=== PATIENT | female | born 2000 | race Caucasian/White ===

== ENCOUNTER 2019-09-07 09:57 | Outpatient (CLI) | payer OTHER, SELFPAY ==
--- NOTE | ~2019-09-07 | US_ITS ---
EXAMINATION: US OB <=14 wk fetus w TV EXAM DATE: 09/07/2019 10:54 INDICATION: For dating. First trimester. TECHNIQUE: Pelvic obstetrical transabdominal sonogram was performed by a technologist. There are mu ltiple grayscale and Doppler images available for interpretation. There are no earlier studies of th is gestation for comparison. FINDINGS: Uterus measures 10.0 x 6.6 x 8.2 cm. There is intrauterine gestation sac. pole with heart rate confirmed at 165 beats per minute. The 3.6 cm crown-rump length corresponds to estimated gestational age by ultrasound of 10 weeks 3 days, estimated date of confinement 04/01/2020. Yolk sac is identified. There is a tiny hypoechoic region, probably subchorionic hematoma measuring 3 x 7 m m. Right ovary is morphologically normal, the left not seen IMPRESSION: 1. Intrauterine gestation, age by ultrasound 10 weeks 3 days. 2. Probable tiny subchorionic hematoma. Reviewed, dictated and finalized at location B.
== END 2019-09-07 09:58 | disposition home or self-care (01) ==
LOC: ANHIMG 10:05
PROVIDERS: Visit Provider Obstetrics & Gynecology
DX: E72.12 Methylenetetrahydrofolate reductase deficiency (principal); Z3A.10 10 weeks gestation of pregnancy
CPT/HCPCS: 76801; 76817

== ENCOUNTER 2019-10-09 09:52 | Outpatient (CLI) | payer OTHER, SELFPAY ==
--- NOTE | ~2019-10-09 | US_ITS ---
EXAMINATION: US OB follow up DATE: 10/09/2019 10:37 INDICATION: Possible subchorionic hemorrhage, second trimester TECHNIQUE: Real-time ultrasound of the pelvis was performed. The interpreting radiologist was not pre sent for the study. COMPARISON: 09/07/2019 FINDINGS: There is a single living fetus in breech presentation. The placenta is posterior and 1.8 cm from the internal cervical os. There are hypoechoic areas of the placenta which measure 2.2 x 1.1 x 1.0 cm and 1.2 x 0.9 x 0.8 cm. cardiac activity and movement are noted. heart rate is 150 beats per minute (bpm). The amniotic fluid index is subjectively normal. The following biometric data were obtained: Biparietal diameter (BPD): 2.9 cm; head circumference (HC): 11.2 cm; abdominal circumference (AC): 9. 7 cm; femur length (FL): 1.7 cm. These measurements are concordant. Estimated weight is 126 g +/- 18 g, which correlates with the 73rd percentile when 04/01/2020 is used as estimated date of delivery. As single measurements, these parameters are each equal to the following estimated gestational ages w ith ranges of +/- 2 standard deviations: BPD: 15 weeks 2 days ( 14 weeks 1 days - 16 weeks 3 days). HC: 15 weeks 3 days ( 14 weeks 2 days - 16 weeks 5 days). AC: 15 weeks 6 days ( 14 weeks 1 days - 17 weeks 3 days). FL: 15 weeks 1 days ( 13 weeks 6 days - 16 weeks 4 days). estimated gestational age based solely on measurements from this exam is 15 weeks 3 days +/- 1 weeks 1 days. IMPRESSION: 1. Single living fetus in breech presentation. 2. Two small hypoechoic areas of the placenta which could represent venous lakes or subchorionic cedric enrique. 3. Low-lying placenta. Reviewed, dictated and finalized at location A. IMPRESSION: 1. Single living fetus in breech presentation. 2. Two small hypoechoic areas of the placenta which could represent venous padilla s or subchorionic hematomas. 3. Low-lying placenta.
== END 2019-10-09 09:53 | disposition home or self-care (01) ==
PROVIDERS: Visit Provider Obstetrics & Gynecology
DX: O43.899 Other placental disorders, unspecified trimester (principal); Z3A.00 Weeks of gestation of pregnancy not specified
CPT/HCPCS: 76816

== ENCOUNTER 2019-12-08 07:44 | Outpatient (CLI) | payer OTHER, SELFPAY ==
--- NOTE | ~2019-12-08 | US_ITS ---
EXAMINATION: US OB /maternal detail DATE: 12/08/2019 09:06 INDICATION: anatomic survey. TECHNIQUE: Real-time ultrasound of the pelvis was performed. COMPARISON: Ultrasound 10/09/2019, 09/07/2019 FINDINGS: There is a single living fetus in breech presentation. The placenta is posterior, 4.5 cm from the ce rvix. There are 2 hypoechoic masses in the placenta with the larger measuring 1.7 x 2.5 x 2.6 cm. Fet al heart rate is 150 beats per minute (bpm). The amniotic fluid volume is subjectively low. The following biometric data were obtained: Biparietal diameter (BPD): 4.9 cm; head circumference (HC): 20.7 cm; abdominal circumference (AC): 19 .3 cm; femur length (FL): 4.0 cm. These measurements are discordant with low cephalic index. Estimated weight is 582 g +/- 87 g, which correlates with 30th percentile when 04/01/20 is used as estimated date of delivery. As single measurements, these parameters are each equal to the following estimated gestational ages: BPD: 20 weeks 6 days. HC: 22 weeks 6 days. AC: 24 weeks 0 days. FL: 22 weeks 6 days. estimated gestational age based solely on measurements from this exam is 22 weeks 5 days +/- 1 weeks 4 days. The cerebral ventricles, cerebellum, cisterna magna, nuchal fold, and visualized portions of the spin e are normal. The heart is not well visualized. The diaphragm, stomach, kidneys, and bladder ar e normal. There are two umbilical arteries to yield a 3-vessel cord. The cord insertion is normal. IMPRESSION: 1. Single living fetus in breech presentation. 2. Estimated weight is 582 g +/- 87 g, which correlates with 30th percentile when 04/01/20 is u sed as estimated date of delivery. This date was set by ultrasound on 09/07/2019. 3. Low cephalic index. 4. heart not well evaluated. Otherwise normal anatomic survey. 5. Oligohydramnios. 6. Two hypoechoic masses in the placenta that may be hematomas or venous lakes. Reviewed, dictated and finalized at location A. IMPRESSION: 1. Single living fetus in breech presentation. 2. Estimated weight is 582 g +/- 87 g, which correlates with 30th percen tile when 04/01/20 is used as estimated date of delivery. This date was set by [facility] on 09/07/2019. 3. Low cephalic index. 4. heart not well evaluated. Otherwise normal anatomic survey. 5. Oligohydramnios. 6. Two hypoechoic masses in the placenta that may be hematomas or venous lakes.
== END 2019-12-08 07:45 | disposition home or self-care (01) ==
PROVIDERS: Visit Provider Obstetrics & Gynecology
DX: Z34.92 Encounter for supervision of normal pregnancy, unspecified, second trimester (principal); Z3A.22 22 weeks gestation of pregnancy
CPT/HCPCS: 76805

== ENCOUNTER 2020-03-25 06:10 | Inpatient (IN) | payer OTHER, SELFPAY ==
[2020-03-25] VITALS (78 sets, daily range): BP systolic 51–136; BP diastolic 29–97; PULSE 42–213; RESP 18; TEMP 36.2–36.8; O2SAT 79–100; BMI 39.3
[2020-03-25 07:29] LABS: Basophils Absolute Auto 0.1 K/mm3 (0.0-0.1); Basophils Percent Auto 0.6 % (0.2-1.2); Eosinophils Absolute Auto 0.4 K/mm3 (0-0.3); Eosinophils Percent Auto 3.4 % (0-4.4); Hematocrit 35.1 % (37.0-47.0); Hemoglobin 11.8 g/dL (12.0-15.0); Immature Granulocyte Absolute 0.09 K/mm3 (0.00-0.031); Immature Granulocyte Percent A 0.8 % (0-0.5); Lymphocytes Absolute Auto 2.41 K/mm3 (0.9-3.2); Lymphocytes Percent Auto 21.3 % (18.3-44.2); Mean Corpuscular HGB Conc 33.6 g/dl (32-36); Mean Corpuscular Hemoglobin 31.1 pg (26-34); Mean Corpuscular Volume 92.4 fl (80-100); Mean Platelet Volume 10.8 fl (7.4-10.4); Monocytes Absolute Auto 0.5 K/mm3 (0.1-0.6); Monocytes Percent Auto 4.3 % (2.6-8.5); Neutrophils Absolute Auto 7.9 K/mm3 (1.3-6.7); Neutrophils Percent Auto 69.6 % (45.5-73.1); Platelet Count Result 209 k/mm3 (150-375); Red Cell Distribution Width 12.7 % (11.5-14.5); White Blood Count 11.3 K/mm3 (4.5-10.0)
[2020-03-25 07:31] LABS: Amphetamine Screen Urine Negative (Negative); Barbiturate Screen Urine Negative (Negative); Benzodiazepines Screen Urine Negative (Negative); Cannabinoid Screen Urine Positive (Negative); Cocaine Screen Urine Negative (Negative); Methadone Screen Urine Negative (Negative); Opiate Screen Urine Negative (Negative); Phencyclidine Screen Urine Negative (Negative)
[2020-03-25] MEDS: LACTATED RINGERS 1,000 ML 125 ML IV CONT ×3 (07:59→19:27)
[2020-03-25] MEDS: AMPICILLIN 2 GM/NS 100 ML 2 GM/100 ML BAG IVPB (07:59)
[2020-03-25] MEDS: OXYTOCIN 30 UNITS/NS 500 ML 30 UNITS/500 ML BAG IV CONT (08:00)
--- NOTE | 2020-03-25 09:33 | LDADM ---
This patient, Claire Grande, was admitted to Labor/Delivery/Recovery 107 on 03/25/20 at 06:10. Plans for labor, pain management and were discussed with patient. Patient/family oriented to hospital policies and general routines including ID bracelet, bed and alarms, visiting hours, pain management, procedures, bathroom and other care routines, personal items, smoking policy, room service/diet and guest tray routines, security routines, and visiting hours. Patient/Family are encouraged to report perceived risks to care and to ask questions if they do not understand what they are told or what they should do. See OBIX for further documentation.
[2020-03-25 11:55] LABS: Rapid Plasma Reagin Non-Reactive (NonReactive)
--- NOTE | 2020-03-25 18:04 | WPDANESEPP ---
Anes - Eval Pre Procedure Procedure: Labor epidural Date/Time: 03/25/20 18:04 Surgeon: Jess Preop Diagnosis: pain during labor Pre Op Diagnosis: ind Patient Data Age: 19 Gender: F Height: 1.7 m Weight: 114 kg Last Vital Signs Temp 36.2 C L 03/25/20 15:45 Pulse 96 03/25/20 18:00 BP 122/97 H 03/25/20 18:00 Allergies Allergy/AdvReac Type Severity Reaction Status Date / Time No Known Allergies Allergy Verified 03/08/20 12:50 Home Medications Medication Instructions Recorded Confirmed Type aspirin See Rx Instructions .ROUTE .COMPLEX 03/25/20 03/25/20 History escitalopram oxalate See Rx Instructions .ROUTE .COMPLEX 03/25/20 03/25/20 History folic acid See Rx Instructions .ROUTE .COMPLEX 03/25/20 03/25/20 History Laboratory Tests 03/25/20 03/25/20 03/25/20 06:39 06:39 06:39 WBC 11.3 K/mm3 H K/mm3 (4.5-10.0) RBC 3.80 M/mm3 L M/mm3 (4.2-5.4) Hgb 11.8 g/dL L g/dL (12.0-15.0) Hct 35.1 % L % (37.0-47.0) MCV 92.4 fl fl (80-100) MCH 31.1 pg pg (26-34) MCHC 33.6 g/dl g/dl (32-36) RDW 12.7 % % (11.5-14.5) Plt Count 209 k/mm3 k/mm3 (150-375) MPV 10.8 fl H fl (7.4-10.4) Immature Gran % (Auto) 0.8 % H % (0-0.5) Neut % (Auto) 69.6 % % (45.5-73.1) Lymph % (Auto) 21.3 % % (18.3-44.2) [place] % (Auto) 4.3 % % (2.6-8.5) Eos % (Auto) 3.4 % % (0-4.4) Baso % (Auto) 0.6 % % (0.2-1.2) Lymph # (Auto) 2.41 K/mm3 K/mm3 (0.9-3.2) [place] # (Auto) 0.5 K/mm3 K/mm3 (0.1-0.6) Eos # (Auto) 0.4 K/mm3 H K/mm3 (0-0.3) Baso # (Auto) 0.1 K/mm3 K/mm3 (0.0-0.1) Abs Immat Gran (auto) 0.09 K/mm3 H K/mm3 (0.00-0.031) Absolute Neuts (auto) 7.9 K/mm3 H K/mm3 (1.3-6.7) Absolute Nucleated RBC 0.0 K/mm3 K/mm3 (0.0-0.012) Nucleated RBC % 0.0 % % (0.0-0.2) Urine Opiates Screen Urine Methadone Screen Ur Barbiturates Screen Ur Phencyclidine Scrn Ur Amphetamine Screen U Benzodiazepines Scrn Urine Cocaine Screen U Cannabinoids Screen RPR Non-reactive (NonReactive) Blood Type A Positive Antibody Screen Negative 03/25/20 07:02 WBC RBC Hgb Hct MCV MCH MCHC RDW Plt Count MPV Immature Gran % (Auto) Neut % (Auto) Lymph % (Auto) [place] % (Auto) Eos % (Auto) Baso % (Auto) Lymph # (Auto) [place] # (Auto) Eos # (Auto) Baso # (Auto) Abs Immat Gran (auto) Absolute Neuts (auto) Absolute Nucleated RBC Nucleated RBC % Urine Opiates Screen Negative (Negative) Urine Methadone Screen Negative (Negative) Ur Barbiturates Screen Negative (Negative) Ur Phencyclidine Scrn Negative (Negative) Ur Amphetamine Screen Negative (Negative) U Benzodiazepines Scrn Negative (Negative) Urine Cocaine Screen Negative (Negative) U Cannabinoids Screen Positive A (Negative) RPR Blood Type Antibody Screen Patient hx anesthesia problems: none Family hx anesthesia problems: none [facility] Past Medical History Medical History (Updated 03/25/20 @ 18:05 by Cee Gonzalez CRNA) Depression Intrauterine Obesity (BMI 30-39.9) Social History Social History Smoking status: Never smoker Substance use: never Gender identity (if verbalized by the patient): Female Spiritual care concerns: No Exam Day of Procedure 03/25/20 18:04
[2020-03-25] MEDS: fentaNYL CITRATE INJ (*CRX) 100 MCG/2 ML VIAL IV PUSH (18:38)
--- NOTE | 2020-03-25 19:00 | PM.IMHP ---
H&P: HPI History of Present Illness Date/Time: 03/25/20 07:00 Chief complaint: ind Narrative: Claire Grande is a 19 year old female, , presents for SANCHO at 39w0d. H/o obesity, post- depression, premature labor, abnormal progesterone, and MTHFR here for induction of laborShe understands her condition procedure and risks involved and agrees to proceed Review of Systems Review of Systems: All systems reviewed & are unremarkable except as noted in HPI and below Constitutional: Constitutional: Reports no additional constitutional complaints Eyes: Eyes: Reports no additional eye complaints ENT: Reports system reviewed and no additional complaints, except as documented Cardiovascular: Cardiovascular: Reports no additional cardiovascular complaints Respiratory: Respiratory: Reports no additional respiratory complaints Gastrointestinal: Gastrointestinal: Reports no additional gastrointestinal complaints Genitourinary: Genitourinary: Reports no additional female genitourinary complaints Musculoskeletal: Musculoskeletal: Reports no additional musculoskeletal complaints Integumentary/Breasts: Skin/Breast: Reports system reviewed and no additional complaints, except as docu Neurologic: Reports system reviewed and no additional complaints, except as documented Psychiatric: Psychiatric: Reports no additional psychiatric complaints Endocrine: Endocrine: Reports no additional endocrine complaints Hematologic/Lymphatic: Hematologic/Lymphatic: Reports no additional hematologic/lymphatic complaints Allergic/Immunologic: Allergic/Immunologic: Reports no additional allergic/immunologic complaints PMFSH Past Medical History Medical History (Updated 03/25/20 @ 19:14 by Juvenal Mercado MD) Asthma Candidiasis of vagina Depression MANDA (generalized anxiety disorder) Heterozygous MTHFR mutation C677T Intrauterine term Obesity (BMI 30-39.9) Surgical History Surgical History (Updated 03/25/20 @ 19:07 by Juvenal Mercado MD) History of tonsillectomy 2009 Family History Family History Other Polycystic ovarian disease Social History Social History (Updated 03/25/20 @ 19:10 by Juvenal Mercado MD) Smoking status: Never smoker Second hand tobacco smoke exposure: Yes Alcohol intake: never Substance use: never Substance use type: does not use Living arrangements: with family Occupation/Education: occupation Additional occupation/education comments: [employer]/ 9th grade education Gender identity (if verbalized by the patient): Female Sexual Orientation (if Verbalized by the Patient): Straight or Heterosexual Spiritual care concerns: No Agree to blood products: Yes Meds Home Medications and Allergies Home Medications Medication Instructions Recorded Confirmed Type aspirin See Rx Instructions .ROUTE .COMPLEX 03/25/20 03/25/20 History escitalopram oxalate See Rx Instructions .ROUTE .COMPLEX 03/25/20 03/25/20 History folic acid See Rx Instructions .ROUTE .COMPLEX 03/25/20 03/25/20 History Allergies Allergy/AdvReac Type Severity Reaction Status Date / Time No Known Allergies Allergy Verified 03/08/20 12:50 Vital Signs Vital Signs - 24 hr 03/25/20 06:39 03/25/20 07:30 03/25/20 07:45 Temperature Pulse Rate 103 H 94 85 Blood Pressure 121/73 87/67 L 109/69 Pulse Oximetry 03/25/20 08:00 03/25/20 08:15 03/25/20 09:13 Temperature Pulse Rate 89 84 89 Blood Pressure 121/67 116/63 130/73 Pulse Oximetry 03/25/20 09:15 03/25/20 10:32 03/25/20 10:45 Temperature Pulse Rate 102 H 70 76 Blood Pressure 136/78 123/52 L 120/66 Pulse Oximetry 03/25/20 11:00 03/25/20 11:15 03/25/20 11:30 Temperature 97.1 F L Pulse Rate 82 83 87 Blood Pressure 116/63 109/70 108/63 Pulse Oximetry 03/25/20 11:45 03/25/20 12:00 03/25/20 12:02 Temperature 97.3 F L
--- NOTE | 2020-03-25 19:14 | WPDHPUPDATE1 ---
History and Physical Update Update Date/Time: 03/25/20 19:14 History and Physical has been reviewed, including an updated exam of the patient. There are NO changes in the patient's condition. Risks, benefits, and alternatives have been discussed and questions answered. Patient agrees to proceed with procedure. Claire Grande is a 19 year old female, , presents for SANCHO at 39w0d. H/o obesity, post- depression, premature labor, abnormal progesterone, and MTHFR here for induction of laborShe understands her condition procedure and risks involved and agrees to proceed
--- NOTE | 2020-03-25 19:15 | WPDOBADMIT ---
Obstetrics - Admit Note Admission Note: record reviewed. No pertinent additions to the history and/or any subsequent changes in the physical findings that are not consistent with the expected course of the were found. Additions to the history and/or subsequent changes in the physical findings follow. None. Claire Grande is a 19 year old female, , presents for SANCHO at 39w0d. H/o obesity, post- depression, premature labor, abnormal progesterone, and MTHFR here for induction of laborShe understands her condition procedure and risks involved and agrees to proceed
--- NOTE | 2020-03-25 19:17 | PM.OBPNLAB ---
Pain Control Date/time seen: 03/25/20 18:17 Pain control: tolerating well and narcotic analgesia Comments: Claire Grande is a 19 year old female, , presents for SANCHO at 39w0d. H/o obesity, post- depression, premature labor, abnormal progesterone, and MTHFR here for induction of laborShe understands her condition procedure and risks involved and agrees to proceed Pelvic Exam Dilation (cm): 4 Effacement (%): 100 station: -2 Amniotic membrane status: Intact Comments: artificial rupture membranes clear fluid obtained intrauterine pressure catheter placed Contractions Monitor mode: Internal Contraction pattern: Regular Contraction phase: Resting Contraction intensity: Strong/Firm Status status: Category l Assessment and Plan Pitocin rate (mU/min): 20 Assessment: active labor Plan: continuous present management Comments: natural childbirth may want epidural
--- NOTE | 2020-03-25 19:19 | PM.OBPNLAB ---
Pain Control Date/time seen: 03/25/20 19:19 Pain control: tolerating well and epidural Pelvic Exam Dilation (cm): 8 Effacement (%): 100 station: -2 Amniotic membrane status: Ruptured Contractions Monitor mode: Internal Contraction pattern: Regular Contraction phase: Resting Contraction intensity: Strong/Firm Status status: Category l Assessment and Plan Assessment: active labor Plan: continuous present management and other ( epidural)
--- NOTE | 2020-03-25 20:26 | PM.OBPNLAB ---
Pain Control Date/time seen: 03/25/20 20:00 Pain control: tolerating well and epidural Pelvic Exam Dilation (cm): 10 Effacement (%): 100 station: +3 Amniotic membrane status: Ruptured Contractions Monitor mode: Internal Contraction pattern: Regular Contraction phase: Resting Contraction intensity: Strong/Firm Status status: Category l Assessment and Plan Assessment: active labor ( completion stage I) Plan: continuous present management and other ( began stage II anticipate vaginal delivery soon)
--- NOTE | 2020-03-25 20:27 | PM.OBPRVD ---
OB - Delivery Note Procedure Delivery date: 03/25/20 Procedure: normal spontaneous vertex vaginal delivery a viable female infant over an intact perineum manual extraction of placenta events: Oligohydramnios Intrapartal events: None Induction method: per pitocin protocol Delivery augmentation: rupture of membranes Delivery monitor: external FHT and internal uterine Route of delivery: Episiotomy description: None Laceration Description: None Specimen: Yes ( placenta, cord gases, cord blood) Estimated blood loss (mL): 150 Anesthesia type: Epidural Disposition: floor Complications: none Narrative: normal spontaneous vertex vaginal delivery a viable female infant over an intact perineum 1 series of pushing with baby on perineum . Nuchal cord x1 reduced upon delivery of vertex anterior shoulder delivered without difficulty infant delivered and placed onto the maternal abdomen cord clamped and cut. Spontaneous respiration bulb suction stimulation normal transition of baby handed to nursery nurse in attendance skin to skin contact given for 30 minutes. Cord gases obtained cord blood obtained and then the placenta was manually extracted intact 3 vessel cord the uterus contracted well with Pitocin given intravenously. Perineum was inspected no cuts tears or lacerations the uterus was firm. Mom and baby in room 1. 0 7 stable condition. She will be breast feeding. [place] Baby Date of : 03/25/20 Time of : 20:13 Weeks of gestation at delivery: 39 Infant gender: Female Weight (pounds): 6 Weight (ounces): 14 presentation: vertex position: Left Occiput Anterior Placenta delivery description: Manual Removal and Normal Configuration cord vessel description: Nuchal Cord, Loose and Reduced score one minute: 9 score five minutes: 9
[2020-03-25] MEDS: OXYTOCIN 30 UNITS/NS 500 ML 30 UNITS/500 ML BAG 125 UNITS IV CONT (20:35)
--- NOTE | 2020-03-25 23:34 | OBPPTRN ---
Patient transferred to post room #[id number] via wheelchair. Support person present. Oriented to unit, room, information board, rooming in, admission packet and security measures. Patient verbalizes understanding.
--- NOTE | 2020-03-25 23:34 | OBPPTRN ---
Patient transferred to post room # via ( ). Support person present. Oriented to unit, room, information board, rooming in, admission packet and security measures. Patient verbalizes understanding.
[2020-03-26] MEDS: BENZOCAINE 20% AER SPR (*SP) 56 GM CAN 1 SPRAY TOPICAL (00:22)
[2020-03-26] MEDS: WITCH HAZEL 40 PADS 1 PAD TOPICAL (00:23)
[2020-03-26] MEDS: IBUPROFEN 600 MG TABLET PO ×3 (00:23→18:55)
[2020-03-26] MEDS: DIBUCAINE 1% OINTMENT 30 GM TUBE 1 APPLIC TOPICAL (00:24)
[2020-03-26 05:00] VITALS: BP 110/53; PULSE 88; RESP 16; TEMP 36.7; O2SAT 100
[2020-03-26 05:37] LABS: Hematocrit 30.2 % (37.0-47.0); Hemoglobin 10.4 g/dL (12.0-15.0)
--- NOTE | 2020-03-26 07:15 | WPDANLDPN2 ---
Anes-Prog Note L&D Date/Time: 03/26/20 07:15 Comfortable throughout: labor and delivery Neuraxial method: epidural Epidural/Spinal procedure site: clean & non-tender Neuro status: Neuro function grossly intact. Cardiovascular status: normal Respiratory status: normal Airway patency: baseline Mental status: baseline Post-Op hydration status: normal Vital Signs: Last Vital Signs Temp 36.7 C 03/26/20 05:00 Pulse 88 03/26/20 05:00 Resp 16 03/26/20 05:00 BP 110/53 L 03/26/20 05:00 Pulse Ox 100 03/26/20 05:00 Pain score (VAS): 06/09 I/O: Intake & Output 03/25/20 03/25/20 03/26/20 15:59 23:59 07:59 Intake Total 1000 1500 Output Total 175 Balance 1000 1325 Post-procedural complaints: none Patient feedback: Patient satisfied with anesthetic care.
[2020-03-26] MEDS: DOCUSATE SODIUM 100 MG CAPSULE PO (07:31)
[2020-03-26] MEDS: ACETAMINOPHEN 325 MG TABLET 650 MG PO (07:31)
[2020-03-26 07:55] VITALS: BP 99/59; PULSE 90; RESP 18; TEMP 36.6; O2SAT 97
--- NOTE | 2020-03-26 13:07 | PCCCNOTE ---
Care Coordination. Pt. referred to CC for positive UDS for marijuana. Met with pt. and FOB at bedside. Pt. reports this is her second baby. Pt. reports having all necessary baby care items and setup with WIC. Pt. reports plan is to return home with FOB and 5 year old daughter. Pt. reports having support from both sides of their immediate families. Pt. reports using marijuana to help with her anxiety and denies the need for substance abuse resources or community resources. Filed a report through the [facility] online reporting portal. Intake ID#[id number].
[2020-03-26 18:55] VITALS: BP 124/64; PULSE 97; RESP 16; TEMP 36.8
[2020-03-27] MEDS: IBUPROFEN 600 MG TABLET PO ×2 (01:00→07:46)
[2020-03-27 07:45] VITALS: BP 120/78; PULSE 80; RESP 18; TEMP 36.6; O2SAT 100
[2020-03-27] MEDS: ESCITALOPRAM OXALATE 10 MG TABLET PO (10:12)
[2020-03-27] MEDS: TETANUS,DIPHTHERIA,AC PERTUSSIS ADULT (0.5 ML) BOOSTRIX IM (10:13)
--- NOTE | 2020-03-27 20:39 | PM.OBDSVD ---
DS: Admitting Diagnosis Admitting Diagnosis Admitting Diagnosis: induction of labor Term Oligohydramnios MTHFR Asthma Generalized anxiety disorder Depressive disorder Obesity DS: Discharge Diagnosis Discharge Diagnosis (1) Term delivered: Code(s): O80 - Encounter for full-term uncomplicated delivery Status: Acute (2) Oligohydramnios: Code(s): O41.00X0 - Oligohydramnios, unspecified trimester, not applicable or unspecified Status: Acute (3) Asthma: Code(s): J45.909 - Unspecified asthma, uncomplicated Status: Acute (4) MANDA (generalized anxiety disorder): Code(s): F41.1 - Generalized anxiety disorder Status: Acute (5) Heterozygous MTHFR mutation C677T: Code(s): E72.12 - Methylenetetrahydrofolate reductase deficiency Status: Acute (6) Depression: Code(s): F32.9 - Major depressive disorder, single episode, unspecified Status: Acute (7) Obesity (BMI 30-39.9): Code(s): E66.9 - Obesity, unspecified Status: Acute OB - DS: Summary Hospital Course Time spent discussing smoking cessation with patient: 3 to 10 minutes OB Procedures : Ultrasound OB Procedures Intrapartum: Spontaneous Vag Delivery and GBS prophylaxis OB Procedures: : None Peripartum Data Infant Delivery Method: Natural Vaginal Laceration description: None Episiotomy description: None complications: none 1: Gender: Female Disposition of : home Status at Discharge Functional status at discharge: independent ambulation Overall status at discharge: patient is back to baseline Time Spent with Patient Time attestation: Total time spent providing and/or coordinating discharge services: Time spent: Less than 30 minutes Exam Const: General: cooperative, healthy appearing, comfortable, no acute distress, alert, awake and Physically active Nutritional Appearance: obese Orientation/consciousness: patient oriented x3 Limitations: no limitations HENMT: Head: normal to inspection Eyes: General: appearance normal, both eyes and all related structures Neck: Neck: normal visual inspection Chest: Chest palpation & inspection: normal inspection of the chest Resp: Effort & Inspection: normal respiratory effort Auscultation: clear to auscultation bilaterally Cardio: Jugular venous distension: no JVD Palpation: normal PMI Rate: regular rate Rhythm: regular rhythm GI: Inspection: normal to inspection GI Palp: Yes Soft to palpation Percussion: Yes normal to percussion Auscultation: normal bowel sounds : General: Yes bladder normal to inspection External Female Exam: normal external appearance Bimanual exam- vagina & uterus: normal bimanual exam Back/Spine/Pelvis: Back: no CVA tenderness Skin: General skin exam: normal color Neuro: General: patient oriented x3, gait normal, tone normal, moves all extremities, Normal light touch and pain sensation, no meningeal signs, no focal motor deficits and CN's II-XI intact bilaterally Cognition (Neuro): normal cognition Speech: normal speech Gait exam (Neuro): Normal gait present Motor exam (neuro): 5/5 motor strength present throughout Sensory Exam: normal sensation Extrem: General: normal to inspection and full ROM Psych: Appearance: grossly normal Mental Status: mental status grossly normal Speech and movement: Normal speech and movement present Affect: normal affect Attitude: cooperative Thought process: Normal thought process present Thought content: Yes Normal thought content present Insight: Good insight present (Psych) Judgement: Good judgement present (Psych) DS: Data Data Completed and Pending Labs on day of discharge: Labs from last 24 hours 03/25/20 03/25/20 03/25/20 07:02 06:39 06:39 WBC RBC Hgb Hct MCV MCH MCHC RDW Plt Count MPV Immature Gran % (Auto) Neut % (Auto) Lymph % (Au
[2020-03-28 09:25] VITALS: BP 116/74; PULSE 105; RESP 20; TEMP 36.9; O2SAT 100
== END 2020-03-27 11:45 | disposition home or self-care (01) | DRG 560 ==
LOC: ANHLDR 20:47 → ANHOB2 03-26 00:27
PROVIDERS: Admitting Provider Obstetrics & Gynecology; Visit Provider Obstetrics & Gynecology
DX: O41.03X0 Oligohydramnios, third trimester, not applicable or unspecified (principal); Z37.0 Single live birth; O99.214 Obesity complicating childbirth; E66.9 Obesity, unspecified; O99.344 Other mental disorders complicating childbirth; F32.9 Major depressive disorder, single episode, unspecified; O99.284 Endocrine, nutritional and metabolic diseases complicating childbirth; E72.12 Methylenetetrahydrofolate reductase deficiency; F41.1 Generalized anxiety disorder; O99.52 Diseases of the respiratory system complicating childbirth; J45.909 Unspecified asthma, uncomplicated; O69.81X0 Labor and delivery complicated by cord around neck, without compression, not applicable or unspecified
CPT/HCPCS: 36415; 80307; 85014; 85018; 85025; 86592; 86850; 86900; 86901; 88307; 90715; A9270; J0290; J2590; J2795; J3010; J7120

== ENCOUNTER 2023-10-29 22:00 | Emergency (ER) | payer OTHER, SELFPAY ==
--- NOTE | ~2023-10-29 | XR_ITS ---
EXAMINATION: XR chest 1V portable Exam Date/Time: 10/29/2023 22:40 CDT HISTORY: cough Comparison: None. RESULT: Lines, tubes, and devices: None. Lungs and pleura: Linear and groundglass right basilar opacities. Soft tissue summation artifact acc entuates opacification in the bilateral lower lungs. Cardiomediastinal silhouette: Stable. Other: No acute osseous or upper abdominal finding. IMPRESSION: Linear and subsegmental groundglass opacities in the right lung base may represent atelectasis and/co nsolidation. PA and lateral views of the chest with be helpful for confirmation and localization. Reviewed, dictated and finalized at location K. IMPRESSION: Linear and subsegmental groundglass opacities in the right lung base may repres ent atelectasis and/consolidation. PA and lateral views of the chest with be he lpful for confirmation and localization.
[2023-10-29 22:06] VITALS: BP 122/77; PULSE 117; RESP 17; TEMP 36.7; O2SAT 97
[2023-10-29] MEDS: IPRATROPIUM 0.5 MG/ALBUTEROL SULFATE 2.5 MG AMPUL.NEB 3 ML INHALATION (22:51)
[2023-10-29 22:52] VITALS: PULSE 116; RESP 20
[2023-10-29 23:09] VITALS: PULSE 130; RESP 18
[2023-10-29 23:26] LABS: Strep Group A RT-PCR NOT DETECTED (Negative)
[2023-10-29 23:28] VITALS: BP 105/70; PULSE 130; RESP 19; O2SAT 100
[2023-10-29 23:37] LABS: Influenza A QL RT-PCR Negative (Negative); Influenza B QL RT-PCR Negative (Negative); RSV RNA, RT-PCR Negative (Negative); SARS-CoV-2 RNA PCR Negative (Negative)
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
[2023-10-30] MEDS: AMOXICILLIN/CLAVULANATE K 875-125 MG TAB 1 TABLET PO (00:24)
[2023-10-30] MEDS: AZITHROMYCIN 250 MG TABLET 500 MG PO (00:24)
[2023-10-30 00:33] VITALS: BP 123/66; PULSE 110; RESP 16; O2SAT 97
== END 2023-10-30 00:35 | disposition home or self-care (01) ==
PROVIDERS: Emergency Provider Emergency Medicine
DX: O99.512 Diseases of the respiratory system complicating pregnancy, second trimester (principal); J18.9 Pneumonia, unspecified organism; Z20.822 Contact with and (suspected) exposure to COVID-19; J45.909 Unspecified asthma, uncomplicated; O99.212 Obesity complicating pregnancy, second trimester; E66.9 Obesity, unspecified; O99.342 Other mental disorders complicating pregnancy, second trimester; F32.A Depression, unspecified; F41.1 Generalized anxiety disorder; Z3A.22 22 weeks gestation of pregnancy
CPT/HCPCS: 71045; 87637; 87651; 94640; 99283; A9270

== ENCOUNTER 2023-11-12 09:10 | Outpatient (RCR) | payer OTHER, SELFPAY ==
[2023-11-12 13:44] VITALS: BP 107/58; PULSE 108
== END 2024-02-10 23:59 | disposition home or self-care (01) ==
LOC: ANHOBOP 09:10
PROVIDERS: Visit Provider Advanced Practice Midwife
DX: O36.8320 Maternal care for abnormalities of the fetal heart rate or rhythm, second trimester, not applicable or unspecified (principal); Z3A.24 24 weeks gestation of pregnancy
CPT/HCPCS: 59025

== ENCOUNTER 2024-01-29 20:19 | Outpatient (CLI) | payer OTHER, SELFPAY ==
[2024-01-29 21:29] LABS: OBXCEM ROM Plus Negative
== END 2024-01-29 21:20 | disposition home or self-care (01) ==
LOC: ANHOBOP 21:17
PROVIDERS: Obstetrics & Gynecology; Visit Provider Advanced Practice Midwife
DX: O42.90 Premature rupture of membranes, unspecified as to length of time between rupture and onset of labor, unspecified weeks of gestation (principal); Z3A.00 Weeks of gestation of pregnancy not specified
CPT/HCPCS: 59025; 84112

== ENCOUNTER 2024-01-30 10:57 | Observation (INO) | payer OTHER, SELFPAY ==
[2024-01-30 11:15] VITALS: BP 106/59; PULSE 101
[2024-01-30 11:30] VITALS: BP 102/66; PULSE 91
--- NOTE | 2024-01-30 11:30 | PC.NURSE ---
Dr Yoo on unit, no contractions noted and FHT's reassuring. Ok to dc home when reactive.
[2024-01-30 11:45] VITALS: BP 105/59; PULSE 88
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
[2024-01-30 12:08] VITALS: BMI 42.1
--- NOTE | 2024-02-28 10:17 | PM.OBTRLD ---
OB - Triage/Final Diagnosis Visit Information Comments/Additional reasons for admission: I have assessed the risk for this patient, Claire Grande, and determined that she would benefit from observation care. Final Diagnosis (1) False labor: Code(s): O47.9 - False labor, unspecified Status: Acute
== END 2024-01-30 12:08 ==
PROVIDERS: Admitting Provider Obstetrics & Gynecology; Visit Provider Obstetrics & Gynecology
DX: O47.03 False labor before 37 completed weeks of gestation, third trimester (principal); Z3A.35 35 weeks gestation of pregnancy
CPT/HCPCS: G0378; G0379

== ENCOUNTER 2024-02-08 18:17 | Observation (INO) | payer OTHER, SELFPAY ==
[2024-02-08] VITALS (26 sets, daily range): BP systolic 104–120; BP diastolic 65–71; PULSE 55–118; TEMP 36.6; O2SAT 85–98; BMI 42.0
--- NOTE | 2024-02-08 18:17 | PC.NURSE ---
Pt arrives to unit post fall.
--- NOTE | 2024-02-08 18:44 | OBADM ---
This patient, Claire Grande, admitted to the OB room OB Post 117 for observation. Patient/family oriented to hospital policies and general routines including ID bracelet, bed and alarms, visiting hours, pain management, procedures, bathroom and other care routines, personal items, smoking policy, room service/diet, and visiting hours. Patient/Family are encouraged to report perceived risks to care and to ask questions if they do not understand what they are told or what they should do.
--- NOTE | 2024-02-08 18:54 | PC.NURSE ---
Dr. Olvera on the unit, update on pt, fall, tightness 6 out of 10, tracing, and blood pressure. Orders received to administer Tylenol 1000 mg as needed, perform cervical exam, monitor to 2020, and discharge home if reactive tracing with instructions to keep next scheduled appointment.
--- NOTE | 2024-02-08 19:09 | PC.NURSE ---
Cervical exam 1.5 cm, 40%, minus 2.
--- NOTE | 2024-02-08 21:10 | PC.NURSE ---
Pt discharged with instructions to take Tylenol as needed, keep next scheduled appointment tomorrow, and when to return to the unit, pt verbalizes understanding.
--- NOTE | 2024-02-10 21:57 | PM.OBTRLD ---
OB - Triage/Final Diagnosis Visit Information Comments/Additional reasons for admission: I have assessed the risk for this patient, Claire Grande, and determined that she would benefit from observation care. Final Diagnosis (1) Fall: Code(s): W19.XXXA - Unspecified fall, initial encounter Status: Acute
== END 2024-02-08 21:10 | disposition home or self-care (01) ==
PROVIDERS: Admitting Provider Obstetrics & Gynecology; Referring Provider Advanced Practice Midwife; Visit Provider Obstetrics & Gynecology
DX: Z04.3 Encounter for examination and observation following other accident (principal); O26.93 Pregnancy related conditions, unspecified, third trimester; Z3A.36 36 weeks gestation of pregnancy; W19.XXXA Unspecified fall, initial encounter
CPT/HCPCS: G0378; G0379

== ENCOUNTER 2024-02-10 16:51 | Outpatient (CLI) | payer OTHER, SELFPAY ==
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
[2024-02-10 18:05] LABS: OBXCEM ROM Plus Negative (Negative)
== END 2024-02-10 17:50 | disposition home or self-care (01) ==
LOC: ANHOBOP 17:35 → ANHLDR 17:41
PROVIDERS: Registered Nurse; Visit Provider Advanced Practice Midwife
DX: R10.9 Unspecified abdominal pain (principal); O26.899 Other specified pregnancy related conditions, unspecified trimester; Z3A.00 Weeks of gestation of pregnancy not specified
CPT/HCPCS: 84112; 99199

== ENCOUNTER 2024-02-15 13:25 | Outpatient (CLI) | payer OTHER, SELFPAY ==
[2024-02-15 14:07] VITALS: BP 117/67; PULSE 115
== END 2024-02-15 14:10 | disposition home or self-care (01) ==
LOC: ANHOBOP 14:03 → ANHLDR 14:11
PROVIDERS: Visit Provider Advanced Practice Midwife
DX: O42.90 Premature rupture of membranes, unspecified as to length of time between rupture and onset of labor, unspecified weeks of gestation (principal); Z3A.00 Weeks of gestation of pregnancy not specified
CPT/HCPCS: 59025; 99199

== ENCOUNTER 2024-02-17 18:05 | Observation (INO) | payer OTHER, SELFPAY ==
[2024-02-17 19:41] VITALS: BMI 41.4
--- NOTE | 2024-02-17 19:41 | OBADM ---
This patient, Claire Grande, admitted to the OB room Labor/Delivery/Recovery 106 for observation. Patient/family oriented to hospital policies and general routines including ID bracelet, bed and alarms, visiting hours, pain management, procedures, bathroom and other care routines, personal items, smoking policy, room service/diet, and visiting hours. Patient/Family are encouraged to report perceived risks to care and to ask questions if they do not understand what they are told or what they should do.
--- NOTE | 2024-03-08 22:09 | PM.OBTRLD ---
OB - Triage/Final Diagnosis Visit Information Comments/Additional reasons for admission: I have assessed the risk for this patient, Claire Grande, and determined that she would benefit from observation care. Final Diagnosis (1) Amniotic fluid leaking: Code(s): O42.90 - Premature rupture of membranes, unspecified as to length of time between rupture and onset of labor, unspecified weeks of gestation Status: Acute
== END 2024-02-17 21:09 | disposition home or self-care (01) ==
PROVIDERS: Admitting Provider Obstetrics & Gynecology; Visit Provider Obstetrics & Gynecology
DX: O42.913 Preterm premature rupture of membranes, unspecified as to length of time between rupture and onset of labor, third trimester (principal); Z3A.38 38 weeks gestation of pregnancy
CPT/HCPCS: G0378; G0379

== ENCOUNTER 2024-02-18 02:55 | Inpatient (IN) | payer OTHER, SELFPAY ==
[2024-02-18] VITALS (46 sets, daily range): BP systolic 92–140; BP diastolic 52–101; PULSE 72–110; RESP 16–18; TEMP 36.3–36.7; O2SAT 96–100; BMI 41.4
--- NOTE | 2024-02-18 02:55 | LDADM ---
This patient, Claire Grande, was admitted to Labor/Delivery/Recovery 108 on 02/18/24 at 05:15. Plans for labor, pain management and were discussed with patient. Patient/family oriented to hospital policies and general routines including ID bracelet, bed and alarms, visiting hours, pain management, procedures, bathroom and other care routines, personal items, smoking policy, room service/diet and guest tray routines, security routines, and visiting hours. Patient/Family are encouraged to report perceived risks to care and to ask questions if they do not understand what they are told or what they should do. See OBIX for further documentation.
--- NOTE | 2024-02-18 02:55 | OBADM ---
This patient, Claire Grande, admitted to the OB room Labor/Delivery/Recovery 108 for observation. Patient/family oriented to hospital policies and general routines including ID bracelet, bed and alarms, visiting hours, pain management, procedures, bathroom and other care routines, personal items, smoking policy, room service/diet, and visiting hours. Patient/Family are encouraged to report perceived risks to care and to ask questions if they do not understand what they are told or what they should do.
[2024-02-18 04:24] LABS: Add Urine Microscopic? YES; Appearance Urine Cloudy (Clear); Bacteria Urine 2+ /hpf; Bilirubin Urine Negative (Negative); Blood Urine 3+ (Negative); Color Urine Yellow (Yellow); Glucose Urine UA Negative (Negative); Ketones Urine Negative (Negative); Leukocyte Esterase Ur 1+ LEU/UL (Negative); Nitrate Urine Negative (Negative); Non Pathogenic Casts 0-2; Protein Urine Trace mg/dL (Negative); RBC Urine >100 /hpf (0-2); Specific Grav Ur 1.019 (1.001-1.035); Squamous Epithelial Cell Urine Many /hpf (Few); pH Urine 6.5 (5.0-9.0)
[2024-02-18 05:50] LABS: Basophils Percent Auto 0.3 % (0.2-1.2); Eosinophils Absolute Auto 0.1 K/mm3 (0-0.3); Eosinophils Percent Auto 0.8 % (0-4.4); Hematocrit 36.8 % (37.0-47.0); Hemoglobin 12.8 g/dL (12.0-15.0); Immature Granulocyte Absolute 0.05 K/mm3 (0.00-0.031); Immature Granulocyte Percent A 0.5 % (0-0.5); Lymphocytes Percent Auto 23.8 % (18.3-44.2); Mean Corpuscular HGB Conc 34.8 g/dl (32-36); Mean Corpuscular Hemoglobin 32.6 pg (26-34); Mean Corpuscular Volume 93.6 fl (80-100); Mean Platelet Volume 10.3 fl (7.4-10.4); Monocytes Absolute Auto 0.5 K/mm3 (0.1-0.6); Monocytes Percent Auto 5.3 % (2.6-8.5); Neutrophils Absolute Auto 6.4 K/mm3 (1.3-6.7); Neutrophils Percent Auto 69.3 % (45.5-73.1); Platelet Count Result 189 k/mm3 (150-375); Red Blood Count 3.93 M/mm3 (4.2-5.4); Red Cell Distribution Width 12.9 % (11.5-14.5); White Blood Count 9.2 K/mm3 (4.5-10.0)
[2024-02-18] MEDS: LACTATED RINGERS 1,000 ML 125 ML IV CONT (05:51)
[2024-02-18] MEDS: OXYTOCIN 30 UNITS/NS 500 ML 30 UNITS/500 ML BAG IV CONT (05:52)
[2024-02-18 06:41] LABS: HIV 1/2 Ab P24 Ag Result Negative (Negative)
[2024-02-18 07:19] LABS: Amphetamine Screen Urine Negative (Negative); Barbiturate Screen Urine Negative (Negative); Benzodiazepines Screen Urine Negative (Negative); Cannabinoid Screen Urine Positive (Negative); Cocaine Screen Urine Negative (Negative); Methadone Screen Urine Negative (Negative); Opiate Screen Urine Negative (Negative); Phencyclidine Screen Urine Negative (Negative)
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
[2024-02-18 07:54] LABS: Rapid Plasma Reagin Non-Reactive (NonReactive)
--- NOTE | 2024-02-18 09:33 | PM.OBPRVD ---
OB - Vaginal Delivery Note Procedure Delivery date: 02/18/24 Induction method: AROM and Per Pitocin Protocol Delivery monitor: External FHT and Internal Uterine Route of delivery: Episiotomy description: None Laceration Description: None Specimen: Yes Quantitative Blood Loss (ml): 75 Anesthesia type: Epidural Disposition: Floor Complications: No immediate complications Baby Date of : 02/18/24 Time of : 09:26 Gestational Age by Date: 38 gender: Female presentation: vertex position: Left Occiput Anterior Placenta delivery description: Spontaneous Cord Vessel Description: 3 Vessels, Nuchal Cord (x3), Reduced and Delayed Cord Clamping score one minute: 9 score five minutes: 9
[2024-02-18] MEDS: FLUoxetine HCL 20 MG CAPSULE 80 MG PO (09:39)
[2024-02-18] MEDS: ARIPiprazole 5 MG TABLET PO (09:39)
[2024-02-18] MEDS: buPROPion HCL XL (24 HR) 150 MG TABCR 300 MG PO (09:39)
[2024-02-18] MEDS: ARIPiprazole 2 MG TABLET PO (09:39)
[2024-02-18] MEDS: OXYTOCIN 30 UNITS/NS 500 ML 30 UNITS/500 ML BAG 125 UNITS IV CONT (09:59)
--- NOTE | 2024-02-18 11:32 | WPDANESEPPF ---
Anes - Initial Pre Proc Eval Date/Time: 02/18/24 11:32 Surgeon: Mario Alberto Yoo MD Pre Op Diagnosis: Bleeding Patient Data Age: 23 Gender: F Height: 1.7 m Weight: 120 kg Last Vital Signs Temp 36.3 C L 02/18/24 09:30 Pulse 85 02/18/24 11:31 BP 113/70 02/18/24 11:31 Pulse Ox 100 02/18/24 09:25 O2 Del Method Room Air 02/18/24 04:27 Allergies Allergy/AdvReac Type Severity Reaction Status Date / Time No Known Allergies Allergy Verified 02/17/24 21:08 Home Medications Medication Instructions Recorded Confirmed Type aripiprazole 2 mg tablet 2 mg PO DAILY 02/02/24 02/18/24 History aripiprazole 5 mg tablet 5 mg PO DAILY 02/02/24 02/18/24 History bupropion HCl 300 mg 24 hr tablet, 300 mg PO DAILY 02/02/24 02/18/24 History extended release cholecalciferol (vitamin D3) 50 2,000 unit PO DAILY 02/02/24 02/18/24 History mcg (2,000 unit) tablet (Vitamin D3) fluoxetine 40 mg capsule 80 mg PO DAILY 02/02/24 02/18/24 History vits no.126-ferrous fum 1 tablet PO DAILY 02/02/24 02/18/24 History 28 mg iron-folic acid 800 mcg tablet (Classic ) Laboratory Tests 02/18/24 02/18/24 02/18/24 04:11 05:29 05:30 WBC 9.2 K/mm3 (4.5-10.0) RBC 3.93 L M/mm3 (4.2-5.4) Hgb 12.8 g/dL (12.0-15.0) Hct 36.8 L % (37.0-47.0) MCV 93.6 fl (80-100) MCH 32.6 pg (26-34) MCHC 34.8 g/dl (32-36) RDW 12.9 % (11.5-14.5) Plt Count 189 k/mm3 (150-375) MPV 10.3 fl (7.4-10.4) Immature Gran % (Auto) 0.5 % (0-0.5) Neut % (Auto) 69.3 % (45.5-73.1) Lymph % (Auto) 23.8 % (18.3-44.2) [place] % (Auto) 5.3 % (2.6-8.5) Eos % (Auto) 0.8 % (0-4.4) Baso % (Auto) 0.3 % (0.2-1.2) Lymph # (Auto) 2.20 K/mm3 (0.9-3.2) [place] # (Auto) 0.5 K/mm3 (0.1-0.6) Eos # (Auto) 0.1 K/mm3 (0-0.3) Baso # (Auto) 0.0 K/mm3 (0.0-0.1) Abs Immat Gran (auto) 0.05 H K/mm3 (0.00-0.031) Absolute Neuts (auto) 6.4 K/mm3 (1.3-6.7) Absolute Nucleated RBC 0.000 K/mm3 (0.0-0.012) Nucleated RBC % 0.0 % (0.0-0.2) Urine Color Yellow (Yellow) Urine Appearance Cloudy H (Clear) Urine pH 6.5 (5.0-9.0) Ur Specific [place] 1.019 (1.001-1.035) Urine Protein Trace mg/dL (Negative) Urine Glucose (UA) Negative mg/dL (Negative) Urine Ketones Negative mg/dL (Negative) Ur Blood (Man) 3+ H (Negative) Urine Nitrate Negative (Negative) Urine Bilirubin Negative (Negative) Urine Urobilinogen 1.0 mg/dL (<2.0) Ur Leukocyte Esterase 1+ H JB/UL (Negative) Urine RBC >100 H /hpf (0-2) Urine WBC 11-20 H /hpf (0-3) Ur Squamous Epith Cells Many H /hpf (Few) Urine Bacteria 2+ H /hpf Urine Casts 0-2 Urine Opiates Screen Urine Methadone Screen Ur Barbiturates Screen Ur Phencyclidine Scrn Ur Amphetamine Screen U Benzodiazepines Scrn Urine Cocaine Screen U Cannabinoids Screen RPR Non-reactive (NonReactive) HIV 1&2 Ab/P24 Ag 4thGn Negative (Negative) Blood Type A Positive Antibody Screen Negative 02/18/24 06:53 WBC RBC Hgb Hct MCV MCH MCHC RDW Plt Count MPV Immature Gran % (Auto) Neut % (Auto) Lymph % (Auto) [place] % (Auto) Eos % (Auto) Baso % (Auto) Lymph # (Auto) [place] # (Auto) Eos # (Auto) Baso # (Auto) Abs Immat Gran (auto) Absolute Neuts (auto) Absolute Nucleated RBC Nucleated RBC %
--- NOTE | 2024-02-18 12:22 | OBPPTRN ---
1204-Patient transferred to post room #282 via wheelchair. Support person present. Oriented to unit, room, information board, rooming in, admission packet and security measures. Patient verbalizes understanding.
[2024-02-18] MEDS: IBUPROFEN 600 MG TABLET PO ×2 (13:33→22:44)
--- NOTE | 2024-02-19 04:44 | PM.OBPNVD ---
OB - PN: Subj Subjective Date/time seen: 02/19/24 04:44 Patient comments: no complaints, pain well controlled, incisional pain, tolerating diet and flatus present OB - PN: Obj Data Labs 02/18/24 05:30 Labs: Laboratory Results - last 24 hr 02/18/24 02/18/24 02/18/24 05:29 05:30 06:53 WBC 9.2 RBC 3.93 L Hgb 12.8 Hct 36.8 L MCV 93.6 MCH 32.6 MCHC 34.8 RDW 12.9 Plt Count 189 MPV 10.3 Immature Gran % (Auto) 0.5 Neut % (Auto) 69.3 Lymph % (Auto) 23.8 [place] % (Auto) 5.3 Eos % (Auto) 0.8 Baso % (Auto) 0.3 Lymph # (Auto) 2.20 [place] # (Auto) 0.5 Eos # (Auto) 0.1 Baso # (Auto) 0.0 Abs Immat Gran (auto) 0.05 H Absolute Neuts (auto) 6.4 Absolute Nucleated RBC 0.000 Nucleated RBC % 0.0 Urine Opiates Screen Negative Urine Methadone Screen Negative Ur Barbiturates Screen Negative Ur Phencyclidine Scrn Negative Ur Amphetamine Screen Negative U Benzodiazepines Scrn Negative Urine Cocaine Screen Negative U Cannabinoids Screen Positive A RPR Non-reactive HIV 1&2 Ab/P24 Ag 4thGn Negative Blood Type A Positive Antibody Screen Negative OB - PN A/P Plan day: 1 Plan: routine care Comments: No problems, routine care Time Spent With Patient Time: Total time spent is greater than 50% in coordination of care (as documented) at patient's floor/unit and/or counseling patient: Exam Const: General: comfortable, no acute distress and alert Resp: Effort & Inspection: normal respiratory effort Auscultation: no crackles, no rales and no rhonchi Cardio: Rate: regular rate Heart sounds: no click, no murmurs and no rubs GI: Inspection: non-distended GI Palp: No Tenderness to palpation present (GI) Auscultation: normal bowel sounds Other: Incision - CDI Extrem: General: normal to inspection, no pedal edema and no calf tenderness
[2024-02-19 05:57] LABS: Hematocrit 37.2 % (37.0-47.0); Hemoglobin 12.6 g/dL (12.0-15.0)
--- NOTE | 2024-02-19 07:38 | WPDANLDPN2 ---
Anes-Prog Note L&D Date/Time: 02/19/24 07:38 Comfortable throughout: labor and delivery Neuraxial method: epidural Epidural/Spinal procedure site: clean & non-tender Neuro status: Neuro function grossly intact. Cardiovascular status: normal Respiratory status: normal Airway patency: baseline Mental status: baseline Post-Op hydration status: normal Vital Signs: Last Vital Signs Temp 36.6 C 02/18/24 23:16 Pulse 80 02/18/24 23:16 Resp 18 02/18/24 23:16 BP 111/71 02/18/24 23:16 Pulse Ox 100 02/18/24 23:16 O2 Del Method Room Air 02/18/24 12:30 Pain score (VAS): 0/10 I/O: Intake & Output 02/18/24 02/18/24 02/19/24 15:59 23:59 07:59 Intake Total 120 Output Total 725 Balance -605 Post-procedural complaints: none Patient feedback: Patient satisfied with anesthetic care.
[2024-02-19 08:00] VITALS: BP 106/76; PULSE 83; RESP 16; TEMP 36.9; O2SAT 97
[2024-02-19] MEDS: FLUoxetine HCL 20 MG CAPSULE 80 MG PO (08:30)
[2024-02-19] MEDS: IBUPROFEN 600 MG TABLET PO ×2 (08:31→16:16)
[2024-02-19] MEDS: ARIPiprazole 2 MG TABLET PO (08:32)
[2024-02-19] MEDS: buPROPion HCL XL (24 HR) 150 MG TABCR 300 MG PO (08:32)
[2024-02-19] MEDS: ARIPiprazole 5 MG TABLET PO (08:32)
[2024-02-19 20:10] VITALS: BP 113/70; PULSE 89; RESP 16; TEMP 36.4; O2SAT 96
[2024-02-20] MEDS: IBUPROFEN 600 MG TABLET PO (03:24)
[2024-02-20] MEDS: ACETAMINOPHEN 325 MG TABLET 650 MG PO (06:56)
[2024-02-20] MEDS: buPROPion HCL XL (24 HR) 150 MG TABCR 300 MG PO (06:57)
[2024-02-20] MEDS: ARIPiprazole 2 MG TABLET PO (06:58)
[2024-02-20] MEDS: ARIPiprazole 5 MG TABLET PO (06:58)
[2024-02-20] MEDS: FLUoxetine HCL 20 MG CAPSULE 80 MG PO (06:59)
[2024-02-20 07:29] VITALS: BP 113/80; PULSE 78; RESP 16; TEMP 36.7; O2SAT 97
--- NOTE | 2024-02-20 07:49 | PM.OBPNVD ---
OB - PN: Subj Subjective Date/time seen: 02/20/24 07:49 Patient comments: no complaints, pain well controlled and tolerating diet OB - PN: Obj Data Labs 02/19/24 05:25 OB - PN A/P Plan day: 2 Plan: routine care and discharge home Time Spent With Patient Time: Total time spent is greater than 50% in coordination of care (as documented) at patient's floor/unit and/or counseling patient: Exam Const: General: comfortable and no acute distress Resp: Effort & Inspection: normal respiratory effort Auscultation: no rales, no rhonchi and no wheezes Cardio: Rate: regular rate Heart sounds: no click, no murmurs and no rubs GI: GI Palp: Yes Soft to palpation and No Tenderness to palpation present (GI) Auscultation: normal bowel sounds Extrem: General: normal to inspection, no pedal edema and no calf tenderness
--- NOTE | 2024-02-20 07:50 | PM.OBDSVD ---
DS: Admitting Diagnosis Discharge Date February 20, 2024 Admitting Diagnosis term DS: Discharge Diagnosis Discharge Diagnosis (1) Post term , delivered: Code(s): O48.0 - Post-term Status: Acute OB - DS: Summary OB Procedures : None OB Procedures Intrapartum: OB Procedures: : None Peripartum Data Laceration Description: None Episiotomy description: None Time Spent with Patient Time attestation: Total time spent providing and/or coordinating discharge services: DS: Data Data Completed and Pending Pending studies at discharge: Pending at discharge 02/18/24 10:07 Surgical [PTH] Routine Discharge Plan Discharge Discharging Clinician: Mario Alberto Yoo Patient Disposition: Home, Self-Care Activity: pelvic rest Diet: regular Patient Instructions: Antibiotic Form Stand Alone Forms: General Discharge Information Follow-up/Referrals: Mario Alberto Yoo MD [Physician] - Discharge Medications: Continued fluoxetine 40 mg Capsule 80 mg PO DAILY aripiprazole 5 mg tablet 5 mg PO DAILY bupropion HCl 300 mg tablet extended release 24 hr 300 mg PO DAILY aripiprazole 2 mg tablet 2 mg PO DAILY cholecalciferol (vitamin D3) [Vitamin D3] 50 mcg (2,000 unit) Tablet 2,000 unit PO DAILY Classic 28 mg iron- 800 mcg Tablet 1 tablet PO DAILY Date of admission: 02/18/24 05:15 Primary Care Provider: UNKNOWN,DOCTOR Admitting Provider: Mario Alberto Yoo Attending physician on admission: Mario Alberto Yoo Condition: Stable
[2024-02-20] MEDS: TETANUS,DIPHTHERIA,AC PERTUSSIS ADULT (0.5 ML) BOOSTRIX IM (11:07)
[2024-02-20] MEDS: INFLUENZA TRIVALENT VACCINE 45 MCG/0.5 ML SYRINGE IM (11:09)
--- NOTE | 2024-02-20 11:33 | PC.NURSE ---
Patient viewed the discharge video Mother & Baby Care, The First Two Weeks . Patient was given the opportunity and encouraged to ask questions. Patient verbalized understanding of information shared and has been given the mother/baby guide for home reference.
[2024-02-21 10:34] VITALS: BP 97/77; PULSE 78; RESP 18; TEMP 36.9; O2SAT 100
== END 2024-02-20 11:55 | disposition home or self-care (01) | DRG 807 ==
LOC: ANHLDR 05:20 → ANHOB2 12:09
PROVIDERS: Advanced Practice Midwife; Admitting Provider Obstetrics & Gynecology; Visit Provider Obstetrics & Gynecology
DX: O76 Abnormality in fetal heart rate and rhythm complicating labor and delivery (principal); Z37.0 Single live birth; O69.81X0 Labor and delivery complicated by cord around neck, without compression, not applicable or unspecified; O99.214 Obesity complicating childbirth; O99.344 Other mental disorders complicating childbirth; F99 Mental disorder, not otherwise specified; Z3A.38 38 weeks gestation of pregnancy; Z23 Encounter for immunization; F31.9 Bipolar disorder, unspecified
CPT/HCPCS: 36415; 80307; 81001; 85014; 85018; 85025; 86592; 86703; 86850; 86900; 86901; 87086; 87088; 88307; 90471; 90656; 90715; A9270; G0008; G0378; G0379; G0432; J2590; J2795; J7120

== ENCOUNTER 2024-11-25 09:43 | Outpatient (RCR) | payer OTHER, SELFPAY ==
[2024-11-23 17:25] LABS: Beta HCG Quantitative 1376.40 mIU/ML
[2024-11-25 10:37] LABS: Beta HCG Quantitative 2571.80 mIU/ML
== END 2025-02-21 23:59 | disposition home or self-care (01) ==
LOC: ANHLAB 09:43
PROVIDERS: Visit Provider Advanced Practice Midwife
DX: Z34.90 Encounter for supervision of normal pregnancy, unspecified, unspecified trimester (principal)
CPT/HCPCS: 36415; 84702

== ENCOUNTER 2025-03-05 16:48 | Emergency (ER) | payer OTHER, SELFPAY ==
--- OUTSIDE RECORDS SUMMARY | 2024-08-17 12:30 | XMS_ITS ---
Author Organization [facility] Address [address] [place] [address] Care Team Providers Care Warehouse Logistics Manager Name Role Phone Isis Galloway Primary Care Provider REASON FOR VISIT 4 week f/u Encounters Encounter Location Date Provider Diagnosis [address] [place] [address] 08/17/2024 Isis Galloway Plan Of Treatment No Information Progress Notes * Claire GRANDEDOB:2000 ( 24 yo F)Acc No.[id number]:08/17/2024 UNLOCKED PROGRESS NOTE Patient: Claire VILLARREAL Provider: Natasha Galloway DNP, APRN, PMHNP-BC :2000 A ge:23 Y S ex:Female Date:08/17/2024 Address:[address] [place] [address] [facility]-[id number] Subjective: * Chief Complaints: * 1 . 4 week f/u. * Medical History: Objective: * Vitals: Assessment: Plan: * Treatment: * * Electronic signature of Shannon Wellington , [id number] on 03/05/2025 at 04:50 PM CDT Sign off status: Pending * Provider: Natasha Galloway DNP, APRN, PMHNP-BC Date: 0 08/17/2024 Generated for Printing/Faxing/eTransmitting on: 1 04:50 PM CDT
[2025-03-05] VITALS (10 sets, daily range): BP systolic 86–149; BP diastolic 40–84; PULSE 90–125; RESP 18–25; TEMP 36.6–36.9; O2SAT 97–100
--- OUTSIDE RECORDS SUMMARY | 2025-03-05 16:51 | XMS_ITS | Clinical Summary ---
Author Organization [facility] Address [address] [place] [address] Care Team Providers Care Forensic Photographer Name Role Phone Unavailable Primary Care Provider Unavailabl e Source Comments [facility],non-owned Affiliates and Associated Physician Practices is amultiple site organization consisting of ambulatory clinics and hospital sitesin [place], [place], [place] and [place]. This disclosure is being madepursuant to the Care Everywhere program and may not contain all information available regarding this patient. Last updated 18.[facility] Allergies No known active allergies Medications * Be aware that medications may not be up to date on this document. Alwaysverify current medications with the patient. ASPIRIN LOW DOSE 81 MG tablet TK 2 TS PO QD. 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 Childhood asthma without complication 01/25/2020 History of labor 01/25/2020 PCOS (polycystic ovarian syndrome) 01/25/2020 Evaluate anatomy not seen on prior sonogram Resolved Problems Problem Noted Date Diagnosed Date Resolved Date Asthma affecting , antepartum 01/25/2020 01/25/2020 Obesity affecting in third trimester 09/01/2023 34 weeks gestation of 09/01/2023 Family History Medical History Relation Name Comments Heart Failure Father Atrial Fibrillation Mother Completed Suicide Sister Relation Name Status Comments Brother 1 Alive Brother 2 Alive Father Mother Alive Sister Social History Tobacco Use Types Packs/Day Years Used Date Smoking Tobacco: Never Smokeless Tobacco: Never Tobacco Cessation:Counseling Given: Not Answered Alcohol Use Standard Drinks/Week Comments Not Currently 0 (1 standard drink = 0.6 oz pur e alcohol) Rye Depression Scale Answer Date Recorded Rye Depression Scale Total 13 09/01/2023 The thought of harming myself has occurred to me . Never 09/01/2023 Comments No Sex and Gender Information Value Date Recorded Sex Assigned at Not on file Legal Sex Female 1:04 PM CDT Gender Identity Not on file Sexual Orientation Not on file Last Filed Vital Signs Vital Sign Reading Time Taken Comments Blood Pressure 109/77 09/01/2023 9:40 AM CDT Pulse 78 09/01/2023 9:40 AM CDT Temperature 36.7 C (98 F) 01/25/2020 7:40 AM CDT Respiratory Rate - - Oxygen Saturation - - Inhaled Oxygen Concentration - - Weight 122.5 kg (270 lb) 09/01/2023 9:40 AM CDT Height 170.2 cm (5' 7) 09/01/2023 9:40 AM CDT Body Mass Index 42.29 09/01/2023 9:40 AM CDT Plan of Treatment Health Maintenance Due Date Last Done Comments HPV VACCINE (1 - 3-dose series) 2013 HEPATITIS C SCREENING 08/14/2016 DTAP/TDAP/TD VACCINES (1 - Tdap) 2017 HEPATITIS B VACCINE (1 of 3 - 19+ 3-dose series) 2017 PNEUMOCOCCAL VACCINE (1 of 2 - PCV) 2017 DEPRESSION SCREENING 05/31/2024 COVID-19 VACCINE (1 - 2023- season) 2025 INFLUENZA VACCINE (#1) 2025 , 04/19/2014, 04/07/2011, Additional history exists PAP SMEAR 07/21/2026 07/21/2023 ZOSTER VACCINE (1 of 2) 2048 HIV SCREENING Completed 08/04/2023 HIB VACCINE Aged Out No longer eligi ble based on patient's age to complete this topic MENINGOCOCCAL (Group B) VACCINE SHARED DECISION-MAKING Aged Out No longer eligible based on patient's age to complete this topic MENINGOCOCCAL GROUPS A/C/Y/W VACCINE Aged Out No longer eligible based on patient's age to complete this topic Insurance [facility] CIG[employer] C. [id number] Address: [facility] [address] [place] [address] SELF PAY NO INSURANCE Member Subscriber Plan / Payer (Ef fective for All Dates) Name:Mila Grande Member ID:Not on file Relation to Subscriber:Not on file Name:MILA GRANDE Subscriber ID:Not on file (Home) Address: [address] [place] [address] [place] [address] Payer ID:Not on file Group ID:Not on file Type:Self Pay Address: [place], [place]
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
--- OUTSIDE RECORDS SUMMARY | 2025-03-05 16:51 | XMS_ITS | Clinical Summary ---
Author Organization [facility] [address] [facility] Address [address] [facility] [address] [place] [address] Care Team Providers Care Gift Shop Clerk Name Role Phone Mamie Johnson MD Primary Care Provider Allergies No known active allergies Medications No known medications Active Problems No known active problems Encounters Date Type Department Care Team Description 01/03/2025 11:45 AM CDT Office Visit [facility] [place] [address] [address] Anika Shaver, COLE Photophobia of right eye (Primary Dx) from Last 3 Months Social History Tobacco Use Types Packs/Day Years Used Date Smoking Tobacco: Never Assessed Comments Unknown Sex and Gender Information Value Date Recorded Sex Assigned at Not on file Legal Sex Female 1:00 AM [employer] Gender Identity Not on file Sexual Orientation Not on file Obstetrics History Last Filed Vital Signs Vital Sign Reading Time Taken Comments Blood Pressure 122/70 01/03/2025 11:42 AM CDT Pulse 83 01/03/2025 11:42 AM CDT Temperature 36.2 C (97.1 F) 01/03/2025 11:42 AM CDT Respiratory Rate 18 01/03/2025 11:4 2 AM CDT Oxygen Saturation 98% 01/03/2025 11: 42 AM CDT Inhaled Oxygen Concentration - - Weight 123.9 kg (273 lb 1.6 oz) 025 11:42 AM CDT Height 177.8 cm (5' 10) 01/03/2025 11: 42 AM CDT Body Mass Index 39.19 01/03/2025 11:42 AM CDT Plan of Treatment Health Maintenance Due Date Last Done Comments Cervical Cancer Screening 1998 Depression Screening 1998 Hepatitis C Screening 1998 Regular Well Visit/Exam 18-64 2016 Pneumococcal vaccine <65 (1 of 2 - PCV) 2017 Influenza Vaccine (#1) 2025 , 02/29/2020, 04/19/2014, Additional history exists DTaP/Tdap/Td Vaccine (9 - Td or Tdap) 02/19/2034 02/20/2024, 03/27/2020, 01/17/2020, Additional history exists Hepatitis B Screening Completed 10/15/1999 , 03/13/1999, 1998, Additional history exists Varicella Vaccines Completed 01/21/2010, 10/16/1999 HPV Vaccines Completed 02/01/2013, 02/10/2012 Insurance [facility] Care Teams Gift Shop Clerk Relationship Specialty Start Date End Date Mamie Johnson MD [address] [address] PCP - General Internal Medicine 01/03/25
--- OUTSIDE RECORDS SUMMARY | 2025-03-05 16:51 | XMS_ITS | Data Portability ---
Author Organization 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 Discussed plan. Not available 02/07/2025 10:20:40 Plan of Treatment Reminders Order Date Submit Date Provider Last Modified By Organization Details Last Modified Time Details Appointments U/S OB BASELIN E 2024 08:30A M ULTRASOUND Not available Not available Not available OB ROUTINE 2024 09:30A M Yumiko Guzman CNM Not available Not available Not available Lab drug screen, urine 2024 025 [place], [address], [place], [address], 01/10/2025 14:49:59 Referral None recorde d. Procedures None recorde d. Surgeries None recorde d. Imaging US, obstetr ic, nuchal translu cency 2024 025 [email or web address] [place], [address], [place], [address], 01/11/2025 03:15:10 Medication Orders Valtrex 500 mg tablet 2024 025 [place] [address] [id number], [address], [place], [address], 01/10/2025 14:31:44 Patient TargetsNo targets recorded. Patient InstructionsNo instructions recorded. Reason for Referral None Reported. Results Created Date Observation Date Name Description Value Unit Range Abnormal Flag Note LastModifiedBy Organization Detail LastModifiedTime 01/17/2001/16/2025 [UNIT Y] ANEUP LOIDY NIPT fraction 6.2% normal Not Available [facility] [address], [place], [address], 01/16/2025 02:31:48 01/17/20 25 01/16/2025 [UNIT Y] ANEUP LOIDY NIPT 22Q11.2 microdeletio n LOW RISK <1 in 10,000 normal Not Available [facility] [address], [place], [address], 01/16/2025 02:31:48 01/17/20 25 01/16/2025 [UNIT Y] ANEUP LOIDY NIPT sex chromosome aneuploidy NOT DETECT ED normal Not Available [facility] [address], [place], [address], 01/16/2025 02:31:48 01/17/20 25 01/16/2025 [UNIT Y] ANEUP LOIDY NIPT monosomy X LOW RISK <1 in 10,000 normal Not Available [facility] [address], [place], [address], 01/16/2025 02:31:48 01/17/20 25 01/16/2025 [UNIT Y] ANEUP LOIDY NIPT trisomy 13 LOW RISK <1 in 10,000 normal Not Available [facility] [address], [place], [address], 01/16/2025 02:31:48 01/17/20 25 01/16/2025 [UNIT Y] ANEUP LOIDY NIPT trisomy 18 LOW RISK <1 in 10,000 normal Not Available [facility] [address], [place], [address], 01/16/2025 02:31:48 01/17/20 25 01/16/2025 [UNIT Y] ANEUP LOIDY NIPT trisomy 21 LOW RISK <1 in 10,000 normal Not Available [facility] [address], [place], [address], 01/16/2025 02:31:48 01/17/20 25 01/16/2025 [UNIT Y] ANEUP LOIDY NIPT sex FEMALE normal Not Available [facility] [address], [place], [address], 01/16/2025 02:31:48 01/17/20 25 01/16/2025 [UNIT Y] ANEUP LOIDY NIPT gestation SINGLE TON normal Not Available [facility] [address], [place], [address], 01/16/2025 02:31:48 01/17/20 25 01/16/2025 [UNIT Y] ANEUP LOIDY NIPT for detailed report, see pdf See PDF normal Not Available [facility] [address], [place], [address], 01/16/2025 02:31:48 01/21/20 25 01/20/2025 [UNIT Y] ALEJANDRA Wade sickle cell disease/beta -thalassemia /hemoglobino pathies carrier screen NEGATI VE normal Not Available [facility] [address], [place], [address], 01/20/2025 04:29:08 01/21/20 25 01/20/2025 [UNIT Y] ALEJANDRA VIKKI SINGH N alpha-thalas semia carrier screen NEGATI VE normal Not Available [facility] [address], [place], [address], 01/20/2025 04:29:08 01/21/20 25 01/20/2025 [UNIT Y] ALEJANDRA SINGH N cystic fibrosis carrier screen NEGATI VE normal Not Available [facility] [address], [place], [address], 01/20/2025 04:29:08 01/21/20 25 01/20/2025 [UNIT Y] ALEJANDRA SINGH N spinal muscular atrophy carrier screen NEGATI VE 2 SMN1 copies , SNP not presen t normal Not Available [facility] [address], [place], [address], 01/20/2025 04:29:08 01/21/20 25 01/20/2025 [UNIT Y] ALEJANDRA SINGH Mauro for detailed report, see pdf See PDF normal Not Available [facility] [address], [place], [address], 01/20/2025 04:29:08 01/11/20 25 01/10/2025 HEPAT ITIS B SURFA CE ANTIG EN hepatitis B surface antigen Non-re active non-re active This assay was perfo rmed using [employer] ratio n reage nts and test kits. Value s obtai kimberly with other assay metho ds or kits canno t be used inter powers eably . Not Available [facility] (Lab) [address], [place], [address], 01/11/2025 12:17:08 01/11/2001/10/2025 HIV 1/2 ANTIG EN/AN TIBOD Y, REFLE X CONFI RMATI ON HIV antigen/anti body Nonrea ctive nonrea ctive HIV-1 antig en and HIV-1 /HIV- 2 antib odies were not detec saravanan. No labor atory evide nce of HIV infec tion. Not Available [facility] (Lab) [address], [place], [address], 01/11/2025 12:17:08 01/11/2001/10/2025 HEPAT ITIS C ANTIB SUSANNE SCREE N, REFLE X TO CONFI RMATI ON hepatitis C antibody Non-re active non-re active Antib odies to HCV Not Detec saravanan, does not exclu de the possi bilit y of expos ure to HCV. Not Available [facility] (Lab) [address], [place], [address], 01/11/2025 12:17:08 01/11/2001/10/2025 TSH, REFLE X FREE T4 TSH 1.04 uIU/m L 0.30-5 .33 Not Available [facility] (Lab) [address], [place], [address], 01/11/2025 12:17:09 01/11/20 25 01/10/2025 CBC W/DIF F WBC 11.0 10'3/ uL 3.5-10 .5 high Not Available [facility] (Lab) [address], [place], [address], 01/11/2025 12:17:09 01/11/20 25 01/10/2025 CBC W/DIF F RBC 4.37 10'6/ uL (based on docume nted legal sex) 3.80-5 .20 Not Available [facility] (Lab) [address] , [place], [address], 01/11/2025 12:17:09 01/11/20 25 01/10/2025 CBC W/DIF F HGB 13.7 g/dL (based on docume nted legal sex) 11.6-1 5.4 Not Available [facility] (Lab) [address] , [place], [address], 01/11/2025 12:17:09 01/11/20 25 01/10/2025 CBC W/DIF F HCT 40.1 % (based on docume nted legal sex) 34.0-4 5.0 Not Available [facility] (Lab) [address] [facility], [place], [address], 01/11/2025 12:17:09 01/11/2001/10/2025 CBC W/DIF F MCV 91.8 fL 80.0-9 9.0 Not Available [facility] (Lab) [address] [facility], [place], [address], 01/11/2025 12:17:09 01/11/2001/10/2025 CBC W/DIF F MCH 31.4 pg 27.0-3 4.0 Not Available [facility] (Lab) [address] [facility], [place], [address], 01/11/2025 12:17:09 01/11/2001/10/2025 CBC W/DIF F MCHC 34.2 g/dL 32.0-3 5.5 Not Available [facility] (Lab) [address] [facility], [place], [address], 01/11/2025 12:17:09 01/11/2001/10/2025 CBC W/DIF F RDW 12.4 % 11.0-1 5.0 Not Available [facility] (Lab) [address] [facility], [place], [address], 01/11/2025 12:17:09 01/11/2001/10/2025 CBC W/DIF F plt 227 10'3/ uL 150-40 0 Not Available [facility] (Lab) [address] [facility], [place], [address], 01/11/2025 12:17:09 01/11/2001/10/2025 CBC W/DIF F MPV 11.5 fL 8.8-12 .1 Not Available [facility] (Lab) [address] [facility], [place], [address], 01/11/2025 12:17:09 01/11/2001/10/2025 CBC W/DIF F NRBC's 0.0 % 0.0 Not Available [facility] (Lab) [address] [facility], [place], [address], 01/11/2025 12:17:09 01/11/2001/10/2025 CBC W/DIF F absolute NRBCs 0.0 10'3/ uL no refere nce range establ ished Not Available [facility] (Lab) [address] [facility], [place], [address], 01/11/2025 12:17:09 01/11/2001/10/2025 CBC W/DIF F neutrophils 71.3 % 34.0-7 3.0 Not Available [facility] (Lab) [address] [facility], [place], [address], 01/11/2025 12:17:09 01/11/2001/10/2025 CBC W/DIF F lymphocytes 22.0 % 15.0-5 0.0 Not Available [facility] (Lab) [address] [facility], [place], [address], 01/11/2025 12:17:09 01/11/2001/10/2025 CBC W/DIF F monocytes 4.1 % 1.0-15 .0 Not Available [facility] (Lab) [address] [facility], [place], [address], 01/11/2025 12:17:09 01/11/2001/10/2025 CBC W/DIF F eosinophils 1.7 % 0.0-8. 0 Not Available [facility] (Lab) [address] [facility], [place], [address], 01/11/2025 12:17:09 01/11/2001/10/2025 CBC W/DIF F basophils 0.4 % 0.0-2. 0 Not Available [facility] (Lab) [address] [place], [address], 01/11/2025 12:17:09 01/11/2001/10/2025 CBC W/DIF F immature granulocytes 0.5 % no define d refere nce range Immat ure Granu locyt es (IG) repre sents autom ated enume ratio n of Metam yeloc ytes, Myelo cytes and Promy elocy chema when IG is < 5%. Blast s are not inclu ded in IG and repor saravanan separ ately if prese nt. Not Available [facility] (Lab) [address] [facility], [place], [address], 01/11/2025 12:17:09 01/11/2001/10/2025 CBC W/DIF F absolute neutrophils 7.8 10'3/ uL 1.5-8. 0 Not Available [facility] (Lab) [address] [facility], [place], [address], 01/11/2025 12:17:09 01/11/2001/10/2025 CBC W/DIF F absolute lymphocytes 2.4 10'3/ uL 1.0-4. 0 Not Available [facility] (Lab) [address] [facility], [place], [address], 01/11/2025 12:17:09 01/11/2001/10/2025 CBC W/DIF F absolute monocytes 0.5 10'3/ uL 0.2-1. 0 Not Available [facility] (Lab) [address] [place], [address], 01/11/2025 12:17:09 01/11/2001/10/2025 CBC W/DIF F absolute eosinophils 0.2 10'3/ uL 0.0-0. 6 Not Available [facility] (Lab) [address] [place], [address], 01/11/2025 12:17:09 01/11/2001/10/2025 CBC W/DIF F absolute basophils 0.0 10'3/ uL 0.0-0. 3 Not Available [facility] (Lab) [address] [facility], [place], [address], 01/11/2025 12:17:09 01/11/2001/10/2025 CBC W/DIF F absolute immature granulocytes 0.1 10'3/ uL 0.00-0 .10 Refer ence range s for nonbi nary/ inter sex or unspe cifie d gende r patie nts have not been estab lishe d. [facility]as [facility] for range s estab lishe d for cisge nder patie nts and evalu ate in the clini melany mignon xt of the indiv idual patie nt: https ://la and book. nm.or g/gen derx Not Available [facility] (Lab) [address] [facility], [place], [address], 01/11/2025 12:17:09 01/11/2001/10/2025 TYPE/ RH/SC REEN ABO/Rh type A POS Not Available [facility] (Lab) [address] [facility], [place], [address], 01/11/2025 12:17:10 01/11/2001/10/2025 TYPE/ RH/SC REEN antibody screen NEG Not Available [facility] (Lab) [address] [facility], [place], [address], 01/11/2025 12:17:10 01/11/2001/10/2025 TYPE/ RH/SC REEN exp date 2024 23:59 Not Available [facility] (Lab) [address] [facility], [place], [address], 01/11/2025 12:17:10 01/11/20 25 01/10/2025 RUBEL LA IGG ANTIB SUSANNE, QUANT rubella antibodies, IgG Reacti ve reacti ve Not Available [facility] (Lab) [address] [facility], [place], [address], 01/11/2025 12:17:10 01/11/20 01/10/2025 RUBEL LA IGG ANTIB SUSANNE, QUANT rubella antibodies, IgG quant 10.2 IU/mL >=10 Non-r eacti ve (Non- Immun e) <10 IU/mL React zahra (Immu ne) > or = 10 IU/mL Not Available [facility] (Lab) [address] [facility], [place], [address], 01/11/2025 12:17:10 01/11/2001/10/2025 HEMOG LOBIN A1C hemoglobin A1C 5.1 % 4.0-5. 6 The Ameri can Diabe chema Assoc iatio n recom mends that a prima ry goal of thera py shoul d be a HBA1C of < 7% and that physi cians shoul d reeva luate the treat ment regim en in patie nts with HBA1C value s consi stent ly > 8%. <5.7% Elly l 5.7 - 6.4% Incre ased risk for diabe chema >=6.5 % Diagn ostic of diabe chema <7.0% Goal of thera py >8.0% Actio n sugge sted Not Available [facility] (Lab) [address] [facility], [place], [address], 01/11/2025 12:17:10 01/11/2001/10/2025 RPR SCREE N, REFLE X TITER /CONF IRMAT ION RPR qualitative Nonrea ctive nonrea ctive Not Available [facility] (Lab) [address] [facility], [place], [address], 01/11/2025 12:17:11 01/11/2001/10/2025 CT/GC AND TRICH OMONA S VAGIN YADIRA (RRNA ), URINE chlamydia trachomatis, PCR Negati ve negati ve Not Available [facility] (Lab) [address] [place], [address], 01/12/2025 01:12:08 01/11/2001/10/2025 CT/GC AND TRICH OMONA S VAGIN YADIRA (RRNA ), URINE neisseria gonorrhoeae, PCR Negati ve negati ve Not Available [facility] (Lab) [address] [facility], [place], [address], 01/12/2025 01:12:08 01/11/20 25 01/10/2025 CT/GC AND TRICH OMONA S VAGIN YADIRA (RRNA ), URINE trichomonas vaginalis ribosomal RNA (rrna) Negati ve negati ve Not Available [facility] (Lab) [address] [facility], [place], [address], 01/12/2025 01:12:08 01/11/20 25 01/10/2025 CULTU RE: URINE result report SEE RESULT S BELOW Test: Cultu re: Urine Speci men Sourc e: Urine Voide d Speci men Type: Urine Speci men Date: 2024 1352 Resul t Date: 2024 0008 Resul t Statu s: Final resul t Abnor mal: No Resul ting Lab: [facility] [address] [facility] [address] Tel: CULTU RE ----- ----- ----- --- Cultu re resul t (>=3 organ isms prese nt) indic ates possi ble conta minat ion. Repea t cultu re if sympt oms indic ate. Not Available [facility] (Lab) [address] [facility], [place], [address], 01/12/2025 01:12:09 01/11/2001/10/2025 drug scree n, urine Amphetamines : negati ve Not Available [place] [address], [place], [address], 01/10/2025 14:48:40 01/11/20 25 01/10/2025 drug scree n, urine Cannabinoids : positi ve Not Available [place] [address], [place], [address], 01/10/2025 14:48:40 01/11/20 25 01/10/2025 drug scree n, urine Cocaine: negati ve Not Available [place] [address], [place], [address], 01/10/2025 14:48:40 01/11/20 25 01/10/2025 drug scree n, urine Opiates: negati ve Not Available [place] [address], [place], [address], 01/10/2025 14:48:40 01/11/20 25 01/10/2025 drug scree n, urine Phenocyclidi ne: negati ve Not Available [place] [address], [place], [address], 01/10/2025 14:48:40 01/11/20 25 01/10/2025 drug scree n, urine Barbiturates : negati ve Not Available [place] [address], [place], [address], 01/10/2025 14:48:40 01/11/20 25 01/10/2025 drug scree n, urine Benzodiazepi joaquín: negati ve Not Available [place] [address], [place], [address], 01/10/2025 14:48:40 01/11/20 25 01/10/2025 drug scree n, urine Ethanol: negati ve Not Available [place] [address], [place], [address], 01/10/2025 14:48:40 01/11/20 25 01/10/2025 drug scree n, urine Hallucinogen s: negati ve Not Available [place] [address], [place], [address], 01/10/2025 14:48:40 01/11/20 25 01/10/2025 drug scree n, urine Inhalants: negati ve Not Available [place] [address], [place], [address], 01/10/2025 14:48:40 01/11/2001/10/2025 drug scree n, urine Anabolic Steroids: negati ve Not Available [place] [address], [place], [address], 01/10/2025 14:48:40 11/24/19 25 11/23/2024 US, obste tric, 1st trime ster No observ ation record ed. [email or web address] [place] [address], [place], [address], 11/26/2024 00:02:28 11/24/1911/23/2024 US, obste tric, trans vagin al No observ ation record ed. [facility] [address], [place], [address], 11/23/2024 17:54:13 12/16/19 25 12/15/2024 US, obste tric, 1st trime ster No observ ation record ed. [email or web address] [address], [place], [address], 12/18/2024 14:30:21 01/11/20 25 01/10/2025 US, obste tric, nucha l trans lucen cy No observ ation record ed. [email or web address], [place], [address], 01/15/2025 22:18:32 01/11/20 25 01/10/2025 US, obste tric, nucha l trans lucen cy No observ ation record ed. [facility] [address], [place], [address], 01/10/2025 18:49:50 Result Notes None recorded. Problems Name Problem SNOMED Code Status Onset Date Resolution Date Notes Provider Name and Address Organization Details Recorded Time Obesity 721247357 Completed BMI 43 - antenata l testing @ 34 wks Es healy, [facility] 4 19:42:00 Bipolar disorder 85609513 Completed MFM consult -aripipr azole, fluoxeti ne 60mg, managed by her psychiat rist. Per MFM - cont manageme nt with psych. Ok to continue . Watch with breastfe eding. Es healy, [facility] 4 19:42:00 Migraine 77964199 Completed excedrin tension headache recommen ded Es Rees [facility], [facility] 4 19:42:00 Prematur e labor 2625782 Completed hx contract ions Es healy, [facility] 4 19:42:00 Pregnanc y 03649523 Completed 202302/24/2024 Alondra healy, [facility] 5 14:10:18 Pneumoni a 386849272 Completed 2023 Es healy, [facility] 4 19:42:00 Mixed anxiety and depressi ve disorder 675918327 Active 2024 Yumiko Guzman CNM [address], [place], [address], [facility] 5 14:30:52 Pregnanc y 26774607 Active 2024 Alondra healy, [facility] 5 14:10:18 Obesity 650219481 Active 2024 BMI 43 start bASA 81 mg Yumiko Guzman CNM [address], [place], [address], [facility] 5 14:30:43 Mixed anxiety and depressi ve disorder 572887346 Active 2024 Yumiko Guzman CNM [address], [place], [address], [facility] 14:30:52 Bipolar disorder 20064395 Active 2024 has a psychiat rist Yumiko Guzman CNM [address], [place], [address], [facility] 14:32:28 Problem Notes None recorded. Procedures Surgical History Date Name Laterality Status Provider Name and Address Organization Details Recorded Time 07/21/2023 Date of Last Pap Smear completed Escher Rees [facility] 07/21/2023 16:09:33 05/31/2007 tonsilecto my/adenoid s completed Escher Rees [facility] 07/21/2023 16:14:08 Imaging Results None recorded. Procedure Notes None recorded. Medical Equipment None Reported. Allergies No known drug allergies Medications Name Sig Start Date Stop Date Status Note LastModified by Organization Details LastModified Time fluoxetine 40 mg capsule 01/10 completed Not Available Not Available Not Available lamotrigine 200 mg tablet 01/10 completed Not Available Not Available Not Available albuterol sulfate 2.5 mg/3 mL (0.083 %) solution for nebulizatio n INHALE THE CONTENTS OF 1 VIAL VIA NEBULIZER 3 TIMES A DAY 12/15 completed Not Available Not Available Not Available azithromyci n 250 mg tablet TAKE 2 TABLETS BY MOUTH TODAY, THEN TAKE 1 TABLET DAILY FOR 4 DAYS DIRECTED 12/07 completed Not Available Not Available Not Available fluconazole 150 mg tablet 03/31 completed Not Available Not Available Not Available prazosin 1 mg capsule TAKE 1 CAPSULE BY MOUTH EVERYDAY AT BEDTIME 07/21 completed Not Available Not Available Not Available ondansetron HCl 4 mg tablet 12/15 completed Not Available Not Available Not Available valacyclovi r 500 mg tablet TAKE 1 TABLET BY MOUTH TWICE A DAY FOR 5 DAYS active Not Available Not Available No t Available lamotrigine 25 mg tablet TAKE 1 TABLET BY MOUTH DAILY FOR 2 WEEKS, THEN 2 TABLETS DAILY FOR 2 WEEKS 12/15 completed Not Available Not Available Not Available amoxicillin 875 mg tablet TAKE 1 TABLET BY MOUTH TWICE DAILY FOR 10 DAYS. 12/15 completed Not Available Not Available Not Available erythromyci n 5 mg/gram (0.5 %) eye ointment APPLY QUATER INCH PEA SIZE RIGHT EYE EVERY NIGHT AT BEDTIME 01/10 completed Not Available Not Available Not Available fluoxetine 20 mg tablet TAKE 1 TABLET BY MOUTH EVERY DAY FOR 30 DAYS 07/21 completed Not Available Not Available Not Available fluoxetine 20 mg capsule TAKE 1 CAPSULE BY MOUTH EVERY DAY FOR 30 DAYS 12/15 completed Not Available Not Available Not Available lamotrigine 100 mg tablet TAKE 1.5 TABLETS DAILY FOR 15 DAYS THEN 2 TABS FOR 15 DAYS FOR 30 DAYS TOTAL 12/15 completed Not Available Not Available Not Available amoxicillin 875 mg-potassiu m clavulanate 125 mg tablet TAKE 1 TABLET BY MOUTH EVERY 12 HOURS FOR 10 DAYS 12/07 completed Not Available Not Available Not Available hydroxyzine pamoate 25 mg capsule 01/10 completed Not Available Not Available Not Available aripiprazol e 10 mg tablet 01/10 completed Not Available Not Available Not Available aripiprazol e 15 mg tablet 01/10 completed Not Available Not Available Not Available atomoxetine 40 mg capsule 01/10 completed Not Available Not Available Not Available aripiprazol e 5 mg tablet TAKE 1 TABLET BY MOUTH ONCE DAILY 12/15 completed Not Available Not Available Not Available bupropion HCl XL 300 mg 24 hr tablet, extended release 01/10 completed Not Available Not Available Not Available bupropion HCl XL 150 mg 24 hr tablet, extended release 03/31 completed Not Available Not Available Not Available nitrofurant oin monohydrate /macrocryst als 100 mg capsule TAKE 1 CAPSULE BY MOUTH TWICE A DAY FOR 7 DAYS 12/07 completed Not Available Not Available Not Available active Not Available Not Avai lable Not Available aripiprazol e 2 mg tablet TAKE 1 TABLET BY MOUTH ONCE A DAY WITH 5MG TABLET, TOTAL DAILY DOSE 7MG 03/31 completed Not Available Not Available Not Available fluoxetine 60 mg tablet 12/07 completed Not Available Not Available Not Available Vitals Date Recorded Body height Body mass index (BMI) Body weight Systolic And Diastolic Provider Name and Address Organization Details Last Updated DateTime 12/15/2024 170.18 cm 44.2 kg/m2 251585.05 g 115/69 mm[Hg] Alondra [facility] 12/15/2024 12:03:59 Date Recorded Body weight Body mass index (BMI) Body height Systolic And Diastolic Provider Name and Address Organization Details Last Updated DateTime 01/10/2025 291609.08 649 g 43.4 kg/m2 170.18 cm 124/76 mm[Hg] [facility] 01/10/2025 14:13:59 Date Recorded Body height Body mass index (BMI) Body weight Systolic And Diastolic Provider Name and Address Organization Details Last Updated DateTime 02/07/2025 170.18 cm 41.7 kg/m2 624283.57 g 128/81 mm[Hg] [facility] 02/07/2025 10:10:22 Social History Question Answer Notes LastModified by Organizat ion Details LastModified Time Tobacco Smoking Status Never Smoker Es healy, [facility] 07/21/2023 16:13:04 If You Are , What Was Your Level Of Alcohol Consumption Prior To ? Occasional [email or web address] Information not available 07/21/2023 How Many Years Have You Consumed Alcohol? 0 [email or web address] Information not available 10/13/2023 Are You Blind Or Do You Have Difficulty Seeing? No [email or web address] Information n ot available 07/21/2023 What Is Your Level Of Caffeine Consumption? Moderate [email or web address] Information not available 10/13/2023 How Much Tobacco Do You Chew? None [email or web address] Information not available 10/13/2023 In The 14 Days Before Symptom Onset, Have You Had Close Contact With A Laboratory-confirm ed COVID-19 While That Case Was Ill? No [email or web address] Information n ot available 07/21/2023 In The 14 Days Before Symptom Onset, Have You Had Close Contact With A Person Who Is Under Investigation For COVID-19 While That Person Was Ill? No [email or web address] Information not available 07/21/2023 Have You Been To An Area Known To Be High Risk For COVID-19? No [email or web address] Information not available 07/21/2023 Are You Deaf Or Do You Have Serious Difficulty Hearing? No [email or web address] Information not available 07/21/2023 What Type Of Diet Are You Following? REGULAR [email or web address] Information n ot available 07/21/2023 What Is The Highest Grade Or Level Of School You Have Completed Or The Highest Degree You Have Received? [id number] [email or web address] Information not available 10/13/2023 Are There Any Guns Present In Your Home? No [email or web address] Information not available 10/13/2023 Do You Use Protection During Sex? No [email or web address] Information not available 10/13/2023 Do You Use Your Seat Belt Or Car Seat Routinely? Yes [email or web address] Information not available 07/21/2023 Are You Sexually Active? Yes [email or web address] Information not available 01/10/2025 Do You Have Smoke And Carbon Monoxide Detectors In Your Home? Yes [email or web address] Information not available 07/21/2023 At What Age Did You Start Smoking Tobacco? 0 [email or web address] Information not available 10/13/2023 How Much Tobacco Do You Smoke? No Information not available 10/13/2023 Do You Use Sunscreen Routinely? Yes [email or web address] Information not available 07/21/2023 Has Tobacco Cessation Counseling Been Provided? No [email or web address] Information not available 07/21/2023 How Many Years Have You Smoked Tobacco? 0 [email or web address] Information not available 10/13/2023 Have You Used IV Drugs? No [email or web address] Information not available 10/13/2023 Do You Have Difficulty Walking Or Climbing Stairs? No Information not available 07/21/2023 Sex: Unknown Functional Status Question Answer Note LastModified by Organizat ion Details LastModified Time Do you use any illicit or recreational drugs? No [email or web address] Information not available 07/21/2023 Do you or have you ever used any other forms of tobacco or nicotine? No [email or web address] Information not available 07/21/2023 What is your level of alcohol consumption? None [email or web address] Information not available 07/21/2023 Are you able to walk independently without assistance or assistive devices? YESWOREST [email or web address] Information not available 07/21/2023 Are you able to care for yourself independently? 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 BP Location Tested BP Systolic BP Type 79 124 Fetus Heart Rate Present Fetus Movement A Yes Comments Patient is having contractio ns and discharge. NST R, plan IOL at 39 weeks +FM, precautions and education Menstrual History Last Menstrual Date Menses Monthly On Bcp Conception Prior Menses Frequency Hcg Plus Date Menarche Onset Age 1205/16/2023 Genetic Screening And Infection History Question Response Note Mental Retardation/Autism false Patient's Age Will Be 35 Years Or Older At Estim ated Date of Delivery false Thalassemia (Icelandic, Malagasy, Mediterranean, Or Background): MCV < 80 false Neural Tube Defect (Meningomyelocele, Spina Bifi da, Or Anencephaly) false Congenital Heart Defect false Down Syndrome false Ari-Sachs (eg, Yazidi, Cajun, [place]ar[place]uan-[place]) f alse Millicent Disease false Sickle Cell Disease Or Trait () false Hemophilia Or Other Blood Disorders false Muscular Dystrophy false Cystic Fibrosis false [place]'s Chorea false Intellectual Disability/Autism false If Yes, Was Person Tested For Fragile X? false Other Inherited Genetic Or Chromosomal Disorder false Maternal Metabolic Disorder (eg, Type 1 Diabetes , PKU) false Patient Or Baby's Father Had A Child With Defects Not Listed Above false Recurrent Loss, Or A Stillbirth false Medications (including Suppl ements, Vitamins, Herbs, OTC Drugs), Illicit/Recreational Drugs, Alcohol false If Yes, Agent(s) And Strength/Dosage false Any Other Genetic History false Live With Someone With TB Or Exposed To TB false Patient Or Partner Has History Of Genital Herpes false Rash Or Viral Illness Since Last Menstrual Perio d false History Of STD, Gonorrhea, Chlamydia, HPV, Syphi lis false Other Infection History false History of HIV false History of Hepatitis false Prior GBS-infected child false Hemoglobinopathy Or Carrier false Other Structural Defect false Recent Travel History Outside of Country false Delivery Information Delivery Date Delivery Type Labor Anesthesia Weeks Gestation Incision Type Labor Labor Length Hrs Delivered By Post Complications Tubal Sterilization Discharge Date Comments 4 Induce d Regional-Ep idural 38.2 false [place], Yumiko CNM Bipolar disorder, Migraine, Obesity,P neumonia, Premature labor Discharge Information Feeding Method Contraceptive Method Maternal HG B and HCT Levels Ob Episode Information Episode Created Date Number of Fetuses Patient Bloodtype Patient rh Status Prepregnancy Weight lbs Domestic Partner Domestic Partner Phone Father Name Assistant Cross Country Coach Status 01/11/20 25 1 A Positive OPEN Fetus Data First Name Last Name Admitted to NICU Weight (g) Sex Living Outcome Pediatric Complications Fetus ID Race Codes Race Delivery Type [id number] Problems Problem Notes oral HSV only+THC 01/10 Problem Name Start Date End Date Resolution Snomed Code Not e Mixed anxiety and depressive disorder 01/10/2025 [id number] Bipolar disorder 01/10/2025 [id number] rodriguez s a psychiatrist Obesity 01/10/[id number] art bASA 81 mg Raji Calculation Initial Raji Date Initial Exam Date Initial Exam Provider Initial Ultrasound Date Last Menstrual Period Date Ultra Sound Weeks Gestation 07/28/2025 01/10/2025 12/15/2024 10/06/2024 7 Eighteen To Twenty Week Raji Update Ultra Sound Date Fundal Height At Umbil Quickening Date Ultra Sound Latest Weeks Gestation Final Raji Confirmed By Final Raji Confirmed Date Final Raji Date Ultra Sound Latest Days Gestation 0 [email or web address] 01/10/2025 07/28/19 26 0 Pre-diana Flowsheet Flowsheet Date 01/10/2025 Pascal Score Blood Edema Fundus Height Fundus Units Glucose Ketones Leukocytes Nitrite Labor Signs Protein Cervic Dilation Cervic Effacement Cervic Station Type Weight in lbs Pre/Post Dialysis Refused 277.066603052804 BP Diastolic BP Location Tested BP Systolic BP Type 76 R wrist 124 sitting Fetus Heart Rate Present Fetus Movement A No Comments hx 3 uncomplicated vaginal d eliveries, bipolar managed by psychiatrist , precautions and education start bASA, testing for obsiety third trimester f/u 4 weeks reviewed US Flowsheet Date 02/07/2025 Pascal Score Blood Edema Fundus Height Fundus Units Glucose Ketones Leukocytes Nitrite Labor Signs Protein Cervic Dilation Cervic Effacement Cervic Station Type Weight in lbs Pre/Post Dialysis Refused Weight 266.578204094346 BP Diastolic BP Location Tested BP Systolic BP Type 81 L arm 128 sitting Fetus Heart Rate Present A 154 Fetus Movement A No Comments URI couple weeks lungs clear , +FM rx to pharmacy, ok for note for work precautions and education f/u 4 weeks. would like referral to dhara tadeo hx bipolar disorder Menstrual History Last Menstrual Date Menses Monthly On Bcp Conception Prior Menses Frequency Hcg Plus Date Menarche Onset Age 0510/06/2024 true false 25 Delivery Information Delivery Date Delivery Type Labor Anesthesia Weeks Gestation Incision Type Labor Labor Length Hrs Delivered By Post Complications Tubal Sterilization Discharge Date Comments Discharge Information Feeding Method Contraceptive Method Maternal HG B and HCT Levels
--- NOTE | 2025-03-05 17:30 | ECG_ITS ---
Test Date: 2025-03-05 19:32:05 Measurements Intervals [place] Rate: 100 P: 50 NH: 168 QRS: 20 QRSD: 91 T: 7 QT: 335 QTc: 434 Interpretive Statements SINUS TACHYCARDIA POSSIBLE LEFT ATRIAL ENLARGEMENT ST-T WAVE ABNORMALITY- INFERIOR LEADS BORDERLINE ECG No previous ECG available for comparison Electronically Signed On 03-06-2025 06:20:53 CDT by [place] D.O.
--- NOTE | 2025-03-05 17:31 | ED.DIZZY ---
HPI - Dizziness General Chief Complaint: Dizziness <Ryan Anne APRN - Last Filed: 03/05/25 17:33> Stated Complaint: dizziness, 19 weeks preg <Ryan Anne APRN - Last Filed: 03/05/25 17:33> Time Seen by Provider: 03/05/25 20:41 <Ryan Anne APRN - Last Filed: 03/05/25 17:33> Focused HPI: 24-year-old G 4p3 presents ER gradual onset of dizziness since yesterday. States the dizziness is constant and is not alleviated or aggravated by any factors. Denies nausea or vomiting. States she has noticed her heart rate jumped up into the 150s when active. Denies vaginal bleeding, abdominal pain or cramping. Denies dysuria, urinary frequency urgency. States had lab work recently completed pain she was found to not be anemic. No history of diabetes or high blood pressure P GENERAL: Well-appearing, well-nourished, and in no acute distress. HEAD: Normocephalic, atraumatic. CHEST: Clear to auscultation. No respiratory distress. HEART: Regular rate and rhythm. NEURO: Alert and oriented x3. Patient screened in triage and initial orders placed. Additional care and disposition to be based upon diagnostic testing and treatment. <Ryan Anne APRN - Last Filed: 03/05/25 17:33> History of Present Illness HPI Narrative: Patient is a 24-year-old female who presents emergency department chief complaint of lightheadedness and dizziness. Patient reports that she is not reports that she has been having spells where she feels lightheaded reports that it is worse with standing. The patient reports that she has had no vomiting denies abdominal pain denies vaginal bleeding and denies urinary symptoms. Patient reports that she has had no chest pain no syncope <Wil Anglin MD - Last Filed: 03/05/25 22:18> Related Data Home Medications: Home Medications ?Medication ?Instructions ?Recorded ?Confirmed ?Last Taken ?Type aripiprazole 2 mg tablet 2 mg PO DAILY 02/02/24 02/18/24 02/17/24 08:00 History aripiprazole 5 mg tablet 5 mg PO DAILY 02/02/24 02/18/24 02/17/24 08:00 History bupropion HCl 300 mg 24 hr tablet, 300 mg PO DAILY 02/02/24 02/18/24 02/17/24 08:00 History extended release cholecalciferol (vitamin D3) 50 2,000 unit PO DAILY 02/02/24 02/18/24 02/17/24 08:00 History mcg (2,000 unit) tablet (Vitamin D3) fluoxetine 40 mg capsule 80 mg PO DAILY 02/02/24 02/18/24 02/17/24 08:00 History vits no.126-ferrous fum 1 tablet PO DAILY 02/02/24 02/18/24 02/17/24 08:00 History 28 mg iron-folic acid 800 mcg tablet (Classic ) <Ryan Anne APRN - Last Filed: 03/05/25 17:33> Allergies/Adverse Reactions: Allergies Allergy/AdvReac Type Severity Reaction Status Date / Time No Known Allergies Allergy Verified 02/17/24 21:08 <Ryan Anne APRN - Last Filed: 03/05/25 17:33> Review of Systems Review of Systems: A 10 system review of systems was completed on the patient and is negative except for what is stated in the HPI. Nursing and ancillary documentation was reviewed. <Wil Anglin MD - Last Filed: 03/05/25 22:18> [facility] Past Medical History Medical History: Medical History Fall False labor Term delivered Candidiasis of vagina Oligohydramnios Asthma MANDA (generalized anxiety disorder) Heterozygous MTHFR mutation C677T Intrauterine term Depression Obesity (BMI 30-39.9) <Ryan Anne APRN - Last Filed: 03/05/25 17:33> Surgical History Surgical History: Surgical History History of tonsillectomy 2008 <Ryan Anne APRN - Last Filed: 03/05/25 17:33> Family History Family History: Family History Mother Afib Other Polycystic ovarian disease <Ryan Anne APRN - Last Filed: 03/05/25 17:33> Social History Social History: Social History Smoking status: Never smoker Second hand tobacco smoke exposure: Yes Alcohol intake: never Substance use: former Substance use type: does not use Do You Feel Safe in your Home?: Yes Lack of Transportation: No Lack of Food: Never True Current Housing: I Have Housing Concerned About Future Housing: No Difficulty Paying Gas/Electric Bills: No Difficulty Paying for Meds: No Currently Unemployed: No Education: Grade School Difficulty w/ Childcare or Family Care: No Living arrangements: with family Occupation/Education: occupation Additional occupation/education comments: fire and smoke/ 9th grade education Gender identity (if verbalized by the patient): Female Sexual Orientation (if Verbalized by the Patient): Straight or Heterosexual Spiritual care concerns: No Agree to blood products: Yes <Ryan Anne, DESIGN ARCHITECT - Last Filed: 03/05/25 17:33> Exam Narrative: GENERAL: Well-appearing, well-nourished, and in no acute distress. HEAD: Normocephalic, atraumatic. EYES: PERRLA and EOMI. ENT: Nares clear, no rhinorrhea or epistaxis. Mucous membranes moist. NECK: Supple. CHEST: Clear to auscultation. No respiratory distress. HEART: Regular rate and rhythm. No murmur heard. Normal peripheral pulses. ABDOMEN: Soft, nontender, nondistended, normal active bowel sounds. EXTREMITIES: Normal range of motion. No edema. SKIN: Warm, dry, no rash. NEURO: No focal deficits. Alert and oriented x3. PSYCH: Normal mood and affect. <Wil Anglin MD - Last Filed: 03/05/25 22:18> Course Vital Signs Vital signs: Vital Signs Temperature 36.6 C 03/05/25 17: Pulse Rate 117 H 03/05/25 17:26 Respiratory Rate 20 03/05/25 17:26 Blood Pressure 149/80 H 03/05/25 17:26 Pulse Oximetry 100 03/05/25 17:26 Oxygen Delivery Room Air 03/05/25 17: Temperature 36.9 C 03/05/25 19:26 Pulse Rate 97 03/05/25 21:30 Respiratory Rate 25 H 03/05/25 21:30 Blood Pressure 110/71 03/05/25 20:50 Pulse Oximetry 98 03/05/25 21:30 Oxygen Delivery Room Air 03/05/25 17:26 <Ryan Anne APRN - Last Filed: 03/05/25 17:33> Vital Signs Temperature 36.6 C 03/05/25 17:26 Pulse Rate 117 H 03/05/25 17:26 Respiratory Rate 20 03/05/25 17:26 Blood Pressure 149/80 H 03/05/25 17:26 Pulse Oximetry 100 03/05/25 17:26 Oxygen Delivery Room Air 03/05/25 17:26 Temperature 36.9 C 03/05/25 19:26 Pulse Rate 97 03/05/25 21:30 Respiratory Rate 25 H 03/05/25 21:30 Blood Pressure 110/71 03/05/25 20:50 Pulse Oximetry 98 03/05/25 21:30 Oxygen Delivery Room Air 03/05/25 17:26 <Wil Anglin MD - Last Filed: 03/05/25 22:18> MDM - Dizziness MDM Narrative Medical decision making narrative: Differential diagnosis includes dehydration, lightheadedness, UTI, Laboratory studies were obtained on the patient showed a white count of 12.8 electrolytes showed no acute abnormalities urinalysis showed trace ketones trace leukocyte esterase 6-10 white blood cells and 1+ bacteria Patient was given a L of normal saline is feeling a little bit better The patient will be given antibiotics for a early urinary tract infection Patient was encouraged to increase her oral intake and follow-up with her OBGYN <Wil Anglin MD - Last Filed: 03/05/25 22:18> Lab Data Result diagrams: 03/05/25 19:35 03/05/25 19:35 <Ryan Anne APRN - Last Filed: 03/05/25 17:33> Labs: Lab Results 03/05/25 Range/Units 19:35 WBC 12.8 H (4.5-10.0) K/mm3 RBC 4.02 L (4.2-5.4) M/mm3 Hgb 12.5 (12.0-15.0) g/dL Hct 35.8 L (37.0-47.0) % MCV 89.1 (80-100) fl MCH 31.1 (26-34) pg MCHC 34.9 (32-36) g/dl RDW 12.7 (11.5-14.5) % Plt Count 215 (150-375) k/mm3 MPV 10.6 H (7.4-10.4) fl Immature Gran % (Auto) 0.9 H (0-0.5) % Neut % (Auto) 68.8 (45.5-73.1) % Lymph % (Auto) 23.4 (18.3-44.2) % [place] % (Auto) 4.9 (2.6-8.5) % Eos % (Auto) 1.5 (0-4.4) % Baso % (Auto) 0.5 (0.2-1.2) % Lymph # (Auto) 2.98 (0.9-3.2) K/mm3 [place] # (Auto) 0.6 (0.1-0.6) K/mm3 Eos # (Auto) 0.2 (0-0.3) K/mm3 Baso # (Auto) 0.1 (0.0-0.1) K/mm3 Abs Immat Gran (auto) 0.11 H (0.00-0.031) K/mm3 Absolute Neuts (auto) 8.8 H (1.3-6.7) K/mm3 Absolute Nucleated RBC 0.000 (0.0-0.012) K/mm3 Nucleated RBC % 0.0 (0.0-0.2) % Sodium 134 L (137-145) mmol/L Potassium 3.9 (3.4-5.0) mmol/L Chloride 106 (98-107) mmol/L Carbon Dioxide 20 L (22-30) mmol/L Anion Gap 8 (4-12) mmol/L BUN 7 (7-17) mg/dL Creatinine 0.65 L (0.7-1.0) mg/dL Estim Creat Clear Calc 152 ml/min Estimated GFR > 60 (59 - ) Glucose 74 (65-110) mg/dL Calcium 8.8 (8.4-10.2) mg/dL Total Bilirubin 0.1 L (0.2-1.3) mg/dL AST 18 (14-36) U/L ALT 12 (6-35) U/L Alkaline Phosphatase 58 (38-126) U/L Total Protein 7.1 (6.3-8.2) g/dL Albumin 3.7 (3.5-5.1) g/dL Urine Color Yellow (Yellow) Urine Appearance Cloudy H (Clear) Urine pH 6.5 (5.0-9.0) Ur Specific [place] 1.026 (1.001-1.035) Urine Protein Trace (Negative) mg/dL Urine Glucose (UA) Negative (Negative) mg/dL Urine Ketones Trace H (Negative) mg/dL Ur Blood (Man) Negative (Negative) Urine Nitrate Negative (Negative) Urine Bilirubin Negative (Negative) Urine Urobilinogen 1.0 (<2.0) mg/dL Leukocyte Esterase Rfl Trace H (Negative) JB/UL Urine RBC 6-10 H (0-2) /hpf Urine WBC 6-10 H (0-3) /hpf Ur Squamous Epith Cells Moderate (Few) /hpf Calcium Oxalate Crystal Present (None) /hpf Urine Bacteria 1+ H /hpf Urine Casts 3-5 <Ryan Anne, DESIGN ARCHITECT - Last Filed: 03/05/25 17:33> Lab Results 03/05/25 Range/Units 19:35 WBC 12.8 H (4.5-10.0) K/mm3 RBC 4.02 L (4.2-5.4) M/mm3 Hgb 12.5 (12.0-15.0) g/dL Hct 35.8 L (37.0-47.0) % MCV 89.1 (80-100) fl MCH 31.1 (26-34) pg MCHC 34.9 (32-36) g/dl RDW 12.7 (11.5-14.5) % Plt Count 215 (150-375) k/mm3 MPV 10.6 H (7.4-10.4) fl Immature Gran % (Auto) 0.9 H (0-0.5) % Neut % (Auto) 68.8 (45.5-73.1) % Lymph % (Auto) 23.4 (18.3-44.2) % [place] % (Auto) 4.9 (2.6-8.5) % Eos % (Auto) 1.5 (0-4.4) % Baso % (Auto) 0.5 (0.2-1.2) % Lymph # (Auto) 2.98 (0.9-3.2) K/mm3 [place] # (Auto) 0.6 (0.1-0.6) K/mm3 Eos # (Auto) 0.2 (0-0.3) K/mm3 Baso # (Auto) 0.1 (0.0-0.1) K/mm3 Abs Immat Gran (auto) 0.11 H (0.00-0.031) K/mm3 Absolute Neuts (auto) 8.8 H (1.3-6.7) K/mm3 Absolute Nucleated RBC 0.000 (0.0-0.012) K/mm3 Nucleated RBC % 0.0 (0.0-0.2) % Sodium 134 L (137-145) mmol/L Potassium 3.9 (3.4-5.0) mmol/L Chloride 106 (98-107) mmol/L Carbon Dioxide 20 L (22-30) mmol/L Anion Gap 8 (4-12) mmol/L BUN 7 (7-17) mg/dL Creatinine 0.65 L (0.7-1.0) mg/dL Estim Creat Clear Calc 152 ml/min Estimated GFR > 60 (59 - ) Glucose 74 (65-110) mg/dL Calcium 8.8 (8.4-10.2) mg/dL Total Bilirubin 0.1 L (0.2-1.3) mg/dL AST 18 (14-36) U/L ALT 12 (6-35) U/L Alkaline Phosphatase 58 (38-126) U/L Total Protein 7.1 (6.3-8.2) g/dL Albumin 3.7 (3.5-5.1) g/dL Urine Color Yellow (Yellow) Urine Appearance Cloudy H (Clear) Urine pH 6.5 (5.0-9.0) Ur Specific [place] 1.026 (1.001-1.035) Urine Protein Trace (Negative) mg/dL Urine Glucose (UA) Negative (Negative) mg/dL Urine Ketones Trace H (Negative) mg/dL Ur Blood (Man) Negative (Negative) Urine Nitrate Negative (Negative) Urine Bilirubin Negative (Negative) Urine Urobilinogen 1.0 (<2.0) mg/dL Leukocyte Esterase Rfl Trace H (Negative) JB/UL Urine RBC 6-10 H (0-2) /hpf Urine WBC 6-10 H (0-3) /hpf Ur Squamous Epith Cells Moderate (Few) /hpf Calcium Oxalate Crystal Present (None) /hpf Urine Bacteria 1+ H /hpf Urine Casts 3-5 <Wil Anglin MD - Last Filed: 03/05/25 22:18> Discharge Plan Discharge Clinical Impression: Dizziness, UTI (urinary tract infection) <Ryan Anne APRN - Last Filed: 03/05/25 17:33> Patient Disposition: Home <Ryan Anne APRN - Last Filed: 03/05/25 17:33> Condition: Stable <Ryan Anne APRN - Last Filed: 03/05/25 17:33> Instructions: Antibiotic Form, Dizziness (ED), Urinary Tract Infection in (ED) <Ryan Anne APRN - Last Filed: 03/05/25 17:33> Additional Instructions: Please follow-up with your OBGYN. It is recommended that he increase your fluid intake your urinalysis may have a earlier urinary infection developing your started on antibiotics for this <Ryan Anne APRN - Last Filed: 03/05/25 17:33> Patient Language: Kyrgyz <Ryan Anne APRN - Last Filed: 03/05/25 17:33> Prescriptions: New cephalexin 500 mg capsule 500 mg PO Q12H 7 Days Qty: 14 0RF No Action fluoxetine 40 mg Capsule 80 mg PO DAILY aripiprazole 5 mg tablet 5 mg PO DAILY bupropion HCl 300 mg tablet extended release 24 hr 300 mg PO DAILY aripiprazole 2 mg tablet 2 mg PO DAILY cholecalciferol (vitamin D3) [Vitamin D3] 50 mcg (2,000 unit) Tablet 2,000 unit PO DAILY Classic 28 mg iron- 800 mcg Tablet 1 tablet PO DAILY <Ryan Anne APRN - Last Filed: 03/05/25 17:33> Follow-up/Referrals: Alex,Celia Hatch [Primary Care Provider] <Ryan Anne APRN - Last Filed: 03/05/25 17:33> Stand Alone Forms: Work/School Release IP <Ryan Anne APRN - Last Filed: 03/05/25 17:33> Time of Disposition: 22:17 <Ryan Anne APRN - Last Filed: 03/05/25 17:33> 22:17 <Wil Anglin MD - Last Filed: 03/05/25 22:18>
[2025-03-05 19:43] LABS: Hematocrit 35.8 % (37.0-47.0); Hemoglobin 12.5 g/dL (12.0-15.0); Immature Granulocyte Percent A 0.9 % (0-0.5); Lymphocytes Absolute Auto 2.98 K/mm3 (0.9-3.2); Mean Corpuscular HGB Conc 34.9 g/dl (32-36); Mean Corpuscular Hemoglobin 31.1 pg (26-34); Mean Corpuscular Volume 89.1 fl (80-100); Nucleated Red Blood Cells Absolute Auto 0.000 K/mm3 (0.0-0.012); Nucleated Red Blood Cells Perc 0.0 % (0.0-0.2); Platelet Count Result 215 k/mm3 (150-375); Red Blood Count 4.02 M/mm3 (4.2-5.4); White Blood Count 12.8 K/mm3 (4.5-10.0)
[2025-03-05 19:54] LABS: Alanine Aminotransferase 12 U/L (6-35); Albumin Level 3.7 g/dL (3.5-5.1); Alkaline Phosphatase 58 U/L (38-126); Anion Gap 8 mmol/L (4-12); Aspartate Amino Transferase 18 U/L (14-36); Bilirubin,Total 0.1 mg/dL (0.2-1.3); Blood Urea Nitrogen 7 mg/dL (7-17); Calcium 8.8 mg/dL (8.4-10.2); Carbon Dioxide 20 mmol/L (22-30); Chloride 106 mmol/L (98-107); Estimated CRCL calculation 152 ml/min; Estimated Glomerular Filt Rate > 60; Glucose 74 mg/dL (65-110); Potassium 3.9 mmol/L (3.4-5.0); Sodium 134 mmol/L (137-145); Total Protein 7.1 g/dL (6.3-8.2)
[2025-03-05 20:23] LABS: Add Urine Microscopic? YES; Appearance Urine Cloudy (Clear); Glucose Urine UA Negative (Negative); Leukocyte Esterase Ur Trace LEU/UL (Negative); Nitrate Urine Negative (Negative); Specific Grav Ur 1.026 (1.001-1.035)
[2025-03-05] MEDS: SODIUM CHLORIDE 0.9% IV 1,000 ML 999 ML IV CONT (21:03)
--- OUTSIDE RECORDS SUMMARY | 2025-03-05 21:12 | XMS_ITS | Clinical Summary ---
Author Organization [facility] [address] [facility] Address [address] [facility] [address] [place] [address] Care Team Providers Care Rotary Surface Grinder Name Role Phone Mamie Johnson MD Primary Care Provider Allergies No known active allergies Medications No known medications Active Problems No known active problems Encounters Date Type Department Care Team Description 01/03/2025 11:45 AM CDT Office Visit [facility] [place] [address] [phone] Anika Shaver, COLE Photophobia of right eye (Primary Dx) from Last 3 Months Social History Tobacco Use Types Packs/Day Years Used Date Smoking Tobacco: Never Assessed Comments Unknown Sex and Gender Information Value Date Recorded Sex Assigned at Not on file Legal 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
--- OUTSIDE RECORDS SUMMARY | 2025-03-05 21:12 | XMS_ITS | Clinical Summary ---
Author Organization [facility] Address [address] [place] [address] Care Team Providers Care Miter Saw Operator Name Role Phone Unavailable Primary Care Provider Unavailabl e Source Comments [facility],non-owned Affiliates and Associated Physician Practices is amultiple site organization consisting of ambulatory clinics and hospital sitesin [place], [place], [place] and [place]. This disclosure is being madepursuant to the Care Everywhere program and may not contain all information available regarding this patient. Last updated 18.[facility] Allergies No known active allergies Medications * [...] Noted Date Diagnosed Date Heterozygous MTHFR mutation [id number] 01/25/2020 Childhood asthma without complication 01/25/2020 History [...] drink = 0.6 oz pur e alcohol) [place] Depression Scale Answer Date Recorded [place] Depression Scale Total 13 09/01/2023 The thought [...] patient's age to complete this topic Insurance [facility] CIGNA SELF PAY NO INSURANCE Member Subscriber Plan / Payer (Ef fective for All Dates) Name:Mila Grande Member ID:Not on file Relation to Subscriber:Not on file Name:MILA GRANDE Subscriber ID:Not on file (Home) Address: [address] [place] [address] [place] [address] Payer ID:Not on file Group ID:Not on file Type:Self Pay Address: [place], [place]
== END 2025-03-05 22:26 | disposition home or self-care (01) ==
PROVIDERS: Nurse Practitioner Family; Emergency Provider Emergency Medicine; PCP Internal Medicine Infectious Disease
DX: O23.42 Unspecified infection of urinary tract in pregnancy, second trimester (principal); N39.0 Urinary tract infection, site not specified; O26.892 Other specified pregnancy related conditions, second trimester; R42 Dizziness and giddiness; Z77.22 Contact with and (suspected) exposure to environmental tobacco smoke (acute) (chronic); O99.512 Diseases of the respiratory system complicating pregnancy, second trimester; J45.909 Unspecified asthma, uncomplicated; O99.342 Other mental disorders complicating pregnancy, second trimester; F32.A Depression, unspecified; F41.1 Generalized anxiety disorder; Z3A.19 19 weeks gestation of pregnancy; R94.31 Abnormal electrocardiogram [ECG] [EKG]; R00.0 Tachycardia, unspecified
CPT/HCPCS: 36415; 80053; 81001; 85025; 93005; 96360; 99283; J7030

== ENCOUNTER 2025-03-12 11:05 | Outpatient (CLI) | payer OTHER, SELFPAY ==
--- OUTSIDE RECORDS SUMMARY | 2024-08-17 12:30 | XMS_ITS ---
Author Organization [facility] Address [address] [place] [address] Care Team Providers Care Noc Analyst Name Role Phone Isis Galloway Primary Care Provider REASON FOR VISIT 4 week f/u Encounters Encounter Location Date Provider Diagnosis [address] [place] [address] 08/17/2024 Isis Galloway Plan Of Treatment No Information Progress Notes * Claire GRANDEDOB:2000 ( 24 yo F)Acc No.[id number]:08/17/2024 UNLOCKED PROGRESS NOTE Patient: Claire VILLARREAL Provider: Natasha Galloway DNP, APRN, PMHNP-BC :2000 A ge:23 Y S ex:Female Date:08/17/2024 Address:[address] [place] [address] [id number] Subjective: * Chief Complaints: * 1 . 4 week f/u. * Medical History: Objective: * Vitals: Assessment: Plan: * Treatment: * * Electronic signature of Shannon Wellington , [id number] on 03/12/2025 at 12:29 PM CDT Sign off status: Pending * Provider: Natasha Galloway DNP, APRN, PMHNP-BC Date: 0 08/17/2024 Generated for Printing/Faxing/eTransmitting on: 1 12:29 PM CDT
--- OUTSIDE RECORDS SUMMARY | 2025-03-12 12:29 | XMS_ITS | Patient Health Record ---
Author Organization [facility] Address [address] [place] [address] Care Team Providers Care Director Of Brand Marketing Name Role Phone NalinidorotheaIsis banuelos Primary Care [...] Status Risk Notes Problem Posttraumatic stress disorder (02859950) PTSD (post-traumatic stress disorder) (F43.10) Active confirmed Problem Attention deficit hyperactivity disorder (742347610) ADHD (attention deficit hyperactivity disorder) (F90.9) Active confirmed Problem Bipolar 2 disorder (25839183) Bipolar 2 disorder (F31.81) Active confirmed Problem Cannabis use disorder (6631594317) Cannabis use disorder (F12.90) Active confirmed Encounters Encounter Location Date Provider Diagnosis [address] [address] 04/04/2024 Isis Galloway PTSD (post-traumatic stress disorder) F43.10 ; ADHD (attention deficit hyperactivity disorder) F90.9 ; Medication management Z79.899 and Bipolar 2 disorder F31.[address] [address] 04/24/2024 Isis Sabmaggie PTSD (post-traumatic stress disorder) F43.10 ; ADHD (attention deficit hyperactivity disorder) F90.9 ; Medication management Z79.899 and Bipolar 2 disorder F31.[address] [address] 05/30/2024 Isis Sabmaggie PTSD (post-traumatic stress disorder) F43.10 ; ADHD (attention deficit hyperactivity disorder) F90.9 ; Medication management Z79.899 and Bipolar 2 disorder F31.[address] [address] 07/11/2024 Isis Sabblut PTSD (post-traumatic stress disorder) F43.10 ; ADHD (attention deficit hyperactivity disorder) F90.9 ; Medication management Z79.899 and Bipolar 2 disorder F31.[address] [address] 08/21/2024 Isis Sabblut PTSD (post-traumatic stress disorder) F43.10 ; ADHD (attention deficit hyperactivity disorder) F90.9 ; Cannabis use disorder F12.90 ; Medication management Z79.899 and Bipolar 2 disorder F31.[address] [address] 09/11/2024 Isis Sabblut PTSD (post-traumatic stress disorder) F43.10 ; ADHD (attention deficit hyperactivity disorder) F90.9 ; Cannabis use disorder F12.90 ; Medication management Z79.899 and Bipolar 2 disorder F31.[address] [address] 10/10/2024 Isis Sabblut PTSD (post-traumatic stress disorder) F43.10 ; ADHD (attention deficit hyperactivity disorder) F90.9 ; Cannabis use disorder F12.90 ; Medication management Z79.899 and Bipolar 2 disorder F31.[address] [address] 11/20/2024 Isis Sabblut PTSD (post-traumatic stress disorder) F43.10 ; ADHD (attention deficit hyperactivity disorder) F90.9 ; Cannabis use disorder F12.90 ; Medication management Z79.899 and Bipolar 2 disorder F31.[address] [address] 03/31/2024 Isis Sabblut Bipolar 2 disorder F31.[address] [address] 09/07/2024 Isis Sabblut Bipolar 2 disorder F31.[address] [place] [address] 11/14/2024 Isis Galloway Bipolar 2 disorder F31.81 Assessments Encounter Date Diagnosis (ICD Code) Assessment Notes Treatment Notes Treatment Clinical Notes Section Notes 04/24/2024 PTSD (post-traumatic stress disorder) (ICD-10 - [...] (ICD-10 - F43.10) Continue psychotherapy as scheduled. 04/04/2024 PTSD (post-traumatic stress disorder) (ICD-10 - F43.10) Continue psychotherapy as scheduled. 03/31/2024 Bipolar 2 disorder (ICD-10 - F31.81) 04/04/2024 ADHD (attention deficit hyperactivity disorder) (ICD-10 - F90.9) 11/20/2024 ADHD (attention deficit hyperactivity disorder) (ICD-10 [...] deficit hyperactivity disorder) (ICD-10 - F90.9) 04/24/2024 Medication management (ICD-10 - Z79.899) May self-administer medications or be administered own oral medications per [place] protocols. Provided informed consent with understanding of [...] or be administered own oral medications per [place] protocols. Provided informed consent with understanding of [...] or be administered own oral medications per [place] protocols. Provided informed consent with understanding of side effects, adverse effects, risks and benefits as well as alternative treatments as previously discussed and with the above recommended medications & other aspects of the treatment program. Agrees to return sooner if symptoms worsen or suicidal or homicidal ideations occur. 09/11/2024 Cannabis use disorder (ICD-10 - F12.90) Educated client that the psychoactive components in marijuana can interact with prescribed psychiatric medications, and cessation is best practice and decreased use at the very least is advisable. Use has been increasing lately - THC 44% 3x/day, 20% THC 7-8x/day 08/21/2024 Cannabis use disorder (ICD-10 - F12.90) [...] use at the very least is advisable. 04/04/2024 Medication management (ICD-10 - Z79.899) May self-administer medications or be administered own oral medications per [place] protocols. Provided informed consent with understanding of side effects, adverse effects, risks and benefits as well as alternative treatments as previously discussed and with the above recommended medications & other aspects of the treatment program. Agrees to return sooner if symptoms worsen or suicidal or homicidal ideations occur. 04/04/2024 Bipolar 2 disorder (ICD-10 - F31.81) 11/20/2024 Medication management (ICD-10 - Z79.899) May self-administer medications or be administered own oral medications per [place] protocols. Provided informed consent with understanding of [...] or be administered own oral medications per [place] protocols. Provided informed consent with understanding of [...] of lamotrigine, possibly increase to 200 mg. 09/11/2024 Medication management (ICD-10 - Z79.899) May self-administer medications or be administered own oral medications per [place] protocols. Provided informed consent with understanding of side effects, adverse effects, risks and benefits as well as alternative treatments as previously discussed and with the above recommended medications & other aspects of the treatment program. Agrees to return sooner if symptoms worsen or suicidal or homicidal ideations occur. 05/30/2024 Bipolar 2 disorder (ICD-10 - F31.81) 07/11/2024 Bipolar 2 disorder (ICD-10 - F31.81) 08/21/2024 Medication management (ICD-10 - Z79.899) May self-administer medications or be administered own oral medications per [place] protocols. Provided informed consent with understanding of side effects, adverse effects, risks and benefits as well as alternative treatments as previously discussed and with the above recommended medications & other aspects of the treatment program. Agrees to return sooner if symptoms worsen or suicidal or homicidal ideations occur. 04/24/2024 Bipolar 2 disorder (ICD-10 - F31.81) Keep medications same for now - consider making changes if depression remains high at next visit. 09/11/2024 Bipolar 2 disorder (ICD-10 - F31.81) Plan is to stop fluoxetine at next F/U in two weeks and evaluate effectiveness of lamotrigine, possibly increase to 200 mg. 11/20/2024 Bipolar 2 disorder (ICD-10 - F31.81) Plan is stop fluoxetine at next F/U appt - replaced with lamotrigine that is being titrated to 200 mg. 10/10/2024 Bipolar 2 disorder (ICD-10 - F31.81) Plan is stop fluoxetine at next F/U appt - replaced with lamotrigine that is being titrated to 200 mg. Plan Of Treatment No Information Insurance Providers Payer Name Payer Address Payer Phone Subscriber Number Group Number Insured Name Patient Relationship to Insured Coverage Start Date Coverage End Date [facility] Claims Department [address] [place] [address] [id number] Claire Grande Self - patient is the insured 5 [facility] Claims Department [address] [place] [address] [id number] Claire Grande Self - patient is the insured 3 3 [employer] [address] [place] [id number] [id number] Claire Grande Self - patient is the insured 3 3 [facility] Claims Department [address] [place] [address] [id number] Claire Grande Self - patient is the insured 5 Medical (General) History Surgical History Surgery Date(Month/Year) tonsillectomy and adenoidectomy child Hospitalization History Reason Date(Month/Year) child 01/2024
--- OUTSIDE RECORDS SUMMARY | 2025-03-12 12:29 | XMS_ITS | Clinical Summary ---
Author Organization [facility] [address] [facility] Address [address] [facility] [address] [place] [address] Care Team Providers Care Fagoter Name Role Phone Mamie Johnson MD Primary Care Provider Allergies No known active allergies Medications No known medications Active Problems No known active problems Encounters Date Type Department Care Team Description 01/03/2025 11:45 AM CDT Office Visit 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
--- OUTSIDE RECORDS SUMMARY | 2025-03-12 12:29 | XMS_ITS | Clinical Summary ---
Author Organization [facility] Address [address] [place] [address] Care Team Providers Care Extracorporeal Circulation Specialist Name Role Phone Unavailable Primary Care Provider Unavailabl e Source Comments [facility],non-owned Affiliates and Associated Physician Practices is amultiple site organization consisting of ambulatory clinics and hospital sitesin [place], [place], [place] and [place]. This disclosure is being madepursuant to the Care Everywhere program and may not contain all information available regarding this patient. 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 Childhood asthma without complication 01/25/2020 History [...] drink = 0.6 oz pur e alcohol) [place] Depression Scale Answer Date Recorded [place] Depression Scale Total 13 09/01/2023 The thought [...] patient's age to complete this topic Insurance [facility] CIGNA SELF PAY NO INSURANCE Member Subscriber Plan / Payer (Ef fective for All Dates) Name:Mila Grande Member ID:Not on file Relation to Subscriber:Not on file Name:MILA GRANDE Subscriber ID:Not on file (Home) Address: [address] [place] [address] [place] [address] Payer ID:Not on file Group ID:Not on file Type:Self Pay Address: [place], [place]
--- NOTE | 2025-03-21 12:14 | WPDHOLTEREM ---
Holter/Event Monitor Holter/Event Monitor Date of procedure: 03/12/25 Holter/Event Procedure: 3-7 Day Holter Monitor Indications: Palpitations Conclusion: 1. 3 days holter monitor on 03/12/25. 2. Underlying rhythm is sinus rhythm. HR range 57-174 bpm; average HR 96 bpm. HR at 174 bpm was on 03/15/25 at 2:25 pm. 3. There are rare premature supraventricular complexes. No supraventricular tachycardia. 4. There are rare premature ventricular complexes. No ventricular tachycardia. 5. No significant pauses greater than 3 seconds. 6. Patient reports 19 episodes of symptoms but could not be correlated as no time given.
== END 2025-03-12 11:06 | disposition home or self-care (01) ==
LOC: ANHCARD 11:11
PROVIDERS: PCP Internal Medicine Infectious Disease; Visit Provider Advanced Practice Midwife
DX: R00.2 Palpitations (principal)
CPT/HCPCS: 93242

== ENCOUNTER 2025-03-12 14:00 | Outpatient (CLI) | payer OTHER, SELFPAY ==
--- NOTE | ~2025-03-12 | US_ITS ---
EXAMINATION: US abdomen complete DATE: 03/12/2025 15:42 INDICATION: Upper abdominal pain TECHNIQUE: Multiple grayscale and Doppler ultrasound images of the abdomen were obtained. COMPARISON: None FINDINGS: The pancreatic head and body are normal in appearance. The pancreatic tail is not visualized. Liver has normal echogenicity and contour, with a smooth surface. No liver lesion identified. No intrahepatic biliary duct dilation suspected. Portal venous flow was seen in the hepatopetal, normal direction and has normal Doppler waveform. The gallbladder is normal in appearance. There is no cholelithiasis. The common bile duct measures 3 mm, which is normal. Sonographic Fermin sign was reported as negative by the olericulture professor. There is normal renal contour and echogenicity bilaterally. The right kidney measures 13.5 x 4.9 x 6.3 cm and the left 13.1 x 6.3 x 5.2 cm. There are no focal renal lesions identified. Normal spleen measuring 11.5 cm in length. Mild caliectasis at the right kidney without adriel hydronephrosis. No hydronephrosis at the left kidney. Visualized proximal to mid inferior vena cava and aorta are normal. IMPRESSION: 1. Mild caliectasis at the right kidney without adriel hydronephrosis. Otherwise unremarkable abdominal ultrasound. Reviewed, dictated and finalized at location A.
--- OUTSIDE RECORDS SUMMARY | 2025-03-12 15:12 | XMS_ITS | Clinical Summary ---
Author Organization [facility] Address [address] [place] [address] Care Team Providers Care Meter Supervisor Name Role Phone Unavailable Primary Care Provider Unavailabl e Source Comments [facility],non-owned Affiliates and Associated Physician Practices is amultiple site organization consisting of ambulatory clinics and hospital sitesin [place], [place], [place] and [place]. This disclosure is being madepursuant to the Care Everywhere program and may not contain all information available regarding this patient. Last updated 18.[facility] Allergies No known active allergies Medications * [...] Noted Date Diagnosed Date Heterozygous MTHFR mutation G5370C 01/25/2020 Childhood asthma without complication 01/25/2020 History [...] drink = 0.6 oz pur e alcohol) [place] Depression Scale Answer Date Recorded [place] Depression Scale Total 13 09/01/2023 The thought [...] patient's age to complete this topic Insurance [facility] CIGNA SELF PAY NO INSURANCE Member Subscriber Plan / Payer (Ef fective for All Dates) Name:Mila Grande Member ID:Not on file Relation to Subscriber:Not on file Name:MILA GRANDE Subscriber ID:Not on file (Home) Address: [address] [place] [address] [place] [address] Payer ID:Not on file Group ID:Not on file Type:Self Pay Address: [place], [place]
--- OUTSIDE RECORDS SUMMARY | 2025-03-12 15:12 | XMS_ITS | Clinical Summary ---
Author Organization [facility] [address] [facility] Address [address] [facility] [address] [place] [address] Care Team Providers Care Forest Fire Equipment Operator Name Role Phone Mamie Johnson MD Primary Care Provider Allergies No known active allergies Medications No known medications Active Problems No known active problems Encounters Date Type Department Care Team Description 01/03/2025 11:45 AM CDT Office Visit [facility] [place] [address] [address] Anika Shaver, COLE Photophobia of right eye (Primary Dx) from Last 3 Months Social History Tobacco Use Types Packs/Day Years Used Date Smoking Tobacco: Never Assessed Comments Unknown Sex and Gender Information Value Date Recorded Sex Assigned at Not on file 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
== END 2025-03-12 14:01 | disposition home or self-care (01) ==
PROVIDERS: PCP Internal Medicine Infectious Disease; Visit Provider Obstetrics & Gynecology
DX: R10.10 Upper abdominal pain, unspecified (principal)
CPT/HCPCS: 76700

== ENCOUNTER 2025-04-12 19:59 | Outpatient (CLI) | payer OTHER, SELFPAY ==
--- OUTSIDE RECORDS SUMMARY | 2024-08-17 11:30 | XMS_ITS ---
Author Organization [facility] Address [address] [place] [address] Care Team Providers Care Radiology Special Procedure Tech Name Role Phone Isis Galloway Primary Care Provider [phone] REASON FOR VISIT 4 week f/u Encounters Encounter Location Date Provider Diagnosis [address] [place] [address] 08/17/2024 Isis Galloway Plan Of Treatment No Information Progress Notes * Claire GRANDEDOB:2000 ( 24 yo F)Acc No.[id number]:08/17/2024 UNLOCKED PROGRESS NOTE Patient: Claire VILLARREAL Provider: Natasha Galloway DNP, APRN, PMHNP-BC :2000 A ge:23 Y S ex:Female Date:08/17/2024 Address:[address] [place] [address] [id number] Subjective: * Chief Complaints: * 1 . 4 week f/u. * Medical History: Objective: * Vitals: Assessment: Plan: * Treatment: * * Electronic signature of Shannon Wellington , [id number] on 04/12/2025 at 08:05 PM MANAGER LINE Sign off status: Pending * Provider: Natasha Galloway DNP, APRN, PMHNP-BC Date: 08/17/2024 Generated for Printing/Faxing/eTransmitting on: 06/12/2024 08:05 PM MANAGER LINE
[2025-04-12] VITALS (11 sets, daily range): BP systolic 116–125; BP diastolic 66–77; PULSE 92–103; O2SAT 97–98
--- OUTSIDE RECORDS SUMMARY | 2025-04-12 20:06 | XMS_ITS | Continuity of Care Document ---
Author Organization [facility] Address [address] [place] [address] Care Team Providers Care Lawn Care Worker Name Role Phone CHRISTI LAIRD Primary Care Provider [phone] Assessment Encounter Date Assessment Date Assessment LastModified by Organization Details LastModified Time 02/07/2025 02/07/2025 Patient is _15__weeks . Discussed plan. Not available 02/07/2025 10:20:40 Plan of Treatment Reminders Order Date Submit Date Provider Last Modified By Organization Details Last Modified Time Details Appointments U/S OB GROWTH 2024 10:30A M ULTRASOUND Not available Not available Not available OB ROUTINE 2024 11:15A M Yumiko Guzman CNM Not available Not available Not available Lab None recorde d. Referral None recorde d. Procedures None recorde d. Surgeries None recorde d. Imaging None recorde d. Medication Orders None recorde d. Patient TargetsNo targets recorded. Patient InstructionsNo instructions recorded. Reason for Referral None Reported. Results Created Date Observation Date Name Description Value Unit Range Abnormal Flag Note LastModifiedBy Organization Detail LastModifiedTime 01/17/2001/16/2025 [UNIT Y] ANEUP LOIDY NIPT fraction 6.2% normal Not Available Robert hussein [address], [place], [address], 01/16/2025 02:31:48 01/17/20 25 01/16/2025 [UNIT Y] ANEUP LOIDY NIPT 22Q11.2 microdeletio n LOW RISK <1 in 10,000 normal Not Available [facility] [address], [place], [address], 01/16/2025 02:31:48 01/17/20 25 01/16/2025 [UNIT Y] ANEUP LOIDY NIPT sex chromosome aneuploidy NOT DETECT ED normal Not Available [facility] [address], [place], [address], 01/16/2025 02:31:48 01/17/20 25 01/16/2025 [UNIT Y] ANEUP LOIDY NIPT monosomy X LOW RISK <1 in 10,000 normal Not Available [facility] [address], [place], [address], 01/16/2025 02:31:48 01/17/20 25 01/16/2025 [UNIT Y] ANEUP LOIDY NIPT trisomy 13 LOW RISK <1 in 10,000 normal Not Available [facility] [address], [place], [address], 01/16/2025 02:31:48 01/17/20 25 01/16/2025 [UNIT Y] ANEUP LOIDY NIPT trisomy 18 LOW RISK <1 in 10,000 normal Not Available [facility] [address], [place], [address], 01/16/2025 02:31:48 01/17/20 25 01/16/2025 [UNIT Y] ANEUP LOIDY NIPT trisomy 21 LOW RISK <1 in 10,000 normal Not Available [facility] [address], [place], [address], 01/16/2025 02:31:48 01/17/20 25 01/16/2025 [UNIT Y] ANEUP LOIDY NIPT sex FEMALE normal Not Available [facility] [address], [place], [address], 01/16/2025 02:31:48 01/17/20 25 01/16/2025 [UNIT Y] ANEUP LOIDY NIPT gestation SINGLE TON normal Not Available [facility] [address], [place], [address], 01/16/2025 02:31:48 01/17/20 25 01/16/2025 [UNIT Y] ANEUP LOIDY NIPT for detailed report, see pdf See PDF normal Not Available [facility] [address], [place], [address], 01/16/2025 02:31:48 01/21/20 25 01/20/2025 [UNIT Y] ALEJANDRA Wade sickle cell disease/beta -thalassemia /hemoglobino pathies carrier screen NEGATI VE normal Not Available [facility] [address], [place], [address], 01/20/2025 04:29:08 01/21/20 25 01/20/2025 [UNIT Y] ALEJANDRA Wade alpha-thalas semia carrier screen NEGATI VE normal Not Available [facility] [address], [place], [address], 01/20/2025 04:29:08 01/21/20 25 01/20/2025 [UNIT Y] ALEJANDRA Wade cystic fibrosis carrier screen NEGATI VE normal Not Available [facility] [address], [place], [address], 01/20/2025 04:29:08 01/21/20 25 01/20/2025 [UNIT Y] ALEJANDRA Wade spinal muscular atrophy carrier screen NEGATI VE 2 SMN1 copies , SNP not presen t normal Not Available [facility] [address], [place], [address], 01/20/2025 04:29:08 01/21/20 25 01/20/2025 [UNIT Y] ALEJANDRA Wade for detailed report, see pdf See PDF normal Not Available [facility] [address], [place], [address], 01/20/2025 04:29:08 01/11/2001/10/2025 HEPAT ITIS B SURFA CE ANTIG EN hepatitis B surface antigen Non-re active non-re active This assay was perfo rmed using [employer] ratio n reage nts and test kits. Value s obtai kimberly with other assay metho ds or kits canno t be used inter powers eably . Not Available [facility] (Lab) [address], [place], [address], 01/11/2025 12:17:08 01/11/2001/10/2025 HIV 1/2 ANTIG EN/AN TIBOD Y, REFLE X CONFI RMATI ON HIV antigen/anti body Nonrea ctive nonrea ctive HIV-1 antig en and HIV-1 /HIV- 2 antib odies were not detec saravanan. No labor atory evide nce of HIV infec tion. Not Available [facility] (Lab) [address], [place], [address], 01/11/2025 12:17:08 01/11/2001/10/2025 HEPAT ITIS C ANTIB SUSANNE SCREE N, REFLE X TO CONFI RMATI ON hepatitis C antibody Non-re active non-re active Antib odies to HCV Not Detec saravanan, does not exclu de the possi bilit y of expos ure to HCV. Not Available [facility] (Lab) [address], [place], [address], 01/11/2025 12:17:08 01/11/2001/10/2025 TSH, REFLE X FREE T4 TSH 1.04 uIU/m L 0.30-5 .33 Not Available [facility] (Lab) [address], [place], [address], 01/11/2025 12:17:09 01/11/20 25 01/10/2025 CBC W/DIF F WBC 11.0 10'3/ uL 3.5-10 .5 high Not Available [facility] (Lab) [address], [place], [address], 01/11/2025 12:17:09 01/11/20 25 01/10/2025 CBC W/DIF F RBC 4.37 10'6/ uL (based on docume nted legal sex) 3.80-5 .20 Not Available [facility] (Lab) [address], [place], [address], 01/11/2025 12:17:09 01/11/20 25 01/10/2025 CBC W/DIF F HGB 13.7 g/dL (based on docume nted legal sex) 11.6-1 5.4 Not Available [facility] (Lab) [address], [place], [address], 01/11/2025 12:17:09 01/11/20 25 01/10/2025 CBC W/DIF F HCT 40.1 % (based on docume nted legal sex) 34.0-4 5.0 Not Available [facility] (Lab) [address], [place], [address], 01/11/2025 12:17:09 01/11/2001/10/2025 CBC W/DIF F MCV 91.8 fL 80.0-9 9.0 Not Available [facility] (Lab) [address], [place], [address], 01/11/2025 12:17:09 01/11/2001/10/2025 CBC W/DIF F MCH 31.4 pg 27.0-3 4.0 Not Available [facility] (Lab) [address], [place], [address], 01/11/2025 12:17:09 01/11/2001/10/2025 CBC W/DIF F MCHC 34.2 g/dL 32.0-3 5.5 Not Available [facility] (Lab) [address], [place], [address], 01/11/2025 12:17:09 01/11/2001/10/2025 CBC W/DIF F RDW 12.4 % 11.0-1 5.0 Not Available [facility] (Lab) [address], [place], [address], 01/11/2025 12:17:09 01/11/2001/10/2025 CBC W/DIF F plt 227 10'3/ uL 150-40 0 Not Available [facility] (Lab) [address], [place], [address], 01/11/2025 12:17:09 01/11/2001/10/2025 CBC W/DIF F MPV 11.5 fL 8.8-12 .1 Not Available [facility] (Lab) [address], [place], [address], 01/11/2025 12:17:09 01/11/20 25 01/10/2025 CBC W/DIF F NRBC's 0.0 % 0.0 Not Available [facility] (Lab) [address], [place], [address], 01/11/2025 12:17:09 01/11/2001/10/2025 CBC W/DIF F absolute NRBCs 0.0 10'3/ uL no refere nce range establ ished Not Available [facility] (Lab) [address], [place], [address], 01/11/2025 12:17:09 01/11/2001/10/2025 CBC W/DIF F neutrophils 71.3 % 34.0-7 3.0 Not Available [facility] (Lab) [address], [place], [address], 01/11/2025 12:17:09 01/11/20 25 01/10/2025 CBC W/DIF F lymphocytes 22.0 % 15.0-5 0.0 Not Available [facility] (Lab) [address], [place], [address], 01/11/2025 12:17:09 01/11/2001/10/2025 CBC W/DIF F monocytes 4.1 % 1.0-15 .0 Not Available [facility] (Lab) [address], [place], [address], 01/11/2025 12:17:09 01/11/2001/10/2025 CBC W/DIF F eosinophils 1.7 % 0.0-8. 0 Not Available [facility] (Lab) [address], [place], [address], 01/11/2025 12:17:09 01/11/2001/10/2025 CBC W/DIF F basophils 0.4 % 0.0-2. 0 Not Available [facility] (Lab) [address], [place], [address], 01/11/2025 12:17:09 01/11/2001/10/2025 CBC W/DIF F immature granulocytes 0.5 % no define d refere nce range Immat ure Granu locyt es (IG) repre sents autom ated enume ratio n of Metam yeloc ytes, Myelo cytes and Promy elocy chema when IG is < 5%. Blast s are not inclu ded in IG and repor saravanan separ ately if prese nt. Not Available [facility] (Lab) [address], [place], [address], 01/11/2025 12:17:09 01/11/2001/10/2025 CBC W/DIF F absolute neutrophils 7.8 10'3/ uL 1.5-8. 0 Not Available [facility] (Lab) [address], [place], [address], 01/11/2025 12:17:09 01/11/20 25 01/10/2025 CBC W/DIF F absolute lymphocytes 2.4 10'3/ uL 1.0-4. 0 Not Available [facility] (Lab) [address], [place], [address], 01/11/2025 12:17:09 01/11/2001/10/2025 CBC W/DIF F absolute monocytes 0.5 10'3/ uL 0.2-1. 0 Not Available [facility] (Lab) [address], [place], [address], 01/11/2025 12:17:09 01/11/2001/10/2025 CBC W/DIF F absolute eosinophils 0.2 10'3/ uL 0.0-0. 6 Not Available [facility] (Lab) [address], [place], [address], 01/11/2025 12:17:09 01/11/2001/10/2025 CBC W/DIF F absolute basophils 0.0 10'3/ uL 0.0-0. 3 Not Available [facility] (Lab) [address], [place], [address], 01/11/2025 12:17:09 01/11/2001/10/2025 CBC W/DIF F absolute immature granulocytes 0.1 10'3/ uL 0.00-0 .10 Refer ence range s for nonbi nary/ inter sex or unspe cifie d gende r patie nts have not been estab lishe d. Pleas e refer to the eveo wing table for range s estab lishe d for cisge nder patie nts and evalu ate in the clini melany mignon xt of the indiv idual patie nt: https ://laurel nielsen book. nm.or g/gen derx Not Available [facility] (Lab) [address], [place], [address], 01/11/2025 12:17:09 01/11/2001/10/2025 TYPE/ RH/SC REEN ABO/Rh type A POS Not Available [facility] (Lab) [address], [place], [address], 01/11/2025 12:17:10 01/11/20 25 01/10/2025 TYPE/ RH/SC REEN antibody screen NEG Not Available [facility] (Lab) [address], [place], [address], 01/11/2025 12:17:10 01/11/20 25 01/10/2025 TYPE/ RH/SC REEN exp date 2024 23:59 Not Available [facility] (Lab) [address], [place], [address], 01/11/2025 12:17:10 01/11/20 25 01/10/2025 RUBEL LA IGG ANTIB SUSANNE, QUANT rubella antibodies, IgG Reacti ve reacti ve Not Available [facility] (Lab) [address], [place], [address], 01/11/2025 12:17:10 01/11/20 25 01/10/2025 RUBEL LA IGG ANTIB SUSANNE, QUANT rubella antibodies, IgG quant 10.2 IU/mL >=10 Non-r eacti ve (Non- Immun e) <10 IU/mL React zahra (Immu ne) > or = 10 IU/mL Not Available [facility] (Lab) [address], [place], [address], 01/11/2025 12:17:10 01/11/2001/10/2025 HEMOG LOBIN A1C hemoglobin A1C 5.1 % 4.0-5. 6 The Ameri can Diabe chema Assoc iatio n recom mends that a prima ry goal of thera py bao pierre be a HBA1C of < 7% and that physi cians bao d reeva luate the treat ment regim en in patie nts with HBA1C value s consi stent ly > 8%. <5.7% Elly l 5.7 - 6.4% Incre ased risk for diabe chema >=6.5 % Diagn ostic of diabe chema <7.0% Goal of thera py >8.0% Actio n sugge sted Not Available [facility] (Lab) [address], [place], [address], 01/11/2025 12:17:10 01/11/20 25 01/10/2025 RPR SCREE N, REFLE X TITER /CONF IRMAT ION RPR qualitative Nonrea ctive nonrea ctive Not Available [facility] (Lab) [address], [place], [address], 01/11/2025 12:17:11 01/11/20 25 01/10/2025 CT/GC AND TRICH OMONA S VAGIN YADIRA (RRNA ), URINE chlamydia trachomatis, PCR Negati ve negati ve Not Available [facility] (Lab) [address], [place], [address], 01/12/2025 01:12:08 01/11/20 25 01/10/2025 CT/GC AND TRICH OMONA S VAGIN YADIRA (RRNA ), URINE neisseria gonorrhoeae, PCR Negati ve negati ve Not Available [facility] (Lab) [address] [place], [address], 01/12/2025 01:12:08 01/11/20 25 01/10/2025 CT/GC AND TRICH OMONA S VAGIN YADIRA (RRNA ), URINE trichomonas vaginalis ribosomal RNA (rrna) Negati ve negati ve Not Available [facility] (Lab) [address] [place], [address], 01/12/2025 01:12:08 01/11/20 25 01/10/2025 CULTU RE: URINE result report SEE RESULT S BELOW Test: Cultu re: Urine Speci men Sourc e: Urine Voide d Speci men Type: Urine Speci men Date: 2024 1352 Resul t Date: 2024 0008 Resul t Statu s: Final resul t Abnor mal: No Resul ting Lab: [facility] [address] [facility] [address] Tel: CULTU RE ----- ----- ----- --- Cultu re resul t (>=3 organ isms prese nt) indic ates possi ble conta minat ion. Repea t cultu re if sympt oms indic ate. Not Available [facility] (Lab) [address], [place], [address], 01/12/2025 01:12:09 01/11/20 25 01/10/2025 drug scree n, urine Amphetamines : negati ve Not Available [facility] [address], [place], [address], 01/10/2025 14:48:40 01/11/20 25 01/10/2025 drug scree n, urine Cannabinoids : positi ve Not Available [facility] [address], [place], [address], 01/10/2025 14:48:40 01/11/20 25 01/10/2025 drug scree n, urine Cocaine: negati ve Not Available [facility] [address], [place], [address], 01/10/2025 14:48:40 01/11/20 25 01/10/2025 drug scree n, urine Opiates: negati ve Not Available [facility] [address], [place], [address], 01/10/2025 14:48:40 01/11/20 25 01/10/2025 drug scree n, urine Phenocyclidi ne: negati ve Not Available [facility] [address], [place], [address], 01/10/2025 14:48:40 01/11/20 25 01/10/2025 drug scree n, urine Barbiturates : negati ve Not Available [facility] [address], [place], [address], 01/10/2025 14:48:40 01/11/20 25 01/10/2025 drug scree n, urine Benzodiazepi joaquín: negati ve Not Available [facility] [address], [place], [address], 01/10/2025 14:48:40 01/11/20 25 01/10/2025 drug scree n, urine Ethanol: negati ve Not Available [facility] [address], [place], [address], 01/10/2025 14:48:40 01/11/20 25 01/10/2025 drug scree n, urine Hallucinogen s: negati ve Not Available [facility] [address], [place], [address], 01/10/2025 14:48:40 01/11/20 25 01/10/2025 drug scree n, urine Inhalants: negati ve Not Available [facility] [address], [place], [address], 01/10/2025 14:48:40 01/11/20 25 01/10/2025 drug scree n, urine Anabolic Steroids: negati ve Not Available [facility] [address], [place], [address], 01/10/2025 14:48:40 01/11/20 25 01/10/2025 US, obste tric, nucha l trans lucen cy No observ ation record ed. [email or web address] [address], [place], [address], 01/15/2025 22:18:32 01/11/20 25 01/10/2025 US, obste tric, nucha l trans lucen cy No observ ation record ed. anisa [facility] [address], [place], [address], 01/10/2025 18:49:50 03/07/2003/07/2025 US, obste tric, 2nd or 3rd trime ster No observ ation record ed. [email or web address] [facility] [address], [place], [address], 03/07/2025 15:09:10 03/07/2003/07/2025 US, obste tric, 2nd or 3rd trime ster No observ ation record ed. [email or web address] [address], [place], [address], 03/07/2025 11:22:48 03/12/2003/12/2025 US, abdom en, compl ete No observ ation record ed. [email or web address] [id number] [address], [place], [address], 03/12/2025 17:49:13 03/12/2003/12/2025 US, abdom en, compl ete No observ ation record ed. [email or web address] [address] [facility], [place], [address], 03/12/2025 16:56:41 03/21/2003/12/2025 giles r monit or No observ ation record ed. [email or web address] [id number] [facility], [place], [address], 03/23/2025 16:53:34 03/21/2003/12/2025 giles r monit or No observ ation record ed. [email or web address] (Cardiology & Emg) [facility] [address] [place] [address], [address], 03/23/2025 16:53:35 04/11/20 25 04/11/2025 US, obste tric, follo w-up No observ ation record ed. [email or web address] [address], [place], [address], 04/11/2025 15:57:47 04/11/20 25 04/11/2025 US, obste tric, follo w-up No observ ation record ed. [email or web address] [facility] [address], [place], [address], 04/11/2025 18:17:58 Result Notes None recorded. Problems Name Problem SNOMED Code Status Onset Date Resolution Date Notes Provider Name and Address Organization Details Recorded Time Obesity 333049996 Completed BMI 43 - antenata l testing @ 34 wks Es healy, [facility] 4 19:42:00 Bipolar disorder 89996443 Completed MFM consult -aripipr azole, fluoxeti ne 60mg, managed by her psychiat rist. Per MFM - cont manageme nt with psych. Ok to continue . Watch with breastfe eding. Es healy, [facility] 4 19:42:00 Migraine 92169662 Completed excedrin tension headache recommen ded Es healy, [facility] 4 19:42:00 Prematur e labor 7030841 Completed hx contract ions Es healy, [facility] 4 19:42:00 Pregnanc y 13020562 Completed 202302/24/2024 Alondra healy, [facility] 5 14:10:18 Pneumoni a 259733067 Completed 2023 Es healy, [facility] 4 19:42:00 Mixed anxiety and depressi ve disorder 149574480 Active 2024 Yumiko Guzman CNM [address], [place], [address], [facility] 5 14:30:52 Pregnanc y 91000000 Active 2024 Alondra healy, [facility] 14:10:18 Obesity 343035926 Active 2024 BMI 43 start bASA 81 mg Yumiko Guzman CNM [address], [place], [address], [facility] 14:30:43 Mixed anxiety and depressi ve disorder 063315156 Active 2024 Yumiko Guzman CNM [address], [place], [address], [facility] 14:30:52 Bipolar disorder 35051100 Active 2024 has a psychiat rist Yumiko Guzman CNM [address], [place], [address], [facility] 14:32:28 Problem Notes None recorded. Procedures Surgical History Date Name Laterality Status Provider Name and Address Organization Details Recorded Time 07/21/2023 Date of Last Pap Smear completed Escher Rees [facility] 07/21/2023 16:09:33 05/31/2007 tonsilecto my/adenoid s completed Escher Rees [facility] 07/21/2023 16:14:08 Imaging Results None recorded. [...] completed Not Available Not Available Not Available cephalexin 500 mg capsule TAKE 1 CAPSULE BY MOUTH EVERY 12 HOURS FOR 7 DAYS 04/11 completed Not Available Not Available Not Available [...] Available Not Available Not Available amoxicillin 875 mg-potdaveiu m clavulanate 125 mg tablet TAKE 1 [...] MOUTH TWICE A DAY FOR 7 DAYS active Not Available Not Available No t Available active Not Available Not Avai lable [...] Updated DateTime 02/07/2025 170.18 cm 41.7 kg/m2 924362.57 g 128/81 mm[Hg] Alondra Melendez [facility] 02/07/2025 10:10:22 Social History Question Answer Notes LastModified by Organizat ion Details LastModified Time Tobacco Smoking Status Never Smoker Es healy, [facility] 07/21/2023 16:13:04 If You Are , What Was Your Level Of Alcohol Consumption Prior To ? Occasional [email or web address] Information not available 07/21/2023 How Many Years Have You Consumed Alcohol? 0 [email or web address] Information not available 10/13/2023 Are You Blind Or Do You Have Difficulty Seeing? No [email or web address] Information n ot available 07/21/2023 What Is Your Level Of Caffeine Consumption? Moderate Information not available 10/13/2023 How Much Tobacco Do You Chew? None [email or web address] Information not available 10/13/2023 In The 14 Days Before Symptom Onset, Have You Had Close Contact With A Laboratory-confirm ed COVID-19 While That Case Was Ill? No [email or web address] Information n ot available 07/21/2023 In The 14 Days Before Symptom Onset, Have You Had Close Contact With A Person Who Is Under Investigation For COVID-19 While That Person Was Ill? No [email or web address] Information not available 07/21/2023 Have You Been To An Area Known To Be High Risk For COVID-19? No [email or web address] Information not available 07/21/2023 Are You Deaf Or Do You Have Serious Difficulty Hearing? No [email or web address] Information not available 07/21/2023 What Type Of Diet Are You Following? REGULAR [email or web address] Information n ot available 07/21/2023 What Is The Highest Grade Or Level Of School You Have Completed Or The Highest Degree You Have Received? MD37124-7 [email or web address] Information not available 10/13/2023 Are There Any Guns Present In Your Home? No [email or web address] Information not available 10/13/2023 Do You Use Protection During Sex? No [email or web address] Information not available 10/13/2023 Do You Use Your Seat Belt Or Car Seat Routinely? Yes [email or web address] Information not available 07/21/2023 Are You Sexually Active? Yes [email or web address] Information not available 01/10/2025 Do You Have Smoke And Carbon Monoxide Detectors In Your Home? Yes [email or web address] Information not available 07/21/2023 At What Age Did You Start Smoking Tobacco? 0 [email or web address] Information not available 10/13/2023 How Much Tobacco Do You Smoke? No Information not available 10/13/2023 Do You Use Sunscreen Routinely? Yes [email or web address] Information not available 07/21/2023 Has Tobacco Cessation Counseling Been Provided? No [email or web address] Information not available 07/21/2023 How Many Years Have You Smoked Tobacco? 0 [email or web address] Information not available 10/13/2023 Have You Used IV Drugs? No [email or web address] Information not available 10/13/2023 Do You Have Difficulty Walking Or Climbing Stairs? No [email or web address] Information not available 07/21/2023 Sex: Unknown Functional Status Question Answer Note LastModified by Organizat ion Details LastModified Time Do you use any illicit or recreational drugs? No Information not available 07/21/2023 Do you or have you ever used any other forms of tobacco or nicotine? No [email or web address] Information not available 07/21/2023 What is your level of alcohol consumption? None [email or web address] Information not available 07/21/2023 Are you able to walk independently without assistance or assistive devices? YESWOREST [email or web address] Information not available 07/21/2023 Are you able to care for yourself independently? 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 No [email or web address] Information not available 07/21/2023 What is your exercise level? Moderate [email or web address] Information not available 10/13/2023 Mental Status Question Answer Note LastModified by Organization D etails LastModified Time Do you feel stressed (tense, restless, nervous, or anxious, or unable to sleep at night)? [id number] [email or web address] Information not available 07/21/2023 Family History Relationship Description Onset Age of this Age Resolved Age Notes LastModified by Organization Details LastModified Time Mother Polycystic ovary syndrome [email or web address] Not available 07/21 16:12:47 Medical History Condition [...] ICD10 Code Diagnosis IMO Codes Diagnosis Note [id number] Mario Alberto oYo MD [facility] [address],[facility] [address] 01/10/2025 12:23:20 01/10/2025 13:34:14 screening [id number] Z36.82 Z3A.11 [id number] Yumiko Guzman CNM [facility] [address],[place] [address] 01/10/2025 12:23:46 01/10/2025 14:38:45 Herpes simplex 76561394 B00.9 [id number] Gestation period, 11 weeks 38272470 Z3A.11 [id number] Yumiko Guzman CNM [facility] [address],[facility] [place] [address] 02/07/2025 10:02:57 02/07/2025 10:40:20 Gestation period, 15 weeks [id number] Health Concerns Section Related Observation LastModified by Organization Detai ls LastModified Time None Recorded Concern Status LastModified by Organization Details LastModified Time None Recorded Payers Encounter Date Sequence Insurance Name Policy Number Policy Mata Covered Member ID Mata Member ID Guarantor Name 02/07/2025 1 [facility] [id number] Tarunmariano Suazo [id number] Claire Grande 02/07/2025 2 [facility] - DOS ON OR AFTER 20 (MEDICAID REPLACEMENT - HMO) Claire Light [id number] Claire Grande Notes Date Note Type Note Provider Name and Address Organization Details Recorded Time 02/07/2025 text/html Generic HPI TemplateReported by Patient Yumiko Guzman CNM [address], [place], [address], [facility] 02/07/2025 10:22:26 OBGyn Episode Ob Episode Information Episode Created Date Number of Fetuses Patient Bloodtype Patient rh Status Prepregnancy Weight lbs Domestic Partner Domestic Partner Phone Father Name Sofa Cover Inspector Status 01/11/20 25 1 A Positive OPEN Fetus Data First Name Last Name Admitted to NICU Weight (g) Sex Living Outcome Pediatric Complications Fetus ID Race Codes Race Delivery Type [id number] Problems Problem Notes oral HSV only+THC 01/10 Problem Name Start Date End Date Resolution Snomed Code Not e Mixed anxiety and depressive disorder 01/10/2025 [id number] Bipolar disorder 01/10/2025 [id number] michael blake psychiatrist Obesity 01/10/2025 [id number] art bASA 81 mg [...] Date Ultra Sound Latest Days Gestation 0 01/10/2025 07/28/19 26 0 Pre- Flowsheet Flowsheet Date 01/10/2025 Pascal Score Blood Edema Fundus Height Fundus Units Glucose Ketones Leukocytes Nitrite Labor Signs Protein Cervic Dilation Cervic Effacement Cervic Station Type Weight in lbs Pre/Post Dialysis Refused 277.993404325752 BP Diastolic BP Location Tested BP Systolic [...] Weight in lbs Pre/Post Dialysis Refused Weight 266.084643777637 BP Diastolic BP Location Tested BP Systolic BP Type 81 L arm 128 sitting Fetus Heart Rate Present A 154 Fetus Movement A No Comments URI couple weeks lungs clear , +FM rx to pharmacy, ok for note for work precautions and education f/u 4 weeks. would like referral to dhara hernandez bipolar disorder Flowsheet Date 03/07/2025 Pascal Score Blood Edema Fundus Height Fundus Units Glucose Ketones Leukocytes Nitrite Labor Signs Protein Cervic Dilation Cervic Effacement Cervic Station Type Weight in lbs Pre/Post Dialysis Refused BP Diastolic BP Location Tested BP Systolic BP Type Fetus Heart Rate Present Fetus Movement Comments Flowsheet Date 03/07/2025 Pascal Score Blood Edema Fundus Height Fundus Units Glucose Ketones Leukocytes Nitrite Labor Signs Protein Cervic Dilation Cervic Effacement Cervic Station Type Weight in lbs Pre/Post Dialysis Refused Weight 264.348612088105 BP Diastolic BP Location Tested BP Systolic BP Type 86 R arm 122 sitting Fetus Heart Rate Present Fetus Movement A Yes Comments +FM doing well anatomy incom plete, ed precautions 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 It is tightness across the upper abdomen. Does not appear to be related to meals. Denies any contractions, denies any vaginal bleeding. Denies any loss of fluid. To check on a abdominal ultrasound. To rule out biliary or pancreatic concerns. Cervix was examined visually with the speculum and a digital exam was performed. It appears and palpates closed. Flowsheet Date 04/11/2025 Pascal Score Blood Edema Fundus Height Fundus Units Glucose Ketones Leukocytes Nitrite Labor Signs Protein Cervic Dilation Cervic Effacement Cervic Station Type Weight in lbs Pre/Post Dialysis Refused BP Diastolic BP Location Tested BP Systolic BP Type Fetus Heart Rate Present Fetus Movement Comments Flowsheet Date 04/11/2025 Pascal Score Blood Edema Fundus Height Fundus Units Glucose Ketones Leukocytes Nitrite Labor Signs Protein Cervic Dilation Cervic Effacement Cervic Station Type Weight in lbs Pre/Post Dialysis Refused Weight 272.491310777492 BP Diastolic BP Location Tested BP Systolic BP Type 83 L arm 122 sitting Fetus Heart Rate Present Fetus Movement Comments +FM, doing well anatomy comp lete, growth 43%, will follow placenta padilla with us next visit, precautions and education f/u 4 weeks with glucose Menstrual History Last Menstrual Date Menses Monthly [...]
--- OUTSIDE RECORDS SUMMARY | 2025-04-12 20:06 | XMS_ITS | Continuity of Care Document ---
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 Discussed plan. Not available 04/11/2025 13:01:56 Plan of Treatment Reminders Order Date Submit [...] Not Available Robert hussein [address], [place], [address], 01/16/2025 02:31:48 01/17/20 25 01/16/2025 [UNIT Y] ANEUP LOIDY NIPT 22Q11.2 microdeletio n LOW RISK <1 in 10,000 normal Not Available [facility] [address], [place], [address], 01/16/2025 02:31:48 01/17/20 25 01/16/2025 [UNIT Y] ANEUP LOIDY NIPT sex chromosome aneuploidy NOT DETECT ED normal Not Available [facility] [address], [place], [address], 01/16/2025 02:31:48 01/17/20 25 01/16/2025 [UNIT Y] ANEUP LOIDY NIPT monosomy X LOW RISK <1 in 10,000 normal Not Available [facility] [address], [place], [address], 01/16/2025 02:31:48 01/17/20 25 01/16/2025 [UNIT Y] ANEUP LOIDY NIPT trisomy 13 LOW RISK <1 in 10,000 normal Not Available [facility] [address], [place], [address], 01/16/2025 02:31:48 01/17/20 25 01/16/2025 [UNIT Y] ANEUP LOIDY NIPT trisomy 18 LOW RISK <1 in 10,000 normal Not Available [facility] [address], [place], [address], 01/16/2025 02:31:48 01/17/20 25 01/16/2025 [UNIT Y] ANEUP LOIDY NIPT trisomy 21 LOW RISK <1 in 10,000 normal Not Available [facility] [address], [place], [address], 01/16/2025 02:31:48 01/17/20 25 01/16/2025 [UNIT Y] ANEUP LOIDY NIPT sex FEMALE normal Not Available [facility] [address], [place], [address], 01/16/2025 02:31:48 01/17/20 25 01/16/2025 [UNIT Y] ANEUP LOIDY NIPT gestation SINGLE TON normal Not Available [facility] [address], [place], [address], 01/16/2025 02:31:48 01/17/20 25 01/16/2025 [UNIT Y] ANEUP LOIDY NIPT for detailed report, see pdf See PDF normal Not Available [facility] [address], [place], [address], 01/16/2025 02:31:48 01/21/20 25 01/20/2025 [UNIT Y] ALEJANDRA Wade sickle cell disease/beta -thalassemia /hemoglobino pathies carrier screen NEGATI VE normal Not Available [facility] [address], [place], [address], 01/20/2025 04:29:08 01/21/20 25 01/20/2025 [UNIT Y] ALEJANDRA Wade alpha-thalas semia carrier screen NEGATI VE normal Not Available [facility] [address], [place], [address], 01/20/2025 04:29:08 01/21/20 25 01/20/2025 [UNIT Y] ALEJANDRA Wade cystic fibrosis carrier screen NEGATI VE normal Not Available [facility] [address], [place], [address], 01/20/2025 04:29:08 01/21/20 25 01/20/2025 [UNIT Y] ALEJANDRA Wade spinal muscular atrophy carrier screen NEGATI VE 2 SMN1 copies , SNP not presen t normal Not Available [facility] [address], [place], [address], 01/20/2025 04:29:08 01/21/20 25 01/20/2025 [UNIT Y] ALEJANDRA Wade for detailed report, see pdf See PDF normal Not Available [facility] [address], [place], [address], 01/20/2025 04:29:08 01/11/2001/10/2025 HEPAT ITIS B SURFA CE ANTIG EN hepatitis B surface antigen Non-re active non-re active This assay was perfo rmed using [employer] ratio n reage nts and test kits. Value s obtai kimberly with other assay metho ds or kits canno t be used inter powers eably . Not Available [facility] (Lab) [address], [place], [address], 01/11/2025 12:17:08 01/11/2001/10/2025 HIV 1/2 ANTIG EN/AN TIBOD Y, REFLE X CONFI RMATI ON HIV antigen/anti body Nonrea ctive nonrea ctive HIV-1 antig en and HIV-1 /HIV- 2 antib odies were not detec saravanan. No labor atory evide nce of HIV infec tion. Not Available [facility] (Lab) [address], [place], [address], 01/11/2025 12:17:08 01/11/2001/10/2025 HEPAT ITIS C ANTIB SUSANNE SCREE N, REFLE X TO CONFI RMATI ON hepatitis C antibody Non-re active non-re active Antib odies to HCV Not Detec saravanan, does not exclu de the possi bilit y of expos ure to HCV. Not Available [facility] (Lab) [address], [place], [address], 01/11/2025 12:17:08 01/11/2001/10/2025 TSH, REFLE X FREE T4 TSH 1.04 uIU/m L 0.30-5 .33 Not Available [facility] (Lab) [address], [place], [address], 01/11/2025 12:17:09 01/11/20 25 01/10/2025 CBC W/DIF F WBC 11.0 10'3/ uL 3.5-10 .5 high Not Available [facility] (Lab) [address], [place], [address], 01/11/2025 12:17:09 01/11/20 25 01/10/2025 CBC W/DIF F RBC 4.37 10'6/ uL (based on docume nted legal sex) 3.80-5 .20 Not Available [facility] (Lab) [address], [place], [address], 01/11/2025 12:17:09 01/11/20 25 01/10/2025 CBC W/DIF F HGB 13.7 g/dL (based on docume nted legal sex) 11.6-1 5.4 Not Available [facility] (Lab) [address], [place], [address], 01/11/2025 12:17:09 01/11/20 25 01/10/2025 CBC W/DIF F HCT 40.1 % (based on docume nted legal sex) 34.0-4 5.0 Not Available [facility] (Lab) [address], [place], [address], 01/11/2025 12:17:09 01/11/2001/10/2025 CBC W/DIF F MCV 91.8 fL 80.0-9 9.0 Not Available [facility] (Lab) [address], [place], [address], 01/11/2025 12:17:09 01/11/2001/10/2025 CBC W/DIF F MCH 31.4 pg 27.0-3 4.0 Not Available [facility] (Lab) [address], [place], [address], 01/11/2025 12:17:09 01/11/2001/10/2025 CBC W/DIF F MCHC 34.2 g/dL 32.0-3 5.5 Not Available [facility] (Lab) [address], [place], [address], 01/11/2025 12:17:09 01/11/2001/10/2025 CBC W/DIF F RDW 12.4 % 11.0-1 5.0 Not Available [facility] (Lab) [address], [place], [address], 01/11/2025 12:17:09 01/11/2001/10/2025 CBC W/DIF F plt 227 10'3/ uL 150-40 0 Not Available [facility] (Lab) [address], [place], [address], 01/11/2025 12:17:09 01/11/2001/10/2025 CBC W/DIF F MPV 11.5 fL 8.8-12 .1 Not Available [facility] (Lab) [address], [place], [address], 01/11/2025 12:17:09 01/11/20 25 01/10/2025 CBC W/DIF F NRBC's 0.0 % 0.0 Not Available [facility] (Lab) [address], [place], [address], 01/11/2025 12:17:09 01/11/2001/10/2025 CBC W/DIF F absolute NRBCs 0.0 10'3/ uL no refere nce range establ ished Not Available [facility] (Lab) [address], [place], [address], 01/11/2025 12:17:09 01/11/2001/10/2025 CBC W/DIF F neutrophils 71.3 % 34.0-7 3.0 Not Available [facility] (Lab) [address], [place], [address], 01/11/2025 12:17:09 01/11/20 25 01/10/2025 CBC W/DIF F lymphocytes 22.0 % 15.0-5 0.0 Not Available [facility] (Lab) [address], [place], [address], 01/11/2025 12:17:09 01/11/2001/10/2025 CBC W/DIF F monocytes 4.1 % 1.0-15 .0 Not Available [facility] (Lab) [address], [place], [address], 01/11/2025 12:17:09 01/11/2001/10/2025 CBC W/DIF F eosinophils 1.7 % 0.0-8. 0 Not Available [facility] (Lab) [address], [place], [address], 01/11/2025 12:17:09 01/11/2001/10/2025 CBC W/DIF F basophils 0.4 % 0.0-2. 0 Not Available [facility] (Lab) [address], [place], [address], 01/11/2025 12:17:09 01/11/2001/10/2025 CBC W/DIF F immature granulocytes 0.5 % no define d refere nce range Immat ure Granu locyt es (IG) repre sents autom ated enume ratio n of Metam yeloc ytes, Myelo cytes and Promy elocy chema when IG is < 5%. Blast s are not inclu ded in IG and repor saravanan separ ately if prese nt. Not Available [facility] (Lab) [address], [place], [address], 01/11/2025 12:17:09 01/11/2001/10/2025 CBC W/DIF F absolute neutrophils 7.8 10'3/ uL 1.5-8. 0 Not Available [facility] (Lab) [address], [place], [address], 01/11/2025 12:17:09 01/11/20 25 01/10/2025 CBC W/DIF F absolute lymphocytes 2.4 10'3/ uL 1.0-4. 0 Not Available [facility] (Lab) [address], [place], [address], 01/11/2025 12:17:09 01/11/2001/10/2025 CBC W/DIF F absolute monocytes 0.5 10'3/ uL 0.2-1. 0 Not Available [facility] (Lab) [address], [place], [address], 01/11/2025 12:17:09 01/11/2001/10/2025 CBC W/DIF F absolute eosinophils 0.2 10'3/ uL 0.0-0. 6 Not Available [facility] (Lab) [address], [place], [address], 01/11/2025 12:17:09 01/11/2001/10/2025 CBC W/DIF F absolute basophils 0.0 10'3/ uL 0.0-0. 3 Not Available [facility] (Lab) [address], [place], [address], 01/11/2025 12:17:09 01/11/2001/10/2025 CBC W/DIF F absolute [...] nielsen book. nm.or g/gen derx Not Available [facility] (Lab) [address], [place], [address], 01/11/2025 12:17:09 01/11/2001/10/2025 TYPE/ RH/SC REEN ABO/Rh type A POS Not Available [facility] (Lab) [address], [place], [address], 01/11/2025 12:17:10 01/11/20 25 01/10/2025 TYPE/ RH/SC REEN antibody screen NEG Not Available [facility] (Lab) [address], [place], [address], 01/11/2025 12:17:10 01/11/20 25 01/10/2025 TYPE/ RH/SC REEN exp date 2024 23:59 Not Available [facility] (Lab) [address], [place], [address], 01/11/2025 12:17:10 01/11/20 25 01/10/2025 RUBEL LA IGG ANTIB SUSANNE, QUANT rubella antibodies, IgG Reacti ve reacti ve Not Available [facility] (Lab) [address], [place], [address], 01/11/2025 12:17:10 01/11/20 25 01/10/2025 RUBEL LA IGG ANTIB SUSANNE, QUANT rubella antibodies, IgG quant 10.2 IU/mL >=10 Non-r eacti ve (Non- Immun e) <10 IU/mL React zahra (Immu ne) > or = 10 IU/mL Not Available [facility] (Lab) [address], [place], [address], 01/11/2025 12:17:10 01/11/2001/10/2025 HEMOG LOBIN A1C hemoglobin [...] >8.0% Actio n sugge sted Not Available [facility] (Lab) [address], [place], [address], 01/11/2025 12:17:10 01/11/20 25 01/10/2025 RPR SCREE N, REFLE X TITER /CONF IRMAT ION RPR qualitative Nonrea ctive nonrea ctive Not Available [facility] (Lab) [address], [place], [address], 01/11/2025 12:17:11 01/11/20 25 01/10/2025 CT/GC AND TRICH OMONA S VAGIN YADIRA (RRNA ), URINE chlamydia trachomatis, PCR Negati ve negati ve Not Available [facility] (Lab) [address], [place], [address], 01/12/2025 01:12:08 01/11/20 25 01/10/2025 CT/GC AND TRICH OMONA S VAGIN YADIRA (RRNA ), URINE neisseria gonorrhoeae, PCR Negati ve negati ve Not Available [facility] (Lab) [address] [place], [address], 01/12/2025 01:12:08 01/11/20 25 01/10/2025 CT/GC AND TRICH OMONA S VAGIN YADIRA (RRNA ), URINE trichomonas vaginalis ribosomal RNA (rrna) Negati ve negati ve Not Available [facility] (Lab) [address] [place], [address], 01/12/2025 01:12:08 01/11/20 25 01/10/2025 CULTU RE: URINE result report SEE RESULT S BELOW Test: Cultu re: Urine Speci men Sourc e: Urine Voide d Speci men Type: Urine Speci men Date: 2024 1352 Resul t Date: 2024 0008 Resul t Statu s: Final resul t Abnor mal: No Resul ting Lab: [facility] [address] [facility] [address] Tel: CULTU RE ----- ----- ----- --- Cultu re resul t (>=3 organ isms prese nt) indic ates possi ble conta minat ion. Repea t cultu re if sympt oms indic ate. Not Available [facility] (Lab) [address], [place], [address], 01/12/2025 01:12:09 01/11/20 25 01/10/2025 drug scree n, urine Amphetamines : negati ve Not Available [facility] [address], [place], [address], 01/10/2025 14:48:40 01/11/20 25 01/10/2025 drug scree n, urine Cannabinoids : positi ve Not Available [facility] [address], [place], [address], 01/10/2025 14:48:40 01/11/20 25 01/10/2025 drug scree n, urine Cocaine: negati ve Not Available [facility] [address], [place], [address], 01/10/2025 14:48:40 01/11/20 25 01/10/2025 drug scree n, urine Opiates: negati ve Not Available [facility] [address], [place], [address], 01/10/2025 14:48:40 01/11/20 25 01/10/2025 drug scree n, urine Phenocyclidi ne: negati ve Not Available [facility] [address], [place], [address], 01/10/2025 14:48:40 01/11/20 25 01/10/2025 drug scree n, urine Barbiturates : negati ve Not Available [facility] [address], [place], [address], 01/10/2025 14:48:40 01/11/20 25 01/10/2025 drug scree n, urine Benzodiazepi joaquín: negati ve Not Available [facility] [address], [place], [address], 01/10/2025 14:48:40 01/11/20 25 01/10/2025 drug scree n, urine Ethanol: negati ve Not Available [facility] [address], [place], [address], 01/10/2025 14:48:40 01/11/20 25 01/10/2025 drug scree n, urine Hallucinogen s: negati ve Not Available [facility] [address], [place], [address], 01/10/2025 14:48:40 01/11/20 25 01/10/2025 drug scree n, urine Inhalants: negati ve Not Available [facility] [address], [place], [address], 01/10/2025 14:48:40 01/11/20 25 01/10/2025 drug scree n, urine Anabolic Steroids: negati ve Not Available [facility] [address], [place], [address], 01/10/2025 14:48:40 03/12/20 25 03/12/2025 urina lysis , dipst ick Leukocytes trace Not Available [facility] [address], [place], [address], 03/12/2025 14:21:08 03/12/2003/12/2025 urina lysis , dipst ick Protein + Not Available [facility] [address], [place], [address], 03/12/2025 14:21:08 03/12/2003/12/2025 urina lysis , dipst ick pH 6 Not Available [facility] [address], [place], [address], 03/12/2025 14:21:08 03/12/2003/12/2025 urina lysis , dipst ick Specific [place] 1.010 Not Available [facility] [address], [place], [address], 03/12/2025 14:21:08 03/12/2003/12/2025 urina lysis , dipst ick Appearance cloudy Not Available [facility] [address], [place], [address], 03/12/2025 14:21:08 03/12/2003/12/2025 urina lysis , dipst ick Color yellow Not Available [facility] [address], [place], [address], 03/12/2025 14:21:08 01/11/2001/10/2025 US, obste tric, nucha l trans lucen cy No observ ation record ed. [email or web address] [address], [place], [address], 01/15/2025 22:18:32 01/11/2001/10/2025 US, obste tric, nucha l trans lucen cy No observ ation [facility] ed. [email or web address] [address], [place], [address], 01/10/2025 18:49:50 03/07/2003/07/2025 US, obste tric, 2nd or 3rd trime ster No observ ation record ed. [email or web address] [facility] [address], [place], [address], 03/07/2025 15:09:10 03/07/2003/07/2025 US, obste tric, 2nd or 3rd trime ster No observ ation record ed. [email or web address] [address], [place], [address], 03/07/2025 11:22:48 03/12/2003/12/2025 US, abdom en, compl ete No observ ation record ed. [email or web address] [address], [place], [address], 03/12/2025 17:49:13 03/12/2003/12/2025 US, abdom en, compl ete No observ ation record ed. [email or web address] [address] [address], [place], [address], 03/12/2025 16:56:41 03/21/2003/12/2025 giles r monit or No observ ation record ed. [address] [address], [place], [address], 03/23/2025 16:53:34 03/21/2003/12/2025 giles r monit or No observ ation record ed. [address] ([facility]) [address] [place] [address], [place], [address], 03/23/2025 16:53:35 04/11/20 25 04/11/2025 US, obste tric, follo w-up No observ ation record ed. [email or web address] [address], [place], [address], 04/11/2025 15:57:47 04/11/2004/11/2025 US, obste tric, follo w-up No observ ation record ed. [facility] [address], [place], [address], 04/11/2025 18:17:58 Result Notes None recorded. Problems Name Problem SNOMED Code Status Onset Date Resolution Date Notes Provider Name and Address Organization Details Recorded Time Obesity 106853952 Completed BMI 43 - antenata l testing @ 34 wks Es healy [facility] 4 19:42:00 Bipolar disorder 79706348 Completed MFM consult -aripipr azole, fluoxeti ne 60mg, managed by her psychiat rist. Per MFM - cont manageme nt with psych. Ok to continue . Watch with breastfe eding. Es healy, [facility] 4 19:42:00 Migraine 17115780 Completed excedrin tension headache recommen ded Es healy, [facility] 4 19:42:00 Prematur e labor 5391337 Completed hx contract ions Es healy [facility] 4 19:42:00 Pregnanc y 25752177 Completed 202302/24/2024 Alondra healy, [facility] 5 14:10:18 Pneumoni a 678586848 Completed 2023 Es Rees [facility], [facility] 4 19:42:00 Mixed anxiety and depressi ve disorder 644392147 Active 2024 Yumiko Guzman CNM [address], [place], [address], [facility] 5 14:30:52 Pregnanc y 68167187 Active 2024 Alondra healy [facility] 5 14:10:18 Obesity 153219758 Active 2024 BMI 43 start bASA 81 mg Yumiko Guzman CNM [address], [place], [address], [facility] 14:30:43 Mixed anxiety and depressi ve disorder 755431742 Active 2024 Yumiko Gumzan CNM [address], [place], [address], [facility] 5 14:30:52 Bipolar disorder 54588106 Active 2024 has a psychiat rist Yumiko Guzman CNM [address], [place], [address], [facility] 14:32:28 Problem Notes None recorded. Procedures Surgical History Date Name Laterality Status Provider Name and Address Organization Details Recorded Time 07/21/2023 Date of Last Pap Smear completed [facility] 07/21/2023 16:09:33 05/31/2007 tonsilecto my/adenoid s completed [facility] 07/21/2023 16:14:08 Imaging Results None recorded. [...] and Address Organization Details Last Updated DateTime 04/11/2025 170.18 cm 42.6 kg/m2 230146.12 g 122/83 mm[Hg] Kayleen Hester [facility] 04/11/2025 10:50:03 Social History Question Answer Notes LastModified by Organizat ion Details LastModified Time Tobacco Smoking Status Never Smoker Es healy, [facility] 07/21/2023 16:13:04 If You Are , What Was Your Level Of Alcohol Consumption Prior To ? Occasional [email or web address] Information not available 07/21/2023 How Many Years Have You Consumed Alcohol? 0 [email or web address] Information not available 10/13/2023 Are You Blind Or Do You Have Difficulty Seeing? No Information n ot available 07/21/2023 What Is Your Level Of Caffeine Consumption? Moderate Information not available 10/13/2023 How Much Tobacco Do You Chew? None Information not available 10/13/2023 In The 14 Days Before Symptom Onset, Have You Had Close Contact With A Laboratory-confirm ed COVID-19 While That Case Was Ill? No Information n ot available 07/21/2023 In The 14 Days Before Symptom Onset, Have You Had Close Contact With A Person Who Is Under Investigation For COVID-19 While That Person Was Ill? No [email or web address] Information not available 07/21/2023 Have You Been To An Area Known To Be High Risk For COVID-19? No [email or web address] Information not available 07/21/2023 Are You Deaf Or Do You Have Serious Difficulty Hearing? No [email or web address] Information not available 07/21/2023 What Type Of Diet Are You Following? REGULAR [email or web address] Information n ot available 07/21/2023 What Is The Highest Grade Or Level Of School You Have Completed Or The Highest Degree You Have Received? [id number] [email or web address] Information not available 10/13/2023 Are There Any Guns Present In Your Home? No Information not available 10/13/2023 Do You Use Protection During Sex? No [email or web address] Information not available 10/13/2023 Do You Use Your Seat Belt Or Car Seat Routinely? Yes Information not available 07/21/2023 Are You Sexually Active? Yes [email or web address] Information not available 01/10/2025 Do You Have Smoke And Carbon Monoxide Detectors In Your Home? Yes [email or web address] Information not available 07/21/2023 At What Age Did You Start Smoking Tobacco? 0 [email or web address] Information not available 10/13/2023 How Much Tobacco Do You Smoke? No [email or web address] Information not available 10/13/2023 Do You Use Sunscreen Routinely? Yes [email or web address] Information not available 07/21/2023 Has Tobacco Cessation Counseling Been Provided? No [email or web address] Information not available 07/21/2023 How Many Years Have You Smoked Tobacco? 0 Information not available 10/13/2023 Have You Used IV Drugs? No [email or web address] Information not available 10/13/2023 Do You Have Difficulty Walking Or Climbing Stairs? No [email or web address] Information not available 07/21/2023 Sex: Unknown Functional Status Question Answer Note LastModified by Organizat ion Details LastModified Time Do you use any illicit or recreational drugs? No [email or web address] Information not available 07/21/2023 Do you or have you ever used any other forms of tobacco or nicotine? No [email or web address] Information not available 07/21/2023 What is your level of alcohol consumption? None [email or web address] Information not available 07/21/2023 Are you able to walk independently without assistance or assistive devices? YESWOREST [email or web address] Information not available 07/21/2023 Are you able to care for yourself independently? 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 No [email or web address] Information not available 07/21/2023 What is your exercise level? Moderate [email or web address] Information not available 10/13/2023 Mental Status Question Answer Note LastModified by Organization D etails LastModified Time Do you feel stressed (tense, restless, nervous, or anxious, or unable to sleep at night)? [id number] [email or web address] Information not available 07/21/2023 Family History Relationship Description Onset Age of this Age Resolved Age Notes LastModified by Organization Details LastModified Time Mother Polycystic ovary syndrome Not available 07/21 16:12:47 Medical History Condition [...] ICD10 Code Diagnosis IMO Codes Diagnosis Note [id number] Mario Alberto Yoo MD [facility] [address] [address] 03/12/2025 13:10:56 03/12/2025 14:30:38 Urinary symptoms [id number] R39.9 06358 Epigastric pain 99493044 R10.13 44899 [id number] Mario Alberto Yoo MD [facility] [address] [address] 04/11/2025 09:43:09 04/11/2025 12:01:25 anatomy study 954129762 Z36.2 O99.210 Z3A.24 [id number] Yumiko Guzman CNM [facility] [address] [address] 04/11/2025 09:44:54 04/11/2025 13:26:30 Gestation period, 24 weeks 298629346 Z3A.24 [id number] Health Concerns Section Related Observation LastModified by Organization Detai ls LastModified Time None Recorded Concern Status LastModified by Organization Details LastModified Time None Recorded Payers Encounter Date Sequence Insurance Name Policy Number Policy Mata Covered Member ID Mata Member ID Guarantor Name 04/11/[address] [facility] [id number] [id number] Claire [facility] Notes Date Note Type Note Provider Name and Address Organization Details Recorded Time 04/11/2025 text/html Generic HPI TemplateReported by Patient Yumiko Guzman CNM [address], [place], [address], [facility] 04/11/2025 13:02:13 OBGyn Episode Ob Episode Information Episode Created Date Number of Fetuses Patient Bloodtype Patient rh Status Prepregnancy Weight lbs Domestic Partner Domestic Partner Phone Father Name [facility] Status 01/11/20 25 1 A Positive OPEN Fetus Data First Name Last Name Admitted to NICU Weight (g) Sex Living Outcome Pediatric Complications Fetus ID Race Codes Race Delivery Type [id number] Problems Problem Notes oral HSV only+THC 01/10 Problem Name Start Date End Date Resolution Snomed Code Not e Mixed anxiety and depressive disorder 01/10/2025 [id number] Bipolar disorder 01/10/2025 [id number] rodriguez s a psychiatrist Obesity 01/10/[id number] art bASA 81 mg [...] Date Ultra Sound Latest Days Gestation 0 [email or web address] 01/10/2025 07/28/19 26 0 Pre-diana Flowsheet Flowsheet Date 01/10/2025 Pascal Score Blood Edema Fundus Height Fundus Units Glucose Ketones Leukocytes Nitrite Labor Signs Protein Cervic Dilation Cervic Effacement Cervic Station Type Weight in lbs Pre/Post Dialysis Refused 277.871982027546 BP Diastolic BP Location Tested BP Systolic [...] Weight in lbs Pre/Post Dialysis Refused Weight 266.899918813200 BP Diastolic BP Location Tested BP Systolic BP Type 81 L arm 128 sitting Fetus Heart Rate Present A 154 Fetus Movement A No Comments URI couple weeks lungs clear , +FM rx to pharmacy, ok for note for work precautions and education f/u 4 weeks. 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
--- OUTSIDE RECORDS SUMMARY | 2025-04-12 20:06 | XMS_ITS | Continuity of Care Document ---
Author Organization [facility] Address [address] [place] [place] [address] Care Team Providers Care Human Performance Consultant Name Role Phone GOMEZ LAIRDALEYDA Primary Care Provider [phone] Assessment No assessment recorded. Plan of Treatment Reminders Order Date Submit Date Provider Last Modified By Organization Details Last Modified Time Details Appointments U/S OB GROWTH 2024 10:30A M ULTRASOUND Not available Not available Not available OB ROUTINE 2024 11:15A M Yumiko Guzman CNM Not available Not available Not available Lab urinaly sis, dipstic k 2024 025 [email or web address] [place], [address], [address], [place], [address], 03/12/2025 14:29:58 Referral None recorde d. Procedures None recorde [...] Not Available Robert hussein [address], [place], [address], 01/16/2025 02:31:48 01/17/20 25 01/16/2025 [UNIT Y] ANEUP LOIDY NIPT 22Q11.2 microdeletio n LOW RISK <1 in 10,000 normal Not Available [facility] [address], [place], [address], 01/16/2025 02:31:48 01/17/20 25 01/16/2025 [UNIT Y] ANEUP LOIDY NIPT sex chromosome aneuploidy NOT DETECT ED normal Not Available [facility] [address], [place], [address], 01/16/2025 02:31:48 01/17/20 25 01/16/2025 [UNIT Y] ANEUP LOIDY NIPT monosomy X LOW RISK <1 in 10,000 normal Not Available [facility] [address], [place], [address], 01/16/2025 02:31:48 01/17/20 25 01/16/2025 [UNIT Y] ANEUP LOIDY NIPT trisomy 13 LOW RISK <1 in 10,000 normal Not Available [facility] [address], [place], [address], 01/16/2025 02:31:48 01/17/20 25 01/16/2025 [UNIT Y] ANEUP LOIDY NIPT trisomy 18 LOW RISK <1 in 10,000 normal Not Available [facility] [address], [place], [address], 01/16/2025 02:31:48 01/17/20 25 01/16/2025 [UNIT Y] ANEUP LOIDY NIPT trisomy 21 LOW RISK <1 in 10,000 normal Not Available [facility] [address], [place], [address], 01/16/2025 02:31:48 01/17/20 25 01/16/2025 [UNIT Y] ANEUP LOIDY NIPT sex FEMALE normal Not Available [facility] [address], [place], [address], 01/16/2025 02:31:48 01/17/20 25 01/16/2025 [UNIT Y] ANEUP LOIDY NIPT gestation SINGLE TON normal Not Available [facility] [address], [place], [address], 01/16/2025 02:31:48 01/17/20 25 01/16/2025 [UNIT Y] ANEUP LOIDY NIPT for detailed report, see pdf See PDF normal Not Available [facility] [address], [place], [address], 01/16/2025 02:31:48 01/21/20 25 01/20/2025 [UNIT Y] ALEJANDRA Wade sickle cell disease/beta -thalassemia /hemoglobino pathies carrier screen NEGATI VE normal Not Available [facility] [address], [place], [address], 01/20/2025 04:29:08 01/21/20 25 01/20/2025 [UNIT Y] ALEJANDRA Wade alpha-thalas semia carrier screen NEGATI VE normal Not Available [facility] [address], [place], [address], 01/20/2025 04:29:08 01/21/20 25 01/20/2025 [UNIT Y] ALEJANDRA Wade cystic fibrosis carrier screen NEGATI VE normal Not Available [facility] [address], [place], [address], 01/20/2025 04:29:08 01/21/20 25 01/20/2025 [UNIT Y] ALEJANDRA Wade spinal muscular atrophy carrier screen NEGATI VE 2 SMN1 copies , SNP not presen t normal Not Available [facility] [address], [place], [address], 01/20/2025 04:29:08 01/21/20 25 01/20/2025 [UNIT Y] ALEJANDRA Wade for detailed report, see pdf See PDF normal Not Available [facility] [address], [place], [address], 01/20/2025 04:29:08 01/11/2001/10/2025 HEPAT ITIS B SURFA CE ANTIG EN hepatitis B surface antigen Non-re active non-re active This assay was perfo rmed using [employer] ratio n reage nts and test kits. Value s obtai kimberly with other assay metho ds or kits canno t be used inter powers eably . Not Available [facility] (Lab) [address], [place], [address], 01/11/2025 12:17:08 01/11/2001/10/2025 HIV 1/2 ANTIG EN/AN TIBOD Y, REFLE X CONFI RMATI ON HIV antigen/anti body Nonrea ctive nonrea ctive HIV-1 antig en and HIV-1 /HIV- 2 antib odies were not detec saravanan. No labor atory evide nce of HIV infec tion. Not Available [facility] (Lab) [address], [place], [address], 01/11/2025 12:17:08 01/11/2001/10/2025 HEPAT ITIS C ANTIB SUSANNE SCREE N, REFLE X TO CONFI RMATI ON hepatitis C antibody Non-re active non-re active Antib odies to HCV Not Detec saravanan, does not exclu de the possi bilit y of expos ure to HCV. Not Available [facility] (Lab) [address], [place], [address], 01/11/2025 12:17:08 01/11/2001/10/2025 TSH, REFLE X FREE T4 TSH 1.04 uIU/m L 0.30-5 .33 Not Available [facility] (Lab) [address], [place], [address], 01/11/2025 12:17:09 01/11/2001/10/2025 CBC W/DIF F WBC 11.0 10'3/ uL 3.5-10 .5 high Not Available [facility] (Lab) [address], [place], [address], 01/11/2025 12:17:09 01/11/20 25 01/10/2025 CBC W/DIF F RBC 4.37 10'6/ uL (based on docume nted legal sex) 3.80-5 .20 Not Available [facility] (Lab) [address], [place], [address], 01/11/2025 12:17:09 01/11/2001/10/2025 CBC W/DIF F HGB 13.7 g/dL (based on docume nted legal sex) 11.6-1 5.4 Not Available [facility] (Lab) [address], [place], [address], 01/11/2025 12:17:09 01/11/20 25 01/10/2025 CBC W/DIF F HCT 40.1 % (based on docume nted legal sex) 34.0-4 5.0 Not Available [facility] (Lab) [address], [place], [address], 01/11/2025 12:17:09 01/11/2001/10/2025 CBC W/DIF F MCV 91.8 fL 80.0-9 9.0 Not Available [facility] (Lab) [address], [place], [address], 01/11/2025 12:17:09 01/11/20 25 01/10/2025 CBC W/DIF F MCH 31.4 pg 27.0-3 4.0 Not Available [facility] (Lab) [address], [place], [address], 01/11/2025 12:17:09 01/11/20 25 01/10/2025 CBC W/DIF F MCHC 34.2 g/dL 32.0-3 5.5 Not Available [facility] (Lab) [address], [place], [address], 01/11/2025 12:17:09 01/11/2001/10/2025 CBC W/DIF F RDW 12.4 % 11.0-1 5.0 Not Available [facility] (Lab) [address], [place], [address], 01/11/2025 12:17:09 01/11/2001/10/2025 CBC W/DIF F plt 227 10'3/ uL 150-40 0 Not Available [facility] (Lab) [address], [place], [address], 01/11/2025 12:17:09 01/11/2001/10/2025 CBC W/DIF F MPV 11.5 fL 8.8-12 .1 Not Available [facility] (Lab) [address], [place], [address], 01/11/2025 12:17:09 01/11/20 25 01/10/2025 CBC W/DIF F NRBC's 0.0 % 0.0 Not Available [facility] (Lab) [address], [place], [address], 01/11/2025 12:17:09 01/11/2001/10/2025 CBC W/DIF F absolute NRBCs 0.0 10'3/ uL no refere nce range establ ished Not Available [facility] (Lab) [address], [place], [address], 01/11/2025 12:17:09 01/11/2001/10/2025 CBC W/DIF F neutrophils 71.3 % 34.0-7 3.0 Not Available [facility] (Lab) [address], [place], [address], 01/11/2025 12:17:09 01/11/20 25 01/10/2025 CBC W/DIF F lymphocytes 22.0 % 15.0-5 0.0 Not Available [facility] (Lab) [address], [place], [address], 01/11/2025 12:17:09 01/11/2001/10/2025 CBC W/DIF F monocytes 4.1 % 1.0-15 .0 Not Available [facility] (Lab) [address], [place], [address], 01/11/2025 12:17:09 01/11/2001/10/2025 CBC W/DIF F eosinophils 1.7 % 0.0-8. 0 Not Available [facility] (Lab) [address], [place], [address], 01/11/2025 12:17:09 01/11/2001/10/2025 CBC W/DIF F basophils 0.4 % 0.0-2. 0 Not Available [facility] (Lab) [address], [place], [address], 01/11/2025 12:17:09 01/11/2001/10/2025 CBC W/DIF F immature granulocytes 0.5 % no define d refere nce range Immat ure Granu locyt es (IG) repre sents autom ated enume ratio n of Metam yeloc ytes, Myelo cytes and Promy elocy chema when IG is < 5%. Blast s are not inclu ded in IG and repor saravanan separ ately if prese nt. Not Available [facility] (Lab) [address], [place], [address], 01/11/2025 12:17:09 01/11/2001/10/2025 CBC W/DIF F absolute neutrophils 7.8 10'3/ uL 1.5-8. 0 Not Available [facility] (Lab) [address], [place], [address], 01/11/2025 12:17:09 01/11/2001/10/2025 CBC W/DIF F absolute lymphocytes 2.4 10'3/ uL 1.0-4. 0 Not Available [facility] (Lab) [address], [place], [address], 01/11/2025 12:17:09 01/11/2001/10/2025 CBC W/DIF F absolute monocytes 0.5 10'3/ uL 0.2-1. 0 Not Available [facility] (Lab) [address], [place], [address], 01/11/2025 12:17:09 01/11/2001/10/2025 CBC W/DIF F absolute eosinophils 0.2 10'3/ uL 0.0-0. 6 Not Available [facility] (Lab) [address], [place], [address], 01/11/2025 12:17:09 01/11/2001/10/2025 CBC W/DIF F absolute basophils 0.0 10'3/ uL 0.0-0. 3 Not Available [facility] (Lab) [address], [place], [address], 01/11/2025 12:17:09 01/11/2001/10/2025 CBC W/DIF F absolute immature granulocytes 0.1 10'3/ uL 0.00-0 .10 Refer ence range s for nonbi nary/ inter sex or unspe cifie d gende r patie nts have not been estab lishe d. Pleas e [facility] for range s estab lishe d for cisge nder patie nts and evalu ate in the clini melany mignon xt of the indiv idual patie nt: https ://laurel nielsen book. nm.or g/gen derx Not Available [facility] (Lab) [address], [place], [address], 01/11/2025 12:17:09 01/11/2001/10/2025 TYPE/ RH/SC REEN ABO/Rh type A POS Not Available [facility] (Lab) [address], [place], [address], 01/11/2025 12:17:10 01/11/2001/10/2025 TYPE/ RH/SC REEN antibody screen NEG Not Available [facility] (Lab) [address], [place], [address], 01/11/2025 12:17:10 01/11/20 25 01/10/2025 TYPE/ RH/SC REEN exp date 2024 23:59 Not Available [facility] (Lab) [address], [place], [address], 01/11/2025 12:17:10 01/11/20 25 01/10/2025 RUBEL LA IGG ANTIB SUSANNE, QUANT rubella antibodies, IgG Reacti ve reacti ve Not Available [facility] (Lab) [address], [place], [address], 01/11/2025 12:17:10 01/11/20 25 01/10/2025 RUBEL LA IGG ANTIB SUSANNE, QUANT rubella antibodies, IgG quant 10.2 IU/mL >=10 Non-r eacti ve (Non- Immun e) <10 IU/mL React zahra (Immu ne) > or = 10 IU/mL Not Available [facility] (Lab) [address] [place], [address], 01/11/2025 12:17:10 01/11/2001/10/2025 HEMOG LOBIN A1C hemoglobin A1C 5.1 % 4.0-5. 6 The Ameri can Di[employer] chema [employer] iatio n recom mends that a prima ry goal of thera meek gore d be a HBA1C of < 7% and that physi ciamarlen gore d reeva luate the treat ment regim en in patie nts with HBA1C value s consi stent ly > 8%. <5.7% Elly l 5.7 - 6.4% Incre ased risk for diabe chema >=6.5 % Diagn ostic of diabe chema <7.0% Goal of thera py >8.0% Actio n sugge sted Not Available [facility] (Lab) [address], [place], [address], 01/11/2025 12:17:10 01/11/20 25 01/10/2025 RPR SCREE N, REFLE X TITER /CONF IRMAT ION RPR qualitative Nonrea ctive nonrea ctive Not Available [facility] (Lab) [address], [place], [address], 01/11/2025 12:17:11 01/11/2001/10/2025 CT/GC AND TRICH OMONA S VAGIN YADIRA (RRNA ), URINE chlamydia trachomatis, PCR Negati ve negati ve Not Available [facility] (Lab) [address], [place], [address], 01/12/2025 01:12:08 01/11/20 25 01/10/2025 CT/GC AND TRICH OMONA S VAGIN YADIRA (RRNA ), URINE neisseria gonorrhoeae, PCR Negati ve negati ve Not Available [facility] (Lab) [address], [place], [address], 01/12/2025 01:12:08 01/11/20 25 01/10/2025 CT/GC AND TRICH OMONA S VAGIN YADIRA (RRNA ), URINE trichomonas vaginalis ribosomal RNA (rrna) Negati ve negati ve Not Available [facility] (Lab) [address], [place], [address], 01/12/2025 01:12:08 01/11/2001/10/2025 CULTU RE: URINE result report SEE RESULT S BELOW Test: Cultu re: Urine Speci men Sourc e: Urine Voide d Speci men Type: Urine Speci men Date: 2024 1352 Resul t Date: 2024 0008 Resul t Statu s: Final resul t Abnor mal: No Resul ting Lab: [facility] [address] [facility] [address] Tel: CULTU RE ----- ----- ----- --- Cultu re resul t (>=3 organ isms prese nt) indic ates possi ble conta minat ion. Repea t cultu re if sympt oms indic ate. Not Available [facility] (Lab) [address], [place], [address], 01/12/2025 01:12:09 01/11/20 25 01/10/2025 drug scree n, urine Amphetamines : negati ve Not Available [place] [address], [place], [address], 01/10/2025 14:48:40 01/11/20 25 01/10/2025 drug scree n, urine Cannabinoids : positi ve Not Available [place] [address], [place], [address], 01/10/2025 14:48:40 01/11/20 25 01/10/2025 drug scree n, urine Cocaine: negati ve Not Available [place] [address], [place], [address], 01/10/2025 14:48:40 01/11/20 25 01/10/2025 drug scree n, urine Opiates: negati ve Not Available [place] [address], [place], [address], 01/10/2025 14:48:40 01/11/20 25 01/10/2025 drug scree n, urine Phenocyclidi ne: negati ve Not Available [place] [address], [place], [address], 01/10/2025 14:48:40 01/11/20 25 01/10/2025 drug scree n, urine Barbiturates : negati ve Not Available [place] [address], [place], [address], 01/10/2025 14:48:40 01/11/20 25 01/10/2025 drug scree n, urine Benzodiazepi joaquín: negati ve Not Available [place] [address], [place], [address], 01/10/2025 14:48:40 01/11/20 25 01/10/2025 drug scree n, urine Ethanol: negati ve Not Available [place] [address], [place], [address], 01/10/2025 14:48:40 01/11/20 25 01/10/2025 drug scree n, urine Hallucinogen s: negati ve Not Available [place] [address], [place], [address], 01/10/2025 14:48:40 01/11/20 25 01/10/2025 drug scree n, urine Inhalants: negati ve Not Available [place] [address], [place], [address], 01/10/2025 14:48:40 01/11/20 25 01/10/2025 drug scree n, urine Anabolic Steroids: negati ve Not Available [place] [address], [place], [address], 01/10/2025 14:48:40 03/12/2003/12/2025 urina lysis , dipst ick Leukocytes trace Not Available [facility] [address], [place], [address], 03/12/2025 14:21:08 03/12/2003/12/2025 urina lysis , dipst ick Protein + Not Available [place] [address], [place], [address], 03/12/2025 14:21:08 03/12/20 25 03/12/2025 urina lysis , dipst ick pH 6 Not Available [place] [address], [place], [address], 03/12/2025 14:21:08 03/12/20 25 03/12/2025 urina lysis , dipst ick Specific Vista 1.010 [facility] Available [facility] [address], [place], [address], 03/12/2025 14:21:08 03/12/2003/12/2025 urina lysis , dipst ick Appearance cloudy Not Available [facility] [address], [place], [address], 03/12/2025 14:21:08 03/12/20 25 03/12/2025 urina lysis , dipst ick Color yellow Not Available [place] [address], [place], [address], 03/12/2025 14:21:08 01/11/20 25 01/10/2025 US, obste tric, nucha l trans lucen cy No observ ation record ed. [email or web address] [place] [address], [place], [address], 01/15/2025 22:18:32 01/11/20 25 01/10/2025 US, obste tric, nucha l trans lucen cy No observ ation record ed. [email or web address] [place] [address], [place], [address], 01/10/2025 18:49:50 03/07/2003/07/2025 US, obste tric, 2nd or 3rd trime ster No observ ation record ed. [email or web address] [place] [address], [place], [address], 03/07/2025 15:09:10 03/07/2003/07/2025 US, obste tric, 2nd or 3rd trime ster No observ ation record ed. [email or web address] [place] [address], [place], [address], 03/07/2025 11:22:48 03/12/2003/12/2025 US, abdom en, compl ete No observ ation record ed. [email or web address] [address] [facility], [place], [address], 03/12/2025 17:49:13 03/12/2003/12/2025 US, abdom en, compl ete No observ ation record ed. [email or web address] [address] [address], [place], [address], 03/12/2025 16:56:41 03/21/2003/12/2025 giles r monit or No observ ation record ed. [email or web address] [address], [place], [address], 03/23/2025 16:53:34 03/21/2003/12/2025 giles r monit or No observ ation record ed. [address] ([facility]) [address] [place] [address], [place], [address], 03/23/2025 16:53:35 04/11/2004/11/2025 US, obste tric, follo w-up No observ ation record ed. [email or web address] [place] [address], [place], [address], 04/11/2025 15:57:47 04/11/2004/11/2025 US, obste tric, follo w-up No observ ation record ed. [email or web address] [place] [address], [place], [address], 04/11/2025 18:17:58 Result Notes None recorded. Problems Name Problem SNOMED Code Status Onset Date Resolution Date Notes Provider Name and Address Organization Details Recorded Time Obesity 500434277 Completed BMI 43 - antenata l testing @ 34 wks Es healy, [facility] 4 19:42:00 Bipolar disorder 45702422 Completed MFM consult -aripipr azole, fluoxeti ne 60mg, managed by her psychiat rist. Per MFM - cont manageme nt with psych. Ok to continue . Watch with breastfe eding. Es healy, [facility] 4 19:42:00 Migraine 25911512 Completed excedrin tension headache recommen ded Es healy, [facility] 4 19:42:00 Prematur e labor [id number] Completed hx contract ions Es healy, [facility] 4 19:42:00 Pregnanc y 63557800 Completed 202302/24/2024 Alondra healy, [facility] 5 14:10:18 Pneumoni a 935866427 Completed 2023 Es Rees [facility], [facility] 4 19:42:00 Mixed anxiety and depressi ve disorder 064183713 Active 2024 Yumiko Guzman CNM [address], [place], [address], [place] [facility] 5 14:30:52 Pregnanc y 28907734 Active 2024 Alondra healy, [facility] 5 14:10:18 Obesity 399386227 Active 2024 BMI 43 start bASA 81 mg Yumiko Guzman CNM [address], [place], [address], [facility] 14:30:43 Mixed anxiety and depressi ve disorder 657267150 Active 2024 Yumiko Guzman CNM [address], [place], [address], [facility] 14:30:52 Bipolar disorder 95222233 Active 2024 has a psychiat rist Yumiko Guzman CNM [address], [place], [address], [facility] 14:32:28 Problem Notes None recorded. Procedures Surgical History Date Name Laterality Status Provider Name and Address Organization Details Recorded Time 07/21/2023 Date of Last Pap Smear completed [facility] 07/21/2023 16:09:33 05/31/2007 tonsilecto my/adenoid s completed Es [facility] 07/21/2023 16:14:08 Imaging Results None recorded. [...] Available Not Available Vitals Date Recorded Body weight Systolic And Diastolic Provider Name and Address Organization Details Last Updated DateTime 03/12/2025 765650.74394 g 116/79 mm[Hg] Kayleen Hester [facility] 03/12/2025 14:15:23 Social History Question Answer Notes LastModified by Organizat ion Details LastModified Time Tobacco Smoking Status Never Smoker Es healy, [facility] 07/21/2023 16:13:04 If You Are , What Was Your Level Of Alcohol Consumption Prior To ? Occasional [email or web address] Information not available 07/21/2023 How Many Years Have You Consumed Alcohol? 0 [email or web address] Information not available 10/13/2023 Are You Blind Or Do You Have Difficulty Seeing? No [email or web address] Information n ot available 07/21/2023 What Is Your Level Of Caffeine Consumption? Moderate [email or web address] Information not available 10/13/2023 How Much Tobacco Do You Chew? None [email or web address] Information not available 10/13/2023 In The 14 Days Before Symptom Onset, Have You Had Close Contact With A Laboratory-confirm ed COVID-19 While That Case Was Ill? No [email or web address] Information n ot available 07/21/2023 In The 14 Days Before Symptom Onset, Have You Had Close Contact With A Person Who Is Under Investigation For COVID-19 While That Person Was Ill? No [email or web address] Information not available 07/21/2023 Have You Been To An Area Known To Be High Risk For COVID-19? No [email or web address] Information not available 07/21/2023 Are You Deaf Or Do You Have Serious Difficulty Hearing? No [email or web address] Information not available 07/21/2023 What Type Of Diet Are You Following? REGULAR [email or web address] Information n ot available 07/21/2023 What Is The Highest Grade Or Level Of School You Have Completed Or The Highest Degree You Have Received? [id number] [email or web address] Information not available 10/13/2023 Are There Any Guns Present In Your Home? No [email or web address] Information not available 10/13/2023 Do You Use Protection During Sex? No [email or web address] Information not available 10/13/2023 Do You Use Your Seat Belt Or Car Seat Routinely? Yes [email or web address] Information not available 07/21/2023 Are You Sexually Active? Yes [email or web address] Information not available 01/10/2025 Do You Have Smoke And Carbon Monoxide Detectors In Your Home? Yes [email or web address] Information not available 07/21/2023 At What Age Did You Start Smoking Tobacco? 0 [email or web address] Information not available 10/13/2023 How Much Tobacco Do You Smoke? No [email or web address] Information not available 10/13/2023 Do You Use Sunscreen Routinely? Yes [email or web address] Information not available 07/21/2023 Has Tobacco Cessation Counseling Been Provided? No [email or web address] Information not available 07/21/2023 How Many Years Have You Smoked Tobacco? 0 [email or web address] Information not available 10/13/2023 Have You Used IV Drugs? No [email or web address] Information not available 10/13/2023 Do You Have Difficulty Walking Or Climbing Stairs? No [email or web address] Information not available 07/21/2023 Sex: Unknown Functional Status Question Answer Note LastModified by Organizat ion Details LastModified Time Do you use any illicit or recreational drugs? No [email or web address] Information not available 07/21/2023 Do you or have you ever used any other forms of tobacco or nicotine? No [email or web address] Information not available 07/21/2023 What is your level of alcohol consumption? None [email or web address] Information not available 07/21/2023 Are you able to walk independently without assistance or assistive devices? YESWOREST [email or web address] Information not available 07/21/2023 Are you able to care for yourself independently? 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 No [email or web address] Information not available 07/21/2023 What is your exercise level? Moderate [email or web address] Information not available 10/13/2023 Mental Status Question Answer Note LastModified by Organization D etails LastModified Time Do you feel stressed (tense, restless, nervous, or anxious, or unable to sleep at night)? [id number] [email or web address] Information not available 07/21/2023 Family History Relationship Description Onset Age of this Age Resolved Age Notes LastModified by Organization Details LastModified Time Mother Polycystic ovary syndrome [email or web address] Not available 07/21 16:12:47 Medical History Condition [...] ICD10 Code Diagnosis IMO Codes Diagnosis Note [id number] Mario Alberto Yoo MD [place] [address] [address] 03/07/2025 09:46:14 03/07/2025 10:59:03 Screening status [id number] Z36.3 Z3A.19 [id number] Yumiko Guzman CNM [place] [address] [address] 03/07/2025 09:47:03 03/07/2025 13:53:20 Gestation period, 19 weeks 01141919 Z3A.19 4844237 Palpitations 88900032 R0 0.2 [id number] plan engine monitor, 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 [id number] Mario Alberto Yoo MD [place] [address] [address] 03/12/2025 13:10:56 03/12/2025 14:30:38 Urinary symptoms [id number] R39.9 07444 Epigastric pain [id number] R10.13 95221 Health Concerns Section Related Observation LastModified by Organization Detai ls LastModified Time None Recorded Concern Status LastModified by Organization Details LastModified Time None Recorded Payers Encounter Date Sequence Insurance Name Policy Number Policy Mata Covered Member ID Mata Member ID Guarantor Name 03/12/2025 1 [facility] [id number] [id number] [facility] Notes Date Note Type Note Provider Name and Address Organization Details Recorded Time 03/12/2025 text/html OB ProblemReport ed by Patient Mario Alberto Yoo MD [address], [place], [address], [facility] 03/12/2025 14:30:17 OBGyn Episode Ob Episode Information Episode Created Date Number of Fetuses Patient Bloodtype Patient rh Status Prepregnancy Weight lbs Domestic Partner Domestic Partner Phone Father Name Town Planner Status 01/11/20 25 1 A Positive OPEN Fetus Data First Name Last Name Admitted to NICU Weight (g) Sex Living Outcome Pediatric Complications Fetus ID Race Codes Race Delivery Type [id number] Problems Problem Notes oral HSV only+THC 01/10 Problem Name Start Date End Date Resolution Snomed Code Not e Mixed anxiety and depressive disorder 01/10/2025 [id number] Bipolar disorder 01/10/2025 [id number] rodriguez s a psychiatrist Obesity 01/10/[id number] art bASA 81 mg [...] Date Ultra Sound Latest Days Gestation 0 [email or web address] 01/10/2025 07/28/19 26 0 Pre-diana Flowsheet Flowsheet Date 01/10/2025 Pascal Score Blood Edema Fundus Height Fundus Units Glucose Ketones Leukocytes Nitrite Labor Signs Protein Cervic Dilation Cervic Effacement Cervic Station Type Weight in lbs Pre/Post Dialysis Refused 277.916954213087 BP Diastolic BP Location Tested BP Systolic [...] Weight in lbs Pre/Post Dialysis Refused Weight 266.448946990470 BP Diastolic BP Location Tested BP Systolic [...] Weight in lbs Pre/Post Dialysis Refused Weight 264.881841649008 BP Diastolic BP Location Tested BP Systolic BP Type 86 R arm 122 sitting Fetus Heart Rate Present Fetus Movement A Yes Comments +FM doing well anatomy incom plete, ed precautions reviews for dizziness plan engine monitor x 3 days, 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 Flowsheet Date 03/12/2025 Pascal Score Blood Edema Fundus Height Fundus Units Glucose Ketones Leukocytes Nitrite Labor Signs Protein Cervic Dilation Cervic Effacement Cervic Station Type Weight in lbs Pre/Post Dialysis Refused 269.791700208671 BP Diastolic BP Location Tested BP Systolic [...] Weight in lbs Pre/Post Dialysis Refused Weight 272.078852985168 BP Diastolic BP Location Tested BP Systolic [...]
--- OUTSIDE RECORDS SUMMARY | 2025-04-12 20:06 | XMS_ITS | Continuity of Care Document ---
Author Organization 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 Plan of Treatment Reminders Order Date Submit Date Provider Last Modified By Organization Details Last Modified Time Details Appointments U/S OB GROWTH 2024 10:30A M ULTRASOUND Not available Not available Not available OB ROUTINE 2024 11:15A M Yumiko Guzman CNM Not available Not available Not available Lab drug screen, urine 2024 [email or web address], [address], [place], [address], 01/10/2025 14:49:59 Referral None recorde d. Procedures None recorde d. Surgeries None recorde d. Imaging None recorde d. Medication Orders Valtrex 500 mg tablet [address]/Pharmacy #[id number], [address] [facility], [place], [address], 01/10/2025 14:31:44 Patient TargetsNo targets recorded. Patient InstructionsNo instructions recorded. Reason for Referral None Reported. Results Created Date Observation Date Name Description Value Unit Range Abnormal Flag Note LastModifiedBy Organization Detail LastModifiedTime 01/11/20 25 01/10/2025 HEPAT ITIS B SURFA CE ANTIG EN hepatitis B surface antigen Non-re active non-re active This assay was perfo rmed using [employer] ratio n reage nts and test kits. Value s obtai kimberly with other assay metho ds or kits canno t be used inter powers eably . Not Available [facility] (Lab) [address], [place], [address], 01/11/2025 12:17:08 01/11/20 25 01/10/2025 HIV 1/2 ANTIG EN/AN TIBOD Y, REFLE X CONFI RMATI ON HIV antigen/anti body Nonrea ctive nonrea ctive HIV-1 antig en and HIV-1 /HIV- 2 antib odies were not detec saravanan. No labor atory evide nce of HIV infec tion. Not Available [facility] (Lab) [address], [place], [address], 01/11/2025 12:17:08 01/11/20 25 01/10/2025 HEPAT ITIS C ANTIB SUSANNE SCREE N, REFLE X TO CONFI RMATI ON hepatitis C antibody Non-re active non-re active Antib odies to HCV Not Detec saravanan, does not exclu de the possi bilit y of expos ure to HCV. Not Available [facility] (Lab) [address], [place], [address], 01/11/2025 12:17:08 01/11/20 25 01/10/2025 TSH, REFLE X FREE T4 TSH 1.04 uIU/m L 0.30-[address] [facility] (Lab) [address], [place], [address], 01/11/2025 12:17:09 01/11/20 25 01/10/2025 CBC W/DIF F WBC 11.0 10'3/ uL 3.5-10 [address] [facility] (Lab) [address], [place], [address], 01/11/2025 12:17:09 01/11/20 25 01/10/2025 CBC W/DIF F RBC 4.37 10'6/ uL (based on docume nted legal sex) 3.80-[address] [facility] (Lab) [address], [place], [address], 01/11/2025 12:17:09 01/11/2001/10/2025 CBC W/DIF F HGB 13.7 g/dL (based on docume nted legal sex) 11.6-[address] [facility] (Lab) [address], [place], [address], 01/11/2025 12:17:09 01/11/2001/10/2025 CBC W/DIF F HCT 40.1 % (based on docume nted legal sex) 34.0-[address] [facility] (Lab) [address], [place], [address], 01/11/2025 12:17:09 01/11/2001/10/2025 CBC W/DIF F MCV 91.8 fL 80.0-[address] [facility] (Lab) [address], [place], [address], 01/11/2025 12:17:09 01/11/2001/10/2025 CBC W/DIF F MCH 31.4 pg 27.0-[address] [facility] (Lab) [address], [place], [address], 01/11/2025 12:17:09 01/11/2001/10/2025 CBC W/DIF F MCHC 34.2 g/dL 32.0-[address] [facility] (Lab) [address] [place], [address], 01/11/2025 12:17:09 01/11/2001/10/2025 CBC W/DIF F RDW 12.4 % 11.0-[address] [facility] (Lab) [address] [place], [address], 01/11/2025 12:17:09 01/11/2001/10/2025 CBC W/DIF F plt 227 10'3/ uL 150-[address] [facility] (Lab) [address], [place], [address], 01/11/2025 12:17:09 01/11/2001/10/2025 CBC W/DIF F MPV 11.5 fL 8.8-[address] [facility] (Lab) [address], [place], [address], 01/11/2025 12:17:09 01/11/2001/10/2025 CBC W/DIF F NRBC's 0.0 % 0.[address] [facility] (Lab) [address], [place], [address], 01/11/2025 12:17:09 01/11/20 25 01/10/2025 CBC W/DIF F absolute NRBCs 0.0 10'3/ uL no refere nce range establ ished Not Available [facility] (Lab) [address], [place], [address], 01/11/2025 12:17:09 01/11/2001/10/2025 CBC W/DIF F neutrophils 71.3 % 34.0-[address] [facility] (Lab) [address], [place], [address], 01/11/2025 12:17:09 01/11/2001/10/2025 CBC W/DIF F lymphocytes 22.0 % 15.0-[address] [facility] (Lab) [address], [place], [address], 01/11/2025 12:17:09 01/11/20 25 01/10/2025 CBC W/DIF F monocytes 4.1 % 1.0-[address] [facility] (Lab) [address], [place], [address], 01/11/2025 12:17:09 01/11/2001/10/2025 CBC W/DIF F eosinophils 1.7 % 0.0-8. [address] [facility] (Lab) [address], [place], [address], 01/11/2025 12:17:09 01/11/20 25 01/10/2025 CBC W/DIF F basophils 0.4 % 0.0-2. [address] [facility] (Lab) [address], [place], [address], 01/11/2025 12:17:09 01/11/20 25 01/10/2025 CBC W/DIF F immature granulocytes 0.5 % no define d refere nce range Immat ure Granu locyt es (IG) repre sents autom ated enume ratio n of Metam yeloc ytes, Myelo cytes and Promy elocy chema when IG is < 5%. Blast s are not inclu ded in IG and repor saravanan separ ately if prese nt. Not Available [facility] (Lab) [address], [place], [address], 01/11/2025 12:17:09 01/11/20 25 01/10/2025 CBC W/DIF F absolute neutrophils 7.8 10'3/ uL 1.5-8. [address] [facility] (Lab) [address], [place], [address], 01/11/2025 12:17:09 01/11/20 25 01/10/2025 CBC W/DIF F absolute lymphocytes 2.4 10'3/ uL 1.0-4. [address] [facility] (Lab) [address], [place], [address], 01/11/2025 12:17:09 01/11/20 25 01/10/2025 CBC W/DIF F absolute monocytes 0.5 10'3/ uL 0.2-1. [address] [facility] (Lab) [address], [place], [address], 01/11/2025 12:17:09 01/11/2001/10/2025 CBC W/DIF F absolute eosinophils 0.2 10'3/ uL 0.0-0. [address] [facility] (Lab) [address], [place], [address], 01/11/2025 12:17:09 01/11/2001/10/2025 CBC W/DIF F absolute basophils 0.0 10'3/ uL 0.0-0. [address] [facility] (Lab) [address], [place], [address], 01/11/2025 12:17:09 01/11/2001/10/2025 CBC W/DIF F absolute [...] nielsen book. nm.or g/gen derx Not Available [facility] (Lab) [address], [place], [address], 01/11/2025 12:17:09 01/11/2001/10/2025 TYPE/ RH/SC REEN ABO/Rh type A POS Not Available [facility] (Lab) [address] [place], [address], 01/11/2025 12:17:10 01/11/2001/10/2025 TYPE/ RH/SC REEN antibody screen NEG Not Available [facility] (Lab) [address] [place], [address], 01/11/2025 12:17:10 01/11/2001/10/2025 TYPE/ RH/SC REEN exp date 2024 23:[address] [facility] (Lab) [address], [place], [address], 01/11/2025 12:17:10 01/11/2001/10/2025 RUBEL LA IGG ANTIB SUSANNE, QUANT rubella antibodies, IgG Reacti ve reacti ve Not Available [facility] (Lab) [address], [place], [address], 01/11/2025 12:17:10 01/11/2001/10/2025 RUBEL LA IGG ANTIB SUSANNE, QUANT rubella antibodies, IgG quant 10.2 IU/mL >=10 Non-r eacti ve (Non- Immun e) <10 IU/mL React zahra (Immu ne) > or = 10 IU/mL Not Available [facility] (Lab) [address], [place], [address], 01/11/2025 12:17:10 01/11/2001/10/2025 HEMOG LOBIN A1C hemoglobin [...] >8.0% Actio n sugge sted Not Available [facility] (Lab) [address], [place], [address], 01/11/2025 12:17:10 01/11/2001/10/2025 RPR SCREE N, REFLE X TITER /CONF IRMAT ION RPR qualitative Nonrea ctive nonrea ctive Not Available [facility] (Lab) [address], [place], [address], 01/11/2025 12:17:11 01/11/2001/10/2025 CT/GC AND TRICH OMONA S VAGIN YADIRA (RRNA ), URINE chlamydia trachomatis, PCR Negati ve negati ve Not Available [facility] (Lab) [address], [place], [address], 01/12/2025 01:12:08 01/11/2001/10/2025 CT/GC AND TRICH OMONA S VAGIN YADIRA (RRNA ), URINE neisseria gonorrhoeae, PCR Negati ve negati ve Not Available [facility] (Lab) [address], [place], [address], 01/12/2025 01:12:08 01/11/2001/10/2025 CT/GC AND TRICH OMONA S VAGIN YADIRA (RRNA ), URINE trichomonas vaginalis ribosomal RNA (rrna) Negati ve negati ve Not Available [facility] (Lab) [address], [place], [address], 01/12/2025 01:12:08 01/11/2001/10/2025 CULTU RE: URINE result report SEE RESULT S BELOW Test: Cultu re: Urine Speci men Sourc e: Urine Voide d Speci men Type: Urine Speci men Date: 2024 1352 Resul t Date: 2024 0008 Resul t Statu s: Final resul t Abnor mal: No Resul ting Lab: [facility] [address] [facility] [address] Tel: [phone] CULTU RE ----- ----- ----- --- Cultu re resul t (>=3 organ isms prese nt) indic ates possi ble conta minat ion. Repea t cultu re if sympt oms indic ate. Not Available [facility] (Lab) [address], [place], [address], 01/12/2025 01:12:09 01/11/20 25 01/10/2025 drug scree n, urine Amphetamines : negati ve Not Available [place] [address], [place], [address], 01/10/2025 14:48:40 01/11/20 25 01/10/2025 drug scree n, urine Cannabinoids : positi ve Not Available [place] [address], [place], [address], 01/10/2025 14:48:40 01/11/20 25 01/10/2025 drug scree n, urine Cocaine: negati ve Not Available [place] [address], [place], [address], 01/10/2025 14:48:40 01/11/20 25 01/10/2025 drug scree n, urine Opiates: negati ve Not Available [place] [address], [place], [address], 01/10/2025 14:48:40 01/11/20 25 01/10/2025 drug scree n, urine Phenocyclidi ne: negati ve Not Available [place] [address], [place], [address], 01/10/2025 14:48:40 01/11/20 25 01/10/2025 drug scree n, urine Barbiturates : negati ve Not Available [place] [address], [place], [address], 01/10/2025 14:48:40 01/11/20 25 01/10/2025 drug scree n, urine Benzodiazepi joaquín: negati ve Not Available [place] [address], [place], [address], 01/10/2025 14:48:40 01/11/20 25 01/10/2025 drug scree n, urine Ethanol: negati ve Not Available [place] [address], [place], [address], 01/10/2025 14:48:40 01/11/20 25 01/10/2025 drug scree n, urine Hallucinogen s: negati ve Not Available [place] [address], [place], [address], 01/10/2025 14:48:40 01/11/20 25 01/10/2025 drug scree n, urine Inhalants: negati ve Not Available [place] [address], [place], [address], 01/10/2025 14:48:40 01/11/20 25 01/10/2025 drug scree n, urine Anabolic Steroids: negati ve Not Available [place] [address], [place], [address], 01/10/2025 14:48:40 01/11/20 25 01/10/2025 US, obste tric, nucha l trans lucen cy No observ ation record ed. [email or web address] [address], [place], [address], 01/15/2025 22:18:32 01/11/20 25 01/10/2025 US, obste tric, nucha l trans lucen cy No observ ation record ed. [email or web address] [place] [address], [place], [address], 01/10/2025 18:49:50 03/07/20 25 03/07/2025 US, obste tric, 2nd or 3rd trime ster No observ ation record ed. [email or web address] [place] [address], [place], [address], 03/07/2025 15:09:10 03/07/2003/07/2025 US, obste tric, 2nd or 3rd trime ster No observ ation record ed. [email or web address] [place] [address], [place], [address], 03/07/2025 11:22:48 03/12/2003/12/2025 US, abdom en, compl ete No observ ation record ed. [email or web address] [place] [id number] [facility] [address] [facility], [place], [address], 03/12/2025 17:49:13 03/12/2003/12/2025 US, abdom en, compl ete No observ ation record ed. [email or web address] [address] [address], [place], [address], 03/12/2025 16:56:41 03/21/2003/12/2025 giles r monit or No observ ation record ed. [email or web address] [address], [place], [address], 03/23/2025 16:53:34 03/21/2003/12/2025 giles r monit or No observ ation record ed. [address] ([facility]) [address] [place] [address], [place], [address], 03/23/2025 16:53:35 04/11/2004/11/2025 US, obste tric, follo w-up No observ ation record ed. [email or web address] [place] [address], [place], [address], 04/11/2025 15:57:47 04/11/2004/11/2025 US, obste tric, follo w-up No observ ation record ed. [email or web address] [address], [place], [address], 04/11/2025 18:17:58 Result Notes None recorded. Problems Name Problem SNOMED Code Status Onset Date Resolution Date Notes Provider Name and Address Organization Details Recorded Time Obesity 497588560 Completed BMI 43 - antenata l testing @ 34 wks Es healy, [facility] 4 19:42:00 Bipolar disorder 00228171 Completed MFM consult -aripipr azole, fluoxeti ne 60mg, managed by her psychiat rist. Per MFM - cont manageme nt with psych. Ok to continue . Watch with breastfe eding. Es healy, [facility] 4 19:42:00 Migraine 29528624 Completed excedrin tension headache recommen ded Es healy, [facility] 4 19:42:00 Prematur e labor 9822146 Completed hx contract ions Es healy, [facility] 4 19:42:00 Pregnanc y 99697488 Completed 202302/24/2024 Alondra healy, [facility] 5 14:10:18 Pneumoni a 853657354 Completed 2023 Es Rees [facility], [facility] 4 19:42:00 Mixed anxiety and depressi ve disorder 506372954 Active 2024 Yumiko Guzman CNM [address], [place], [address], [facility] 5 14:30:52 Pregnanc y 43017925 Active 2024 Alondra healy, [facility] 5 14:10:18 Obesity 312655083 Active 2024 BMI 43 start bASA 81 mg Yumiko Guzman CNM [address], [place], [address], [facility] 14:30:43 Mixed anxiety and depressi ve disorder 507022425 Active 2024 Yumiko Guzman CNM [address], [place], [address], [facility] 14:30:52 Bipolar disorder 28570988 Active 2024 has a psychiat rist Yumiko Guzman CNM [address], [place], [address], [facility] 14:32:28 Problem Notes None recorded. Procedures Surgical History Date Name Laterality Status Provider Name and Address Organization Details Recorded Time 07/21/2023 Date of Last Pap Smear completed Es [facility] 07/21/2023 16:09:33 05/31/2007 tonsilecto my/adenoid [facility] 07/21/2023 16:14:08 Imaging Results None recorded. [...] Not Available Vitals Date Recorded Body weight Body mass index (BMI) Body height Systolic And Diastolic Provider Name and Address Organization Details Last Updated DateTime 01/10/2025 499052.08 649 g 43.4 kg/m2 170.18 cm 124/76 mm[Hg] Alondra Melendez [facility] 01/10/2025 14:13:59 Social History Question Answer Notes LastModified by Organizat ion Details LastModified Time Tobacco Smoking Status Never Smoker sE healy, [facility] 07/21/2023 16:13:04 If You Are , What Was Your Level Of Alcohol Consumption Prior To ? Occasional Information not available 07/21/2023 How Many Years Have You Consumed Alcohol? 0 Information not available 10/13/2023 Are You Blind Or Do You Have Difficulty Seeing? No Information n ot available 07/21/2023 What Is Your Level Of Caffeine Consumption? Moderate Information not available 10/13/2023 How Much Tobacco Do You Chew? None [email or web address] Information not available 10/13/2023 In The 14 Days Before Symptom Onset, Have You Had Close Contact With A Laboratory-confirm ed COVID-19 While That Case Was Ill? No [email or web address] Information n ot available 07/21/2023 In The 14 Days Before Symptom Onset, Have You Had Close Contact With A Person Who Is Under Investigation For COVID-19 While That Person Was Ill? No [email or web address] Information not available 07/21/2023 Have You Been To An Area Known To Be High Risk For COVID-19? No [email or web address] Information not available 07/21/2023 Are You Deaf Or Do You Have Serious Difficulty Hearing? No [email or web address] Information not available 07/21/2023 What Type Of Diet Are You Following? REGULAR [email or web address] Information n ot available 07/21/2023 What Is The Highest Grade Or Level Of School You Have Completed Or The Highest Degree You Have Received? [id number] [email or web address] Information not available 10/13/2023 Are There Any Guns Present In Your Home? No Information not available 10/13/2023 Do You Use Protection During Sex? No [email or web address] Information not available 10/13/2023 Do You Use Your Seat Belt Or Car Seat Routinely? Yes [email or web address] Information not available 07/21/2023 Are You Sexually Active? Yes [email or web address] Information not available 01/10/2025 Do You Have Smoke And Carbon Monoxide Detectors In Your Home? Yes [email or web address] Information not available 07/21/2023 At What Age Did You Start Smoking Tobacco? 0 [email or web address] Information not available 10/13/2023 How Much Tobacco Do You Smoke? No [email or web address] Information not available 10/13/2023 Do You Use Sunscreen Routinely? Yes [email or web address] Information not available 07/21/2023 Has Tobacco Cessation Counseling Been Provided? No [email or web address] Information not available 07/21/2023 How Many Years Have You Smoked Tobacco? 0 [email or web address] Information not available 10/13/2023 Have You Used IV Drugs? No [email or web address] Information not available 10/13/2023 Do You Have Difficulty Walking Or Climbing Stairs? No [email or web address] Information not available 07/21/2023 Sex: Unknown Functional Status Question Answer Note LastModified by Organizat ion Details LastModified Time Do you use any illicit or recreational drugs? No [email or web address] Information not available 07/21/2023 Do you or have you ever used any other forms of tobacco or nicotine? No [email or web address] Information not available 07/21/2023 What is your level of alcohol consumption? None [email or web address] Information not available 07/21/2023 Are you able to walk independently without assistance or assistive devices? YESWOREST [email or web address] Information not available 07/21/2023 Are you able to care for yourself independently? 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 No Information not available 07/21/2023 What is your exercise level? Moderate [email or web address] Information not available 10/13/2023 Mental Status Question Answer Note LastModified by Organization D etails LastModified Time Do you feel stressed (tense, restless, nervous, or anxious, or unable to sleep at night)? [id number] [email or web address] Information not available 07/21/2023 Family History Relationship Description Onset Age of this Age Resolved Age Notes LastModified by Organization Details LastModified Time Mother Polycystic ovary syndrome [email or web address] Not available 07/21 16:12:47 Medical History Condition [...] ICD10 Code Diagnosis IMO Codes Diagnosis Note [id number] Mario Alberto Yoo MD [place] [address],[place] [address] 12/15/2024 10:38:58 12/15/2024 11:19:39 [id number] [facility] [address],[place] [address] 12/15/2024 10:39:22 12/15/2024 12:31:22 Amenorrhea 59742133 N91.2 11601 reviewed office, precaution spap done [id number] Mario Alberto Yoo MD [place] [address],[place] [address] 01/10/2025 12:23:20 01/10/2025 13:34:14 screening 360237157 Z36.82 Z3A.11 [id number] Yumiko Guzman [facility] [address],[place] [address] 01/10/2025 12:23:46 01/10/2025 14:38:45 Herpes simplex 69811861 B00.9 08789036 Gestation period, 11 weeks 57504147 Z3A.11 [id number] Health Concerns Section Related Observation LastModified by Organization Detai ls LastModified Time None Recorded Concern Status LastModified by Organization Details LastModified Time None Recorded Payers Encounter Date Sequence Insurance Name Policy Number Policy Mata Covered Member ID Mata Member ID Guarantor Name 01/10/2025 1 [facility] [id number] Tarun Suazo [id number] Claire Light 01/10/2025 2 [facility] ON OR AFTER 11/28/20 (MEDICAID REPLACEMENT - HMO) Claire Light [id number] Claire Light OBGyn Episode Ob Episode Information Episode Created Date Number of Fetuses Patient Bloodtype Patient rh Status Prepregnancy Weight lbs Domestic Partner Domestic Partner Phone Father Name Naphtha 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 Status 01/11/20 25 1 A Positive OPEN Fetus Data First Name Last Name Admitted to NICU Weight (g) Sex Living Outcome Pediatric Complications Fetus ID Race Codes Race Delivery Type [id number] Problems Problem Notes oral HSV only+THC 01/10 Problem Name Start Date End Date Resolution Snomed Code Not e Mixed anxiety and depressive disorder 01/10/2025 604273361 Bipolar disorder 01/10/2025 02120087 michael blake psychiatrist Obesity 01/10/[address] art bASA 81 mg [...] Date Ultra Sound Latest Days Gestation 0 [email or web address] 01/10/2025 07/28/19 26 0 Pre-diana Flowsheet Flowsheet Date 01/10/2025 Pascal Score Blood Edema Fundus Height Fundus Units Glucose Ketones Leukocytes Nitrite Labor Signs Protein Cervic Dilation Cervic Effacement Cervic Station Type Weight in lbs Pre/Post Dialysis Refused 277.586824973586 BP Diastolic BP Location Tested BP Systolic [...] Weight in lbs Pre/Post Dialysis Refused Weight 266.964398131136 BP Diastolic BP Location Tested BP Systolic [...] Weight in lbs Pre/Post Dialysis Refused Weight 264.479647297552 BP Diastolic BP Location Tested BP Systolic BP Type 86 R arm 122 sitting Fetus Heart Rate Present Fetus Movement A Yes Comments +FM doing well anatomy incom plete, ed precautions reviews for dizziness plan air sampling and monitoring x 3 days, 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 Flowsheet Date 03/12/2025 Pascal Score Blood Edema Fundus Height Fundus Units Glucose Ketones Leukocytes Nitrite Labor Signs Protein Cervic Dilation Cervic Effacement Cervic Station Type Weight in lbs Pre/Post Dialysis Refused 269.225269335113 BP Diastolic BP Location Tested BP Systolic [...] Weight in lbs Pre/Post Dialysis Refused Weight 272.398914960561 BP Diastolic BP Location Tested BP Systolic [...]
--- OUTSIDE RECORDS SUMMARY | 2025-04-12 20:07 | XMS_ITS | Data Portability ---
Author Organization [facility] Address [address] [place] [address] [place] [address] Care Team Providers Care Ore Grader Name Role Phone JO-ANNCHRISTI ORTEGA Primary Care Provider Assessment Encounter Date Assessment Date Assessment LastModified by Organization Details LastModified Time 03/07/2025 03/07/2025 Patient is _19__weeks . Discussed plan. [email or web address] Not available 03/07/2025 12:35:08 04/11/2025 04/11/2025 Patient is _24__weeks . Discussed plan. [email or web address] Not available 04/11/2025 13:01:56 Plan of Treatment Reminders Order Date Submit Date Provider Last Modified By Organization Details Last Modified Time Details Appointments U/S OB GROWTH 2024 10:30A M ULTRASOUND Not available Not available Not available OB ROUTINE 2024 11:15A M Yumiko Guzman CNM Not available Not available Not available Lab urinaly sis, dipstic k [facility] [address], [place], [address], 03/12/2025 14:29:58 Referral None recorde d. Procedures None recorde d. Surgeries None recorde d. Imaging US, obstetr ic, follow- up 2024 025 [email or web address] [address], [address], [place], [address], 04/12/2025 17:14:12 US, obstetr ic, 2nd or 3rd trimest er 2024 025 [email or web address] [place], [address], [place], [address], 03/07/2025 11:30:49 Medication Orders None recorde d. Patient TargetsNo targets recorded. Patient InstructionsNo instructions recorded. Reason for Referral None Reported. Results Created Date Observation Date Name Description Value Unit Range Abnormal Flag Note LastModifiedBy Organization Detail LastModifiedTime 03/12/2003/12/2025 urina lysis , dipst ick Leukocytes trace Not Available [facility] [address], [place], [address], 03/12/2025 14:21:08 03/12/2003/12/2025 urina lysis , dipst ick Protein + Not Available [place] [address], [place], [address], 03/12/2025 14:21:08 03/12/2003/12/2025 urina lysis , dipst ick pH 6 Not Available [place] [address], [place], [address], 03/12/2025 14:21:08 03/12/2003/12/2025 urina lysis , dipst ick Specific [place] 1.010 Not Available Ricky gonzalez [address], [place], [address], 03/12/2025 14:21:08 03/12/2003/12/2025 urina lysis , dipst ick Appearance cloudy Not Available Kaye amor [address], [place], [address], 03/12/2025 14:21:08 03/12/2003/12/2025 urina lysis , dipst ick Color yellow Not Available [place] [address], [place], [address], 03/12/2025 14:21:08 03/07/2003/07/2025 US, obste tric, 2nd or 3rd trime ster No observ ation record ed. [email or web address] [place] [address], [place], [address], 03/07/2025 15:09:10 03/07/2003/07/2025 US, obste tric, 2nd or 3rd trime ster No observ ation record ed. [email or web address] [place] [address], [place], [address], 03/07/2025 11:22:48 03/12/2003/12/2025 US, abdom en, compl ete No observ ation record ed. [email or web address] [facility] [address] [facility] [address] [facility], [place], [address], 03/12/2025 17:49:13 03/12/2003/12/2025 US, abdom en, compl ete No observ ation record ed. [email or web address] [facility] [address] [facility] [address], [place], [address], 03/12/2025 16:56:41 03/21/2003/12/2025 giles r monit or No observ ation record ed. [email or web address] [facility] [address], [place], [address], 03/23/2025 16:53:34 03/21/2003/12/2025 giles r monit or No observ ation record ed. [address] (Cardiology [facility] Em[facility]) [address] [facility] [address], [place], [address], 03/23/2025 16:53:35 04/11/20 25 04/11/2025 US, obste tric, follo w-up No observ ation record ed. [email or web address] [place] [address], [place], [address], 04/11/2025 15:57:47 04/11/20 25 04/11/2025 US, obste tric, follo w-up No observ ation record ed. anisa [place] [address], [place], [address], 04/11/2025 18:17:58 Result Notes None recorded. Problems Name Problem SNOMED Code Status Onset Date Resolution Date Notes Provider Name and Address Organization Details Recorded Time Obesity 342093989 Completed BMI 43 - antenata l testing @ 34 wks Es healy, [facility] 4 19:42:00 Bipolar disorder 25177906 Completed MFM consult -aripipr azole, fluoxeti ne 60mg, managed by her psychiat rist. Per MFM - cont manageme nt with psych. Ok to continue . Watch with breastfe eding. Es healy, [facility] 4 19:42:00 Migraine 09513616 Completed excedrin tension headache recommen ded Es healy, [facility] 4 19:42:00 Prematur e labor 0390924 Completed hx contract ions Es healy, [facility] 4 19:42:00 Pregnanc y 92263411 Completed 202302/24/2024 Alondra healy, [facility] 5 14:10:18 Pneumoni a 838438033 Completed 2023 Es healy [facility] 4 19:42:00 Mixed anxiety and depressi ve disorder 561377308 Active 2024 Yumiko Guzman CNM [address], [place], [address], [facility] 5 14:30:52 Pregnanc y 03847029 Active 2024 Alondra healy, [facility] 14:10:18 Obesity 615133500 Active 2024 BMI 43 start bASA 81 mg Yumiko Guzman CNM [address], [place], [address], [facility] 14:30:43 Mixed anxiety and depressi ve disorder 373826726 Active 2024 Yumiko Guzman CNM [address], [place], [address], [facility] 14:30:52 Bipolar disorder 26134999 Active 2024 has a psychiat rist Yumiko Guzman CNM [address], [place], [address], [facility] 14:32:28 Problem Notes None recorded. Procedures Surgical History Date Name Laterality Status Provider Name and Address Organization Details Recorded Time 07/21/2023 Date of Last Pap Smear completed Escher Rees [facility] 07/21/2023 16:09:33 05/31/2007 tonsilecto my/adenoid s [facility] 07/21/2023 16:14:08 Imaging Results None recorded. [...] and Address Organization Details Last Updated DateTime 03/07/2025 170.18 cm 41.3 kg/m2 376599.39 g 122/86 mm[Hg] Alondra Melendez [facility] 03/07/2025 11:01:12 Date Recorded Body weight Systolic And Diastolic Provider Name and Address Organization Details Last Updated DateTime 03/12/2025 917608.81398 g 116/79 mm[Hg] Kayleen [facility] 03/12/2025 14:15:23 Date Recorded Body height Body mass index (BMI) Body weight Systolic And Diastolic Provider Name and Address Organization Details Last Updated DateTime 04/11/2025 170.18 cm 42.6 kg/m2 730210.12 g 122/83 mm[Hg] Kayleen [facility] 04/11/2025 10:50:03 Social History Question Answer Notes LastModified by Organizat ion Details LastModified Time Tobacco Smoking Status Never Smoker Es healy [facility] 07/21/2023 16:13:04 If You Are , What Was Your Level Of Alcohol Consumption Prior To ? Occasional [email or web address] Information not available 07/21/2023 How Many Years Have You Consumed Alcohol? 0 [email or web address] Information not available 10/13/2023 Are You Blind Or Do You Have Difficulty Seeing? No [email or web address] Information n ot available 07/21/2023 What Is Your Level Of Caffeine Consumption? Moderate [email or web address] Information not available 10/13/2023 How Much Tobacco Do You Chew? None [email or web address] Information not available 10/13/2023 In The 14 Days Before Symptom Onset, Have You Had Close Contact With A Laboratory-confirm ed COVID-19 While That Case Was Ill? No [email or web address] Information n ot available 07/21/2023 In The 14 Days Before Symptom Onset, Have You Had Close Contact With A Person Who Is Under Investigation For COVID-19 While That Person Was Ill? No [email or web address] Information not available 07/21/2023 Have You Been To An Area Known To Be High Risk For COVID-19? No [email or web address] Information not available 07/21/2023 Are You Deaf Or Do You Have Serious Difficulty Hearing? No [email or web address] Information not available 07/21/2023 What Type Of Diet Are You Following? REGULAR [email or web address] Information n ot available 07/21/2023 What Is The Highest Grade Or Level Of School You Have Completed Or The Highest Degree You Have Received? [id number] [email or web address] Information not available 10/13/2023 Are There Any Guns Present In Your Home? No [email or web address] Information not available 10/13/2023 Do You Use Protection During Sex? No [email or web address] Information not available 10/13/2023 Do You Use Your Seat Belt Or Car Seat Routinely? Yes [email or web address] Information not available 07/21/2023 Are You Sexually Active? Yes [email or web address] Information not available 01/10/2025 Do You Have Smoke And Carbon Monoxide Detectors In Your Home? Yes [email or web address] Information not available 07/21/2023 At What Age Did You Start Smoking Tobacco? 0 [email or web address] Information not available 10/13/2023 How Much Tobacco Do You Smoke? No Information not available 10/13/2023 Do You Use Sunscreen Routinely? Yes [email or web address] Information not available 07/21/2023 Has Tobacco Cessation Counseling Been Provided? No [email or web address] Information not available 07/21/2023 How Many Years Have You Smoked Tobacco? 0 Information not available 10/13/2023 Have You Used IV Drugs? No [email or web address] Information not available 10/13/2023 Do You Have Difficulty Walking Or Climbing Stairs? No [email or web address] Information not available 07/21/2023 Sex: Unknown Functional Status Question Answer Note LastModified by Organizat ion Details LastModified Time Do you use any illicit or recreational drugs? No [email or web address] Information not available 07/21/2023 Do you or have you ever used any other forms of tobacco or nicotine? No [email or web address] Information not available 07/21/2023 What is your level of alcohol consumption? None [email or web address] Information not available 07/21/2023 Are you able to walk independently without assistance or assistive devices? YESWOREST [email or web address] Information not available 07/21/2023 Are you able to care for yourself independently? 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 No [email or web address] Information not available 07/21/2023 What is your exercise level? Moderate Information not available 10/13/2023 Mental Status Question Answer Note LastModified by Organization D etails LastModified Time Do you feel stressed (tense, restless, nervous, or anxious, or unable to sleep at night)? [id number] [email or web address] Information not available 07/21/2023 Family History Relationship Description Onset Age of this Age Resolved Age Notes LastModified by Organization Details LastModified Time Mother Polycystic ovary syndrome [email or web address] Not available 07/21 16:12:47 Medical History Condition [...] ICD10 Code Diagnosis IMO Codes Diagnosis Note [id number] Mario Alberto Yoo MD [place] [address],[place] [address] 07/21/2023 14:50:14 07/21/2023 15:34:25 screening 421493815 Z36.87 Z3A.08 [id number] Yumiko Guzman [place] [address],[place] [address] 07/21/2023 14:54:05 07/21/2023 16:27:01 Amenorrhea 15903197 N91.2 reviewed office, precaution spap done Gynecologi c examination 47257026 Z01.419 Bipolar disorder 9944759 4 F31.9 continue meds, plan [facility] level 2 194540 Yumiko Guzman [facility] [address],[place] [address] 08/18/2023 09:37:51 08/18/2023 12:06:08 Gestation period, 12 weeks 28898603 Z3A.12 [id number] Mario Alberto Yoo MD [place] [address],[place] [address] 08/18/2023 09:39:11 08/18/2023 11:21:43 screening 374374746 Z36.82 Z3A.12 [id number] Yumiko Guzman [facility] [address],[place] [address] 09/15/2023 09:31:34 09/15/2023 09:58:32 Routine care 812822391 Z34.82 [id number] [facility] [address],[place] [address] 10/13/2023 09:41:13 10/13/2023 11:15:54 Routine care 177762914 Z34.82 [id number] [facility] [address],[place] [address] 11/12/2023 09:28:36 11/12/2023 16:14:02 Urinary symptoms 848188562 R39.9 Nausea 250263839 R11.0 Yeast detected 361032527 R89.5 Routine an tenatal care 081410013 Z34.82 182014 [facility] [address],[place] [address] 12/08/2023 09:01:41 12/08/2023 10:05:28 Routine care 343862970 Z34.82 [id number] [facility] [address],[place] [address] 12/22/2023 09:42:53 12/22/2023 10:15:12 Routine care 797584511 Z34.82 [id number] Mario Alberto Yoo MD [place] [address] [place] [address] 01/05/2024 10:11:53 01/05/2024 11:10:49 Maternal obesity complicating , childbirth and the puerperium, antepartum 8560048411 07 O99.213 Z3A.32 193095 Yumiko Guzman [facility] [address] [place] [address] 01/05/2024 10:13:00 01/05/2024 11:54:57 [id number] Mario Alberto Yoo MD [place] [address],[place] [address] 01/19/2024 09:44:10 01/19/2024 09:51:32 Maternal obesity complicating , childbirth and the puerperium, antepartum 0766884907 07 O99.213 Z3A.32 [id number] Mario Alberto Yoo MD [place] [address],[place] [address] 01/19/2024 09:44:32 01/19/2024 10:17:54 Maternal obesity complicating , childbirth and the puerperium, antepartum 3040495034 07 O99.213 Z3A.34 [id number] Yumiko Guzman [facility] [address],[place] [address] 01/19/2024 09:44:53 01/19/2024 11:12:34 Routine care 287802757 Z34.82 [id number] Mario Alberto Yoo MD [place] [address],[place] [address] 01/19/2024 09:55:15 01/19/2024 10:56:09 Maternal obesity complicating , childbirth and the puerperium, antepartum 6060194920 07 O99.213 Z3A.34 [id number] Mario Alberto Yoo MD [place] [address],[place] [address] 01/26/2024 09:39:53 01/26/2024 10:23:12 Maternal obesity complicating , childbirth and the puerperium, antepartum 2321327044 07 O99.213 Z3A.34 199053 Mario Alberto Yoo MD [place] [address],[place] [address] 01/26/2024 09:40:16 01/26/2024 11:10:26 Maternal obesity complicating , childbirth and the puerperium, antepartum 6570195908 07 O99.213 Z3A.35 337101 [facility] [address],[place] [address] 01/26/2024 09:40:39 01/26/2024 11:31:53 Gestation period, 35 weeks 70865777 Z3A.35 [id number] Mario Alberto Yoo MD [place] [address],[place] [address] 02/02/2024 09:34:31 02/02/2024 10:37:08 Maternal obesity complicating , childbirth and the puerperium, antepartum 6616151570 07 O99.213 Z3A.35 334002 Mario Alberto Yoo MD [place] [address],[place] [address] 02/02/2024 09:35:04 02/02/2024 11:41:39 Maternal obesity complicating , childbirth and the puerperium, antepartum 4949612576 07 O99.213 Z3A.36 166342 Yumiko Guzman CNM [place] [address],[place] [address] 02/02/2024 09:35:29 02/02/2024 11:59:51 Routine care 896445911 Z34.82 [id number] Mario Alberto Yoo MD [place] [address],[place] [address] 02/09/2024 09:39:46 02/09/2024 10:29:21 Maternal obesity complicating , childbirth and the puerperium, antepartum 0799156165 07 O99.213 Z3A.37 [id number] Mario Alberto Yoo MD [place] [address],[place] [address] 02/09/2024 09:40:12 02/09/2024 10:59:49 Maternal obesity complicating , childbirth and the puerperium, antepartum 8378480491 07 O99.213 Z3A.37 [id number] Yumiko Guzman CNM [place] [address],[place] [address] 02/09/2024 09:40:35 02/09/2024 11:28:09 Routine care 477827281 Z34.82 continue vitamin [id number] Mario Alberto Yoo MD [place] [address],[place] [address] 02/16/2024 09:40:48 02/16/2024 10:34:39 Maternal obesity complicating , childbirth and the puerperium, antepartum 6730159619 07 O99.213 Z3A.38 [id number] Mario Alberto Yoo MD [place] [address],[place] [address] 02/16/2024 09:41:14 02/16/2024 11:12:36 Maternal obesity complicating , childbirth and the puerperium, antepartum 5228853913 07 O99.213 Z3A.38 [id number] Yumiko Gzuman [facility] [address],[place] [address] 02/16/2024 09:41:37 02/16/2024 12:02:30 Routine care 091796758 Z34.82 continue vitamin [id number] Yumiko Guzman [facility] [address],[place] [address] 03/31/2024 10:07:29 03/31/2024 11:29:03 care 164605162 Z39.2 normal exam, f/u with psychiatry as reccall with cycle for paragard placement [id number] Mario Alberto Yoo MD [place] [address],[place] [address] 11/23/2024 16:19:54 11/24/2024 08:41:44 Uterine size for dates discrepancy 329006954 O26.841 Z3A.01 9927797 [id number] Mario Alberto Yoo MD [place] [address],[place] [address] 12/15/2024 10:38:58 12/15/2024 11:19:39 [id number] [facility] [address],[place] [address] 12/15/2024 10:39:22 12/15/2024 12:31:22 Amenorrhea 10826757 N91.2 29861 reviewed office, precaution spap done [id number] Mario Alberto Yoo MD [place] [address],[place] [address] 01/10/2025 12:23:20 01/10/2025 13:34:14 screening 059943469 Z36.82 Z3A.11 463091 [id number] Yumiko Guzman [facility] [address],[place] [address] 01/10/2025 12:23:46 01/10/2025 14:38:45 Herpes simplex 75557678 B00.9 96229519 Gestation period, 11 weeks 31317048 Z3A.11 6372587 [id number] [place] [address],[place] [address] 02/07/2025 10:02:57 02/07/2025 10:40:20 Gestation period, 15 weeks 8670983 Z3A.15 8038856 [id number] Mario Alberto Yoo MD [place] [address],[place] [address] 03/07/2025 09:46:14 03/07/2025 10:59:03 Screening status 180319412 Z36.3 Z3A.19 8842288674 102116 [facility] [address],[place] [address] 03/07/2025 09:47:03 03/07/2025 13:53:20 Gestation period, 19 weeks 70572592 Z3A.19 1210377 Palpitations 66594828 R0 0.2 [id number] 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, 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 [id number] Mario Alberto Yoo MD [place] [address],[place] [address] 03/12/2025 13:10:56 03/12/2025 14:30:38 Urinary symptoms 489665342 R39.9 86254 Epigastric pain 27710915 R10.13 05635 [id number] Mario Alberto Yoo MD [place] [address],[place] [address] 04/11/2025 09:43:09 04/11/2025 12:01:25 anatomy study 827308902 Z36.2 O99.210 Z3A.24 2649680825 [id number] Yumiko Guzman CNM [place] [address] [address] 04/11/2025 09:44:54 04/11/2025 13:26:30 Gestation period, 24 weeks 683053736 Z3A.24 0097202 Health Concerns Section Related Observation LastModified by Organization Detai ls LastModified Time None Recorded Concern Status LastModified by Organization Details LastModified Time None Recorded Advance Directives Directive None Recorded Payers Insurance Date Sequence Insurance Name Policy Number Policy Mata Covered Member ID Mata Member ID Guarantor Name 01/16/2025 1 [facility] C[employer]NA [id number] Claire Light [id number] Claire Light 01/16/2025 1 CIGNA [id number] Claire R Light [id number] Claire Light 04/02/2025 1 [facility] [id number] Tarun Suazo [id number] Claire Light 03/07/2025 2 [place] [employer] [place] [employer] Claire Light [id number] Claire Light 03/07/2025 2 [facility] - DOS ON OR AFTER 20 (MEDICAID REPLACEMENT - HMO) Claire Light [id number] Claire Light Notes Date Note Type Note Provider Name and Address Organization Details Recorded Time 03/07/2025 text/html Generic HPI TemplateReported by Patient Yumiko Guzman CNM [address], [place], [address], [facility] 03/07/2025 13:42:49 03/12/2025 text/html OB ProblemReport ed by Patient Mario Alberto Yoo MD [address], [place], [address], [facility] 03/12/2025 14:30:17 04/11/2025 text/html Generic HPI TemplateReported by Patient Yumiko NixonLopez Guzman CNM [address], [place], [address], [facility] 04/11/2025 13:02:13 OBGyn Episode Ob Episode Information Episode Created Date Number of Fetuses Patient Bloodtype Patient rh Status Prepregnancy Weight lbs Domestic Partner Domestic Partner Phone Father Name Top Polisher Status 07/21/19 24 1 CLOSED Fetus Data First Name Last Name Admitted to NICU Weight (g) Sex Living Outcome Pediatric Complications Fetus ID Race Codes Race Delivery Type 2834.95 F Full Term 88918 Vaginal Delivery Raji Calculation Initial Raji Date [...] Domestic Partner Domestic Partner Phone Father Name Top Polisher Status 07/21/19 24 1 CLOSED Fetus Data First Name Last Name Admitted to NICU Weight (g) Sex Living Outcome Pediatric Complications Fetus ID Race Codes Race Delivery Type 2948.34 8 F Full Term 46689 Vaginal Delivery Raji Calculation Initial Raji Date [...] Domestic Partner Domestic Partner Phone Father Name Top Polisher Status 08/18/19 24 1 A Positive 275 Tarun Suazo CLOSED Fetus Data First Name Last Name Admitted to NICU Weight (g) Sex Living Outcome Pediatric Complications Fetus ID Race Codes Race Delivery Type 2834.95 F true Full Term [email or web address] [id number] Vaginal Delivery Problems Problem Notes MFM Appt: 11/05/23 815am u/s o nly, 12/03/23 815a u/s only Recs: testing weekly at 34 wks. Continue to follow with psych for med management. UDS + THC UR- 144/XLR , Buprenorphine discuss next visit per SP Problem Name Start Date End Date Resolution Snomed Code Not e Obesity 370512671 BMI 43 - a ntenatal testing @ 34 wks Bipolar disorder 00295159 MFM consult -aripiprazole, fluoxetine 60mg, managed by her psychiatrist. Per MFM - cont management with psych. Ok to continue. Watch with . Premature labor 5501526 hx p reterm contractions Pneumonia 10/29/2023 903887754 Migraine 57877951 excedrin t ension headache recommended Raji Calculation [...] Sound Latest Days Gestation 08/18/19 24 12 [email or web address] 08/18/2023 03/01/20 24 0 Pre- Flowsheet Flowsheet Date 08/18/2023 Pascal Score Blood Edema Fundus Height Fundus Units Glucose Ketones Leukocytes Nitrite Labor Signs Protein Cervic Dilation Cervic Effacement Cervic Station neg none none trace Type Weight in lbs Pre/Post Dialysis Refused Weight 274.987299212790 BP Diastolic BP Location Tested BP Systolic BP Type 74 121 Fetus Heart Rate Present Fetus Movement A No Comments history of bipolar disorder, recently increased her fluoxetine, US reviewed, bipolar disorder managed by her psychiatrist, BMI 43,start bASA to reduce the risk of preeclampsia, hx contractions, but term delivery edcuation and precautionsplan baseline at [facility] Flowsheet Date 09/15/2023 Pascal Score Blood Edema Fundus Height Fundus Units Glucose Ketones Leukocytes Nitrite Labor Signs Protein Cervic Dilation Cervic Effacement Cervic Station neg none none trace Type Weight in lbs Pre/Post Dialysis Refused Weight 268.880882343639 BP Diastolic BP Location Tested BP Systolic [...] Weight in lbs Pre/Post Dialysis Refused Weight 270.39208153899 BP Diastolic BP Location Tested BP Systolic BP Type 75 116 Fetus Heart Rate Present A 155 Present Fetus Movement A Yes Comments Patient is having some nause a. [facility] has f/u with pt in 4 weeks, precautions and education gct at 28 weeks Flowsheet Date 11/12/2023 Pascal Score Blood Edema Fundus Height Fundus Units Glucose Ketones Leukocytes Nitrite Labor Signs Protein Cervic Dilation Cervic Effacement Cervic Station none 26 Type Weight in lbs Pre/Post Dialysis Refused Weight [phone] BP Diastolic BP Location Tested BP Systolic [...] Weight in lbs Pre/Post Dialysis Refused Weight 270.31780671626 BP Diastolic BP Location Tested BP Systolic [...] Weight in lbs Pre/Post Dialysis Refused Weight 272.874673061663 BP Diastolic BP Location Tested BP Systolic [...] Type Weight in lbs Pre/Post Dialysis Refused 271.345821149265 BP Diastolic BP Location Tested BP Systolic [...] Weight in lbs Pre/Post Dialysis Refused Weight 268.23578015623 BP Diastolic BP Location Tested BP Systolic [...] Weight in lbs Pre/Post Dialysis Refused Weight 268.27350333320 BP Diastolic BP Location Tested BP Systolic [...] Weight in lbs Pre/Post Dialysis Refused Weight 268.97847501928 BP Diastolic BP Location Tested BP Systolic [...] Weight in lbs Pre/Post Dialysis Refused Weight 265.218298015996 BP Diastolic BP Location Tested BP Systolic [...] Weight in lbs Pre/Post Dialysis Refused Weight 266.070453216482 BP Diastolic BP Location Tested BP Systolic [...] Estim ated Date of Delivery false Thalassemia (Korean, Israeli, Mediterranean, Or Background): MCV < 80 false Neural Tube Defect (Meningomyelocele, Spina Bifi da, Or Anencephaly) false Congenital Heart Defect false Down Syndrome false Ari-Sachs (eg, Religious, Cajun, Urdu-[place]ether) f alse Millicent Disease false Sickle Cell Disease Or Trait () false Hemophilia Or Other Blood Disorders false Muscular Dystrophy false Cystic Fibrosis false Jose's Chorea false Intellectual Disability/Autism false If Yes, [...] 4 Induce d Regional-Ep idural 38.2 false Yumiko Guzman CNM Bipolar disorder, Migraine, Obesity,P neumonia, Premature labor Discharge Information Feeding Method Contraceptive Method Maternal HG B and HCT Levels Ob Episode Information Episode Created Date Number of Fetuses Patient Bloodtype Patient rh Status Prepregnancy Weight lbs Domestic Partner Domestic Partner Phone Father Name Top Polisher Status 01/11/20 25 1 A Positive OPEN Fetus Data First Name Last Name Admitted to NICU Weight (g) Sex Living Outcome Pediatric Complications Fetus ID Race Codes Race Delivery Type [id number] Problems Problem Notes oral HSV only+THC 01/10 Problem Name Start Date End Date Resolution Snomed Code Not e Mixed anxiety and depressive disorder 01/10/2025 256345876 Bipolar disorder 01/10/2025 [id number] rodriguez s a psychiatrist Obesity 01/10/[id number] art bASA 81 mg [...] Date Ultra Sound Latest Days Gestation 0 [email or web address] 01/10/2025 07/28/19 26 0 Pre-diana Flowsheet Flowsheet Date 01/10/2025 Pascal Score Blood Edema Fundus Height Fundus Units Glucose Ketones Leukocytes Nitrite Labor Signs Protein Cervic Dilation Cervic Effacement Cervic Station Type Weight in lbs Pre/Post Dialysis Refused 277.611086215223 BP Diastolic BP Location Tested BP Systolic [...] Weight in lbs Pre/Post Dialysis Refused Weight 266.663146596052 BP Diastolic BP Location Tested BP Systolic [...] Weight in lbs Pre/Post Dialysis Refused Weight 264.050814096431 BP Diastolic BP Location Tested BP Systolic BP Type 86 R arm 122 sitting Fetus Heart Rate Present Fetus Movement A Yes Comments +FM doing well anatomy incom plete, ed precautions 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
--- OUTSIDE RECORDS SUMMARY | 2025-04-12 20:07 | XMS_ITS | Continuity of Care Document ---
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 Patient TargetsNo targets recorded. Patient InstructionsNo instructions recorded. Reason for Referral None Reported. Results Created Date Observation Date Name Description Value Unit Range Abnormal Flag Note LastModifiedBy Organization Detail LastModifiedTime 01/17/2001/16/2025 [UNIT Y] ANEUP LOIDY NIPT fraction 6.2% normal Not Available Robert hussein [address], [place], [address], 01/16/2025 02:31:48 01/17/20 25 01/16/2025 [UNIT Y] ANEUP LOIDY NIPT 22Q11.2 microdeletio n LOW RISK <1 in 10,000 normal Not Available [facility] [address], [place], [address], 01/16/2025 02:31:48 01/17/20 25 01/16/2025 [UNIT Y] ANEUP LOIDY NIPT sex chromosome aneuploidy NOT DETECT ED normal Not Available [facility] [address], [place], [address], 01/16/2025 02:31:48 01/17/20 25 01/16/2025 [UNIT Y] ANEUP LOIDY NIPT monosomy X LOW RISK <1 in 10,000 normal Not Available [facility] [address], [place], [address], 01/16/2025 02:31:48 01/17/20 25 01/16/2025 [UNIT Y] ANEUP LOIDY NIPT trisomy 13 LOW RISK <1 in 10,000 normal Not Available [facility] [address], [place], [address], 01/16/2025 02:31:48 01/17/20 25 01/16/2025 [UNIT Y] ANEUP LOIDY NIPT trisomy 18 LOW RISK <1 in 10,000 normal Not Available [facility] [address], [place], [address], 01/16/2025 02:31:48 01/17/20 25 01/16/2025 [UNIT Y] ANEUP LOIDY NIPT trisomy 21 LOW RISK <1 in 10,000 normal Not Available [facility] [address], [place], [address], 01/16/2025 02:31:48 01/17/20 25 01/16/2025 [UNIT Y] ANEUP LOIDY NIPT sex FEMALE normal Not Available [facility] [address], [place], [address], 01/16/2025 02:31:48 01/17/20 25 01/16/2025 [UNIT Y] ANEUP LOIDY NIPT gestation SINGLE TON normal Not Available [facility] [address], [place], [address], 01/16/2025 02:31:48 01/17/20 25 01/16/2025 [UNIT Y] ANEUP LOIDY NIPT for detailed report, see pdf See PDF normal Not Available [facility] [address], [place], [address], 01/16/2025 02:31:48 01/21/20 25 01/20/2025 [UNIT Y] ALEJANDRA Wade sickle cell disease/beta -thalassemia /hemoglobino pathies carrier screen NEGATI VE normal Not Available [facility] [address], [place], [address], 01/20/2025 04:29:08 01/21/20 25 01/20/2025 [UNIT Y] ALEJANDRA Wade alpha-thalas semia carrier screen NEGATI VE normal Not Available [facility] [address], [place], [address], 01/20/2025 04:29:08 01/21/20 25 01/20/2025 [UNIT Y] ALEJANDRA Wade cystic fibrosis carrier screen NEGATI VE normal Not Available [facility] [address], [place], [address], 01/20/2025 04:29:08 01/21/20 25 01/20/2025 [UNIT Y] ALEJANDRA Wade spinal muscular atrophy carrier screen NEGATI VE 2 SMN1 copies , SNP not presen t normal Not Available [facility] [address], [place], [address], 01/20/2025 04:29:08 01/21/20 25 01/20/2025 [UNIT Y] ALEJANDRA Wade for detailed report, see pdf See PDF normal Not Available [facility] [address], [place], [address], 01/20/2025 04:29:08 01/11/2001/10/2025 HEPAT ITIS B SURFA CE ANTIG EN hepatitis B surface antigen Non-re active non-re active This assay was perfo rmed using [employer] ratio n reage nts and test kits. Value s obtai kimberly with other assay metho ds or kits canno t be used inter powers eably . Not Available [facility] (Lab) [address], [place], [address], 01/11/2025 12:17:08 01/11/2001/10/2025 HIV 1/2 ANTIG EN/AN TIBOD Y, REFLE X CONFI RMATI ON HIV antigen/anti body Nonrea ctive nonrea ctive HIV-1 antig en and HIV-1 /HIV- 2 antib odies were not detec saravanan. No labor atory evide nce of HIV infec tion. Not Available [facility] (Lab) [address], [place], [address], 01/11/2025 12:17:08 01/11/2001/10/2025 HEPAT ITIS C ANTIB SUSANNE SCREE N, REFLE X TO CONFI RMATI ON hepatitis C antibody Non-re active non-re active Antib odies to HCV Not Detec saravanan, does not exclu de the possi bilit y of expos ure to HCV. Not Available [facility] (Lab) [address], [place], [address], 01/11/2025 12:17:08 01/11/2001/10/2025 TSH, REFLE X FREE T4 TSH 1.04 uIU/m L 0.30-5 .33 Not Available [facility] (Lab) [address], [place], [address], 01/11/2025 12:17:09 01/11/2001/10/2025 CBC W/DIF F WBC 11.0 10'3/ uL 3.5-10 .5 high Not Available [facility] (Lab) [address], [place], [address], 01/11/2025 12:17:09 01/11/20 25 01/10/2025 CBC W/DIF F RBC 4.37 10'6/ uL (based on docume nted legal sex) 3.80-5 .20 Not Available [facility] (Lab) [address], [place], [address], 01/11/2025 12:17:09 01/11/20 25 01/10/2025 CBC W/DIF F HGB 13.7 g/dL (based on docume nted legal sex) 11.6-1 5.4 Not Available [facility] (Lab) [address], [place], [address], 01/11/2025 12:17:09 01/11/20 25 01/10/2025 CBC W/DIF F HCT 40.1 % (based on docume nted legal sex) 34.0-4 5.0 Not Available [facility] (Lab) [address], [place], [address], 01/11/2025 12:17:09 01/11/2001/10/2025 CBC W/DIF F MCV 91.8 fL 80.0-9 9.0 Not Available [facility] (Lab) [address], [place], [address], 01/11/2025 12:17:09 01/11/20 25 01/10/2025 CBC W/DIF F MCH 31.4 pg 27.0-3 4.0 Not Available [facility] (Lab) [address], [place], [address], 01/11/2025 12:17:09 01/11/20 25 01/10/2025 CBC W/DIF F MCHC 34.2 g/dL 32.0-3 5.5 Not Available [facility] (Lab) [address], [place], [address], 01/11/2025 12:17:09 01/11/2001/10/2025 CBC W/DIF F RDW 12.4 % 11.0-1 5.0 Not Available [facility] (Lab) [address], [place], [address], 01/11/2025 12:17:09 01/11/2001/10/2025 CBC W/DIF F plt 227 10'3/ uL 150-40 0 Not Available [facility] (Lab) [address], [place], [address], 01/11/2025 12:17:09 01/11/2001/10/2025 CBC W/DIF F MPV 11.5 fL 8.8-12 .1 Not Available [facility] (Lab) [address], [place], [address], 01/11/2025 12:17:09 01/11/20 25 01/10/2025 CBC W/DIF F NRBC's 0.0 % 0.0 Not Available [facility] (Lab) [address], [place], [address], 01/11/2025 12:17:09 01/11/2001/10/2025 CBC W/DIF F absolute NRBCs 0.0 10'3/ uL no refere nce range establ ished Not Available [facility] (Lab) [address], [place], [address], 01/11/2025 12:17:09 01/11/2001/10/2025 CBC W/DIF F neutrophils 71.3 % 34.0-7 3.0 Not Available [facility] (Lab) [address], [place], [address], 01/11/2025 12:17:09 01/11/20 25 01/10/2025 CBC W/DIF F lymphocytes 22.0 % 15.0-5 0.0 Not Available [facility] (Lab) [address], [place], [address], 01/11/2025 12:17:09 01/11/2001/10/2025 CBC W/DIF F monocytes 4.1 % 1.0-15 .0 Not Available [facility] (Lab) [address], [place], [address], 01/11/2025 12:17:09 01/11/2001/10/2025 CBC W/DIF F eosinophils 1.7 % 0.0-8. 0 Not Available [facility] (Lab) [address], [place], [address], 01/11/2025 12:17:09 01/11/2001/10/2025 CBC W/DIF F basophils 0.4 % 0.0-2. 0 Not Available [facility] (Lab) [address], [place], [address], 01/11/2025 12:17:09 01/11/2001/10/2025 CBC W/DIF F immature granulocytes 0.5 % no define d refere nce range Immat ure Granu locyt es (IG) repre sents autom ated enume ratio n of Metam yeloc ytes, Myelo cytes and Promy elocy chema when IG is < 5%. Blast s are not inclu ded in IG and repor saravanan separ ately if prese nt. Not Available [facility] (Lab) [address], [place], [address], 01/11/2025 12:17:09 01/11/2001/10/2025 CBC W/DIF F absolute neutrophils 7.8 10'3/ uL 1.5-8. 0 Not Available [facility] (Lab) [address], [place], [address], 01/11/2025 12:17:09 01/11/2001/10/2025 CBC W/DIF F absolute lymphocytes 2.4 10'3/ uL 1.0-4. 0 Not Available [facility] (Lab) [address], [place], [address], 01/11/2025 12:17:09 01/11/2001/10/2025 CBC W/DIF F absolute monocytes 0.5 10'3/ uL 0.2-1. 0 Not Available [facility] (Lab) [address], [place], [address], 01/11/2025 12:17:09 01/11/2001/10/2025 CBC W/DIF F absolute eosinophils 0.2 10'3/ uL 0.0-0. 6 Not Available [facility] (Lab) [address], [place], [address], 01/11/2025 12:17:09 01/11/2001/10/2025 CBC W/DIF F absolute basophils 0.0 10'3/ uL 0.0-0. 3 Not Available [facility] (Lab) [address], [place], [address], 01/11/2025 12:17:09 01/11/2001/10/2025 CBC W/DIF F absolute immature granulocytes 0.1 10'3/ uL 0.00-0 .10 Refer ence range s for nonbi nary/ inter sex or unspe cifie d gende r patie nts have not been estab lishe d. Pleas e [facility] table for range s estab lishe d for cisge nder patie nts and evalu ate in the clini melany mignon xt of the indiv idual patie nt: https ://laurel nielsen book. nm.or g/gen derx Not Available [facility] (Lab) [address], [place], [address], 01/11/2025 12:17:09 01/11/2001/10/2025 TYPE/ RH/SC REEN ABO/Rh type A POS Not Available [facility] (Lab) [address], [place], [address], 01/11/2025 12:17:10 01/11/2001/10/2025 TYPE/ RH/SC REEN antibody screen NEG Not Available [facility] (Lab) [address], [place], [address], 01/11/2025 12:17:10 01/11/2001/10/2025 TYPE/ RH/SC REEN exp date 2024 23:59 Not Available [facility] (Lab) [address], [place], [address], 01/11/2025 12:17:10 01/11/2001/10/2025 RUBEL LA IGG ANTIB SUSANNE, QUANT rubella antibodies, IgG Reacti ve reacti ve Not Available [facility] (Lab) [address], [place], [address], 01/11/2025 12:17:10 01/11/20 25 01/10/2025 RUBEL LA IGG ANTIB SUSANNE, QUANT rubella antibodies, IgG quant 10.2 IU/mL >=10 Non-r eacti ve (Non- Immun e) <10 IU/mL React zahra (Immu ne) > or = 10 IU/mL Not Available [facility] (Lab) [address] [place], [address], 01/11/2025 12:17:10 01/11/2001/10/2025 HEMOG LOBIN A1C hemoglobin A1C 5.1 % 4.0-5. 6 The Ameri can Diabe chema Assoc iatio n recom mends that a prima ry goal of therlou pierre be a HBA1C of < 7% and that physi mae pierre reeva luate the treat ment regim en in patie nts with HBA1C value s consi stent ly > 8%. <5.7% Elly l 5.7 - 6.4% Incre ased risk for diabe chema >=6.5 % Diagn ostic of diabe chema <7.0% Goal of thera py >8.0% Actio n sugge sted Not Available [facility] (Lab) [address], [place], [address], 01/11/2025 12:17:10 01/11/20 25 01/10/2025 RPR SCREE N, REFLE X TITER /CONF IRMAT ION RPR qualitative Nonrea ctive nonrea ctive Not Available [facility] (Lab) [address], [place], [address], 01/11/2025 12:17:11 01/11/2001/10/2025 CT/GC AND TRICH OMONA S VAGIN YADIRA (RRNA ), URINE chlamydia trachomatis, PCR Negati ve negati ve Not Available [facility] (Lab) [address], [place], [address], 01/12/2025 01:12:08 01/11/20 25 01/10/2025 CT/GC AND TRICH OMONA S VAGIN YADIRA (RRNA ), URINE neisseria gonorrhoeae, PCR Negati ve negati ve Not Available [facility] (Lab) [address], [place], [address], 01/12/2025 01:12:08 01/11/20 25 01/10/2025 CT/GC AND TRICH OMONA S VAGIN YADIRA (RRNA ), URINE trichomonas vaginalis ribosomal RNA (rrna) Negati ve negati ve Not Available [facility] (Lab) [address], [place], [address], 01/12/2025 01:12:08 01/11/2001/10/2025 CULTU RE: URINE result report SEE RESULT S BELOW Test: Cultu re: Urine Speci men Sourc e: Urine Voide d Speci men Type: Urine Speci men Date: 2024 1352 Resul t Date: 2024 0008 Resul t Statu s: Final resul t Abnor mal: No Resul ting Lab: [facility] [address] [facility] [address] Tel: CULTU RE ----- ----- ----- --- Cultu re resul t (>=3 organ isms prese nt) indic ates possi ble conta minat ion. Repea t cultu re if sympt oms indic ate. Not Available [facility] (Lab) [address], [place], [address], 01/12/2025 01:12:09 01/11/20 25 01/10/2025 drug scree n, urine Amphetamines : negati ve Not Available [facility] [address], [place], [address], 01/10/2025 14:48:40 01/11/20 25 01/10/2025 drug scree n, urine Cannabinoids : positi ve Not Available [facility] [address], [place], [address], 01/10/2025 14:48:40 01/11/20 25 01/10/2025 drug scree n, urine Cocaine: negati ve Not Available [facility] [address], [place], [address], 01/10/2025 14:48:40 01/11/20 25 01/10/2025 drug scree n, urine Opiates: negati ve Not Available [facility] [address], [place], [address], 01/10/2025 14:48:40 01/11/20 25 01/10/2025 drug scree n, urine Phenocyclidi ne: negati ve Not Available [facility] [address], [place], [address], 01/10/2025 14:48:40 01/11/20 25 01/10/2025 drug scree n, urine Barbiturates : negati ve Not Available [facility] [address], [place], [address], 01/10/2025 14:48:40 01/11/20 25 01/10/2025 drug scree n, urine Benzodiazepi joaquín: negati ve Not Available [facility] [address], [place], [address], 01/10/2025 14:48:40 01/11/20 25 01/10/2025 drug scree n, urine Ethanol: negati ve Not Available [facility] [address], [place], [address], 01/10/2025 14:48:40 01/11/20 25 01/10/2025 drug scree n, urine Hallucinogen s: negati ve Not Available [facility] [address], [place], [address], 01/10/2025 14:48:40 01/11/20 25 01/10/2025 drug scree n, urine Inhalants: negati ve Not Available [facility] [address], [place], [address], 01/10/2025 14:48:40 01/11/20 25 01/10/2025 drug scree n, urine Anabolic Steroids: negati ve Not Available [facility] [address], [place], [address], 01/10/2025 14:48:40 03/12/2003/12/2025 urina lysis , dipst ick Leukocytes trace Not Available [facility] [address], [place], [address], 03/12/2025 14:21:08 03/12/2003/12/2025 urina lysis , dipst ick Protein + Not Available [facility] [address], [place], [address], 03/12/2025 14:21:08 03/12/20 25 03/12/2025 urina lysis , dipst ick pH 6 Not Available [facility] [address], [place], [address], 03/12/2025 14:21:08 03/12/20 25 03/12/2025 urina lysis , dipst ick Specific [place] 1.010 [facility] Available [facility] [address], [place], [address], 03/12/2025 14:21:08 03/12/2003/12/2025 urina lysis , dipst ick Appearance cloudy Not Available [facility] [address], [place], [address], 03/12/2025 14:21:08 03/12/2003/12/2025 urina lysis , dipst ick Color yellow Not Available [facility] [address], [place], [address], 03/12/2025 14:21:08 01/11/20 25 01/10/2025 US, obste tric, nucha l trans lucen cy No observ ation record ed. [email or web address] [place] [address], [place], [address], 01/15/2025 22:18:32 01/11/20 25 01/10/2025 US, obste tric, nucha l trans lucen cy No observ ation record ed. [email or web address] [facility] [place] [address], [place], [address], 01/10/2025 18:49:50 03/07/2003/07/2025 US, obste tric, 2nd or 3rd trime ster No observ ation record ed. [email or web address] [place] [address], [place], [address], 03/07/2025 15:09:10 03/07/2003/07/2025 US, obste tric, 2nd or 3rd trime ster No observ ation record ed. [email or web address] [place] [address], [place], [address], 03/07/2025 11:22:48 03/12/2003/12/2025 US, abdom en, compl ete No observ ation record ed. [email or web address] [address] [facility] [place], [address], 03/12/2025 17:49:13 03/12/2003/12/2025 US, abdom en, compl ete No observ ation record ed. [email or web address] [address] [address], [place], [address], 03/12/2025 16:56:41 03/21/2003/12/2025 giles r monit or No observ ation record ed. [email or web address] [address], [place], [address], 03/23/2025 16:53:34 03/21/2003/12/2025 giles r monit or No observ ation record ed. [address] ([facility]) [address] [place] [address], [place], [address], 03/23/2025 16:53:35 04/11/2004/11/2025 US, obste tric, follo w-up No observ ation record ed. [email or web address] [place] [address], [place], [address], 04/11/2025 15:57:47 04/11/2004/11/2025 US, obste tric, follo w-up No observ ation record ed. [email or web address] [facility] [address], [place], [address], 04/11/2025 18:17:58 Result Notes None recorded. Problems Name Problem SNOMED Code Status Onset Date Resolution Date Notes Provider Name and Address Organization Details Recorded Time Obesity 658267587 Completed BMI 43 - antenata l testing @ 34 wks Es healy [facility] 4 19:42:00 Bipolar disorder 76270646 Completed MFM consult -aripipr azole, fluoxeti ne 60mg, managed by her psychiat rist. Per MFM - cont manageme nt with psych. Ok to continue . Watch with breastfe eding. Es healy, [facility] 4 19:42:00 Migraine 41840793 Completed excedrin tension headache recommen ded Es healy, [facility] 4 19:42:00 Prematur e labor 6351350 Completed hx contract ions Es healy, [facility] 4 19:42:00 Pregnanc y 89093231 Completed 202302/24/2024 Alondra healy, [facility] 5 14:10:18 Pneumoni a 544628707 Completed 2023 Es Rees [facility], [facility] 4 19:42:00 Mixed anxiety and depressi ve disorder 754307467 Active 2024 Yumiko Guzman CNM [address], [place], [address], [facility] 5 14:30:52 Pregnanc y 91707125 Active 2024 Alondra healy [facility] 5 14:10:18 Obesity 098000336 Active 2024 BMI 43 start bASA 81 mg Yumiko Guzman CNM [address], [place], [address], [facility] 14:30:43 Mixed anxiety and depressi ve disorder 558375905 Active 2024 Yumiko Guzman CNM [address], [place], [address], [facility] 14:30:52 Bipolar disorder 85233560 Active 2024 has a psychiat rist Yumiko Guzman CNM [address], [place], [address], [facility] 14:32:28 Problem Notes None recorded. Procedures Surgical History Date Name Laterality Status Provider Name and Address Organization Details Recorded Time 07/21/2023 Date of Last Pap Smear completed Es [facility] 07/21/2023 16:09:33 05/31/2007 tonsilecto my/adenoid s completed Es [facility] 07/21/2023 16:14:08 Imaging Results None [...] Updated DateTime 04/11/2025 170.18 cm 42.6 kg/m2 179126.12 g 122/83 mm[Hg] Kayleen Hester [facility] 04/11/2025 10:50:03 Social History Question Answer Notes LastModified by Organizat ion Details LastModified Time Tobacco Smoking Status Never Smoker Es healy, [facility] 07/21/2023 16:13:04 If You Are , What Was Your Level Of Alcohol Consumption Prior To ? Occasional [email or web address] Information not available 07/21/2023 How Many Years Have You Consumed Alcohol? 0 [email or web address] Information not available 10/13/2023 Are You Blind Or Do You Have Difficulty Seeing? No [email or web address] Information n ot available 07/21/2023 What Is [...] COVID-19 While That Person Was Ill? No Information not available 07/21/2023 Have You Been To An Area Known To Be High Risk For COVID-19? No [email or web address] Information not available 07/21/2023 Are You Deaf Or Do You Have Serious Difficulty Hearing? No Information not available 07/21/2023 What Type Of Diet Are You Following? REGULAR [email or web address] Information n ot available 07/21/2023 What Is The Highest Grade Or Level Of School You Have Completed Or The Highest Degree You Have Received? [id number] [email or web address] Information not available 10/13/2023 Are There Any Guns Present In Your Home? No [email or web address] Information not available 10/13/2023 Do You Use Protection During Sex? No [email or web address] Information not available 10/13/2023 Do You Use Your Seat Belt Or Car Seat Routinely? Yes Information not available 07/21/2023 Are You Sexually Active? Yes [email or web address] Information not available 01/10/2025 Do You Have Smoke And Carbon Monoxide Detectors In Your Home? Yes [email or web address] Information not available 07/21/2023 At What Age Did You Start Smoking Tobacco? 0 [email or web address] Information not available 10/13/2023 How Much Tobacco Do You Smoke? No [email or web address] Information not available 10/13/2023 Do You Use Sunscreen Routinely? Yes [email or web address] Information not available 07/21/2023 Has Tobacco Cessation Counseling Been Provided? No [email or web address] Information not available 07/21/2023 How Many Years Have You Smoked Tobacco? 0 [email or web address] Information not available 10/13/2023 Have You Used IV Drugs? No [email or web address] Information not available 10/13/2023 Do You Have Difficulty Walking Or Climbing Stairs? No Information not available 07/21/2023 Sex: Unknown Functional Status Question Answer Note LastModified by Organizat ion Details LastModified Time Do you use any illicit or recreational drugs? No [email or web address] Information not available 07/21/2023 Do you or have you ever used any other forms of tobacco or nicotine? No [email or web address] Information not available 07/21/2023 What is your level of alcohol consumption? None [email or web address] Information not available 07/21/2023 Are you able to walk independently without assistance or assistive devices? [email or web address] Information not available 07/21/2023 Are you able to care for yourself independently? 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 No [email or web address] Information not available 07/21/2023 What is your exercise level? Moderate [email or web address] Information not available 10/13/2023 Mental Status Question Answer Note LastModified by Organization D etails LastModified Time Do you feel stressed (tense, restless, nervous, or anxious, or unable to sleep at night)? [id number] Information not available 07/21/2023 Family History Relationship Description Onset Age of this Age Resolved Age Notes LastModified by Organization Details LastModified Time Mother Polycystic ovary syndrome [email or web address] Not available 07/21 16:12:47 Medical History Condition [...] ICD10 Code Diagnosis IMO Codes Diagnosis Note [id number] Mario Alberto Yoo MD [facility] [address] [address] 03/12/2025 13:10:56 03/12/2025 14:30:38 Urinary symptoms [id number] R39.9 [id number] Epigastric pain [id number] R10.13 [id number] Mario Alberto Yoo MD [place] [address] [address] 04/11/2025 09:43:09 04/11/2025 12:01:25 anatomy study [id number] Z36.2 O99.210 Z3A.24 [id number] Yumiko Guzman CNM [place] [address],[facility] [place] [address] 04/11/2025 09:44:54 04/11/2025 13:26:30 Gestation period, 24 weeks [id number] Z3A.24 [id number] Health Concerns Section Related Observation LastModified by Organization Detai ls LastModified Time None Recorded Concern Status LastModified by Organization Details LastModified Time None Recorded Payers Encounter Date Sequence Insurance Name Policy Number Policy Mata Covered Member ID Mata Member ID Guarantor Name 04/11/2025 1 [facility] [id number] [id number] [facility] Notes Date Note Type Note Provider Name and Address Organization Details Recorded Time 04/11/2025 text/html Generic HPI TemplateReported by Patient Yumiko Guzman CNM [address], [place], [address], [facility] 04/11/2025 13:02:13 OBGyn Episode Ob Episode Information Episode Created Date Number of Fetuses Patient Bloodtype Patient rh Status Prepregnancy Weight lbs Domestic Partner Domestic Partner Phone Father Name Tax Commissioner Status 01/11/20 25 1 A Positive OPEN Fetus Data First Name Last Name Admitted to NICU Weight (g) Sex Living Outcome Pediatric Complications Fetus ID Race Codes Race Delivery Type [id number] Problems Problem Notes oral HSV only+THC 01/10 Problem Name Start Date End Date Resolution Snomed Code Not e Mixed anxiety and depressive disorder 01/10/2025 [id number] Bipolar disorder 01/10/2025 [id number] rodriguez s a psychiatrist Obesity 01/10/[id number] art bASA 81 mg [...] Date Ultra Sound Latest Days Gestation 0 [email or web address] 01/10/2025 07/28/19 26 0 Pre- Flowsheet Flowsheet Date 01/10/2025 Pascal Score Blood Edema Fundus Height Fundus Units Glucose Ketones Leukocytes Nitrite Labor Signs Protein Cervic Dilation Cervic Effacement Cervic Station Type Weight in lbs Pre/Post Dialysis Refused 277.926655991387 BP Diastolic BP Location Tested BP Systolic [...] Weight in lbs Pre/Post Dialysis Refused Weight 266.978405016425 BP Diastolic BP Location Tested BP Systolic [...] Weight in lbs Pre/Post Dialysis Refused Weight 264.870764937223 BP Diastolic BP Location Tested BP Systolic [...] Type Weight in lbs Pre/Post Dialysis Refused 269.318706725889 BP Diastolic BP Location Tested BP Systolic [...] Weight in lbs Pre/Post Dialysis Refused Weight 272.551081514109 BP Diastolic BP Location Tested BP Systolic [...]
--- OUTSIDE RECORDS SUMMARY | 2025-04-12 20:07 | XMS_ITS | Continuity of Care Document ---
Author Organization [facility] Address [address] [place] [address] Care Team Providers Care Senior Db2 Systems Programmer Name Role Phone CHRISTI LAIRD Primary Care [...] ic, nuchal translu cency 2024 025 [email or web address] [address], [address], [place], [address], 01/11/2025 03:15:10 Medication Orders None recorde d. Patient TargetsNo targets recorded. Patient InstructionsNo instructions recorded. Reason for Referral None Reported. Results Created Date Observation Date Name Description Value Unit Range Abnormal Flag Note LastModifiedBy Organization Detail LastModifiedTime 01/11/2001/10/2025 HEPAT ITIS B SURFA CE ANTIG EN hepatitis B surface antigen Non-re active non-re active This assay was perfo rmed using [employer] ratio n reage nts and test kits. Value s obtai kimberly with other assay metho ds or kits canno t be used inter powers eably . Not Available [facility] (Lab) [address], [place], [address], 01/11/2025 12:17:08 01/11/2001/10/2025 HIV 1/2 ANTIG EN/AN TIBOD Y, REFLE X CONFI RMATI ON HIV antigen/anti body Nonrea ctive nonrea ctive HIV-1 antig en and HIV-1 /HIV- 2 antib odies were not detec saravanan. No labor atory evide nce of HIV infec tion. Not Available [facility] (Lab) [address], [place], [address], 01/11/2025 12:17:08 01/11/2001/10/2025 HEPAT ITIS C ANTIB SUSANNE SCREE N, REFLE X TO CONFI RMATI ON hepatitis C antibody Non-re active non-re active Antib odies to HCV Not Detec saravanan, does not exclu de the possi bilit y of expos ure to HCV. Not Available [facility] (Lab) [address], [place], [address], 01/11/2025 12:17:08 01/11/2001/10/2025 TSH, REFLE X FREE T4 TSH 1.04 uIU/m L 0.30-5 .33 Not Available [facility] (Lab) [address], [place], [address], 01/11/2025 12:17:09 01/11/2001/10/2025 CBC W/DIF F WBC 11.0 10'3/ uL 3.5-10 .5 high Not Available [facility] (Lab) [address], [place], [address], 01/11/2025 12:17:09 01/11/2001/10/2025 CBC W/DIF F RBC 4.37 10'6/ uL (based on docume nted legal sex) 3.80-5 .20 Not Available [facility] (Lab) [address], [place], [address], 01/11/2025 12:17:09 01/11/20 25 01/10/2025 CBC W/DIF F HGB 13.7 g/dL (based on docume nted legal sex) 11.6-1 5.4 Not Available [facility] (Lab) [address], [place], [address], 01/11/2025 12:17:09 01/11/2001/10/2025 CBC W/DIF F HCT 40.1 % (based on docume nted legal sex) 34.0-4 5.0 Not Available [facility] (Lab) [address], [place], [address], 01/11/2025 12:17:09 01/11/2001/10/2025 CBC W/DIF F MCV 91.8 fL 80.0-9 9.0 Not Available [facility] (Lab) [address], [place], [address], 01/11/2025 12:17:09 01/11/2001/10/2025 CBC W/DIF F MCH 31.4 pg 27.0-3 4.0 Not Available [facility] (Lab) [address], [place], [address], 01/11/2025 12:17:09 01/11/2001/10/2025 CBC W/DIF F MCHC 34.2 g/dL 32.0-3 5.5 Not Available [facility] (Lab) [address], [place], [address], 01/11/2025 12:17:09 01/11/2001/10/2025 CBC W/DIF F RDW 12.4 % 11.0-1 5.0 Not Available [facility] (Lab) [address], [place], [address], 01/11/2025 12:17:09 01/11/2001/10/2025 CBC W/DIF F plt 227 10'3/ uL 150-40 0 Not Available [facility] (Lab) [address], [place], [address], 01/11/2025 12:17:09 01/11/2001/10/2025 CBC W/DIF F MPV 11.5 fL 8.8-12 .1 Not Available [facility] (Lab) [address] [facility], [place], [address], 01/11/2025 12:17:09 01/11/2001/10/2025 CBC W/DIF F NRBC's 0.0 % 0.0 Not Available [facility] (Lab) [address], [place], [address], 01/11/2025 12:17:09 01/11/2001/10/2025 CBC W/DIF F absolute NRBCs 0.0 10'3/ uL no refere nce range establ ished Not Available [facility] (Lab) [address], [place], [address], 01/11/2025 12:17:09 01/11/2001/10/2025 CBC W/DIF F neutrophils 71.3 % 34.0-7 3.0 Not Available [facility] (Lab) [address], [place], [address], 01/11/2025 12:17:09 01/11/2001/10/2025 CBC W/DIF F lymphocytes 22.0 % 15.0-5 0.0 Not Available [facility] (Lab) [address], [place], [address], 01/11/2025 12:17:09 01/11/2001/10/2025 CBC W/DIF F monocytes 4.1 % 1.0-15 .0 Not Available [facility] (Lab) [address] [facility], [place], [address], 01/11/2025 12:17:09 01/11/2001/10/2025 CBC W/DIF F eosinophils 1.7 % 0.0-8. 0 Not Available [facility] (Lab) [address], [place], [address], 01/11/2025 12:17:09 01/11/2001/10/2025 CBC W/DIF F basophils 0.4 % 0.0-2. 0 Not Available [facility] (Lab) [address], [place], [address], 01/11/2025 12:17:09 01/11/2001/10/2025 CBC W/DIF F immature granulocytes 0.5 % no define d refere nce range Immat ure Granu locyt es (IG) repre sents autom ated enume ratio n of Metam yeloc ytes, Myelo cytes and Promy elocy chema when IG is < 5%. Blast s are not inclu ded in IG and repor saravanan separ ately if prese nt. Not Available [facility] (Lab) [address], [place], [address], 01/11/2025 12:17:09 01/11/2001/10/2025 CBC W/DIF F absolute neutrophils 7.8 10'3/ uL 1.5-8. 0 Not Available [facility] (Lab) [address], [place], [address], 01/11/2025 12:17:09 01/11/2001/10/2025 CBC W/DIF F absolute lymphocytes 2.4 10'3/ uL 1.0-4. 0 Not Available [facility] (Lab) [address], [place], [address], 01/11/2025 12:17:09 01/11/2001/10/2025 CBC W/DIF F absolute monocytes 0.5 10'3/ uL 0.2-1. 0 Not Available [facility] (Lab) [address] [facility], [place], [address], 01/11/2025 12:17:09 01/11/20 25 01/10/2025 CBC W/DIF F absolute eosinophils 0.2 10'3/ uL 0.0-0. 6 Not Available [facility] (Lab) [address], [place], [address], 01/11/2025 12:17:09 01/11/20 25 01/10/2025 CBC W/DIF F absolute basophils 0.0 10'3/ uL 0.0-0. 3 Not Available [facility] (Lab) [address], [place], [address], 01/11/2025 12:17:09 01/11/2001/10/2025 CBC W/DIF F absolute immature granulocytes 0.1 10'3/ uL 0.00-0 .10 Refer ence range s for nonbi nary/ inter sex or unspe cifie d gende r patie nts have not been estab lishe d. Pleas e [facility] for range s estab lishe d for cisge nder patie nts and evalu ate in the clini melany mignon xt of the indiv idual patie nt: https ://laurel nielsen book. nm.or g/gen derx Not Available [facility] (Lab) [address], [place], [address], 01/11/2025 12:17:09 01/11/2001/10/2025 TYPE/ RH/SC REEN ABO/Rh type A POS Not Available [facility] (Lab) [address], [place], [address], 01/11/2025 12:17:10 01/11/2001/10/2025 TYPE/ RH/SC REEN antibody screen NEG Not Available [facility] (Lab) [address], [place], [address], 01/11/2025 12:17:10 01/11/2001/10/2025 TYPE/ RH/SC REEN exp date 2024 23:59 Not Available [facility] (Lab) [address], [place], [address], 01/11/2025 12:17:10 01/11/2001/10/2025 RUBEL LA IGG ANTIB SUSANNE, QUANT rubella antibodies, IgG Reacti ve reacti ve Not Available [facility] (Lab) [address], [place], [address], 01/11/2025 12:17:10 01/11/2001/10/2025 RUBEL LA IGG ANTIB SUSANNE, QUANT rubella antibodies, IgG quant 10.2 IU/mL >=10 Non-r eacti ve (Non- Immun e) <10 IU/mL React zahra (Immu ne) > or = 10 IU/mL Not Available [facility] (Lab) [address], [place], [address], 01/11/2025 12:17:10 01/11/2001/10/2025 HEMOG LOBIN A1C hemoglobin [...] >8.0% Actio n sugge sted Not Available [facility] (Lab) [address], [place], [address], 01/11/2025 12:17:10 01/11/2001/10/2025 RPR SCREE N, REFLE X TITER /CONF IRMAT ION RPR qualitative Nonrea ctive nonrea ctive Not Available [facility] (Lab) [address], [place], [address], 01/11/2025 12:17:11 01/11/20 25 01/10/2025 CT/GC AND TRICH OMONA S VAGIN YADIRA (RRNA ), URINE chlamydia trachomatis, PCR Negati ve negati ve Not Available [facility] (Lab) [address], [place], [address], 01/12/2025 01:12:08 01/11/2001/10/2025 CT/GC AND TRICH OMONA S VAGIN YADIRA (RRNA ), URINE neisseria gonorrhoeae, PCR Negati ve negati ve Not Available [facility] (Lab) [address], [place], [address], 01/12/2025 01:12:08 01/11/2001/10/2025 CT/GC AND TRICH OMONA S VAGIN YADIRA (RRNA ), URINE trichomonas vaginalis ribosomal RNA (rrna) Negati ve negati ve Not Available [facility] (Lab) [address], [place], [address], 01/12/2025 01:12:08 01/11/2001/10/2025 CULTU RE: URINE result report SEE RESULT S BELOW Test: Cultu re: Urine Speci men Sourc e: Urine Voide d Speci men Type: Urine Speci men Date: 2024 1352 Resul t Date: 2024 0008 Resul t Statu s: Final resul t Abnor mal: No Resul ting Lab: [facility] [address] [facility] [place] [facility] [address] Tel: CULTU RE ----- ----- ----- --- Cultu re resul t (>=3 organ isms prese nt) indic ates possi ble conta minat ion. Repea t cultu re if sympt oms indic ate. Not Available [facility] (Lab) [address], [place], [address], 01/12/2025 01:12:09 01/11/2001/10/2025 drug scree n, urine Amphetamines : negati ve Not Available [address] [address], [place], [address], 01/10/2025 14:48:40 01/11/20 25 01/10/2025 drug scree n, urine Cannabinoids : positi ve Not Available [address], [place], [address], 01/10/2025 14:48:40 01/11/20 25 01/10/2025 drug scree n, urine Cocaine: negati ve Not Available [address], [place], [address], 01/10/2025 14:48:40 01/11/20 25 01/10/2025 drug scree n, urine Opiates: negati ve Not Available [address], [place], [address], 01/10/2025 14:48:40 01/11/20 25 01/10/2025 drug scree n, urine Phenocyclidi ne: negati ve Not Available [address], [place], [address], 01/10/2025 14:48:40 01/11/20 25 01/10/2025 drug scree n, urine Barbiturates : negati ve Not Available [address], [place], [address], 01/10/2025 14:48:40 01/11/20 25 01/10/2025 drug scree n, urine Benzodiazepi joaquín: negati ve Not Available [address], [place], [address], 01/10/2025 14:48:40 01/11/20 25 01/10/2025 drug scree n, urine Ethanol: negati ve Not Available [address], [place], [address], 01/10/2025 14:48:40 01/11/20 25 01/10/2025 drug scree n, urine Hallucinogen s: negati ve Not Available [address], [place], [address], 01/10/2025 14:48:40 01/11/20 25 01/10/2025 drug scree n, urine Inhalants: negati ve Not Available [address], [place], [address], 01/10/2025 14:48:40 01/11/20 25 01/10/2025 drug scree n, urine Anabolic Steroids: negati ve Not Available [address], [place], [address], 01/10/2025 14:48:40 01/11/20 25 01/10/2025 US, obste tric, nucha l trans lucen cy No observ ation record ed. [email or web address] [address], [place], [address], 01/15/2025 22:18:32 01/11/20 25 01/10/2025 US, obste tric, nucha l trans lucen cy No observ ation record ed. [email or web address] [address], [place], [address], 01/10/2025 18:49:50 03/07/20 25 03/07/2025 US, obste tric, 2nd or 3rd trime ster No observ ation record ed. [email or web address] [address], [place], [address], 03/07/2025 15:09:10 03/07/20 25 03/07/2025 US, obste tric, 2nd or 3rd trime ster No observ ation record ed. [email or web address] [address], [place], [address], 03/07/2025 11:22:48 03/12/2003/12/2025 US, abdom en, compl ete No observ ation record ed. [email or web address] [facility] [address] [address], [place], [address], 03/12/2025 17:49:13 03/12/2003/12/2025 US, abdom en, compl ete No observ ation record ed. [email or web address] [address] [address], [place], [address], 03/12/2025 16:56:41 03/21/2003/12/2025 giles r monit or No observ ation record ed. [address] [address], [place], [address], 03/23/2025 16:53:34 03/21/2003/12/2025 giles r monit or No observ ation record ed. [address] ([facility]) [address] [place] [address], [address], 03/23/2025 16:53:35 04/11/20 25 04/11/2025 US, obste tric, follo w-up No observ ation record ed. [email or web address] [address], [place], [address], 04/11/2025 15:57:47 04/11/2004/11/2025 US, obste tric, follo w-up No observ ation record ed. anisa [address], [place], [address], 04/11/2025 18:17:58 Result Notes None recorded. Problems Name Problem SNOMED Code Status Onset Date Resolution Date Notes Provider Name and Address Organization Details Recorded Time Obesity 722858243 Completed BMI 43 - antenata l testing @ 34 wks Es Rees monet, [facility] 4 19:42:00 Bipolar disorder 70676405 Completed MFM consult -aripipr azole, fluoxeti ne 60mg, managed by her psychiat rist. Per MFM - cont manageme nt with psych. Ok to continue . Watch with breastfe eding. Es Rees monet, [facility] 4 19:42:00 Migraine 31914422 Completed excedrin tension headache recommen ded [facility], [facility] 4 19:42:00 Prematur e labor 5697495 Completed hx contract ions Es Rees monet, [facility] 4 19:42:00 Pregnanc y 67697118 Completed 202302/24/2024 Alondra healy, [facility] 5 14:10:18 Pneumoni a 076384252 Completed 2023 [facility], [facility] 4 19:42:00 Mixed anxiety and depressi ve disorder 596720718 Active 2024 Yumiko Guzman CNM [address], [place], [address], [facility] 5 14:30:52 Pregnanc y 25818694 Active 2024 Alondra healy, [facility] 5 14:10:18 Obesity 804496909 Active 2024 BMI 43 start bASA 81 mg Yumiko Guzman CNM [address], [place], [address], [facility] 5 14:30:43 Mixed anxiety and depressi ve disorder 806026844 Active 2024 Yumiko Guzman CNM [address], [place], [address], [facility] 14:30:52 Bipolar disorder 28147208 Active 2024 has a psychiat rist Yumiko Guzman CNM [address], [place], [address], [facility] 14:32:28 Problem Notes None recorded. Procedures Surgical History Date Name Laterality Status Provider Name and Address Organization Details Recorded Time 07/21/2023 Date of Last Pap Smear completed Escher Rees [facility] 07/21/2023 16:09:33 05/31/2007 tonsilecto my/adenoid s completed Escher Rees [facility] 07/21/2023 16:14:08 Imaging Results None recorded. [...] WITH 5MG TABLET, TOTAL DAILY DOSE 7MG 11/01 /2024 completed Not Available Not Available Not Available fluoxetine 60 mg tablet 12/07 completed Not Available Not Available Not Available Vitals Date Recorded Body weight Body mass index (BMI) Body height Systolic And Diastolic Provider Name and Address Organization Details Last Updated DateTime 01/10/2025 143149.08 649 g 43.4 kg/m2 170.18 cm 124/76 mm[Hg] Alondra Beckert [facility] 01/10/2025 14:13:59 Social History Question Answer Notes LastModified by Organizat ion Details LastModified Time Tobacco Smoking Status Never Smoker Es Negrita healy, [facility] 07/21/2023 16:13:04 If You Are , What Was Your Level Of Alcohol Consumption Prior To ? Occasional [email or web address] Information not available 07/21/2023 How Many Years Have You Consumed Alcohol? 0 [email or web address] Information not available 10/13/2023 Are You Blind Or Do You Have Difficulty Seeing? No [email or web address] Information n ot available 07/21/2023 What Is Your Level Of Caffeine Consumption? Moderate [email or web address] Information not available 10/13/2023 How Much Tobacco Do You Chew? None [email or web address] Information not available 10/13/2023 In The 14 Days Before Symptom Onset, Have You Had Close Contact With A Laboratory-confirm ed COVID-19 While That Case Was Ill? No [email or web address] Information n ot available 07/21/2023 In The 14 Days Before Symptom Onset, Have You Had Close Contact With A Person Who Is Under Investigation For COVID-19 While That Person Was Ill? No [email or web address] Information not available 07/21/2023 Have You Been To An Area Known To Be High Risk For COVID-19? No [email or web address] Information not available 07/21/2023 Are You Deaf Or Do You Have Serious Difficulty Hearing? No [email or web address] Information not available 07/21/2023 What Type Of Diet Are You Following? REGULAR [email or web address] Information n ot available 07/21/2023 What Is The Highest Grade Or Level Of School You Have Completed Or The Highest Degree You Have Received? HC10449-9 [email or web address] Information not available 10/13/2023 Are There Any Guns Present In Your Home? No [email or web address] Information not available 10/13/2023 Do You Use Protection During Sex? No [email or web address] Information not available 10/13/2023 Do You Use Your Seat Belt Or Car Seat Routinely? Yes [email or web address] Information not available 07/21/2023 Are You Sexually Active? Yes [email or web address] Information not available 01/10/2025 Do You Have Smoke And Carbon Monoxide Detectors In Your Home? Yes [email or web address] Information not available 07/21/2023 At What Age Did You Start Smoking Tobacco? 0 [email or web address] Information not available 10/13/2023 How Much Tobacco Do You Smoke? No Information not available 10/13/2023 Do You Use Sunscreen Routinely? Yes [email or web address] Information not available 07/21/2023 Has Tobacco Cessation Counseling Been Provided? No Information not available 07/21/2023 How Many Years Have You Smoked Tobacco? 0 [email or web address] Information not available 10/13/2023 Have You Used IV Drugs? No [email or web address] Information not available 10/13/2023 Do You Have Difficulty Walking Or Climbing Stairs? No Information not available 07/21/2023 Sex: Unknown Functional Status Question Answer Note LastModified by Organizat ion Details LastModified Time Do you use any illicit or recreational drugs? No Information not available 07/21/2023 Do you or have you ever used any other forms of tobacco or nicotine? No [email or web address] Information not available 07/21/2023 What is your level of alcohol consumption? None [email or web address] Information not available 07/21/2023 Are you able to walk independently without assistance or assistive devices? [email or web address] Information not available 07/21/2023 Are you able to care for yourself independently? 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 No [email or web address] Information not available 07/21/2023 What is your exercise level? Moderate [email or web address] Information not available 10/13/2023 Mental Status Question Answer Note LastModified by Organization D etails LastModified Time Do you feel stressed (tense, restless, nervous, or anxious, or unable to sleep at night)? OS04813-6 [email or web address] Information not available 07/21/2023 Family History Relationship Description Onset Age of this Age Resolved Age Notes LastModified by Organization Details LastModified Time Mother Polycystic ovary syndrome [email or web address] Not available 07/21 16:12:47 Medical History Condition [...] ICD10 Code Diagnosis IMO Codes Diagnosis Note [id number] Mario Alberto Yoo MD [facility] [address] [address] 12/15/2024 10:38:58 12/15/2024 11:19:39 [id number] Yumiko Guzman CNM [facility] [address],[facility] [place] [address] 12/15/2024 10:39:22 12/15/2024 12:31:22 Amenorrhea 76976861 N91.2 05976 reviewed office, precaution spap done [id number] Mario Alberto Yoo MD [facility] [address],[place] [address] 01/10/2025 12:23:20 01/10/2025 13:34:14 screening 612298478 Z36.82 Z3A.11 659209 180900 [facility] [address],[place] [address] 01/10/2025 12:23:46 01/10/2025 14:38:45 Herpes simplex 18220132 B00.9 [id number] Gestation period, 11 weeks 91871042 Z3A.11 [id number] Health Concerns Section Related Observation LastModified by Organization Detai ls LastModified Time None Recorded Concern Status LastModified by Organization Details LastModified Time None Recorded Payers Encounter Date Sequence Insurance Name Policy Number Policy Mata Covered Member ID Mata Member ID Guarantor Name 01/10/2025 1 [facility] [id number] Tarun Suazo [id number] Claire Grande 01/10/2025 2 [facility] ON OR AFTER 11/28/20 (MEDICAID REPLACEMENT - HMO) Claire Grande [id number] Claire Grande OBGyn Episode Ob Episode Information Episode Created Date Number of Fetuses Patient Bloodtype Patient rh Status Prepregnancy Weight lbs Domestic Partner Domestic Partner Phone Father Name 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 Status 01/11/20 25 1 A Positive OPEN Fetus Data First Name Last Name Admitted to NICU Weight (g) Sex Living Outcome Pediatric Complications Fetus ID Race Codes Race Delivery Type [id number] Problems Problem Notes oral HSV only+THC 01/10 Problem Name Start Date End Date Resolution Snomed Code Not e Mixed anxiety and depressive disorder 01/10/2025 378104202 Bipolar disorder 01/10/2025 55680464 rodriguez s a psychiatrist Obesity 01/10/[address] art bASA 81 mg [...] Date Ultra Sound Latest Days Gestation 0 [email or web address] 01/10/2025 07/28/19 26 0 Pre-diana Flowsheet Flowsheet Date 01/10/2025 Pascal Score Blood Edema Fundus Height Fundus Units Glucose Ketones Leukocytes Nitrite Labor Signs Protein Cervic Dilation Cervic Effacement Cervic Station Type Weight in lbs Pre/Post Dialysis Refused 277.478638752845 BP Diastolic BP Location Tested BP Systolic [...] Weight in lbs Pre/Post Dialysis Refused Weight 266.507320394110 BP Diastolic BP Location Tested BP Systolic [...] Weight in lbs Pre/Post Dialysis Refused Weight 264.604655656832 BP Diastolic BP Location Tested BP Systolic BP Type 86 R arm 122 sitting Fetus Heart Rate Present Fetus Movement A Yes Comments +FM doing well anatomy incom plete, ed precautions reviews for dizziness plan nurse monitoring x 3 days, 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 Flowsheet Date 03/12/2025 Pascal Score Blood Edema Fundus Height Fundus Units Glucose Ketones Leukocytes Nitrite Labor Signs Protein Cervic Dilation Cervic Effacement Cervic Station Type Weight in lbs Pre/Post Dialysis Refused 269.423479036372 BP Diastolic BP Location Tested BP Systolic [...] Weight in lbs Pre/Post Dialysis Refused Weight 272.992422490571 BP Diastolic BP Location Tested BP Systolic [...]
--- OUTSIDE RECORDS SUMMARY | 2025-04-12 20:07 | XMS_ITS | Clinical Summary ---
Author Organization [facility] Address [address] [place] [address] Care Team Providers Care Hot Roller Name Role Phone Unavailable Primary Care Provider Unavailabl e Source Comments [facility],non-owned Affiliates and Associated Physician Practices is amultiple site organization consisting of ambulatory clinics and hospital sitesin [place] and [place]. This disclosure is being madepursuant to the Care Everywhere program and may not contain all information available regarding this patient. 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 Childhood asthma without complication 01/25/2020 History [...] drink = 0.6 oz pur e alcohol) [place] Depression Scale Answer Date Recorded [place] Depression Scale Total 13 09/01/2023 The thought [...] patient's age to complete this topic Insurance [facility] [employer] SELF PAY NO INSURANCE Member Subscriber Plan / Payer (Ef fective for All Dates) Name:[place] Member ID:Not on file Relation to Subscriber:Not on file Name:MILA GRANDE Subscriber ID:Not on file (Home) Address: [address] [place] [address] [place] [address] Payer ID:Not on file Group ID:Not on file Type:Self Pay Address: [place], [place]
--- OUTSIDE RECORDS SUMMARY | 2025-04-12 20:07 | XMS_ITS | Patient Health Record ---
Author Organization [facility] Address [address] [place] [address] Care Team Providers Care Hydraulic Engineer Name Role Phone Isis Galloway Primary Care Provider [phone] Allergies Allergen (clinical drug ingredient) Drug/Non Drug [...] Status Risk Notes Problem Posttraumatic stress disorder (47992861) PTSD (post-traumatic stress disorder) (F43.10) Active confirmed Problem Attention deficit hyperactivity disorder (212751927) ADHD (attention deficit hyperactivity disorder) (F90.9) Active confirmed Problem Bipolar 2 disorder (34360550) Bipolar 2 disorder (F31.81) Active confirmed Problem Cannabis use disorder (6740906202) Cannabis use disorder (F12.90) Active confirmed Encounters Encounter Location Date Provider Diagnosis [address] [address] 04/24/2024 Isis Galloway PTSD (post-traumatic stress disorder) F43.10 ; ADHD (attention deficit hyperactivity disorder) F90.9 ; Medication management Z79.899 and Bipolar 2 disorder F31.[address] [address] 05/30/2024 Isis Nilesh PTSD (post-traumatic stress disorder) F43.10 ; ADHD (attention deficit hyperactivity disorder) F90.9 ; Medication management Z79.899 and Bipolar 2 disorder F31.[address] [address] 07/11/2024 Isis Galloway PTSD (post-traumatic stress disorder) F43.10 ; ADHD (attention deficit hyperactivity disorder) F90.9 ; Medication management Z79.899 and Bipolar 2 disorder F31.[address] [address] 08/21/2024 Isis Galloway PTSD (post-traumatic stress disorder) F43.10 ; ADHD (attention deficit hyperactivity disorder) F90.9 ; Cannabis use disorder F12.90 ; Medication management Z79.899 and Bipolar 2 disorder F31.[address] [address] 09/11/2024 Isis Galloway PTSD (post-traumatic stress disorder) F43.10 ; ADHD (attention deficit hyperactivity disorder) F90.9 ; Cannabis use disorder F12.90 ; Medication management Z79.899 and Bipolar 2 disorder F31.[address] [address] 10/10/2024 Isis Galloway PTSD (post-traumatic stress disorder) F43.10 ; ADHD (attention deficit hyperactivity disorder) F90.9 ; Cannabis use disorder F12.90 ; Medication management Z79.899 and Bipolar 2 disorder F31.[address] [address] 11/20/2024 Isis Galloway PTSD (post-traumatic stress disorder) F43.10 ; ADHD (attention deficit hyperactivity disorder) F90.9 ; Cannabis use disorder F12.90 ; Medication management Z79.899 and Bipolar 2 disorder F31.[address] [address] 09/07/2024 Isis Galloway Bipolar 2 disorder F31.[address] [address] 11/14/2024 Isis Galloway Bipolar 2 disorder F31.81 [...] or be administered own oral medications per [facility] protocols. Provided informed consent with understanding of [...] or be administered own oral medications per [facility] protocols. Provided informed consent with understanding of [...] or be administered own oral medications per [facility] protocols. Provided informed consent with understanding of [...] or be administered own oral medications per [facility] protocols. Provided informed consent with understanding of [...] or be administered own oral medications per [facility] protocols. Provided informed consent with understanding of [...] or be administered own oral medications per [facility] protocols. Provided informed consent with understanding of [...] or be administered own oral medications per [facility] protocols. Provided informed consent with understanding of side effects, adverse effects, risks and benefits as well as alternative treatments as previously discussed and with the above recommended medications & other aspects of the treatment program. Agrees to return sooner if symptoms worsen or suicidal or homicidal ideations occur. 05/30/2024 Bipolar 2 disorder (ICD-10 - F31.81) 04/24/2024 [...] [facility] [address] [place] [address] [id number] Claire Grande Self - patient is the insured [address] [facility] Claims Department [address] [place] [address] [id number] Claire Grande Self - patient is the insured 3 3 [place] [address] [place] [address] [id number] Claire Grande Self - patient is the insured 3 [facility] [address] [place] [address] [id number] Claire Grande Self - patient is the insured 5 Medical (General) History Surgical History Surgery Date(Month/Year) tonsillectomy and adenoidectomy child Hospitalization History Reason Date(Month/Year) child 01/2024
--- OUTSIDE RECORDS SUMMARY | 2025-04-12 20:07 | XMS_ITS | Continuity of Care Document ---
Author Organization [facility] Address [address] [place] [address] [place] [address] Care Team Providers Care Web Worker Name Role Phone JO-ANNCHRISTI ORTEGA Primary Care Provider Assessment No assessment recorded. [...] None recorde d. Imaging US, obstetr ic, 2nd or 3rd trimest er 2024 025 [email or web address] [place], [address], [address], [place], [address], 03/07/2025 11:30:49 Medication Orders None recorde d. Patient TargetsNo targets recorded. Patient InstructionsNo instructions recorded. Reason for Referral None Reported. Results Created Date Observation Date Name Description Value Unit Range Abnormal Flag Note LastModifiedBy Organization Detail LastModifiedTime 01/17/2001/16/2025 [UNIT Y] ANEUP LOIDY NIPT fraction 6.2% normal Not Available Robert hussein [address], [place], [address], 01/16/2025 02:31:48 01/17/20 25 01/16/2025 [UNIT Y] ANEUP LOIDY NIPT 22Q11.2 microdeletio n LOW RISK <1 in 10,000 normal Not Available [facility] [address], [place], [address], 01/16/2025 02:31:48 01/17/20 25 01/16/2025 [UNIT Y] ANEUP LOIDY NIPT sex chromosome aneuploidy NOT DETECT ED normal Not Available [facility] [address], [place], [address], 01/16/2025 02:31:48 01/17/20 25 01/16/2025 [UNIT Y] ANEUP LOIDY NIPT monosomy X LOW RISK <1 in 10,000 normal Not Available [facility] [address], [place], [address], 01/16/2025 02:31:48 01/17/20 25 01/16/2025 [UNIT Y] ANEUP LOIDY NIPT trisomy 13 LOW RISK <1 in 10,000 normal Not Available [facility] [address], [place], [address], 01/16/2025 02:31:48 01/17/20 25 01/16/2025 [UNIT Y] ANEUP LOIDY NIPT trisomy 18 LOW RISK <1 in 10,000 normal Not Available [facility] [address], [place], [address], 01/16/2025 02:31:48 01/17/20 25 01/16/2025 [UNIT Y] ANEUP LOIDY NIPT trisomy 21 LOW RISK <1 in 10,000 normal Not Available [facility] [address], [place], [address], 01/16/2025 02:31:48 01/17/20 25 01/16/2025 [UNIT Y] ANEUP LOIDY NIPT sex FEMALE normal Not Available [facility] [address], [place], [address], 01/16/2025 02:31:48 01/17/20 25 01/16/2025 [UNIT Y] ANEUP LOIDY NIPT gestation SINGLE TON normal Not Available [facility] [address], [place], [address], 01/16/2025 02:31:48 01/17/20 25 01/16/2025 [UNIT Y] ANEUP LOIDY NIPT for detailed report, see pdf See PDF normal Not Available [facility] [address], [place], [address], 01/16/2025 02:31:48 01/21/20 25 01/20/2025 [UNIT Y] ALEJANDRA Wade sickle cell disease/beta -thalassemia /hemoglobino pathies carrier screen NEGATI VE normal Not Available [facility] [address], [place], [address], 01/20/2025 04:29:08 01/21/20 25 01/20/2025 [UNIT Y] ALEJANDRA Wdae alpha-thalas semia carrier screen NEGATI VE normal Not Available [facility] [address], [place], [address], 01/20/2025 04:29:08 01/21/20 25 01/20/2025 [UNIT Y] ALEJANDRA Wade cystic fibrosis carrier screen NEGATI VE normal Not Available [facility] [address], [place], [address], 01/20/2025 04:29:08 01/21/20 25 01/20/2025 [UNIT Y] ALEJANDRA Wade spinal muscular atrophy carrier screen NEGATI VE 2 SMN1 copies , SNP not presen t normal Not Available [facility] [address], [place], [address], 01/20/2025 04:29:08 01/21/20 25 01/20/2025 [UNIT Y] ALEJANDRA Wade for detailed report, see pdf See PDF normal Not Available [facility] [address], [place], [address], 01/20/2025 04:29:08 01/11/2001/10/2025 HEPAT ITIS B SURFA CE ANTIG EN hepatitis B surface antigen Non-re active non-re active This assay was perfo rmed using [employer] ratio n reage nts and test kits. Value s obtai kimberly with other assay metho ds or kits canno t be used inter powers eably . Not Available [facility] (Lab) [address], [place], [address], 01/11/2025 12:17:08 01/11/2001/10/2025 HIV 1/2 ANTIG EN/AN TIBOD Y, REFLE X CONFI RMATI ON HIV antigen/anti body Nonrea ctive nonrea ctive HIV-1 antig en and HIV-1 /HIV- 2 antib odies were not detec saravanan. No labor atory evide nce of HIV infec tion. Not Available [facility] (Lab) [address], [place], [address], 01/11/2025 12:17:08 01/11/2001/10/2025 HEPAT ITIS C ANTIB SUSANNE SCREE N, REFLE X TO CONFI RMATI ON hepatitis C antibody Non-re active non-re active Antib odies to HCV Not Detec saravanan, does not exclu de the possi bilit y of expos ure to HCV. Not Available [facility] (Lab) [address], [place], [address], 01/11/2025 12:17:08 01/11/2001/10/2025 TSH, REFLE X FREE T4 TSH 1.04 uIU/m L 0.30-5 .33 Not Available [facility] (Lab) [address], [place], [address], 01/11/2025 12:17:09 01/11/2001/10/2025 CBC W/DIF F WBC 11.0 10'3/ uL 3.5-10 .5 high Not Available [facility] (Lab) [address], [place], [address], 01/11/2025 12:17:09 01/11/20 25 01/10/2025 CBC W/DIF F RBC 4.37 10'6/ uL (based on docume nted legal sex) 3.80-5 .20 Not Available [facility] (Lab) [address], [place], [address], 01/11/2025 12:17:09 01/11/2001/10/2025 CBC W/DIF F HGB 13.7 g/dL (based on docume nted legal sex) 11.6-1 5.4 Not Available [facility] (Lab) [address], [place], [address], 01/11/2025 12:17:09 01/11/20 25 01/10/2025 CBC W/DIF F HCT 40.1 % (based on docume nted legal sex) 34.0-4 5.0 Not Available [facility] (Lab) [address], [place], [address], 01/11/2025 12:17:09 01/11/2001/10/2025 CBC W/DIF F MCV 91.8 fL 80.0-9 9.0 Not Available [facility] (Lab) [address], [place], [address], 01/11/2025 12:17:09 01/11/2001/10/2025 CBC W/DIF F MCH 31.4 pg 27.0-3 4.0 Not Available [facility] (Lab) [address], [place], [address], 01/11/2025 12:17:09 01/11/20 25 01/10/2025 CBC W/DIF F MCHC 34.2 g/dL 32.0-3 5.5 Not Available [facility] (Lab) [address], [place], [address], 01/11/2025 12:17:09 01/11/2001/10/2025 CBC W/DIF F RDW 12.4 % 11.0-1 5.0 Not Available [facility] (Lab) [address], [place], [address], 01/11/2025 12:17:09 01/11/2001/10/2025 CBC W/DIF F plt 227 10'3/ uL 150-40 0 Not Available [facility] (Lab) [address], [place], [address], 01/11/2025 12:17:09 01/11/2001/10/2025 CBC W/DIF F MPV 11.5 fL 8.8-12 .1 Not Available [facility] (Lab) [address], [place], [address], 01/11/2025 12:17:09 01/11/2001/10/2025 CBC W/DIF F NRBC's 0.0 % 0.0 Not Available [facility] (Lab) [address], [place], [address], 01/11/2025 12:17:09 01/11/2001/10/2025 CBC W/DIF F absolute NRBCs 0.0 10'3/ uL no refere nce range establ ished Not Available [facility] (Lab) [address], [place], [address], 01/11/2025 12:17:09 01/11/2001/10/2025 CBC W/DIF F neutrophils 71.3 % 34.0-7 3.0 Not Available [facility] (Lab) [address], [place], [address], 01/11/2025 12:17:09 01/11/20 25 01/10/2025 CBC W/DIF F lymphocytes 22.0 % 15.0-5 0.0 Not Available [facility] (Lab) [address], [place], [address], 01/11/2025 12:17:09 01/11/20 25 01/10/2025 CBC W/DIF F monocytes 4.1 % 1.0-15 .0 Not Available [facility] (Lab) [address], [place], [address], 01/11/2025 12:17:09 01/11/20 25 01/10/2025 CBC W/DIF F eosinophils 1.7 % 0.0-8. 0 Not Available [facility] (Lab) [address], [place], [address], 01/11/2025 12:17:09 01/11/20 25 01/10/2025 CBC W/DIF F basophils 0.4 % 0.0-2. 0 Not Available [facility] (Lab) [address], [place], [address], 01/11/2025 12:17:09 01/11/2001/10/2025 CBC W/DIF F immature granulocytes 0.5 % no define d refere nce range Immat ure Granu locyt es (IG) repre sents autom ated enume ratio n of Metam yeloc ytes, Myelo cytes and Promy elocy chema when IG is < 5%. Blast s are not inclu ded in IG and repor saravanan separ ately if prese nt. Not Available [facility] (Lab) [address], [place], [address], 01/11/2025 12:17:09 01/11/2001/10/2025 CBC W/DIF F absolute neutrophils 7.8 10'3/ uL 1.5-8. 0 Not Available [facility] (Lab) [address], [place], [address], 01/11/2025 12:17:09 01/11/20 01/10/2025 CBC W/DIF F absolute lymphocytes 2.4 10'3/ uL 1.0-4. 0 Not Available [facility] (Lab) [address], [place], [address], 01/11/2025 12:17:09 01/11/2001/10/2025 CBC W/DIF F absolute monocytes 0.5 10'3/ uL 0.2-1. 0 Not Available [facility] (Lab) [address], [place], [address], 01/11/2025 12:17:09 01/11/2001/10/2025 CBC W/DIF F absolute eosinophils 0.2 10'3/ uL 0.0-0. 6 Not Available [facility] (Lab) [address], [place], [address], 01/11/2025 12:17:09 01/11/2001/10/2025 CBC W/DIF F absolute basophils 0.0 10'3/ uL 0.0-0. 3 Not Available [facility] (Lab) [address], [place], [address], 01/11/2025 12:17:09 01/11/2001/10/2025 CBC W/DIF F absolute immature granulocytes 0.1 10'3/ uL 0.00-0 .10 Refer ence range s for nonbi nary/ inter sex or unspe cifie d gende r patie nts have not been estab lishe d. Pleas e refer to the [facility] wing table for range s estab lishe d for cisge nder patie nts and evalu ate in the clini melany mignon xt of the indiv idual patie nt: https ://laurel nielsen book. nm.or g/gen derx Not Available [facility] (Lab) [address], [place], [address], 01/11/2025 12:17:09 01/11/2001/10/2025 TYPE/ RH/SC REEN ABO/Rh type A POS Not Available [facility] (Lab) [address], [place], [address], 01/11/2025 12:17:10 01/11/20 25 01/10/2025 TYPE/ RH/SC REEN antibody screen NEG Not Available [facility] (Lab) [address], [place], [address], 01/11/2025 12:17:10 01/11/20 25 01/10/2025 TYPE/ RH/SC REEN exp date 2024 23:59 Not Available [facility] (Lab) [address], [place], [address], 01/11/2025 12:17:10 01/11/20 25 01/10/2025 RUBEL LA IGG ANTIB SUSANNE, QUANT rubella antibodies, IgG Reacti ve reacti ve Not Available [facility] (Lab) [address], [place], [address], 01/11/2025 12:17:10 01/11/20 25 01/10/2025 RUBEL LA IGG ANTIB SUSANNE, QUANT rubella antibodies, IgG quant 10.2 IU/mL >=10 Non-r eacti ve (Non- Immun e) <10 IU/mL React zahra (Immu ne) > or = 10 IU/mL Not Available [facility] (Lab) [address] [place], [address], 01/11/2025 12:17:10 01/11/2001/10/2025 HEMOG LOBIN A1C hemoglobin [...] >8.0% Actio n sugge sted Not Available [facility] (Lab) [address], [place], [address], 01/11/2025 12:17:10 01/11/20 25 01/10/2025 RPR SCREE N, REFLE X TITER /CONF IRMAT ION RPR qualitative Nonrea ctive nonrea ctive Not Available [facility] (Lab) [address], [place], [address], 01/11/2025 12:17:11 01/11/20 25 01/10/2025 CT/GC AND TRICH OMONA S VAGIN YADIRA (RRNA ), URINE chlamydia trachomatis, PCR Negati ve negati ve Not Available [facility] (Lab) [address], [place], [address], 01/12/2025 01:12:08 01/11/20 25 01/10/2025 CT/GC AND TRICH OMONA S VAGIN YADIRA (RRNA ), URINE neisseria gonorrhoeae, PCR Negati ve negati ve Not Available [facility] (Lab) [address], [place], [address], 01/12/2025 01:12:08 01/11/20 25 01/10/2025 CT/GC AND TRICH OMONA S VAGIN YADIRA (RRNA ), URINE trichomonas vaginalis ribosomal RNA (rrna) Negati ve negati ve Not Available [facility] (Lab) [address] [place], [address], 01/12/2025 01:12:08 01/11/20 25 01/10/2025 CULTU RE: URINE result report SEE RESULT S BELOW Test: Cultu re: Urine Speci men Sourc e: Urine Voide d Speci men Type: Urine Speci men Date: 2024 1352 Resul t Date: 2024 0008 Resul t Statu s: Final resul t Abnor mal: No Resul ting Lab: [facility] [address] [facility] [id number] Tel: CULTU RE ----- ----- ----- --- Cultu re resul t (>=3 organ isms prese nt) indic ates possi ble conta minat ion. Repea t cultu re if sympt oms indic ate. Not Available [facility] (Lab) [address], [place], [address], 01/12/2025 01:12:09 01/11/20 25 01/10/2025 drug scree n, urine Amphetamines : negati ve Not Available [place] [address], [place], [address], 01/10/2025 14:48:40 01/11/20 25 01/10/2025 drug scree n, urine Cannabinoids : positi ve Not Available [place] [address], [place], [address], 01/10/2025 14:48:40 01/11/20 25 01/10/2025 drug scree n, urine Cocaine: negati ve Not Available [place] [address], [place], [address], 01/10/2025 14:48:40 01/11/20 25 01/10/2025 drug scree n, urine Opiates: negati ve Not Available [place] [address], [place], [address], 01/10/2025 14:48:40 01/11/20 25 01/10/2025 drug scree n, urine Phenocyclidi ne: negati ve Not Available [place] [address], [place], [address], 01/10/2025 14:48:40 01/11/20 25 01/10/2025 drug scree n, urine Barbiturates : negati ve Not Available [place] [address], [place], [address], 01/10/2025 14:48:40 01/11/20 25 01/10/2025 drug scree n, urine Benzodiazepi joaquín: negati ve Not Available [place] [address], [place], [address], 01/10/2025 14:48:40 01/11/20 25 01/10/2025 drug scree n, urine Ethanol: negati ve Not Available [place] [address], [place], [address], 01/10/2025 14:48:40 01/11/20 25 01/10/2025 drug scree n, urine Hallucinogen s: negati ve Not Available [place] [address], [place], [address], 01/10/2025 14:48:40 01/11/20 25 01/10/2025 drug scree n, urine Inhalants: negati ve Not Available [place] [address], [place], [address], 01/10/2025 14:48:40 01/11/20 25 01/10/2025 drug scree n, urine Anabolic Steroids: negati ve Not Available [place] [address], [place], [address], 01/10/2025 14:48:40 01/11/20 25 01/10/2025 US, obste tric, nucha l trans lucen cy No observ ation record ed. [email or web address] [place] [address], [place], [address], 01/15/2025 22:18:32 01/11/20 25 01/10/2025 US, obste tric, nucha l trans lucen cy No observ ation record ed. [facility] [address], [place], [address], 01/10/2025 18:49:50 03/07/2003/07/2025 US, obste tric, 2nd or 3rd trime ster No observ ation record ed. [email or web address] [place] [address], [place], [address], 03/07/2025 15:09:10 03/07/2003/07/2025 US, obste tric, 2nd or 3rd trime ster No observ ation record ed. [email or web address] [place] [address], [place], [address], 03/07/2025 11:22:48 03/12/2003/12/2025 US, abdom en, compl ete No observ ation record ed. [email or web address] [address] [place] [id number] [address], [place], [address], 03/12/2025 17:49:13 03/12/2003/12/2025 US, abdom en, compl ete No observ ation record ed. [email or web address] [facility] [address] [address], [place], [address], 03/12/2025 16:56:41 03/21/2003/12/2025 giles r monit or No observ ation record ed. [email or web address] [address], [place], [address], 03/23/2025 16:53:34 03/21/2003/12/2025 giles r monit or No observ ation record ed. [address] (Cardiology & Emg) [facility] [address], [place], [address], 03/23/2025 16:53:35 04/11/20 25 04/11/2025 US, obste tric, follo w-up No observ ation record ed. [email or web address] [place] [address], [place], [address], 04/11/2025 15:57:47 04/11/20 25 04/11/2025 US, obste tric, follo w-up No observ ation record ed. [email or web address] [place] [address], [place], [address], 04/11/2025 18:17:58 Result Notes None recorded. Problems Name Problem SNOMED Code Status Onset Date Resolution Date Notes Provider Name and Address Organization Details Recorded Time Obesity 951467589 Completed BMI 43 - antenata l testing @ 34 wks Es healy [facility] 4 19:42:00 Bipolar disorder 26728934 Completed MFM consult -aripipr azole, fluoxeti ne 60mg, managed by her psychiat rist. Per MFM - cont manageme nt with psych. Ok to continue . Watch with breastfe eding. Es healy, [facility] 4 19:42:00 Migraine 62017213 Completed excedrin tension headache recommen ded Es healy [facility] 4 19:42:00 Prematur e labor 8367514 Completed hx contract ions Es healy, [facility] 4 19:42:00 Pregnanc y 55676884 Completed 202302/24/2024 Alondra healy, [facility] 5 14:10:18 Pneumoni a 807472090 Completed 2023 Es healy [facility] 4 19:42:00 Mixed anxiety and depressi ve disorder 513303796 Active 2024 Yumiko Guzman CNM [address], [place], [address], [facility] 5 14:30:52 Pregnanc y 66334453 Active 2024 Alondra healy, [facility] 14:10:18 Obesity 969338020 Active 2024 BMI 43 start bASA 81 mg Yumiko Guzman CNM [address], [place], [address], [facility] 14:30:43 Mixed anxiety and depressi ve disorder 088252082 Active 2024 Yumiko Guzman CNM [address], [place], [address], [facility] 14:30:52 Bipolar disorder 49453797 Active 2024 has a psychiat rist Yumiko Guzman CNM [address], [place], [address], [facility] 14:32:28 Problem Notes None recorded. Procedures Surgical History Date Name Laterality Status Provider Name and Address Organization Details Recorded Time 07/21/2023 Date of Last Pap Smear completed Escher Rees [facility] 07/21/2023 16:09:33 05/31/2007 tonsilecto my[facility] 16:14:08 Imaging Results None [...] Updated DateTime 03/07/2025 170.18 cm 41.3 kg/m2 748374.39 g 122/86 mm[Hg] Alondra Melendez [facility] 03/07/2025 11:01:12 Social History Question Answer Notes LastModified by Organizat ion Details LastModified Time Tobacco Smoking Status Never Smoker Es healy, [facility] 07/21/2023 16:13:04 If You Are , What Was Your Level Of Alcohol Consumption Prior To ? Occasional [email or web address] Information not available 07/21/2023 How Many Years Have You Consumed Alcohol? 0 Information not available 10/13/2023 Are You Blind Or Do You Have Difficulty Seeing? No [email or web address] Information n ot available 07/21/2023 What Is Your Level Of Caffeine Consumption? Moderate [email or web address] Information not available 10/13/2023 How Much Tobacco Do You Chew? None [email or web address] Information not available 10/13/2023 In The 14 Days Before Symptom Onset, Have You Had Close Contact With A Laboratory-confirm ed COVID-19 While That Case Was Ill? No [email or web address] Information n ot available 07/21/2023 In The 14 Days Before Symptom Onset, Have You Had Close Contact With A Person Who Is Under Investigation For COVID-19 While That Person Was Ill? No [email or web address] Information not available 07/21/2023 Have You Been To An Area Known To Be High Risk For COVID-19? No Information not available 07/21/2023 Are You Deaf Or Do You Have Serious Difficulty Hearing? No [email or web address] Information not available 07/21/2023 What Type Of Diet Are You Following? REGULAR [email or web address] Information n ot available 07/21/2023 What Is The Highest Grade Or Level Of School You Have Completed Or The Highest Degree You Have Received? SH88753-8 [email or web address] Information not available 10/13/2023 Are There Any Guns Present In Your Home? No [email or web address] Information not available 10/13/2023 Do You Use Protection During Sex? No [email or web address] Information not available 10/13/2023 Do You Use Your Seat Belt Or Car Seat Routinely? Yes [email or web address] Information not available 07/21/2023 Are You Sexually Active? Yes [email or web address] Information not available 01/10/2025 Do You Have Smoke And Carbon Monoxide Detectors In Your Home? Yes [email or web address] Information not available 07/21/2023 At What Age Did You Start Smoking Tobacco? 0 [email or web address] Information not available 10/13/2023 How Much Tobacco Do You Smoke? No [email or web address] Information not available 10/13/2023 Do You Use Sunscreen Routinely? Yes [email or web address] Information not available 07/21/2023 Has Tobacco Cessation Counseling Been Provided? No [email or web address] Information not available 07/21/2023 How Many Years Have You Smoked Tobacco? 0 Information not available 10/13/2023 Have You Used IV Drugs? No [email or web address] Information not available 10/13/2023 Do You Have Difficulty Walking Or Climbing Stairs? No [email or web address] Information not available 07/21/2023 Sex: Unknown Functional Status Question Answer Note LastModified by Organizat ion Details LastModified Time Do you use any illicit or recreational drugs? No [email or web address] Information not available 07/21/2023 Do you or have you ever used any other forms of tobacco or nicotine? No [email or web address] Information not available 07/21/2023 What is your level of alcohol consumption? None [email or web address] Information not available 07/21/2023 Are you able to walk independently without assistance or assistive devices? YESWOREST Information not available 07/21/2023 Are you able to care for yourself independently? 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 No Information not available 07/21/2023 What is your exercise level? Moderate [email or web address] Information not available 10/13/2023 Mental Status Question Answer Note LastModified by Organization D etails LastModified Time Do you feel stressed (tense, restless, nervous, or anxious, or unable to sleep at night)? [id number] [email or web address] Information not available 07/21/2023 Family History Relationship Description Onset Age of this Age Resolved Age Notes LastModified by Organization Details LastModified Time Mother Polycystic ovary syndrome Not available 07/21 16:12:47 Medical History Condition Response Allergies (Food, seasonal, environmental ) Y Other N Blood Transfusion N Drug/Latex Allergies/Reactions N Breast Cancer N Dermatologic Disorders N Lung Disease N [...] ICD10 Code Diagnosis IMO Codes Diagnosis Note [id number] Yumiko Guzman CNM [place] [facility] [address],[place] [address] 02/07/2025 10:02:57 02/07/2025 10:40:20 Gestation period, 15 weeks 7476422 Z3A.15 [id number] Mario Alberto Yoo MD [facility] [address],[place] [address] 03/07/2025 09:46:14 03/07/2025 10:59:03 Screening status 023962097 Z36.3 Z3A.19 [id number] Yumiko Guzman CNM [facility] [address],[place] [address] 03/07/2025 09:47:03 03/07/2025 13:53:20 Gestation period, 19 weeks 78803163 Z3A.19 1134631 Palpitations 07006174 R0 0.2 521325 plan telemetry monitor, 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 Health Concerns Section Related Observation LastModified by Organization Detai ls LastModified Time None Recorded Concern Status LastModified by Organization Details LastModified Time None Recorded Payers Encounter Date Sequence Insurance Name Policy Number Policy Mata Covered Member ID Mata Member ID Guarantor Name 03/07/[address] [facility] [id number] Tarun Suazo [id number] Claire [facility] Notes Date Note Type Note Provider Name and Address Organization Details Recorded Time 03/07/2025 text/html Generic HPI TemplateReported by Patient [address], [place], [address], [facility] 03/07/2025 13:42:49 OBGyn Episode Ob Episode Information Episode Created Date Number of Fetuses Patient Bloodtype Patient rh Status Prepregnancy Weight lbs Domestic Partner Domestic Partner Phone Father Name Manager Delivery Status 01/11/20 25 1 A Positive OPEN Fetus Data First Name Last Name Admitted to NICU Weight (g) Sex Living Outcome Pediatric Complications Fetus ID Race Codes Race Delivery Type [id number] Problems Problem Notes oral HSV only+THC 01/10 Problem Name Start Date End Date Resolution Snomed Code Not e Mixed anxiety and depressive disorder 01/10/2025 [id number] Bipolar disorder 01/10/2025 [id number] rodriguez s lou psychiatrist Obesity 01/10/2025 [id number] art bASA 81 mg [...] Date Ultra Sound Latest Days Gestation 0 [email or web address] 01/10/2025 07/28/19 26 0 Pre- Flowsheet Flowsheet Date 01/10/2025 Pascal Score Blood Edema Fundus Height Fundus Units Glucose Ketones Leukocytes Nitrite Labor Signs Protein Cervic Dilation Cervic Effacement Cervic Station Type Weight in lbs Pre/Post Dialysis Refused 277.562268777113 BP Diastolic BP Location Tested BP Systolic [...] Weight in lbs Pre/Post Dialysis Refused Weight 266.245361193882 BP Diastolic BP Location Tested BP Systolic [...] Weight in lbs Pre/Post Dialysis Refused Weight 264.560160834263 BP Diastolic BP Location Tested BP Systolic BP Type 86 R arm 122 sitting Fetus Heart Rate Present Fetus Movement A Yes Comments +FM doing well anatomy incom plete, ed precautions reviews for dizziness plan telemetry monitor x 3 days, 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 Flowsheet Date 03/12/2025 Pascal Score Blood Edema Fundus Height Fundus Units Glucose Ketones Leukocytes Nitrite Labor Signs Protein Cervic Dilation Cervic Effacement Cervic Station Type Weight in lbs Pre/Post Dialysis Refused 269.970382398162 BP Diastolic BP Location Tested BP Systolic [...] Weight in lbs Pre/Post Dialysis Refused Weight 272.440629692806 BP Diastolic BP Location Tested BP Systolic [...]
--- OUTSIDE RECORDS SUMMARY | 2025-04-12 20:07 | XMS_ITS | Clinical Summary ---
Author [place] [facility] [place] [address] [facility] Address [address] [facility] [address] [place] [address] Care Team Providers Care Feed Inspection Supervisor Name Role Phone Mamie Johnson MD Primary Care Provider Allergies No known active allergies Medications No known medications Active Problems No known active problems Social History Tobacco Use Types Packs/Day Years Used Date Smoking Tobacco: Never Assessed Comments Unknown Sex and Gender Information Value Date Recorded Sex Assigned at Not on file Legal Sex Female 1:00 AM [employer] Gender Identity Not on file Sexual Orientation [...] 10/16/1999 HPV Vaccines Completed 02/01/2013, 02/10/2012 Insurance [facility] Care Teams Feed Inspection Supervisor Relationship Specialty Start Date End Date Mamie Johnson MD [address] [place] [id number] PCP - General Internal Medicine 01/03/25
--- NOTE | 2025-04-12 20:55 | PC.NURSE ---
2009-Patient arrives to OB unit with complaints of leaking of fluid. Patient states that her pants were a little damp and she was unsure if it was fluid or urine. Patient states she has been having problems with incontinence and is currently on medication for UTI, but that the incontinence has not been bad before. Patient denies any vaginal bleeding. Patient states she has been feeling good movement since she got here. Patient states she has PCOS, but no other complications this . Patient is a . 2048- RN notified Dr. Yoo of patient arrival and patient complaints. RN notified MD that ROM plus was negative. RN also notified MD of VS as well as FHR tracing and no uterine activity. MD gave orders to d/c patient.
[2025-04-12 21:34] LABS: OBXCEM ROM Plus Negative (Negative)
== END 2025-04-12 20:55 | disposition home or self-care (01) ==
LOC: ANHOBOP 20:04 → ANHOBPP 20:06
PROVIDERS: PCP Internal Medicine Infectious Disease; Visit Provider Obstetrics & Gynecology
DX: O42.90 Premature rupture of membranes, unspecified as to length of time between rupture and onset of labor, unspecified weeks of gestation (principal); Z3A.00 Weeks of gestation of pregnancy not specified
CPT/HCPCS: 59025; 84112

== ENCOUNTER 2025-05-25 11:31 | Observation (INO) | payer OTHER, MEDICAID, SELFPAY ==
--- OUTSIDE RECORDS SUMMARY | 2024-08-17 17:30 | XMS_ITS ---
Author Organization [facility] Address [address] [place] [address] Phone [phone] Care Team Providers Care Slurry Blender Name Role Phone Isis Galloway Primary Care Provider REASON FOR VISIT 4 week f/u Social History Sex Observation Social History Observation Description Sex Observation Female Encounters Date Time Type Facility Location Provider Diagnosis 08/17/2024 05:30 PM Office Visit [address] [place] [address] Isis Galloway Plan Of Treatment No Information Medical (General) History Surgical History Surgery Date(Month/Year) tonsillectomy and adenoidectomy child Hospitalization History Reason Date(Month/Year) child 01/2024 Progress Notes * Claire GRANDEDOB:2000 ( 24 yo F)Acc No.[id number]:08/17/2024 UNLOCKED PROGRESS NOTE Patient: Calire VILLARREAL Provider: Natasha Galloway DNP, CARTOGRAPHY/MAPPING TECHNICIAN, PMHNP-BC :2000 A ge:23 Y S ex:Female Date:08/17/2024 Address:[address] [id number] Subjective: * Chief Complaints: * 1 . 4 week f/u. * Screening: * * Medical History: Objective: * Vitals: Assessment: Plan: * Treatment: * * Electronic signature of Shannon Wellington , [id number] on 05/25/2025 at 11:38 AM PRODUCT BLENDING SUPERVISOR Sign off status: Pending * Provider: Natasha Galloway DNP, CARTOGRAPHY/MAPPING TECHNICIAN, PMHNP- Date: 0 08/17/2024 Generated for Printing/Faxing/eTransmitting on: 1 07/26/2024 11:38 AM PRODUCT BLENDING SUPERVISOR
[2025-05-25] VITALS (15 sets, daily range): BP systolic 108–111; BP diastolic 60–66; PULSE 99–114; O2SAT 94–100; BMI 43.4
--- OUTSIDE RECORDS SUMMARY | 2025-05-25 11:39 | XMS_ITS | Continuity of Care Document ---
Author Organization [facility] Address [address] [place] [address] [place] [address] Care Team Providers Care [employer] Assistant Principal Name Role Phone JO-ANNSHANNON CHRISTI Primary Care Provider Assessment No assessment recorded. Plan of Treatment Reminders Order Date Submit Date Provider Last Modified By Organization Details Last Modified Time Details Appointments 3HR GLUCOSE 2025 11:00A M RN SCHEDULE Not available Not available Not available U/S OB GROWTH 2025 01:00P M ULTRASOUND Not available Not available Not available OB ROUTINE 2025 01:30P M Yumiko Guzman CNM Not available Not available Not available Lab None recorde d. Referral None recorde d. Procedures None recorde d. Surgeries None recorde d. Imaging US, obstetr ic, follow- up 2024 025 [email or web address], [address], [place], [address], 04/12/2025 17:14:12 Medication Orders None recorde d. Patient TargetsNo targets recorded. Patient InstructionsNo instructions recorded. Reason for Referral None Reported. Results Created Date Observation Date Name Description Value Unit Range Abnormal Flag Note LastModifiedBy Organization Detail LastModifiedTime 01/17/2001/16/2025 [UNIT Y] ANEUP LOIDY NIPT fraction 6.2% normal Not Available Robert hussein [address], [place], [address], 01/16/2025 02:31:48 01/17/2001/16/2025 [UNIT Y] ANEUP LOIDY NIPT 22Q11.2 microdeletio n LOW RISK <1 in 10,000 normal Not Available [facility] [address], [place], [address], 01/16/2025 02:31:48 01/17/20 25 01/16/2025 [UNIT Y] ANEUP LOIDY NIPT sex chromosome aneuploidy NOT DETECT ED normal Not Available [facility] [address], [place], [address], 01/16/2025 02:31:48 01/17/20 25 01/16/2025 [UNIT Y] ANEUP LOIDY NIPT monosomy X LOW RISK <1 in 10,000 normal Not Available [facility] [address], [place], [address], 01/16/2025 02:31:48 01/17/20 25 01/16/2025 [UNIT Y] ANEUP LOIDY NIPT trisomy 13 LOW RISK <1 in 10,000 normal Not Available [facility] [address], [place], [address], 01/16/2025 02:31:48 01/17/20 25 01/16/2025 [UNIT Y] ANEUP LOIDY NIPT trisomy 18 LOW RISK <1 in 10,000 normal Not Available [address] [address], [place], [address], 01/16/2025 02:31:48 01/17/20 25 01/16/2025 [UNIT Y] ANEUP LOIDY NIPT trisomy 21 LOW RISK <1 in 10,000 normal Not Available [address] [address], [place], [address], 01/16/2025 02:31:48 01/17/20 25 01/16/2025 [UNIT Y] ANEUP LOIDY NIPT sex FEMALE normal Not Available [facility] [address], [place], [address], 01/16/2025 02:31:48 01/17/20 25 01/16/2025 [UNIT Y] ANEUP LOIDY NIPT gestation SINGLE TON normal Not Available [facility] [address], [place], [address], 01/16/2025 02:31:48 01/17/20 25 01/16/2025 [UNIT Y] ANEUP LOIDY NIPT for detailed report, see pdf See PDF normal Not Available [facility] [address], [place], [address], 01/16/2025 02:31:48 01/21/20 25 01/20/2025 [UNIT Y] ALEJANDRA Wade sickle cell disease/beta -thalassemia /hemoglobino pathies carrier screen NEGATI VE normal Not Available [facility] [address], [place], [address], 01/20/2025 04:29:08 01/21/20 25 01/20/2025 [UNIT Y] ALEJANDRA Wade alpha-thalas semia carrier screen NEGATI VE normal Not Available [facility] [address], [place], [address], 01/20/2025 04:29:08 01/21/20 25 01/20/2025 [UNIT Y] ALEJANDRA Wade cystic fibrosis carrier screen NEGATI VE normal Not Available [facility] [address], [place], [address], 01/20/2025 04:29:08 01/21/20 25 01/20/2025 [UNIT Y] ALEJANDRA Wade spinal muscular atrophy carrier screen NEGATI VE 2 SMN1 copies , SNP not presen t normal Not Available [facility] [address], [place], [address], 01/20/2025 04:29:08 01/21/20 25 01/20/2025 [UNIT Y] ALEJANDRA ER SAMANTHA Mauro for detailed report, see pdf See PDF normal Not Available [facility] [address], [place], [address], 01/20/2025 04:29:08 01/11/2001/10/2025 HEPAT ITIS B SURFA CE ANTIG EN hepatitis B surface antigen Non-re active non-re active This assay was perfo rmed using [employer] ratio n reage nts and test kits. Value s obtai kimberly with other assay metho ds or kits canno t be used inter powers eably . Not Available [facility] (Lab) [address], [place], [address], 01/11/2025 12:17:08 01/11/2001/10/2025 HIV 1/2 ANTIG EN/AN TIBOD Y, REFLE X CONFI RMATI ON HIV antigen/anti body Nonrea ctive nonrea ctive HIV-1 antig en and HIV-1 /HIV- 2 antib odies were not detec saravanan. No labor atory evide nce of HIV infec tion. Not Available [facility] (Lab) [address], [place], [address], 01/11/2025 12:17:08 01/11/2001/10/2025 HEPAT ITIS C ANTIB SUSANNE SCREE N, REFLE X TO CONFI RMATI ON hepatitis C antibody Non-re active non-re active Antib odies to HCV Not Detec saravanan, does not exclu de the possi bilit y of expos ure to HCV. Not Available [facility] (Lab) [address], [place], [address], 01/11/2025 12:17:08 01/11/2001/10/2025 TSH, REFLE X FREE T4 TSH 1.04 uIU/m L 0.30-5 .33 Not Available [facility] (Lab) [address] [place], [address], 01/11/2025 12:17:09 01/11/2001/10/2025 CBC W/DIF F WBC 11.0 10'3/ uL 3.5-10 .5 high Not Available [facility] (Lab) [address], [place], [address], 01/11/2025 12:17:09 01/11/2001/10/2025 CBC W/DIF F RBC 4.37 10'6/ uL (based on docume nted legal sex) 3.80-5 .20 Not Available [facility] (Lab) [address], [place], [address], 01/11/2025 12:17:09 01/11/2001/10/2025 CBC W/DIF F HGB 13.7 g/dL (based on docume nted legal sex) 11.6-1 5.4 Not Available [facility] (Lab) [address] , [place], [address], 01/11/2025 12:17:09 01/11/2001/10/2025 CBC W/DIF F HCT 40.1 % (based on docume nted legal sex) 34.0-4 5.0 Not Available [facility] (Lab) [address], [place], [address], 01/11/2025 12:17:09 01/11/2001/10/2025 CBC W/DIF F MCV 91.8 fL 80.0-9 9.0 Not Available [facility] (Lab) [address] [facility], [place], [address], 01/11/2025 12:17:09 01/11/2001/10/2025 CBC W/DIF F MCH 31.4 pg 27.0-3 4.0 Not Available [facility] (Lab) [address] [facility], [place], [address], 01/11/2025 12:17:09 01/11/2001/10/2025 CBC W/DIF F MCHC 34.2 g/dL 32.0-3 5.5 Not Available [facility] (Lab) [address] [facility], [place], [address], 01/11/2025 12:17:09 01/11/2001/10/2025 CBC W/DIF F RDW 12.4 % 11.0-1 5.0 Not Available [facility] (Lab) [address] [facility], [place], [address], 01/11/2025 12:17:09 01/11/2001/10/2025 CBC W/DIF F plt 227 10'3/ uL 150-40 0 Not Available [facility] (Lab) [address] [facility], [place], [address], 01/11/2025 12:17:09 01/11/2001/10/2025 CBC W/DIF F MPV 11.5 fL 8.8-12 .1 Not Available [facility] (Lab) [address] [facility], [place], [address], 01/11/2025 12:17:09 01/11/2001/10/2025 CBC W/DIF F NRBC's 0.0 % 0.0 Not Available [facility] (Lab) [address] [facility], [place], [address], 01/11/2025 12:17:09 01/11/2001/10/2025 CBC W/DIF F absolute NRBCs 0.0 10'3/ uL no refere nce range establ ished Not Available [facility] (Lab) [address] [facility], [place], [address], 01/11/2025 12:17:09 01/11/2001/10/2025 CBC W/DIF F neutrophils 71.3 % 34.0-7 3.0 Not Available [facility] (Lab) [address] [facility], [place], [address], 01/11/2025 12:17:09 01/11/20 25 01/10/2025 CBC W/DIF F lymphocytes 22.0 % 15.0-5 0.0 Not Available [facility] (Lab) [address] [facility], [place], [address], 01/11/2025 12:17:09 01/11/20 25 01/10/2025 CBC W/DIF F monocytes 4.1 % 1.0-15 .0 Not Available [facility] (Lab) [address] [facility], [place], [address], 01/11/2025 12:17:09 01/11/2001/10/2025 CBC W/DIF F eosinophils 1.7 % 0.0-8. 0 Not Available [facility] (Lab) [address] [facility], [place], [address], 01/11/2025 12:17:09 01/11/20 25 01/10/2025 CBC W/DIF F basophils 0.4 % 0.0-2. 0 Not Available [facility] (Lab) [address] [facility] [address] [facility], [place], [address], 01/11/2025 12:17:09 01/11/2001/10/2025 CBC W/DIF F immature granulocytes 0.5 % no define d refere nce range Immat ure Granu locyt es (IG) repre sents autom ated enume ratio n of Metam yeloc ytes, Myelo cytes and Promy elocy chema when IG is < 5%. Blast s are not inclu ded in IG and repor saravanan separ ately if prese nt. Not Available [facility] (Lab) [address] [facility], [place], [address], 01/11/2025 12:17:09 01/11/20 25 01/10/2025 CBC W/DIF F absolute neutrophils 7.8 10'3/ uL 1.5-8. 0 Not Available [facility] (Lab) [address] [facility] [address] [facility], [place], [address], 01/11/2025 12:17:09 01/11/2001/10/2025 CBC W/DIF F absolute lymphocytes 2.4 10'3/ uL 1.0-4. 0 Not Available [facility] (Lab) [address] [facility], [place], [address], 01/11/2025 12:17:09 01/11/2001/10/2025 CBC W/DIF F absolute monocytes 0.5 10'3/ uL 0.2-1. 0 Not Available [facility] (Lab) [address] [facility], [place], [address], 01/11/2025 12:17:09 01/11/2001/10/2025 CBC W/DIF F absolute eosinophils 0.2 10'3/ uL 0.0-0. 6 Not Available [facility] (Lab) [address] [facility], [place], [address], 01/11/2025 12:17:09 01/11/2001/10/2025 CBC W/DIF F absolute basophils 0.0 10'3/ uL 0.0-0. 3 Not Available [facility] (Lab) [address] [facility], [place], [address], 01/11/2025 12:17:09 01/11/2001/10/2025 CBC W/DIF F absolute immature granulocytes 0.1 10'3/ uL 0.00-0 .10 Refer ence range s for nonbi nary/ inter sex or unspe cifie d gende r patie nts have not been estab lishe d. Pleas e refer to the follo wing table for range s estab lishe d for cisge nder patie nts and evalu ate in the clini melany mignon xt of the indiv idual patie nt: https ://laurel nielsen book. nm.or g/gen derx Not Available [facility] (Lab) [address] [facility], [place], [address], 01/11/2025 12:17:09 01/11/2001/10/2025 TYPE/ RH/SC REEN ABO/Rh type A POS Not Available [facility] (Lab) [address], [place], [address], 01/11/2025 12:17:10 01/11/2001/10/2025 TYPE/ RH/SC REEN antibody screen NEG Not Available [facility] (Lab) [address], [place], [address], 01/11/2025 12:17:10 01/11/2001/10/2025 TYPE/ RH/SC REEN exp date 2024 23:59 Not Available [facility] (Lab) [address] [facility] [address], [place], [address], 01/11/2025 12:17:10 01/11/20 25 01/10/2025 RUBEL LA IGG ANTIB SUSANNE, QUANT rubella antibodies, IgG Reacti ve reacti ve Not Available [facility] (Lab) [address] [facility], [place], [address], 01/11/2025 12:17:10 01/11/20 25 01/10/2025 RUBEL LA IGG ANTIB SUSANNE, QUANT rubella antibodies, IgG quant 10.2 IU/mL >=10 Non-r eacti ve (Non- Immun e) <10 IU/mL React zahra (Immu ne) > or = 10 IU/mL Not Available [facility] (Lab) [address] [facility] [address] [facility], [place], [address], 01/11/2025 12:17:10 01/11/20 25 01/10/2025 HEMOG LOBIN A1C hemoglobin A1C 5.1 % [...] >8.0% Actio n sugge sted Not Available [facility] (Lab) [address], [place], [address], 01/11/2025 12:17:10 01/11/20 25 01/10/2025 RPR SCREE N, REFLE X TITER /CONF IRMAT ION RPR qualitative Nonrea ctive nonrea ctive Not Available [facility] (Lab) [address] [facility] [address], [place], [address], 01/11/2025 12:17:11 01/11/2001/10/2025 CT/GC AND TRICH OMONA S VAGIN YADIRA (RRNA ), URINE chlamydia trachomatis, PCR Negati ve negati ve Not Available [facility] (Lab) [address] [facility] [address], [place], [address], 01/12/2025 01:12:08 01/11/20 25 01/10/2025 CT/GC AND TRICH OMONA S VAGIN YADIRA (RRNA ), URINE neisseria gonorrhoeae, PCR Negati ve negati ve Not Available [facility] (Lab) [address], [place], [address], 01/12/2025 01:12:08 01/11/2001/10/2025 CT/GC AND TRICH OMONA S VAGIN YADIRA (RRNA ), URINE trichomonas vaginalis ribosomal RNA (rrna) Negati ve negati ve Not Available [facility] (Lab) [address], [place], [address], 01/12/2025 01:12:08 01/11/2001/10/2025 CULTU RE: URINE result report SEE RESULT S BELOW Test: Cultu re: Urine Speci men Sourc e: Urine Voide d Speci men Type: Urine Speci men Date: 2024 1352 Resul t Date: 2024 0008 Resul t Statu s: Final resul t Abnor mal: No Resul ting Lab: [facility] [address] [facility] [address] Tel: CULTU RE ----- ----- ----- --- Cultu re resul t (>=3 organ isms prese nt) indic ates possi ble conta minat ion. Repea t cultu re if sympt oms indic ate. Not Available [facility] (Lab) [address] [facility] [address] [facility], [place], [address], 01/12/2025 01:12:09 01/11/20 25 01/10/2025 drug scree n, urine Amphetamines : negati ve Not Available [facility] [address], [place], [address], 01/10/2025 14:48:40 01/11/20 25 01/10/2025 drug scree n, urine Cannabinoids : positi ve Not Available [address], [place], [address], 01/10/2025 14:48:40 01/11/20 25 01/10/2025 drug scree n, urine Cocaine: negati ve Not Available [address], [place], [address], 01/10/2025 14:48:40 01/11/20 25 01/10/2025 drug scree n, urine Opiates: negati ve Not Available [address], [place], [address], 01/10/2025 14:48:40 01/11/20 25 01/10/2025 drug scree n, urine Phenocyclidi ne: negati ve Not Available [address], [place], [address], 01/10/2025 14:48:40 01/11/20 25 01/10/2025 drug scree n, urine Barbiturates : negati ve Not Available [address], [place], [address], 01/10/2025 14:48:40 01/11/20 25 01/10/2025 drug scree n, urine Benzodiazepi joaquín: negati ve Not Available [address], [place], [address], 01/10/2025 14:48:40 01/11/20 25 01/10/2025 drug scree n, urine Ethanol: negati ve Not Available [address], [place], [address], 01/10/2025 14:48:40 01/11/20 25 01/10/2025 drug scree n, urine Hallucinogen s: negati ve Not Available [address], [place], [address], 01/10/2025 14:48:40 01/11/20 25 01/10/2025 drug scree n, urine Inhalants: negati ve Not Available [address], [place], [address], 01/10/2025 14:48:40 01/11/20 25 01/10/2025 drug scree n, urine Anabolic Steroids: negati ve Not Available [address], [place], [address], 01/10/2025 14:48:40 03/12/2003/12/2025 urina lysis , dipst ick Leukocytes trace Not Available [facility] [address], [place], [address], 03/12/2025 14:21:08 03/12/20 25 03/12/2025 urina lysis , dipst ick Protein + Not Available [address], [place], [address], 03/12/2025 14:21:08 03/12/20 25 03/12/2025 urina lysis , dipst ick pH 6 Not Available [facility] [address], [place], [address], 03/12/2025 14:21:08 03/12/20 25 03/12/2025 urina lysis , dipst ick Specific [place] 1.010 Not Available [facility] [address], [place], [address], 03/12/2025 14:21:08 03/12/2003/12/2025 urina lysis , dipst ick Appearance cloudy Not Available [facility] [address], [place], [address], 03/12/2025 14:21:08 03/12/2003/12/2025 urina lysis , dipst ick Color yellow Not Available [address], [place], [address], 03/12/2025 14:21:08 01/11/20 25 01/10/2025 US, obste tric, nucha l trans lucen cy No observ ation record ed. [email or web address] [address], [place], [address], 01/15/2025 22:18:32 01/11/20 25 01/10/2025 US, obste tric, nucha l trans lucen cy No observ ation record ed. [email or web address] [address], [place], [address], 01/10/2025 18:49:50 03/07/20 25 03/07/2025 US, obste tric, 2nd or 3rd trime ster No observ ation record ed. [email or web address] [address], [place], [address], 03/07/2025 15:09:10 03/07/2003/07/2025 US, obste tric, 2nd or 3rd trime ster No observ ation record ed. [email or web address] [address], [place], [address], 03/07/2025 11:22:48 03/12/2003/12/2025 US, abdom en, compl ete No observ ation record ed. [email or web address] [facility] [address] [facility], [place], [address], 03/12/2025 17:49:13 03/12/2003/12/2025 US, abdom en, compl ete No observ ation record ed. [email or web address] [address], [place], [address], 03/12/2025 16:56:41 03/21/2003/12/2025 giles r monit or No observ ation record ed. [id number] [address], [place], [address], 03/23/2025 16:53:34 03/21/2003/12/2025 giles r monit or No observ ation record ed. [address] (Cardiology & Emg) [facility], [address], 03/23/2025 16:53:35 04/11/20 25 04/11/2025 US, obste tric, follo w-up No observ ation record ed. [email or web address] [address], [place], [address], 04/11/2025 15:57:47 04/11/20 25 04/11/2025 US, obste tric, follo w-up No observ ation record ed. anisa [place] [address], [place], [address], 04/11/2025 18:17:58 04/12/2004/12/2025 non-s tress test No observ ation record ed. [facility] [address], [place], [address], 04/24/2025 18:37:23 05/08/20 25 05/08/2025 US, obste tric, follo w-up No observ ation record ed. [facility] [address], [place], [address], 05/08/2025 14:17:15 05/08/2005/08/2025 US, obste tric, follo w-up No observ ation record ed. [place] [address] [address], [place], [address], 05/11/2025 11:54:26 Result Notes None recorded. Problems Name Problem SNOMED Code Status Onset Date Resolution Date Notes Provider Name and Address Organization Details Recorded Time Obesity 734094195 Completed BMI 43 - antenata l testing @ 34 wks Es healy [facility] 4 19:42:00 Bipolar disorder 59595935 Completed MFM consult -aripipr azole, fluoxeti ne 60mg, managed by her psychiat rist. Per MFM - cont manageme nt with psych. Ok to continue . Watch with breastfe [email or web address]. Es healy [facility] 4 19:42:00 Migraine 14196681 Completed excedrin tension headache recommen ded Es healy [facility] 4 19:42:00 Prematur e labor 0583483 Completed hx contract ions Es healy [facility] 4 19:42:00 Pregnanc y 51420447 Completed 202302/24/2024 Alondra healy [facility] 5 14:10:18 Pneumoni a 686962044 Completed 2023 Es healy, [facility] 4 19:42:00 Mixed anxiety and depressi ve disorder 752095192 Active 2024 fluoxeti ne 20mg hydroxyz ine prn Yumiko Guzman CNM [address], [place], [address], [facility] 5 13:41:32 Pregnanc y 77605047 Active 2024 Alondra healy, [facility] 5 14:10:18 Obesity 970581102 Active 2024 BMI 43 start bASA 81 mg Yumiko Guzman CNM [address], [place], [address], [facility] 5 14:30:43 Mixed anxiety and depressi ve disorder 426201347 Active 2024 fluoxeti ne 20mg hydroxyz ine prn Yumiko Guzman CNM [address], [place], [address], [facility] 5 13:41:32 Bipolar disorder 15992828 Active 2024 has a psychiat rist Yumiko Guzman CNM [address], [place], [address], [facility] 5 14:32:28 Problem Notes None recorded. Procedures Surgical History Date Name Laterality Status Provider Name and Address Organization Details Recorded Time 07/21/2023 Date of Last Pap Smear completed Es Rees [facility] 07/21/2023 16:09:33 05/31/2007 tonsilecto my/adenoid s completed Es Rees [facility] 07/21/2023 16:14:08 Imaging Results None recorded. [...] Not Available Not Available Not Available hydroxyzine HCl 25 mg tablet TAKE 1 TABLET 3 TIMES A DAY BY ORAL ROUTE. active Not Available Not Available No t Available fluoxetine 20 mg capsule TAKE 1 CAPSULE BY MOUTH EVERY DAY active Not Available Not Available No t Available lamotrigine 100 mg tablet TAKE 1.5 TABLETS DAILY FOR 15 DAYS THEN 2 TABS FOR 15 DAYS FOR 30 DAYS TOTAL 12/15 completed Not Available Not Available Not Available amoxicillin 875 mg-cain m clavulanate 125 mg tablet TAKE 1 [...] Updated DateTime 04/11/2025 170.18 cm 42.6 kg/m2 287486.12 g 122/83 mm[Hg] Kayleen Hester [facility] 04/11/2025 10:50:03 Social History Question Answer Notes LastModified by Organizat ion Details LastModified Time Tobacco Smoking Status Never Smoker Es healy, [facility] 07/21/2023 16:13:04 If You Are , What Was Your Level Of Alcohol Consumption Prior To ? Occasional [email or web address] Information not available 07/21/2023 How Many Years Have You Consumed Alcohol? 0 [email or web address] Information not available 10/13/2023 Are You Blind Or Do You Have Difficulty Seeing? No [email or web address] Information n ot available 07/21/2023 What Is Your Level Of Caffeine Consumption? Moderate [email or web address] Information not available 10/13/2023 How Much Tobacco Do You Chew? None [email or web address] Information not available 10/13/2023 In The 14 Days Before Symptom Onset, Have You Had Close Contact With A Laboratory-confirm ed COVID-19 While That Case Was Ill? No [email or web address] Information n ot available 07/21/2023 In The 14 Days Before Symptom Onset, Have You Had Close Contact With A Person Who Is Under Investigation For COVID-19 While That Person Was Ill? No [email or web address] Information not available 07/21/2023 Have You Been To An Area Known To Be High Risk For COVID-19? No [email or web address] Information not available 07/21/2023 Are You Deaf Or Do You Have Serious Difficulty Hearing? No [email or web address] Information not available 07/21/2023 What Type Of Diet Are You Following? REGULAR Information n ot available 07/21/2023 What Is The Highest Grade Or Level Of School You Have Completed Or The Highest Degree You Have Received? [id number] Information not available 10/13/2023 Are There Any Guns Present In Your Home? No [email or web address] Information not available 10/13/2023 Do You Use Protection During Sex? No [email or web address] Information not available 10/13/2023 Do You Use Your Seat Belt Or Car Seat Routinely? Yes [email or web address] Information not available 07/21/2023 Are You Sexually Active? Yes [email or web address] Information not available 01/10/2025 Do You Have Smoke And Carbon Monoxide Detectors In Your Home? Yes Information not available 07/21/2023 At What Age Did You Start Smoking Tobacco? 1 [email or web address] Information not available 10/13/2023 How Much Tobacco Do You Smoke? No Information not available 10/13/2023 Do You Use Sunscreen Routinely? Yes [email or web address] Information not available 07/21/2023 Has Tobacco Cessation Counseling Been Provided? No [email or web address] Information not available 07/21/2023 How Many Years Have You Smoked Tobacco? 0 [email or web address] Information not available 10/13/2023 Have You Used IV Drugs? No [email or web address] Information not available 10/13/2023 Do You Have Difficulty Walking Or Climbing Stairs? No [email or web address] Information not available 07/21/2023 Sex: Unknown Functional Status Question Answer Note LastModified by Organizat ion Details LastModified Time Do you use any illicit or recreational drugs? No [email or web address] Information not available 07/21/2023 Do you or have you ever used any other forms of tobacco or nicotine? No [email or web address] Information not available 07/21/2023 What is your level of alcohol consumption? None [email or web address] Information not available 07/21/2023 Are you able to walk independently without assistance or assistive devices? YESWOREST [email or web address] Information not available 07/21/2023 Are you able to care for yourself independently? 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 No [email or web address] Information not available 07/21/2023 What is your exercise level? Moderate [email or web address] Information not available 10/13/2023 Mental Status Question Answer Note LastModified by Organization D etails LastModified Time Do you feel stressed (tense, restless, nervous, or anxious, or unable to sleep at night)? [id number] [email or web address] Information not available 07/21/2023 Family History Relationship Description Onset Age of this Age Resolved Age Notes LastModified by Organization Details LastModified Time Mother Polycystic ovary syndrome [email or web address] Not available 07/21 16:12:47 Medical History Condition [...] ICD10 Code Diagnosis IMO Codes Diagnosis Note [id number] Mario Alberto Yoo MD [facility] [address],[place] [address] 03/12/2025 13:10:56 03/12/2025 14:30:38 Urinary symptoms [id number] R39.9 [id number] Epigastric pain [id number] R10.13 [id number] Mario Alberto Yoo MD [facility] [address],[place] [address] 04/11/2025 09:43:09 04/11/2025 12:01:25 anatomy study [id number] Z36.2 O99.210 Z3A.24 [id number] Yumiko Guzman CNM [facility] [address],[place] [address] 04/11/2025 09:44:54 04/11/2025 13:26:30 Gestation period, 24 weeks [id number] Z3A.24 [id number] Health Concerns Section Related Observation LastModified by Organization Detai ls LastModified Time None Recorded Concern Status LastModified by Organization Details LastModified Time None Recorded Payers Encounter Date Sequence Insurance Name Policy Number Policy Mata Covered Member ID Mata Member ID Guarantor Name 04/11/2025 1 [facility] [id number] Tarun Suazo [id number] Claire Beth Harjinder Notes Date Note Type Note Provider Name and Address Organization Details Recorded Time 04/11/2025 text/html Generic HPI TemplateReported by Patient Yumiko Guzman, [address], [place], [address], [facility] 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 Status 01/11/20 25 1 A Positive OPEN Fetus Data First Name Last Name Admitted to NICU Weight (g) Sex Living Outcome Pediatric Complications Fetus ID Race Codes Race Delivery Type [id number] Problems Problem Notes oral HSV only+THC 01/10 Problem Name Start Date End Date Resolution Snomed Code Not e Mixed anxiety and depressive disorder 01/10/2025 [id number] fluoxeti ne 20mghydroxyzine prn Bipolar disorder 01/10/2025 [id number] michael blake psychiatrist Obesity 01/10/[id number] art bASA 81 mg [...] Date Ultra Sound Latest Days Gestation 0 [email or web address] 01/10/2025 07/28/19 26 0 Pre- Flowsheet Flowsheet Date 01/10/2025 Pascal Score Blood Edema Fundus Height Fundus Units Glucose Ketones Leukocytes Nitrite Labor Signs Protein Cervic Dilation Cervic Effacement Cervic Station Type Weight in lbs Pre/Post Dialysis Refused 277.448137203434 BP Diastolic BP Location Tested BP Systolic [...] Weight in lbs Pre/Post Dialysis Refused Weight 266.815462059765 BP Diastolic BP Location Tested BP Systolic [...] Weight in lbs Pre/Post Dialysis Refused Weight 264.430327816231 BP Diastolic BP Location Tested BP Systolic BP Type 86 R arm 122 sitting Fetus Heart Rate Present Fetus Movement A Yes Comments +FM doing well anatomy incom plete, ed precautions reviews for dizziness plan cafeteria monitor x 3 days, 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 Flowsheet Date 03/12/2025 Pascal Score Blood Edema Fundus Height Fundus Units Glucose Ketones Leukocytes Nitrite Labor Signs Protein Cervic Dilation Cervic Effacement Cervic Station Type Weight in lbs Pre/Post Dialysis Refused 269.966969973646 BP Diastolic BP Location Tested BP Systolic [...] Weight in lbs Pre/Post Dialysis Refused Weight 272.205212973123 BP Diastolic BP Location Tested BP Systolic BP Type 83 L arm 122 sitting Fetus Heart Rate Present Fetus Movement Comments +FM, doing well anatomy comp lete, growth 43%, will follow placenta padilla with us next visit, precautions and education f/u 4 weeks with glucose Flowsheet Date 05/08/2025 Pascal Score Blood Edema Fundus Height Fundus Units Glucose Ketones Leukocytes Nitrite Labor Signs Protein Cervic Dilation Cervic Effacement Cervic Station Type Weight in lbs Pre/Post Dialysis Refused BP Diastolic BP Location Tested BP Systolic BP Type Fetus Heart Rate Present Fetus Movement Comments Flowsheet Date 05/08/2025 Pascal Score Blood Edema Fundus Height Fundus Units Glucose Ketones Leukocytes Nitrite Labor Signs Protein Cervic Dilation Cervic Effacement Cervic Station Type Weight in lbs Pre/Post Dialysis Refused 277.076745920413 BP Diastolic BP Location Tested BP Systolic BP Type 84 L arm 127 sitting Fetus Heart Rate Present Fetus Movement Comments +FM growth 25 %, vtx, having a hard time with seasonal anxiety/depression, unable to get into psychiatrist or t 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 hx bipolar 2, fluoxetine and hydroxyzine have worked in the past, denies suicidal thoughts, plan to start meds today and will f/u in 2 weeks. gct today. precautions and education Menstrual History Last Menstrual [...]
--- OUTSIDE RECORDS SUMMARY | 2025-05-25 11:39 | XMS_ITS | Clinical Summary ---
Author Organization [facility] Address [address] [address] Care Team Providers Care Char Puller Name Role Phone Unavailable Primary Care Provider Unavailabl e Source Comments [facility],non-owned Affiliates and Associated Physician Practices is amultiple site organization consisting of ambulatory clinics and hospital sitesin [place], [place], [place] and [place]. This disclosure is being madepursuant to the Care Everywhere program and may not contain all information available regarding this patient. 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 [address] [place] [address] SELF PAY NO INSURANCE Member Subscriber Plan / Payer (Ef fective for All Dates) Name:[place] Member ID:Not on file Relation to Subscriber:Not on file Name:MILA GRANDE Subscriber ID:Not on file (Home) Address: [address] [place] [address] [place] [address] Payer ID:Not on file Group ID:Not on file Type:Self Pay Address: [place], [place]
--- OUTSIDE RECORDS SUMMARY | 2025-05-25 11:39 | XMS_ITS | Continuity of Care Document ---
Author Organization [facility] Address [address] [place] [address] Care Team Providers Care [facility] Counselor Name Role Phone CHRISTI LAIRD Primary Care Provider Assessment Encounter Date Assessment Date Assessment LastModified by Organization Details LastModified Time 05/08/2025 05/08/2025 Patient is _28__weeks . Discussed plan. Not available 05/08/2025 13:43:20 Plan of Treatment Reminders Order Date Submit [...] d. Imaging None recorde d. Medication Orders fluoxet ine 20 mg capsule 2024 025 [facility] #[id number], [address], [place], [address], 05/08/2025 12:53:35 hydroxy zine HCl 25 mg tablet 2024 025 [facility] #[id number], [address], [place], [address], 05/08/2025 12:53:35 Patient TargetsNo targets recorded. Patient InstructionsNo instructions recorded. Reason for Referral None Reported. Results Created Date Observation Date Name Description Value Unit Range Abnormal Flag Note LastModifiedBy Organization Detail LastModifiedTime 01/17/20 25 01/16/2025 [UNIT Y] ANEUP LOIDY NIPT fraction 6.2% normal Not Available [facility] [address], [place], [address], 01/16/2025 02:31:48 01/17/20 25 01/16/2025 [UNIT Y] ANEUP LOIDY NIPT 22Q11.2 microdeletio n LOW RISK <1 in 10,000 normal Not Available [facility] [address], [place], [address], 01/16/2025 02:31:48 01/17/20 25 01/16/2025 [UNIT Y] ANEUP LOIDY NIPT sex chromosome aneuploidy NOT DETECT ED normal Not Available [facility] [address], [place], [address], 01/16/2025 02:31:48 01/17/20 25 01/16/2025 [UNIT Y] ANEUP LOIDY NIPT monosomy X LOW RISK <1 in 10,000 normal Not Available [facility] [address], [place], [address], 01/16/2025 02:31:48 01/17/20 25 01/16/2025 [UNIT Y] ANEUP LOIDY NIPT trisomy 13 LOW RISK <1 in 10,000 normal Not Available [facility] [address], [place], [address], 01/16/2025 02:31:48 01/17/20 25 01/16/2025 [UNIT Y] ANEUP LOIDY NIPT trisomy 18 LOW RISK <1 in 10,000 normal Not Available [facility] [address], [place], [address], 01/16/2025 02:31:48 01/17/20 25 01/16/2025 [UNIT Y] ANEUP LOIDY NIPT trisomy 21 LOW RISK <1 in 10,000 normal Not Available [facility] [address], [place], [address], 01/16/2025 02:31:48 01/17/20 25 01/16/2025 [UNIT Y] ANEUP LOIDY NIPT sex FEMALE normal Not Available [facility] [address], [place], [address], 01/16/2025 02:31:48 01/17/20 25 01/16/2025 [UNIT Y] ANEUP LOIDY NIPT gestation SINGLE TON normal Not Available [facility] [address], [place], [address], 01/16/2025 02:31:48 01/17/20 25 01/16/2025 [UNIT Y] ANEUP LOIDY NIPT for detailed report, see pdf See PDF normal Not Available [facility] [address], [place], [address], 01/16/2025 02:31:48 01/21/20 25 01/20/2025 [UNIT Y] ALEJANDRA Wade sickle cell disease/beta -thalassemia /hemoglobino pathies carrier screen NEGATI VE normal Not Available [facility] [address], [place], [address], 01/20/2025 04:29:08 01/21/20 25 01/20/2025 [UNIT Y] ALEJANDRA Wade alpha-thalas semia carrier screen NEGATI VE normal Not Available [facility] [address], [place], [address], 01/20/2025 04:29:08 01/21/20 25 01/20/2025 [UNIT Y] ALEJANDRA Wade cystic fibrosis carrier screen NEGATI VE normal Not Available [facility] [address], [place], [address], 01/20/2025 04:29:08 01/21/20 25 01/20/2025 [UNIT Y] ALEJANDRA CRUZMary Wade spinal muscular atrophy carrier screen NEGATI VE 2 SMN1 copies , SNP not presen t normal Not Available [facility] [address], [place], [address], 01/20/2025 04:29:08 01/21/20 25 01/20/2025 [UNIT Y] ALEJANDRA CRUZMary Wade for detailed report, see pdf See PDF normal Not Available [facility] [address], [place], [address], 01/20/2025 04:29:08 01/11/20 25 01/10/2025 HEPAT ITIS B SURFA CE ANTIG EN hepatitis B surface antigen Non-re active non-re active This assay was perfo rmed using [employer] ratio n reage nts and test kits. Value s obtai kimberly with other assay metho ds or kits canno t be used inter powers eably . Not Available [facility] (Lab) [address], [place], [address], 01/11/2025 12:17:08 01/11/20 25 01/10/2025 HIV 1/2 ANTIG EN/AN TIBOD Y, REFLE X CONFI RMATI ON HIV antigen/anti body Nonrea ctive nonrea ctive HIV-1 antig en and HIV-1 /HIV- 2 antib odies were not detec saravanan. No labor atory evide nce of HIV infec tion. Not Available [facility] (Lab) [address], [place], [address], 01/11/2025 12:17:08 01/11/20 25 01/10/2025 HEPAT ITIS C ANTIB SUSANNE SCREE N, REFLE X TO CONFI RMATI ON hepatitis C antibody Non-re active non-re active Antib odies to HCV Not Detec saravanan, does not exclu de the possi bilit y of expos ure to HCV. Not Available [facility] (Lab) [address], [place], [address], 01/11/2025 12:17:08 01/11/2001/10/2025 TSH, REFLE X FREE T4 TSH 1.04 uIU/m L 0.30-5 .33 Not Available [facility] (Lab) [address], [place], [address], 01/11/2025 12:17:09 01/11/2001/10/2025 CBC W/DIF F WBC 11.0 10'3/ uL 3.5-10 .5 high Not Available [facility] (Lab) [address], [place], [address], 01/11/2025 12:17:09 01/11/20 25 01/10/2025 CBC W/DIF F RBC 4.37 10'6/ uL (based on docume nted legal sex) 3.80-5 .20 Not Available [facility] (Lab) [address], [place], [address], 01/11/2025 12:17:09 01/11/2001/10/2025 CBC W/DIF F HGB 13.7 g/dL (based on docume nted legal sex) 11.6-1 5.4 Not Available [facility] (Lab) [address], [place], [address], 01/11/2025 12:17:09 01/11/2001/10/2025 CBC W/DIF F HCT 40.1 % (based on docume nted legal sex) 34.0-4 5.0 Not Available [facility] (Lab) [address], [place], [address], 01/11/2025 12:17:09 01/11/20 25 01/10/2025 CBC W/DIF F MCV 91.8 fL 80.0-9 9.0 Not Available [facility] (Lab) [address], [place], [address], 01/11/2025 12:17:09 01/11/2001/10/2025 CBC W/DIF F MCH 31.4 pg 27.0-3 4.0 Not Available [facility] (Lab) [address], [place], [address], 01/11/2025 12:17:09 01/11/2001/10/2025 CBC W/DIF F MCHC 34.2 g/dL 32.0-3 5.5 Not Available [facility] (Lab) [address] [facility], [place], [address], 01/11/2025 12:17:09 01/11/2001/10/2025 CBC W/DIF F RDW 12.4 % 11.0-1 5.0 Not Available [facility] (Lab) [address] [facility], [place], [address], 01/11/2025 12:17:09 01/11/2001/10/2025 CBC W/DIF F plt 227 10'3/ uL 150-40 0 Not Available [facility] (Lab) [address] [facility], [place], [address], 01/11/2025 12:17:09 01/11/20 25 01/10/2025 CBC W/DIF F MPV 11.5 fL 8.8-12 .1 Not Available [facility] (Lab) [address] [facility], [place], [address], 01/11/2025 12:17:09 01/11/2001/10/2025 CBC W/DIF F NRBC's 0.0 % 0.0 Not Available [facility] (Lab) [address] [facility], [place], [address], 01/11/2025 12:17:09 01/11/20 25 01/10/2025 CBC W/DIF F absolute NRBCs 0.0 10'3/ uL no refere nce range establ ished Not Available [facility] (Lab) [address] [facility], [place], [address], 01/11/2025 12:17:09 01/11/2001/10/2025 CBC W/DIF F neutrophils 71.3 % 34.0-7 3.0 Not Available [facility] (Lab) [address] [facility], [place], [address], 01/11/2025 12:17:09 01/11/20 25 01/10/2025 CBC W/DIF F lymphocytes 22.0 % 15.0-5 0.0 Not Available [facility] (Lab) [address] [facility], [place], [address], 01/11/2025 12:17:09 01/11/20 25 01/10/2025 CBC W/DIF F monocytes 4.1 % 1.0-15 .0 Not Available [facility] (Lab) [address] [facility], [place], [address], 01/11/2025 12:17:09 01/11/20 25 01/10/2025 CBC W/DIF F eosinophils 1.7 % 0.0-8. 0 Not Available [facility] (Lab) [address] [facility], [place], [address], 01/11/2025 12:17:09 01/11/20 25 01/10/2025 CBC W/DIF F basophils 0.4 % 0.0-2. 0 Not Available [facility] (Lab) [address] [facility], [place], [address], 01/11/2025 12:17:09 01/11/20 25 01/10/2025 CBC W/DIF [...] if prese nt. Not Available [facility] (Lab) [address] [facility], [place], [address], 01/11/2025 12:17:09 01/11/2001/10/2025 CBC W/DIF F absolute neutrophils 7.8 10'3/ uL 1.5-8. 0 Not Available [facility] (Lab) [address] [facility], [place], [address], 01/11/2025 12:17:09 01/11/2001/10/2025 CBC W/DIF F absolute lymphocytes 2.4 10'3/ uL 1.0-4. 0 Not Available [facility] (Lab) [address] [facility], [place], [address], 01/11/2025 12:17:09 01/11/20 25 01/10/2025 CBC W/DIF F absolute monocytes 0.5 10'3/ uL 0.2-1. 0 Not Available [facility] (Lab) [address] [facility], [place], [address], 01/11/2025 12:17:09 01/11/20 25 01/10/2025 CBC W/DIF F absolute eosinophils 0.2 10'3/ uL 0.0-0. 6 Not Available [facility] (Lab) [address] [facility], [place], [address], 01/11/2025 12:17:09 01/11/2001/10/2025 CBC W/DIF F absolute basophils 0.0 10'3/ uL 0.0-0. 3 Not Available [facility] (Lab) [address] [facility], [place], [address], 01/11/2025 12:17:09 01/11/2001/10/2025 CBC W/DIF F absolute [...] nm.or g/gen derx Not Available [facility] (Lab) [address], [place], [address], 01/11/2025 12:17:09 01/11/2001/10/2025 TYPE/ RH/SC REEN ABO/Rh type A POS Not Available [facility] (Lab) [address] [facility], [place], [address], 01/11/2025 12:17:10 01/11/2001/10/2025 TYPE/ RH/SC REEN antibody screen NEG Not Available [facility] (Lab) [address] [facility], [place], [address], 01/11/2025 12:17:10 01/11/2001/10/2025 TYPE/ RH/SC REEN exp date 2024 23:59 Not Available [facility] (Lab) [address] [facility], [place], [address], 01/11/2025 12:17:10 01/11/20 25 01/10/2025 RUBEL LA IGG ANTIB SUSANNE, QUANT rubella antibodies, IgG Reacti ve reacti ve Not Available [facility] (Lab) [address] [facility], [place], [address], 01/11/2025 12:17:10 01/11/20 25 01/10/2025 RUBEL LA IGG ANTIB SUSANNE, QUANT rubella antibodies, IgG quant 10.2 IU/mL >=10 Non-r eacti ve (Non- Immun e) <10 IU/mL React zahra (Immu ne) > or = 10 IU/mL Not Available [facility] (Lab) [address] [place], [address], 01/11/2025 12:17:10 01/11/2001/10/2025 HEMOG LOBIN A1C hemoglobin [...] n sugge sted Not Available [facility] (Lab) [address] [facility], [place], [address], 01/11/2025 12:17:10 01/11/2001/10/2025 RPR SCREE N, REFLE X TITER /CONF IRMAT ION RPR qualitative Nonrea ctive nonrea ctive Not Available [facility] (Lab) [address] [facility], [place], [address], 01/11/2025 12:17:11 01/11/2001/10/2025 CT/GC AND TRICH OMONA S VAGIN YADIRA (RRNA ), URINE chlamydia trachomatis, PCR Negati ve negati ve Not Available [facility] (Lab) [address] [facility], [place], [address], 01/12/2025 01:12:08 01/11/2001/10/2025 CT/GC AND TRICH OMONA S VAGIN YADIRA (RRNA ), URINE neisseria gonorrhoeae, PCR Negati ve negati ve Not Available [facility] (Lab) [address] [facility], [place], [address], 01/12/2025 01:12:08 01/11/20 25 01/10/2025 CT/GC AND TRICH OMONA S VAGIN YADIRA (RRNA ), URINE trichomonas vaginalis ribosomal RNA (rrna) Negati ve negati ve Not Available [facility] (Lab) [address] [facility], [place], [address], 01/12/2025 01:12:08 01/11/20 25 01/10/2025 CULTU RE: URINE result report SEE RESULT S BELOW Test: Cultu re: Urine Speci men Sourc e: Urine Voide d Speci men Type: Urine Speci men Date: 2024 1352 Resul t Date: 2024 0008 Resul t Statu s: Final resul t Abnor mal: No Resul ting Lab: [facility] [address] [facility] [address] Tel: CULTU RE ----- ----- ----- --- Cultu re resul t (>=3 organ isms prese nt) indic ates possi ble conta minat ion. Repea t cultu re if sympt oms indic ate. Not Available [facility] (Lab) [address] [facility], [place], [address], 01/12/2025 01:12:09 01/11/20 25 01/10/2025 drug scree n, urine Amphetamines : negati ve Not Available [facility] [address], [place], [address], 01/10/2025 14:48:40 01/11/20 25 01/10/2025 drug scree n, urine Cannabinoids : positi ve Not Available [facility] [address], [place], [address], 01/10/2025 14:48:40 01/11/20 25 01/10/2025 drug scree n, urine Cocaine: negati ve Not Available [facility] [address], [place], [address], 01/10/2025 14:48:40 01/11/20 25 01/10/2025 drug scree n, urine Opiates: negati ve Not Available [facility] [address], [place], [address], 01/10/2025 14:48:40 01/11/20 25 01/10/2025 drug scree n, urine Phenocyclidi ne: negati ve Not Available [facility] [address], [place], [address], 01/10/2025 14:48:40 01/11/20 25 01/10/2025 drug scree n, urine Barbiturates : negati ve Not Available [facility] [address], [place], [address], 01/10/2025 14:48:40 01/11/20 25 01/10/2025 drug scree n, urine Benzodiazepi joaquín: negati ve Not Available [facility] [address], [place], [address], 01/10/2025 14:48:40 01/11/20 25 01/10/2025 drug scree n, urine Ethanol: negati ve Not Available [facility] [address], [place], [address], 01/10/2025 14:48:40 01/11/20 25 01/10/2025 drug scree n, urine Hallucinogen s: negati ve Not Available [facility] [address], [place], [address], 01/10/2025 14:48:40 01/11/20 25 01/10/2025 drug scree n, urine Inhalants: negati ve Not Available [facility] [address], [place], [address], 01/10/2025 14:48:40 01/11/20 25 01/10/2025 drug scree n, urine Anabolic Steroids: negati ve Not Available [facility] [address], [place], [address], 01/10/2025 14:48:40 03/12/2003/12/2025 urina lysis , dipst ick Leukocytes trace Not Available [facility] [address], [place], [address], 03/12/2025 14:21:08 03/12/20 25 03/12/2025 urina lysis , dipst ick Protein + Not Available [facility] [address], [place], [address], 03/12/2025 14:21:08 03/12/2003/12/2025 urina lysis , dipst ick pH 6 Not Available [facility] [address], [place], [address], 03/12/2025 14:21:08 03/12/2003/12/2025 urina lysis , dipst ick Specific [place] 1.010 Not Available [facility] [address], [place], [address], 03/12/2025 14:21:08 03/12/2003/12/2025 urina lysis , dipst ick Appearance cloudy Not Available [facility] [address], [place], [address], 03/12/2025 14:21:08 03/12/2003/12/2025 urina lysis , dipst ick Color yellow Not Available [facility] [address], [place], [address], 03/12/2025 14:21:08 05/08/20 25 05/08/2025 HEMAT OCRIT (HCT) HCT 34.6 % (based on docume nted legal sex) 34.0-4 5.0 Not Available [facility] (Lab) [address], [place], [address], 05/09/2025 18:24:30 05/08/20 25 05/08/2025 HEMOG LOBIN (HGB) HGB 11.8 g/dL (based on docume nted legal sex) 11.6-1 5.4 Not Available [facility] (Lab) [address] [facility], [place], [address], 05/09/2025 18:24:31 05/08/20 25 05/08/2025 GTT - GESTA MARQUISE L SCREE N, ACOG OB glucose, 1 hour screen 140 mg/dL 70-135 high Not Available [facility] (Lab) [address] [facility], [place], [address], 05/09/2025 18:24:31 05/08/20 25 05/08/2025 HIV 1/2 ANTIG EN/AN TIBOD Y, REFLE X CONFI RMATI ON HIV antigen/anti body Nonrea ctive nonrea ctive HIV-1 antig en and HIV-1 /HIV- 2 antib odies were not detec saravanan. No labor atory evide nce of HIV infec tion. Not Available [facility] (Lab) [address] [facility], [place], [address], 05/09/2025 18:24:31 05/08/20 25 05/08/2025 RPR SCREE N, REFLE X TITER /CONF IRMAT ION RPR qualitative Nonrea ctive nonrea ctive Not Available [facility] (Lab) [address] [facility], [place], [address], 05/09/2025 18:24:32 01/11/20 25 01/10/2025 US, obste tric, nucha l trans lucen cy No observ ation record ed. [email or web address] [address], [place], [address], 01/15/2025 22:18:32 01/11/20 25 01/10/2025 US, obste tric, nucha l trans lucen cy No observ ation record ed. [facility] [address], [place], [address], 01/10/2025 18:49:50 03/07/2003/07/2025 US, obste tric, 2nd or 3rd trime ster No observ ation record ed. [email or web address] [facility] [address], [place], [address], 03/07/2025 15:09:10 03/07/2003/07/2025 US, obste tric, 2nd or 3rd trime ster No observ ation record ed. [email or web address] [address], [place], [address], 03/07/2025 11:22:48 03/12/2003/12/2025 US, abdom en, compl ete No observ ation record ed. [email or web address] [address], [place], [address], 03/12/2025 17:49:13 03/12/2003/12/2025 US, abdom en, compl ete No observ ation record ed. [email or web address] [address] [address], [place], [address], 03/12/2025 16:56:41 03/21/20 25 03/12/2025 giles r monit or No observ ation record ed. [email or web address] [address], [place], [address], 03/23/2025 16:53:34 03/21/2003/12/2025 giles r monit or No observ ation record ed. [address] ([facility]) [address] [place] [address], [address], 03/23/2025 16:53:35 04/11/20 25 04/11/2025 US, obste tric, follo w-up No observ ation record ed. [email or web address] [address], [place], [address], 04/11/2025 15:57:47 04/11/20 25 04/11/2025 US, obste tric, follo w-up No observ ation record ed. [facility] [address], [place], [address], 04/11/2025 18:17:58 04/12/2004/12/2025 non-s tress test No observ ation record ed. [facility] [address], [place], [address], 04/24/2025 18:37:23 05/08/20 25 05/08/2025 US, obste tric, follo w-up No observ ation record ed. [facility] [address], [place], [address], 05/08/2025 14:17:15 05/08/20 25 05/08/2025 US, obste tric, follo w-up No observ ation record ed. [email or web address] [address], [place], [address], 05/11/2025 11:54:26 Result Notes None recorded. Problems Name Problem SNOMED Code Status Onset Date Resolution Date Notes Provider Name and Address Organization Details Recorded Time Obesity 538113141 Completed BMI 43 - antenata l testing @ 34 wks Es healy, [facility] 4 19:42:00 Bipolar disorder 99268761 Completed MFM consult -aripipr azole, fluoxeti ne 60mg, managed by her psychiat rist. Per MFM - cont manageme nt with psych. Ok to continue . Watch with breastfe eding. Es healy [facility] 4 19:42:00 Migraine 31152506 Completed excedrin tension headache recommen ded Es healy [facility] 4 19:42:00 Prematur e labor 4505224 Completed hx contract ions Escher Rees null, [facility] 4 19:42:00 Pregnanc y 67712890 Completed 202302/24/2024 Alondra Melendez null, [facility] 5 14:10:18 Pneumoni a 094946257 Completed 2023 Es Rees null, [facility] 4 19:42:00 Mixed anxiety and depressi ve disorder 485157453 Active 2024 fluoxeti ne 20mg hydroxyz ine prn Yumiko Guzman CNM [address], [place], [address], [facility] 5 13:41:32 Pregnanc y 74479581 Active 2024 Alondra Melendez null, [facility] 5 14:10:18 Obesity 126797885 Active 2024 BMI 43 start bASA 81 mg Yumiko Guzman CNM [address], [place], [address], [facility] 5 14:30:43 Mixed anxiety and depressi ve disorder 466560473 Active 2024 fluoxeti ne 20mg hydroxyz ine prn Yumiko Guzman CNM [address], [place], [address], [facility] 5 13:41:32 Bipolar disorder 85383330 Active 2024 has a psychiat rist Yumiko Guzman CNM [address], [place], [address], [facility] 5 14:32:28 Problem Notes None recorded. Procedures Surgical History Date Name Laterality Status Provider Name and Address Organization Details Recorded Time 07/21/2023 Date of Last Pap Smear completed Es Rees [facility] 07/21/2023 16:09:33 05/31/2007 tonsilecto my[facility] 16:14:08 Imaging Results None [...] and Address Organization Details Last Updated DateTime 05/08/2025 262432.32572 g 127/84 mm[Hg] Kayleen Hester MA - [facility] 05/08/2025 12:28:26 Social History Question Answer Notes LastModified by Organizat ion Details LastModified Time Tobacco Smoking Status Never Smoker Es Rees [facility], [facility] 07/21/2023 16:13:04 If You Are , What Was Your Level Of Alcohol Consumption Prior To ? Occasional [email or web address] Information not available 07/21/2023 How Many Years Have You Consumed Alcohol? 0 [email or web address] Information not available 10/13/2023 Are You Blind Or Do You Have Difficulty Seeing? No [email or web address] Information n ot available 07/21/2023 What Is Your Level Of Caffeine Consumption? Moderate [email or web address] Information not available 10/13/2023 How Much Tobacco Do You Chew? None [email or web address] Information not available 10/13/2023 In The 14 Days Before Symptom Onset, Have You Had Close Contact With A Laboratory-confirm ed COVID-19 While That Case Was Ill? No Information n ot available 07/21/2023 In The 14 Days Before Symptom Onset, Have You Had Close Contact With A Person Who Is Under Investigation For COVID-19 While That Person Was Ill? No [email or web address] Information not available 07/21/2023 Have You Been To An Area Known To Be High Risk For COVID-19? No [email or web address] Information not available 07/21/2023 Are You Deaf Or Do You Have Serious Difficulty Hearing? No [email or web address] Information not available 07/21/2023 What Type Of Diet Are You Following? REGULAR [email or web address] Information n ot available 07/21/2023 What Is The Highest Grade Or Level Of School You Have Completed Or The Highest Degree You Have Received? [id number] [email or web address] Information not available 10/13/2023 Are There Any Guns Present In Your Home? No [email or web address] Information not available 10/13/2023 Do You Use Protection During Sex? No [email or web address] Information not available 10/13/2023 Do You Use Your Seat Belt Or Car Seat Routinely? Yes [email or web address] Information not available 07/21/2023 Are You Sexually Active? Yes Information not available 01/10/2025 Do You Have Smoke And Carbon Monoxide Detectors In Your Home? Yes [email or web address] Information not available 07/21/2023 At What Age Did You Start Smoking Tobacco? 1 [email or web address] Information not available 10/13/2023 How Much Tobacco Do You Smoke? No [email or web address] Information not available 10/13/2023 Do You Use Sunscreen Routinely? Yes Information not available 07/21/2023 Has Tobacco Cessation Counseling Been Provided? No [email or web address] Information not available 07/21/2023 How Many Years Have You Smoked Tobacco? 0 [email or web address] Information not available 10/13/2023 Have You Used IV Drugs? No [email or web address] Information not available 10/13/2023 Do You Have Difficulty Walking Or Climbing Stairs? No [email or web address] Information not available 07/21/2023 Sex: Unknown Functional Status Question Answer Note LastModified by Organizat ion Details LastModified Time Do you use any illicit or recreational drugs? No [email or web address] Information not available 07/21/2023 Do you or have you ever used any other forms of tobacco or nicotine? No [email or web address] Information not available 07/21/2023 What is your level of alcohol consumption? None [email or web address] Information not available 07/21/2023 Are you able to walk independently without assistance or assistive devices? YESWOREST [email or web address] Information not available 07/21/2023 Are you able to care for yourself independently? 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 No [email or web address] Information not available 07/21/2023 What is your exercise level? Moderate [email or web address] Information not available 10/13/2023 Mental Status Question Answer Note LastModified by Organization D etails LastModified Time Do you feel stressed (tense, restless, nervous, or anxious, or unable to sleep at night)? [id number] [email or web address] Information not available 07/21/2023 Family History Relationship Description Onset Age of this Age Resolved Age Notes LastModified by Organization Details LastModified Time Mother Polycystic ovary syndrome Not available 07/21 16:12:47 Medical History Condition Response Allergies (Food, seasonal, environmental ) Y Other N Drug/Latex Allergies/Reactions N Blood Transfusion N Breast Cancer N Dermatologic Disorders N Lung Disease N Defects or Inherited Disease N Breast Problem N Gestational Diabetes N Hematologic disorders N Anesthesia Complications N History of STI N Deep Vein Thrombosis N Polycystic ovary syndrome Y Anxiety Disorder Y Autoimmune disease N Arthritis N Polyps N Infertility N Acid Reflux (GERD) N History of abnormal pap N Cancer N Varicosities N Stroke N Neurologic/Epilepsy Y Endometriosis N High Cholesterol N Fibromyalgia N Headaches N Kidney Disease N Heart Problems N Thyroid Problems N Kidney or Bladder Problems N GI Problems N Eating Disorder [...] ICD10 Code Diagnosis IMO Codes Diagnosis Note [id number] Mario Alberto Yoo MD [facility] [address],[facility] [address] 04/11/2025 09:43:09 04/11/2025 12:01:25 anatomy study [id number] Z36.2 O99.210 Z3A.24 [id number] [facility] [address],[place] [address] 04/11/2025 09:44:54 04/11/2025 13:26:30 Gestation period, 24 weeks [id number] Z3A.24 [id number] Mario Alberto Yoo MD [facility] [address] [address] 05/08/2025 10:01:44 05/08/2025 12:24:56 Obesity 606552053 O99.210 Z3A.28 [id number] Yumiko Guzman CNM [facility] [address] [address] 05/08/2025 10:04:10 05/08/2025 13:53:08 Bipolar II disorder, most recent episode major depressive 22334537 F31.81 [id number] to ed if any suicidal thoughts Gestation period, 28 weeks 06260976 Z3A.28 [id number] Health Concerns Section Related Observation LastModified by Organization Detai ls LastModified Time None Recorded Concern Status LastModified by Organization Details LastModified Time None Recorded Payers Encounter Date Sequence Insurance Name Policy Number Policy Mata Covered Member ID Mata Member ID Guarantor Name 05/08/2025 1 [facility] [id number] Tarun Suazo [id number] Claire R Light 05/08/2025 2 [facility] (MEDICAID REPLACEMENT - HMO) Claire R Light [id number] Claire R Harjinder Notes Date Note Type Note Provider Name and Address Organization Details Recorded Time 05/08/2025 text/html Generic HPI TemplateReported by Patient Yumiko Guzman CNM [address], [place], [address], [facility] 05/08/2025 13:43:54 OBGyn Episode Ob Episode Information Episode Created Date Number of Fetuses Patient Bloodtype Patient rh Status Prepregnancy Weight lbs Domestic Partner Domestic Partner Phone Father Name Public Health Representative Status 01/11/20 25 1 A Positive OPEN Fetus Data First Name Last Name Admitted to NICU Weight (g) Sex Living Outcome Pediatric Complications Fetus ID Race Codes Race Delivery Type [id number] Problems Problem Notes oral HSV only+THC 01/10 Problem Name Start Date End Date Resolution Snomed Code Not e Mixed anxiety and depressive disorder 01/10/2025 [id number] fluoxeti ne 20mghydroxyzine prn Bipolar disorder 01/10/2025 [id number] rodriguez s a psychiatrist Obesity 01/10/[id number] art bASA 81 mg [...] Type Weight in lbs Pre/Post Dialysis Refused 277.550444211635 BP Diastolic BP Location Tested BP Systolic [...] Weight in lbs Pre/Post Dialysis Refused Weight 266.720453045875 BP Diastolic BP Location Tested BP Systolic [...] Weight in lbs Pre/Post Dialysis Refused Weight 264.628702446800 BP Diastolic BP Location Tested BP Systolic BP Type 86 R arm 122 sitting Fetus Heart Rate Present Fetus Movement A Yes Comments +FM doing well anatomy incom plete, ed precautions reviews for dizziness 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, 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 Flowsheet Date 03/12/2025 Pascal Score Blood Edema Fundus Height Fundus Units Glucose Ketones Leukocytes Nitrite Labor Signs Protein Cervic Dilation Cervic Effacement Cervic Station Type Weight in lbs Pre/Post Dialysis Refused 269.817743339539 BP Diastolic BP Location Tested BP Systolic [...] Weight in lbs Pre/Post Dialysis Refused Weight 272.183692809346 BP Diastolic BP Location Tested BP Systolic [...] Type Weight in lbs Pre/Post Dialysis Refused 277.194451566515 BP Diastolic BP Location Tested BP Systolic BP Type 84 L arm 127 sitting Fetus Heart Rate Present Fetus Movement Comments +FM growth 25 %, vtx, having a hard time with seasonal anxiety/depression, unable to get into psychiatrist or t shwetha bowersn due to transportation issues. hx bipolar 2, [...]
--- OUTSIDE RECORDS SUMMARY | 2025-05-25 11:39 | XMS_ITS | Continuity of Care Document ---
Author Organization [facility] Address [address] [place] [address] [place] [address] Care Team Providers Care Manager Heavy Equipment Name Role Phone JO-ANNCHRISTI ORTEGA Primary Care Provider [phone] Assessment No assessment recorded. Plan of Treatment [...] or 3rd trimest er 2024 025 [email or web address] [address], [address], [place], [address], 03/07/2025 11:30:49 Medication Orders None recorde d. Patient TargetsNo targets recorded. Patient InstructionsNo instructions recorded. Reason for Referral None Reported. Results Created Date Observation Date Name Description Value Unit Range Abnormal Flag Note LastModifiedBy Organization Detail LastModifiedTime 01/17/2001/16/2025 [UNIT Y] ANEUP LOIDY NIPT fraction 6.2% normal Not Available Robert hussein [address], [place], [address], 01/16/2025 02:31:48 01/17/2001/16/2025 [UNIT Y] ANEUP LOIDY NIPT 22Q11.2 microdeletio n LOW RISK <1 in 10,000 normal Not Available [facility] [address], [place], [address], 01/16/2025 02:31:48 01/17/20 25 01/16/2025 [UNIT Y] ANEUP LOIDY NIPT sex chromosome aneuploidy NOT DETECT ED normal Not Available [facility] [address], [place], [address], 01/16/2025 02:31:48 01/17/20 25 01/16/2025 [UNIT Y] ANEUP LOIDY NIPT monosomy X LOW RISK <1 in 10,000 normal Not Available [facility] [address], [place], [address], 01/16/2025 02:31:48 01/17/20 25 01/16/2025 [UNIT Y] ANEUP LOIDY NIPT trisomy 13 LOW RISK <1 in 10,000 normal Not Available [facility] [address], [place], [address], 01/16/2025 02:31:48 01/17/20 25 01/16/2025 [UNIT Y] ANEUP LOIDY NIPT trisomy 18 LOW RISK <1 in 10,000 normal Not Available [facility] [address], [place], [address], 01/16/2025 02:31:48 01/17/20 25 01/16/2025 [UNIT Y] ANEUP LOIDY NIPT trisomy 21 LOW RISK <1 in 10,000 normal Not Available [facility] [address], [place], [address], 01/16/2025 02:31:48 01/17/20 25 01/16/2025 [UNIT Y] ANEUP LOIDY NIPT sex FEMALE normal Not Available [facility] [address], [place], [address], 01/16/2025 02:31:48 01/17/20 25 01/16/2025 [UNIT Y] ANEUP LOIDY NIPT gestation SINGLE TON normal Not Available [facility] [address], [place], [address], 01/16/2025 02:31:48 01/17/20 25 01/16/2025 [UNIT Y] ANEUP LOIDY NIPT for detailed report, see pdf See PDF normal Not Available [facility] [address], [place], [address], 01/16/2025 02:31:48 01/21/20 25 01/20/2025 [UNIT Y] ALEJANDRA Wade sickle cell disease/beta -thalassemia /hemoglobino pathies carrier screen NEGATI VE normal Not Available [facility] [address], [place], [address], 01/20/2025 04:29:08 01/21/20 25 01/20/2025 [UNIT Y] ALEJANDRA Wade alpha-thalas semia carrier screen NEGATI VE normal Not Available [facility] [address], [place], [address], 01/20/2025 04:29:08 01/21/20 25 01/20/2025 [UNIT Y] ALEJANDRA Wade cystic fibrosis carrier screen NEGATI VE normal Not Available [facility] [address], [place], [address], 01/20/2025 04:29:08 01/21/20 25 01/20/2025 [UNIT Y] ALEJANDRA Wade spinal muscular atrophy carrier screen NEGATI VE 2 SMN1 copies , SNP not presen t normal Not Available [facility] [address], [place], [address], 01/20/2025 04:29:08 08/23/01/20/2025 [UNIT Y] ALEJANDRA ER SAMANTHA Mauro for detailed report, see pdf See PDF normal Not Available [facility] [address], [place], [address], 01/20/2025 04:29:08 01/11/2001/10/2025 HEPAT ITIS B SURFA CE ANTIG EN hepatitis B surface antigen Non-re active non-re active This assay was perfo rmed using [employer] ratio n reage nts and test kits. Value s obtai kimberly with other assay metho ds or kits canno t be used inter powers eably . Not Available [facility] (Lab) [address], [place], [address], 01/11/2025 12:17:08 01/11/2001/10/2025 HIV 1/2 ANTIG EN/AN TIBOD Y, REFLE X CONFI RMATI ON HIV antigen/anti body Nonrea ctive nonrea ctive HIV-1 antig en and HIV-1 /HIV- 2 antib odies were not detec saravanan. No labor atory evide nce of HIV infec tion. Not Available [facility] (Lab) [address], [place], [address], 01/11/2025 12:17:08 01/11/2001/10/2025 HEPAT ITIS C ANTIB SUSANNE SCREE N, REFLE X TO CONFI RMATI ON hepatitis C antibody Non-re active non-re active Antib odies to HCV Not Detec saravanan, does not exclu de the possi bilit y of expos ure to HCV. Not Available [facility] (Lab) [address], [place], [address], 01/11/2025 12:17:08 01/11/2001/10/2025 TSH, REFLE X FREE T4 TSH 1.04 uIU/m L 0.30-5 .33 Not Available [facility] (Lab) [address], [place], [address], 01/11/2025 12:17:09 01/11/2001/10/2025 CBC W/DIF F WBC 11.0 10'3/ uL 3.5-10 .5 high Not Available [facility] (Lab) [address] [facility], [place], [address], 01/11/2025 12:17:09 01/11/2001/10/2025 CBC W/DIF F RBC 4.37 10'6/ uL (based on docume nted legal sex) 3.80-5 .20 Not Available [facility] (Lab) [address] [facility], [place], [address], 01/11/2025 12:17:09 01/11/2001/10/2025 CBC W/DIF F HGB 13.7 g/dL (based on docume nted legal sex) 11.6-1 5.4 Not Available [facility] (Lab) [address] [facility], [place], [address], 01/11/2025 12:17:09 01/11/2001/10/2025 CBC W/DIF F HCT 40.1 % (based on docume nted legal sex) 34.0-4 5.0 Not Available [facility] (Lab) [address] [facility], [place], [address], 01/11/2025 12:17:09 01/11/2001/10/2025 CBC W/DIF F MCV 91.8 fL 80.0-9 9.0 Not Available [facility] (Lab) [address] [facility], [place], [address], 01/11/2025 12:17:09 01/11/2001/10/2025 CBC W/DIF F MCH 31.4 pg 27.0-3 4.0 Not Available [facility] (Lab) [address] [facility], [place], [address], 01/11/2025 12:17:09 01/11/2001/10/2025 CBC W/DIF F MCHC 34.2 g/dL 32.0-3 5.5 Not Available [facility] (Lab) [address], [place], [address], 01/11/2025 12:17:09 01/11/2001/10/2025 CBC W/DIF F RDW 12.4 % 11.0-1 5.0 Not Available [facility] (Lab) [address] [facility], [place], [address], 01/11/2025 12:17:09 01/11/2001/10/2025 CBC W/DIF F plt 227 10'3/ uL 150-40 0 Not Available [facility] (Lab) [address], [place], [address], 01/11/2025 12:17:09 01/11/2001/10/2025 CBC W/DIF F MPV 11.5 fL 8.8-12 .1 Not Available [facility] (Lab) [address] [facility], [place], [address], 01/11/2025 12:17:09 01/11/2001/10/2025 CBC W/DIF F NRBC's 0.0 % 0.0 Not Available [facility] (Lab) [address], [place], [address], 01/11/2025 12:17:09 01/11/2001/10/2025 CBC W/DIF F absolute NRBCs 0.0 10'3/ uL no refere nce range establ ished Not Available [facility] (Lab) [address], [place], [address], 01/11/2025 12:17:09 01/11/2001/10/2025 CBC W/DIF F neutrophils 71.3 % 34.0-7 3.0 Not Available [facility] (Lab) [address], [place], [address], 01/11/2025 12:17:09 01/11/20 25 01/10/2025 CBC W/DIF F lymphocytes 22.0 % 15.0-5 0.0 Not Available [facility] (Lab) [address] [facility], [place], [address], 01/11/2025 12:17:09 01/11/20 25 01/10/2025 CBC W/DIF F monocytes 4.1 % 1.0-15 .0 Not Available [facility] (Lab) [address] [facility], [place], [address], 01/11/2025 12:17:09 01/11/20 25 01/10/2025 CBC W/DIF F eosinophils 1.7 % 0.0-8. 0 Not Available [facility] (Lab) [address] [facility], [place], [address], 01/11/2025 12:17:09 01/11/20 25 01/10/2025 CBC W/DIF F basophils 0.4 % 0.0-2. 0 Not Available [facility] (Lab) [address] [facility], [place], [address], 01/11/2025 12:17:09 01/11/2001/10/2025 CBC W/DIF F immature granulocytes 0.5 % no define d refere nce range Immat ure Granu locyt es (IG) repre sents autom ated enume ratio n of Metam yeloc ytes, Myelo cytes and Promy elocy chema when IG is < 5%. Blast s are not inclu ded in IG and repor saravanan separ ately if prese nt. Not Available [facility] (Lab) [address] [facility], [place], [address], 01/11/2025 12:17:09 01/11/20 25 01/10/2025 CBC W/DIF F absolute neutrophils 7.8 10'3/ uL 1.5-8. 0 Not Available [facility] (Lab) [address] [facility], [place], [address], 01/11/2025 12:17:09 01/11/20 25 01/10/2025 CBC W/DIF F absolute lymphocytes 2.4 10'3/ uL 1.0-4. 0 Not Available [facility] (Lab) [address], [place], [address], 01/11/2025 12:17:09 01/11/2001/10/2025 CBC W/DIF F absolute monocytes 0.5 10'3/ uL 0.2-1. 0 Not Available [facility] (Lab) [address], [place], [address], 01/11/2025 12:17:09 01/11/2001/10/2025 CBC W/DIF F absolute eosinophils 0.2 10'3/ uL 0.0-0. 6 Not Available [facility] (Lab) [address], [place], [address], 01/11/2025 12:17:09 01/11/2001/10/2025 CBC W/DIF F absolute basophils 0.0 10'3/ uL 0.0-0. 3 Not Available [facility] (Lab) [address], [place], [address], 01/11/2025 12:17:09 01/11/20 25 01/10/2025 CBC W/DIF F absolute immature granulocytes 0.1 [...] nielsen book. nm.or g/gen derx Not Available [facility] (Lab) [address], [place], [address], 01/11/2025 12:17:09 01/11/202025 TYPE/ RH/SC REEN ABO/Rh type A POS Not Available [facility] (Lab) [address] [facility], [place], [address], 01/11/2025 12:17:10 01/11/2001/10/2025 TYPE/ RH/SC REEN antibody screen NEG Not Available [facility] (Lab) [address] [facility], [place], [address], 01/11/2025 12:17:10 01/11/2001/10/2025 TYPE/ RH/SC REEN exp date 2024 23:59 Not Available [facility] (Lab) [address] [facility], [place], [address], 01/11/2025 12:17:10 01/11/20 25 01/10/2025 RUBEL LA IGG ANTIB SUSANNE, QUANT rubella antibodies, IgG Reacti ve reacti ve Not Available [facility] (Lab) [address] [facility], [place], [address], 01/11/2025 12:17:10 01/11/20 25 01/10/2025 RUBEL LA IGG ANTIB SUSANNE, QUANT rubella antibodies, IgG quant 10.2 IU/mL >=10 Non-r eacti ve (Non- Immun e) <10 IU/mL React zahra (Immu ne) > or = 10 IU/mL Not Available [facility] (Lab) [address] [facility], [place], [address], 01/11/2025 12:17:10 01/11/20 25 01/10/2025 HEMOG LOBIN A1C hemoglobin A1C 5.1 % 4.0-5. 6 The Ameri can Diabe chema Assoc iatio n recom mends that a prima ry goal of thera py bao d be a HBA1C of < 7% and that physi cians shoul d reeva luate the treat ment regim en in patie nts with HBA1C value s consi stent ly > 8%. <5.7% Elly l 5.7 - 6.4% Incre ased risk for diabe chema >=6.5 % Diagn ostic of diabe chema <7.0% Goal of thera py >8.0% Actio n sugge sted Not Available [facility] (Lab) [address] [facility], [place], [address], 01/11/2025 12:17:10 01/11/2001/10/2025 RPR SCREE N, REFLE X TITER /CONF IRMAT ION RPR qualitative Nonrea ctive nonrea ctive Not Available [facility] (Lab) [address] [facility], [place], [address], 01/11/2025 12:17:11 01/11/2001/10/2025 CT/GC AND TRICH OMONA S VAGIN YADIRA (RRNA ), URINE chlamydia trachomatis, PCR Negati ve negati ve Not Available [facility] (Lab) [address] [facility], [place], [address], 01/12/2025 01:12:08 01/11/20 25 01/10/2025 CT/GC AND TRICH OMONA S VAGIN YADIRA (RRNA ), URINE neisseria gonorrhoeae, PCR Negati ve negati ve Not Available [facility] (Lab) [address] [facility], [place], [address], 01/12/2025 01:12:08 01/11/2001/10/2025 CT/GC AND TRICH OMONA S VAGIN YADIRA (RRNA ), URINE trichomonas vaginalis ribosomal RNA (rrna) Negati ve negati ve Not Available [facility] (Lab) [address] [facility], [place], [address], 01/12/2025 01:12:08 01/11/2001/10/2025 CULTU RE: URINE result report SEE RESULT S BELOW Test: Cultu re: Urine Speci men Sourc e: Urine Voide d Speci men Type: Urine Speci men Date: 2024 1352 Resul t Date: 2024 0008 Resul t Statu s: Final resul t Abnor mal: No Resul ting Lab: [facility] [address] [facility] [address] Tel: CULTU RE ----- ----- ----- --- Cultu re resul t (>=3 organ isms prese nt) indic ates possi ble conta minat ion. Repea t cultu re if sympt oms indic ate. Not Available [facility] (Lab) [address] [facility], [place], [address], 01/12/2025 01:12:09 01/11/2001/10/2025 drug scree n, urine Amphetamines : negati ve Not Available [facility] [address], [place], [address], 01/10/2025 14:48:40 01/11/2001/10/2025 drug scree n, urine Cannabinoids : positi ve Not Available [facility] [address], [place], [address], 01/10/2025 14:48:40 01/11/2001/10/2025 drug scree n, urine Cocaine: negati ve Not Available [facility] [address], [place], [address], 01/10/2025 14:48:40 01/11/2001/10/2025 drug scree n, urine Opiates: negati ve Not Available [facility] [address], [place], [address], 01/10/2025 14:48:40 01/11/2001/10/2025 drug scree n, urine Phenocyclidi ne: negati ve Not Available [facility] [address], [place], [address], 01/10/2025 14:48:40 01/11/20 25 01/10/2025 drug scree n, urine Barbiturates : negati ve Not Available [facility] [address], [place], [address], 01/10/2025 14:48:40 01/11/20 25 01/10/2025 drug scree n, urine Benzodiazepi joaquín: negati ve Not Available [facility] [address], [place], [address], 01/10/2025 14:48:40 01/11/20 25 01/10/2025 drug scree n, urine Ethanol: negati ve Not Available [facility] [address], [place], [address], 01/10/2025 14:48:40 01/11/20 25 01/10/2025 drug scree n, urine Hallucinogen s: negati ve Not Available [facility] [address], [place], [address], 01/10/2025 14:48:40 01/11/20 25 01/10/2025 drug scree n, urine Inhalants: negati ve Not Available [facility] [address], [place], [address], 01/10/2025 14:48:40 01/11/20 25 01/10/2025 drug scree n, urine Anabolic Steroids: negati ve Not Available [facility] [address], [place], [address], 01/10/2025 14:48:40 01/11/20 25 01/10/2025 US, obste tric, nucha l trans lucen cy No observ ation record ed. [email or web address] [address], [place], [address], 01/15/2025 22:18:32 01/11/20 25 01/10/2025 US, obste tric, nucha l trans lucen cy No observ ation record ed. [email or web address] [place] [address], [place], [address], 01/10/2025 18:49:50 03/07/2003/07/2025 US, obste tric, 2nd or 3rd trime ster No observ ation record ed. [email or web address] [place] [address], [place], [address], 03/07/2025 15:09:10 03/07/2003/07/2025 US, obste tric, 2nd or 3rd trime ster No observ ation record ed. [email or web address] [address], [place], [address], 03/07/2025 11:22:48 03/12/2003/12/2025 US, abdom en, compl ete No observ ation record ed. [email or web address] [address], [place], [address], 03/12/2025 17:49:13 03/12/2003/12/2025 US, abdom en, compl ete No observ ation record ed. [email or web address] [address] [address], [place], [address], 03/12/2025 16:56:41 03/21/2003/12/2025 giles r monit or No observ ation record ed. [email or web address] [address], [place], [address], 03/23/2025 16:53:34 03/21/2003/12/2025 giles r monit or No observ ation record ed. [address] ([facility]) [address] [place] [address], [address], 03/23/2025 16:53:35 04/11/20 25 04/11/2025 US, obste tric, follo w-up No observ ation record ed. [email or web address] [address], [place], [address], 04/11/2025 15:57:47 04/11/20 25 04/11/2025 US, obste tric, follo w-up No observ ation record ed. [facility] [address], [place], [address], 04/11/2025 18:17:58 04/12/2004/12/2025 non-s tress test No observ ation record ed. [facility] [address], [place], [address], 04/24/2025 18:37:23 05/08/20 25 05/08/2025 US, obste tric, follo w-up No observ ation record ed. [facility] [address], [place], [address], 05/08/2025 14:17:15 05/08/20 25 05/08/2025 US, obste tric, follo w-up No observ ation record ed. [email or web address] [address], [place], [address], 05/11/2025 11:54:26 Result Notes None recorded. Problems Name Problem SNOMED Code Status Onset Date Resolution Date Notes Provider Name and Address Organization Details Recorded Time Obesity 431348977 Completed BMI 43 - antenata l testing @ 34 wks Es healy [facility] 4 19:42:00 Bipolar disorder 07753688 Completed MFM consult -aripipr azole, fluoxeti ne 60mg, managed by her psychiat rist. Per MFM - cont manageme nt with psych. Ok to continue . Watch with breastfe eding. Es healy [facility] 4 19:42:00 Migraine 73152197 Completed excedrin tension headache recommen ded Es Rees null, [facility] 4 19:42:00 Prematur e labor 8175997 Completed hx contract ions Es Rees null, [facility] 4 19:42:00 Pregnanc y 73045786 Completed 202302/24/2024 Alondra Melendez null, [facility] 5 14:10:18 Pneumoni a 574726064 Completed 2023 Es Rees null, [facility] 4 19:42:00 Mixed anxiety and depressi ve disorder 160180308 Active 2024 fluoxeti ne 20mg hydroxyz ine prn Yumiko Guzman, [facility] [address], [place], [address], [facility] 5 13:41:32 Pregnanc y 50952450 Active 2024 Alondra Melendez null, [facility] 5 14:10:18 Obesity 066518486 Active 2024 BMI 43 start bASA 81 mg Yumiko Guzman CNM [address], [place], [address], [facility] 5 14:30:43 Mixed anxiety and depressi ve disorder 000374897 Active 2024 fluoxeti ne 20mg hydroxyz ine prn Yumiko Guzman CNM [address], [place], [address], [facility] 5 13:41:32 Bipolar disorder 09938870 Active 2024 has a psychiat rist Yumiko Guzman CNM [address], [place], [address], [facility] 14:32:28 Problem Notes None recorded. Procedures Surgical History Date Name Laterality Status Provider Name and Address Organization Details Recorded Time 07/21/2023 Date of Last Pap Smear completed Escher Rees [facility] 07/21/2023 16:09:33 05/31/2007 tonsilecto my/adenoid s completed Escher Rees [facility] 07/21/2023 16:14:08 Imaging Results None recorded. [...] Updated DateTime 03/07/2025 170.18 cm 41.3 kg/m2 723989.39 g 122/86 mm[Hg] Alondra Melendez [facility] 03/07/2025 11:01:12 Social History Question Answer Notes LastModified by Organizat ion Details LastModified Time Tobacco Smoking Status Never Smoker Es healy, [facility] 07/21/2023 16:13:04 If You Are , What Was Your Level Of Alcohol Consumption Prior To ? Occasional [email or web address] Information not available 07/21/2023 How Many Years Have You Consumed Alcohol? 0 [email or web address] Information not available 10/13/2023 Are You Blind Or Do You Have Difficulty Seeing? No [email or web address] Information n ot available 07/21/2023 What Is Your Level Of Caffeine Consumption? Moderate [email or web address] Information not available 10/13/2023 How Much Tobacco Do You Chew? None [email or web address] Information not available 10/13/2023 In The 14 Days Before Symptom Onset, Have You Had Close Contact With A Laboratory-confirm ed COVID-19 While That Case Was Ill? No [email or web address] Information n ot available 07/21/2023 In The 14 Days Before Symptom Onset, Have You Had Close Contact With A Person Who Is Under Investigation For COVID-19 While That Person Was Ill? No [email or web address] Information not available 07/21/2023 Have You Been To An Area Known To Be High Risk For COVID-19? No [email or web address] Information not available 07/21/2023 Are You Deaf Or Do You Have Serious Difficulty Hearing? No [email or web address] Information not available 07/21/2023 What Type Of Diet Are You Following? REGULAR [email or web address] Information n ot available 07/21/2023 What Is The Highest Grade Or Level Of School You Have Completed Or The Highest Degree You Have Received? [id number] [email or web address] Information not available 10/13/2023 Are There Any Guns Present In Your Home? No [email or web address] Information not available 10/13/2023 Do You Use Protection During Sex? No [email or web address] Information not available 10/13/2023 Do You Use Your Seat Belt Or Car Seat Routinely? Yes [email or web address] Information not available 07/21/2023 Are You Sexually Active? Yes [email or web address] Information not available 01/10/2025 Do You Have Smoke And Carbon Monoxide Detectors In Your Home? Yes [email or web address] Information not available 07/21/2023 At What Age Did You Start Smoking Tobacco? 0 [email or web address] Information not available 10/13/2023 How Much Tobacco Do You Smoke? No [email or web address] Information not available 10/13/2023 Do You Use Sunscreen Routinely? Yes [email or web address] Information not available 07/21/2023 Has Tobacco Cessation Counseling Been Provided? No [email or web address] Information not available 07/21/2023 How Many Years Have You Smoked Tobacco? 0 [email or web address] Information not available 10/13/2023 Have You Used IV Drugs? No [email or web address] Information not available 10/13/2023 Do You Have Difficulty Walking Or Climbing Stairs? No [email or web address] Information not available 07/21/2023 Sex: Unknown Functional Status Question Answer Note LastModified by Organizat ion Details LastModified Time Do you use any illicit or recreational drugs? No [email or web address] Information not available 07/21/2023 Do you or have you ever used any other forms of tobacco or nicotine? No [email or web address] Information not available 07/21/2023 What is your level of alcohol consumption? None [email or web address] Information not available 07/21/2023 Are you able to walk independently without assistance or assistive devices? YESWOREST Information not available 07/21/2023 Are you able to care for yourself independently? 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 No [email or web address] Information not available 07/21/2023 What is your exercise level? Moderate [email or web address] Information not available 10/13/2023 Mental Status Question Answer Note LastModified by Organization D etails LastModified Time Do you feel stressed (tense, restless, nervous, or anxious, or unable to sleep at night)? [id number] [email or web address] Information not available 07/21/2023 Family History Relationship Description Onset Age of this Age Resolved Age Notes LastModified by Organization Details LastModified Time Mother Polycystic ovary syndrome [email or web address] Not available 07/21 16:12:47 Medical History Condition [...] ICD10 Code Diagnosis IMO Codes Diagnosis Note [id number] Yumiko Guzman CNM [facility] [address] [address] 02/07/2025 10:02:57 02/07/2025 10:40:20 Gestation period, 15 weeks 7699040 Z3A.15 [id number] Mario Alberto Yoo MD [facility] [address] [address] 03/07/2025 09:46:14 03/07/2025 10:59:03 Screening status [id number] Z36.3 Z3A.19 [id number] Yumiko Guzman CNM [facility] [address] [address] 03/07/2025 09:47:03 03/07/2025 13:53:20 Gestation period, 19 weeks [id number] Z3A.19 [id number] Palpitations [id number] R0 0.2 [id number] plan equipment monitor phototypesetting, 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 Health Concerns Section Related Observation LastModified by Organization Detai ls LastModified Time None Recorded Concern Status LastModified by Organization Details LastModified Time None Recorded Payers Encounter Date Sequence Insurance Name Policy Number Policy Mata Covered Member ID Mata Member ID Guarantor Name 03/07/2025 1 [facility] [id number] Tarun Suazo [id number] [place] Notes Date Note Type Note Provider Name and Address Organization Details Recorded Time 03/07/2025 text/html Generic HPI TemplateReported by Patient Yumiko Guzman CNM [address], [place], [address], [facility] 03/07/2025 13:42:49 OBGyn Episode Ob Episode Information Episode Created Date Number of Fetuses Patient Bloodtype Patient rh Status Prepregnancy Weight lbs Domestic Partner Domestic Partner Phone Father Name Doctor Of Optometry Status 01/11/20 25 1 A Positive OPEN Fetus Data First Name Last Name Admitted to NICU Weight (g) Sex Living Outcome Pediatric Complications Fetus ID Race Codes Race Delivery Type [id number] Problems Problem Notes oral HSV only+THC 01/10 Problem Name Start Date End Date Resolution Snomed Code Not e Mixed anxiety and depressive disorder 01/10/2025 [id number] fluoxeti ne 20mghydroxyzine prn Bipolar disorder 01/10/2025 [id number] rodriguez s a psychiatrist Obesity 01/10/[id number] art bASA 81 mg [...] Date Ultra Sound Latest Days Gestation 0 [email or web address] 01/10/2025 07/28/19 26 0 Pre-diana Flowsheet Flowsheet Date 01/10/2025 Pascal Score Blood Edema Fundus Height Fundus Units Glucose Ketones Leukocytes Nitrite Labor Signs Protein Cervic Dilation Cervic Effacement Cervic Station Type Weight in lbs Pre/Post Dialysis Refused 277.141415321140 BP Diastolic BP Location Tested BP Systolic [...] Weight in lbs Pre/Post Dialysis Refused Weight 266.556470059610 BP Diastolic BP Location Tested BP Systolic [...] Weight in lbs Pre/Post Dialysis Refused Weight 264.131224079073 BP Diastolic BP Location Tested BP Systolic BP Type 86 R arm 122 sitting Fetus Heart Rate Present Fetus Movement A Yes Comments +FM doing well anatomy incom plete, ed precautions reviews for dizziness plan equipment monitor phototypesetting x 3 days, 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 Flowsheet Date 03/12/2025 Pascal Score Blood Edema Fundus Height Fundus Units Glucose Ketones Leukocytes Nitrite Labor Signs Protein Cervic Dilation Cervic Effacement Cervic Station Type Weight in lbs Pre/Post Dialysis Refused 269.112987423133 BP Diastolic BP Location Tested BP Systolic [...] Weight in lbs Pre/Post Dialysis Refused Weight 272.294450989899 BP Diastolic BP Location Tested BP Systolic [...] Type Weight in lbs Pre/Post Dialysis Refused 277.946326527208 BP Diastolic BP Location Tested BP Systolic BP Type 84 L arm 127 sitting Fetus Heart Rate Present Fetus Movement Comments +FM growth 25 %, vtx, having a hard time with seasonal anxiety/depression, unable to get into psychiatrist or 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 hx bipolar 2, [...]
--- OUTSIDE RECORDS SUMMARY | 2025-05-25 11:39 | XMS_ITS | Continuity of Care Document ---
Author Organization [facility] Address [address] [place] [address] [place] [address] Care Team Providers Care Clip On Sunglasses Assembler Name Role Phone JO-ANNSHANNON CHRISTI Primary Care Provider [phone] Assessment No assessment recorded. Plan of Treatment [...] urinaly sis, dipstic k 2024 025 [email or web address] [address], [address], [place], [address], 03/12/2025 14:29:58 Referral None recorde d. Procedures [...] Not Available Robert hussein [address], [place], [address], 01/16/2025 02:31:48 01/17/202025 [UNIT Y] ANEUP LOIDY NIPT 22Q11.2 microdeletio n LOW RISK <1 in 10,000 normal Not Available [facility] [address], [place], [address], 01/16/2025 02:31:48 01/17/20 25 01/16/2025 [UNIT Y] ANEUP LOIDY NIPT sex chromosome aneuploidy NOT DETECT ED normal Not Available [address] [address], [place], [address], 01/16/2025 02:31:48 01/17/20 25 01/16/2025 [UNIT Y] ANEUP LOIDY NIPT monosomy X LOW RISK <1 in 10,000 normal Not Available [address] [address], [place], [address], 01/16/2025 02:31:48 01/17/20 25 01/16/2025 [UNIT Y] ANEUP LOIDY NIPT trisomy 13 LOW RISK <1 in 10,000 normal Not Available [address] [facility] [address], [place], [address], 01/16/2025 02:31:48 01/17/20 25 01/16/2025 [UNIT Y] ANEUP LOIDY NIPT trisomy 18 LOW RISK <1 in 10,000 normal Not Available [address] [address], [place], [address], 01/16/2025 02:31:48 01/17/20 25 01/16/2025 [UNIT Y] ANEUP LOIDY NIPT trisomy 21 LOW RISK <1 in 10,000 normal Not Available [address] [address], [place], [address], 01/16/2025 02:31:48 01/17/20 25 01/16/2025 [UNIT Y] ANEUP LOIDY NIPT sex FEMALE normal Not Available [facility] [address], [place], [address], 01/16/2025 02:31:48 01/17/20 25 01/16/2025 [UNIT Y] ANEUP LOIDY NIPT gestation SINGLE TON normal Not Available [address] [address], [place], [address], 01/16/2025 02:31:48 01/17/20 25 01/16/2025 [UNIT Y] ANEUP LOIDY NIPT for detailed report, see pdf See PDF normal Not Available [address] [address], [place], [address], 01/16/2025 02:31:48 01/21/20 25 01/20/2025 [UNIT Y] ALEJANDRA Wade sickle cell disease/beta -thalassemia /hemoglobino pathies carrier screen NEGATI VE normal Not Available [address] [address], [place], [address], 01/20/2025 04:29:08 01/21/20 25 01/20/2025 [UNIT Y] ALEJANDRA Wade alpha-thalas semia carrier screen NEGATI VE normal Not Available [address] [address], [place], [address], 01/20/2025 04:29:08 01/21/20 25 01/20/2025 [UNIT Y] ALEJANDRA Wade cystic fibrosis carrier screen NEGATI VE normal Not Available [address] [facility] [address], [place], [address], 01/20/2025 04:29:08 01/21/20 25 01/20/2025 [UNIT Y] ALEJANDRA Wade spinal muscular atrophy carrier screen NEGATI VE 2 SMN1 copies , SNP not presen t normal Not Available [address] [address], [place], [address], 01/20/2025 04:29:08 01/21/20 25 01/20/2025 [UNIT Y] ALEJANDRA ER SAMANTHA Mauro for detailed report, see pdf See PDF normal Not Available [address] [address], [place], [address], 01/20/2025 04:29:08 01/11/2001/10/2025 HEPAT ITIS B SURFA CE ANTIG EN hepatitis B surface antigen Non-re active non-re active This assay was perfo rmed using [employer] ratio n reage nts and test kits. Value s obtai kimberly with other assay metho ds or kits canno t be used inter powers eably . Not Available [facility] (Lab) [address], [place], [address], 01/11/2025 12:17:08 01/11/2001/10/2025 HIV 1/2 ANTIG EN/AN TIBOD Y, REFLE X CONFI RMATI ON HIV antigen/anti body Nonrea ctive nonrea ctive HIV-1 antig en and HIV-1 /HIV- 2 antib odies were not detec saravanan. No labor atory evide nce of HIV infec tion. Not Available [facility] (Lab) [address], [place], [address], 01/11/2025 12:17:08 01/11/2001/10/2025 HEPAT ITIS C ANTIB SUSANNE SCREE N, REFLE X TO CONFI RMATI ON hepatitis C antibody Non-re active non-re active Antib odies to HCV Not Detec saravanan, does not exclu de the possi bilit y of expos ure to HCV. Not Available [facility] (Lab) [address], [place], [address], 01/11/2025 12:17:08 01/11/2001/10/2025 TSH, REFLE X FREE T4 TSH 1.04 uIU/m L 0.30-5 .33 Not Available [facility] (Lab) [address], [place], [address], 01/11/2025 12:17:09 01/11/2001/10/2025 CBC W/DIF F WBC 11.0 10'3/ uL 3.5-10 .5 high Not Available [facility] (Lab) [address], [place], [address], 01/11/2025 12:17:09 01/11/2001/10/2025 CBC W/DIF F RBC 4.37 10'6/ uL (based on docume nted legal sex) 3.80-5 .20 Not Available [facility] (Lab) [address] [facility], [place], [address], 01/11/2025 12:17:09 01/11/2001/10/2025 CBC W/DIF F HGB 13.7 g/dL (based on docume nted legal sex) 11.6-1 5.4 Not Available [facility] (Lab) [address], [place], [address], 01/11/2025 12:17:09 01/11/2001/10/2025 CBC W/DIF F HCT 40.1 % (based on docume nted legal sex) 34.0-4 5.0 Not Available [facility] (Lab) [address], [place], [address], 01/11/2025 12:17:09 01/11/2001/10/2025 CBC W/DIF F MCV 91.8 fL 80.0-9 9.0 Not Available [facility] (Lab) [address] [facility], [place], [address], 01/11/2025 12:17:09 01/11/2001/10/2025 CBC W/DIF F MCH 31.4 pg 27.0-3 4.0 Not Available [facility] (Lab) [address] [facility], [place], [address], 01/11/2025 12:17:09 08/13/20 25 01/10/2025 CBC W/DIF F MCHC 34.2 g/dL 32.0-3 5.5 Not Available [facility] (Lab) [address] [facility], [place], [address], 01/11/2025 12:17:09 01/11/2001/10/2025 CBC W/DIF F RDW 12.4 % 11.0-1 5.0 Not Available [facility] (Lab) [address] [facility], [place], [address], 01/11/2025 12:17:09 01/11/2001/10/2025 CBC W/DIF F plt 227 10'3/ uL 150-40 0 Not Available [facility] (Lab) [address], [place], [address], 01/11/2025 12:17:09 01/11/2001/10/2025 CBC W/DIF F MPV 11.5 fL 8.8-12 .1 Not Available [facility] (Lab) [address] [facility], [place], [address], 01/11/2025 12:17:09 01/11/2001/10/2025 CBC W/DIF F NRBC's 0.0 % 0.0 Not Available [facility] (Lab) [address] [facility], [place], [address], 01/11/2025 12:17:09 01/11/2001/10/2025 CBC W/DIF F absolute NRBCs 0.0 10'3/ uL no refere nce range establ ished Not Available [facility] (Lab) [address] [facility], [place], [address], 01/11/2025 12:17:09 01/11/2001/10/2025 CBC W/DIF F neutrophils 71.3 % 34.0-7 3.0 Not Available [facility] (Lab) [address] [facility], [place], [address], 01/11/2025 12:17:09 08/13/20 25 01/10/2025 CBC W/DIF F lymphocytes 22.0 % 15.0-5 0.0 Not Available [facility] (Lab) [address] [facility], [place], [address], 01/11/2025 12:17:09 01/11/20 25 01/10/2025 CBC W/DIF F monocytes 4.1 % 1.0-15 .0 Not Available [facility] (Lab) [address] [facility], [place], [address], 01/11/2025 12:17:09 01/11/2001/10/2025 CBC W/DIF F eosinophils 1.7 % 0.0-8. 0 Not Available [facility] (Lab) [address] [facility], [place], [address], 01/11/2025 12:17:09 01/11/20 25 01/10/2025 CBC W/DIF F basophils 0.4 % 0.0-2. 0 Not Available [facility] (Lab) [address] [facility], [place], [address], 01/11/2025 12:17:09 01/11/2001/10/2025 CBC W/DIF F immature granulocytes 0.5 % no define d refere nce range Immat ure Granu locyt es (IG) repre sents autom ated enume ratio n of Metam yeloc ytes, Myelo cytes and Promy elocy chema when IG is < 5%. Blast s are not inclu ded in IG and repor saravanan separ ately if prese nt. Not Available [facility] (Lab) [address] [facility], [place], [address], 01/11/2025 12:17:09 01/11/2001/10/2025 CBC W/DIF F absolute neutrophils 7.8 10'3/ uL 1.5-8. 0 Not Available [facility] (Lab) [address] [facility], [place], [address], 01/11/2025 12:17:09 01/11/2001/10/2025 CBC W/DIF F absolute lymphocytes 2.4 10'3/ uL 1.0-4. 0 Not Available [facility] (Lab) [address] [facility], [place], [address], 01/11/2025 12:17:09 01/11/2001/10/2025 CBC W/DIF F absolute monocytes 0.5 10'3/ uL 0.2-1. 0 Not Available [facility] (Lab) [address] [facility], [place], [address], 01/11/2025 12:17:09 01/11/2001/10/2025 CBC W/DIF F absolute eosinophils 0.2 10'3/ uL 0.0-0. 6 Not Available [facility] (Lab) [address] [facility], [place], [address], 01/11/2025 12:17:09 01/11/2001/10/2025 CBC W/DIF F absolute basophils 0.0 10'3/ uL 0.0-0. 3 Not Available [facility] (Lab) [address] [facility], [place], [address], 01/11/2025 12:17:09 01/11/2001/10/2025 CBC W/DIF F absolute [...] nielsen book. nm.or g/gen derx Not Available [facility] (Lab) [address] [facility], [place], [address], 01/11/2025 12:17:09 01/11/2001/10/2025 TYPE/ RH/SC REEN ABO/Rh type A POS Not Available [facility] (Lab) [address] [facility], [place], [address], 01/11/2025 12:17:10 01/11/2001/10/2025 TYPE/ RH/SC REEN antibody screen NEG Not Available [facility] (Lab) [address] [place], [address], 01/11/2025 12:17:10 01/11/2001/10/2025 TYPE/ RH/SC REEN exp date 2024 23:59 Not Available [facility] (Lab) [address] [facility], [place], [address], 01/11/2025 12:17:10 01/11/20 25 01/10/2025 RUBEL LA IGG ANTIB SUSANNE, QUANT rubella antibodies, IgG Reacti ve reacti ve Not Available [facility] (Lab) [address] [facility], [place], [address], 01/11/2025 12:17:10 01/11/20 25 01/10/2025 RUBEL LA IGG ANTIB SUSANNE, QUANT rubella antibodies, IgG quant 10.2 IU/mL >=10 Non-r eacti ve (Non- Immun e) <10 IU/mL React zahra (Immu ne) > or = 10 IU/mL Not Available [facility] (Lab) [address] [facility], [place], [address], 01/11/2025 12:17:10 01/11/20 25 01/10/2025 HEMOG LOBIN [...] >8.0% Actio n sugge sted Not Available [facility] (Lab) [address] [facility], [place], [address], 01/11/2025 12:17:10 01/11/2001/10/2025 RPR SCREE N, REFLE X TITER /CONF IRMAT ION RPR qualitative Nonrea ctive nonrea ctive Not Available [facility] (Lab) [address] [facility], [place], [address], 01/11/2025 12:17:11 01/11/2001/10/2025 CT/GC AND TRICH OMONA S VAGIN YADIRA (RRNA ), URINE chlamydia trachomatis, PCR Negati ve negati ve Not Available [facility] (Lab) [address] [facility], [place], [address], 01/12/2025 01:12:08 01/11/20 25 01/10/2025 CT/GC AND TRICH OMONA S VAGIN AYDIRA (RRNA ), URINE neisseria gonorrhoeae, PCR Negati ve negati ve Not Available [facility] (Lab) [address] [facility], [place], [address], 01/12/2025 01:12:08 01/11/2001/10/2025 CT/GC AND TRICH OMONA S VAGIN YADIRA (RRNA ), URINE trichomonas vaginalis ribosomal RNA (rrna) Negati ve negati ve Not Available [facility] (Lab) [address] [facility], [place], [address], 01/12/2025 01:12:08 01/11/2001/10/2025 CULTU RE: URINE result report SEE RESULT S BELOW Test: Cultu re: Urine Speci men Sourc e: Urine Voide d Speci men Type: Urine Speci men Date: 2024 1352 Resul t Date: 2024 0008 Resul t Statu s: Final resul t Abnor mal: No Resul nedg Lab: [facility] [address] [facility] [address] [facility] [address] Tel: CULTU RE ----- ----- ----- --- Cultu re resul t (>=3 organ isms prese nt) indic ates possi ble conta minat ion. Repea t cultu re if sympt oms indic ate. Not Available [facility] (Lab) [address], [place], [address], 01/12/2025 01:12:09 01/11/20 25 01/10/2025 drug scree n, urine Amphetamines : negati ve Not Available [facility] [address], [place], [address], 01/10/2025 14:48:40 01/11/20 25 01/10/2025 drug scree n, urine Cannabinoids : positi ve Not Available [address], [place], [address], 01/10/2025 14:48:40 01/11/2001/10/2025 drug scree n, urine Cocaine: negati ve Not Available [address], [place], [address], 01/10/2025 14:48:40 01/11/2001/10/2025 drug scree n, urine Opiates: negati ve Not Available [address], [place], [address], 01/10/2025 14:48:40 01/11/2001/10/2025 drug scree n, urine Phenocyclidi ne: negati ve Not Available [address], [place], [address], 01/10/2025 14:48:40 01/11/20 25 01/10/2025 drug scree n, urine Barbiturates : negati ve Not Available [address], [place], [address], 01/10/2025 14:48:40 01/11/20 25 01/10/2025 drug scree n, urine Benzodiazepi joaquín: negati ve Not Available [address], [place], [address], 01/10/2025 14:48:40 01/11/20 25 01/10/2025 drug scree n, urine Ethanol: negati ve Not Available [address], [place], [address], 01/10/2025 14:48:40 01/11/20 25 01/10/2025 drug scree n, urine Hallucinogen s: negati ve Not Available [address], [place], [address], 01/10/2025 14:48:40 01/11/20 25 01/10/2025 drug scree n, urine Inhalants: negati ve Not Available [address], [place], [address], 01/10/2025 14:48:40 01/11/20 25 01/10/2025 drug scree n, urine Anabolic Steroids: negati ve Not Available [address], [place], [address], 01/10/2025 14:48:40 03/12/2003/12/2025 urina lysis , dipst ick Leukocytes trace Not Available [facility] [address], [place], [address], 03/12/2025 14:21:08 03/12/20 25 03/12/2025 urina lysis , dipst ick Protein + Not Available [address], [place], [address], 03/12/2025 14:21:08 03/12/20 25 03/12/2025 urina lysis , dipst ick pH 6 Not Available [address], [place], [address], 03/12/2025 14:21:08 03/12/20 25 03/12/2025 urina lysis , dipst ick Specific [place] 1.010 Not Available [facility] [address], [place], [address], 03/12/2025 14:21:08 03/12/2003/12/2025 urina lysis , dipst ick Appearance cloudy Not Available [facility] [address], [place], [address], 03/12/2025 14:21:08 03/12/2003/12/2025 urina lysis , dipst ick Color yellow Not Available [address], [place], [address], 03/12/2025 14:21:08 01/11/20 25 01/10/2025 US, obste tric, nucha l trans lucen cy No observ ation record ed. [email or web address] [address], [place], [address], 01/15/2025 22:18:32 01/11/20 25 01/10/2025 US, obste tric, nucha l trans lucen cy No observ ation record ed. [email or web address] [address], [place], [address], 01/10/2025 18:49:50 03/07/20 25 03/07/2025 US, obste tric, 2nd or 3rd trime ster No observ ation record ed. [email or web address] [address], [place], [address], 03/07/2025 15:09:10 03/07/2003/07/2025 US, obste tric, 2nd or 3rd trime ster No observ ation record ed. [email or web address] [address], [place], [address], 03/07/2025 11:22:48 03/12/2003/12/2025 US, abdom en, compl ete No observ ation record ed. [email or web address] [address] [facility], [place], [address], 03/12/2025 17:49:13 03/12/2003/12/2025 US, abdom en, compl ete No observ ation record ed. [email or web address] [address] [address], [place], [address], 03/12/2025 16:56:41 03/21/2003/12/2025 giles r monit or No observ ation record ed. [email or web address] [address], [place], [address], 03/23/2025 16:53:34 03/21/2003/12/2025 giles r monit or No observ ation record ed. [address] (Cardiology & Emg) [facility] [address], [address], 03/23/2025 16:53:35 04/11/20 25 04/11/2025 US, obste tric, follo w-up No observ ation record ed. [email or web address] [address], [place], [address], 04/11/2025 15:57:47 04/11/20 25 04/11/2025 US, obste tric, follo w-up No observ ation record ed. anisa [facility] [address], [place], [address], 04/11/2025 18:17:58 04/12/2004/12/2025 non-s tress test No observ ation record ed. [facility] [address], [place], [address], 04/24/2025 18:37:23 05/08/20 25 05/08/2025 US, obste tric, follo w-up No observ ation record ed. [facility] [address], [place], [address], 05/08/2025 14:17:15 05/08/2005/08/2025 US, obste tric, follo w-up No observ ation record ed. [place] [address] [address], [place], [address], 05/11/2025 11:54:26 Result Notes None recorded. Problems Name Problem SNOMED Code Status Onset Date Resolution Date Notes Provider Name and Address Organization Details Recorded Time Obesity 962026837 Completed BMI 43 - antenata l testing @ 34 wks Es healy [facility] 4 19:42:00 Bipolar disorder 21846767 Completed MFM consult -aripipr azole, fluoxeti ne 60mg, managed by her psychiat rist. Per MFM - cont manageme nt with psych. Ok to continue . Watch with breastfe [email or web address]. Es healy [facility] 4 19:42:00 Migraine 96030873 Completed excedrin tension headache recommen ded Es healy [facility] 4 19:42:00 Prematur e labor 5880105 Completed hx contract ions Es healy [facility] 4 19:42:00 Pregnanc y 76501486 Completed 202302/24/2024 Alondra healy [facility] 5 14:10:18 Pneumoni a 124077317 Completed 2023 Es healy, [facility] 4 19:42:00 Mixed anxiety and depressi ve disorder 707261030 Active 2024 fluoxeti ne 20mg hydroxyz ine prn Yumiko Guzman CNM [address], [place], [address], [facility] 5 13:41:32 Pregnanc y 67590635 Active 2024 lAondra healy, [facility] 5 14:10:18 Obesity 618668120 Active 2024 BMI 43 start bASA 81 mg Yumiko Guzman CNM [address], [place], [address], [facility] 5 14:30:43 Mixed anxiety and depressi ve disorder 518695849 Active 2024 fluoxeti ne 20mg hydroxyz ine prn Yumiko Guzman CNM [address], [place], [address], [facility] 5 13:41:32 Bipolar disorder 47938963 Active 2024 has a psychiat rist Yumiko Guzman CNM [address], [place], [address], [facility] 5 14:32:28 Problem Notes None recorded. Procedures Surgical History Date Name Laterality Status Provider Name and Address Organization Details Recorded Time 07/21/2023 Date of Last Pap Smear completed Es Rees [facility] 07/21/2023 16:09:33 05/31/2007 tonsilecto my/adenoid s completed Es Rees [facility] 07/21/2023 16:14:08 Imaging Results None recorded. [...] Not Available Not Available amoxicillin 875 mg-cain duval clavulanate 125 mg tablet TAKE 1 TABLET [...] Address Organization Details Last Updated DateTime 03/12/2025 363032.72151 g 116/79 mm[Hg] Kayleen Hester [facility] 03/12/2025 14:15:23 Social History Question Answer Notes LastModified by Organizat ion Details LastModified Time Tobacco Smoking Status Never Smoker Es healy, [facility] 07/21/2023 16:13:04 If You Are , What Was Your Level Of Alcohol Consumption Prior To ? Occasional [email or web address] Information not available 07/21/2023 How Many Years Have You Consumed Alcohol? 0 [email or web address] Information not available 10/13/2023 Are You Blind Or Do You Have Difficulty Seeing? No [email or web address] Information n ot available 07/21/2023 What Is Your Level Of Caffeine Consumption? Moderate [email or web address] Information not available 10/13/2023 How Much Tobacco Do You Chew? None Information not available 10/13/2023 In The 14 Days Before Symptom Onset, Have You Had Close Contact With A Laboratory-confirm ed COVID-19 While That Case Was Ill? No [email or web address] Information n ot available 07/21/2023 In The 14 Days Before Symptom Onset, Have You Had Close Contact With A Person Who Is Under Investigation For COVID-19 While That Person Was Ill? No [email or web address] Information not available 07/21/2023 Have You Been To An Area Known To Be High Risk For COVID-19? No [email or web address] Information not available 07/21/2023 Are You Deaf Or Do You Have Serious Difficulty Hearing? No [email or web address] Information not available 07/21/2023 What Type Of Diet Are You Following? REGULAR [email or web address] Information n ot available 07/21/2023 What Is The Highest Grade Or Level Of School You Have Completed Or The Highest Degree You Have Received? TI60784-5 [email or web address] Information not available 10/13/2023 Are There Any Guns Present In Your Home? No [email or web address] Information not available 10/13/2023 Do You Use Protection During Sex? No [email or web address] Information not available 10/13/2023 Do You Use Your Seat Belt Or Car Seat Routinely? Yes Information not available 07/21/2023 Are You Sexually Active? Yes [email or web address] Information not available 01/10/2025 Do You Have Smoke And Carbon Monoxide Detectors In Your Home? Yes [email or web address] Information not available 07/21/2023 At What Age Did You Start Smoking Tobacco? 0 [email or web address] Information not available 10/13/2023 How Much Tobacco Do You Smoke? No [email or web address] Information not available 10/13/2023 Do You Use Sunscreen Routinely? Yes [email or web address] Information not available 07/21/2023 Has Tobacco Cessation Counseling Been Provided? No [email or web address] Information not available 07/21/2023 How Many Years Have You Smoked Tobacco? 0 [email or web address] Information not available 10/13/2023 Have You Used IV Drugs? No [email or web address] Information not available 10/13/2023 Do You Have Difficulty Walking Or Climbing Stairs? No [email or web address] Information not available 07/21/2023 Sex: Unknown Functional Status Question Answer Note LastModified by Organizat ion Details LastModified Time Do you use any illicit or recreational drugs? No Information not available 07/21/2023 Do you or have you ever used any other forms of tobacco or nicotine? No [email or web address] Information not available 07/21/2023 What is your level of alcohol consumption? None [email or web address] Information not available 07/21/2023 Are you able to walk independently without assistance or assistive devices? YESWOREST [email or web address] Information not available 07/21/2023 Are you able to care for yourself independently? 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 No Information not available 07/21/2023 What is your exercise level? Moderate [email or web address] Information not available 10/13/2023 Mental Status Question Answer Note LastModified by Organization D etails LastModified Time Do you feel stressed (tense, restless, nervous, or anxious, or unable to sleep at night)? [id number] Information not available 07/21/2023 Family History Relationship Description Onset Age of this Age Resolved Age Notes LastModified by Organization Details LastModified Time Mother Polycystic ovary syndrome [email or web address] Not available 07/21 16:12:47 Medical History Condition Response Allergies (Food, seasonal, environmental ) Y Other N Drug/Latex Allergies/Reactions N Breast Cancer N Blood Transfusion N Dermatologic Disorders N [...] ICD10 Code Diagnosis IMO Codes Diagnosis Note [id number] Mario Alberto Yoo MD [facility] [address],[place], [place] [id number] 03/07/2025 09:46:14 03/07/2025 10:59:03 Screening status [id number] Z36.3 Z3A.19 [id number] Yumiko Guzman [facility] [address],[place] [address] 03/07/2025 09:47:03 03/07/2025 13:53:20 Gestation period, 19 weeks [id number] Z3A.19 [id number] Palpitations [id number] R0 0.2 [id number] plan ekg monitor, 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 [id number] Mario Alberto Yoo MD [facility] [address],[place] [address] 03/12/2025 13:10:56 03/12/2025 14:30:38 Urinary symptoms [id number] R39.9 81295 Epigastric pain [id number] R10.13 02266 Health Concerns Section Related Observation LastModified by Organization Detai ls LastModified Time None Recorded Concern Status LastModified by Organization Details LastModified Time None Recorded Payers Encounter Date Sequence Insurance Name Policy Number Policy Mata Covered Member ID Mata Member ID Guarantor Name 03/12/2025 1 [facility] [id number] Tarun Suazo [id number] Claire Beth Harjinder Notes Date Note Type Note Provider Name and Address Organization Details Recorded Time 03/12/2025 text/html OB ProblemReport ed by Patient Mario Alberto Yoo MD [address], [place], [address], [facility] 03/12/2025 14:30:17 OBGyn Episode Ob Episode Information Episode Created Date Number of Fetuses Patient Bloodtype Patient rh Status Prepregnancy Weight lbs Domestic Partner Domestic Partner Phone Father Name Supervisor [facility] Status 01/11/20 25 1 A Positive OPEN Fetus Data First Name Last Name Admitted to NICU Weight (g) Sex Living Outcome Pediatric Complications Fetus ID Race Codes Race Delivery Type [id number] Problems Problem Notes oral HSV only+THC 01/10 Problem Name Start Date End Date Resolution Snomed Code Not e Mixed anxiety and depressive disorder 01/10/2025 [id number] fluoxeti ne 20mghydroxyzine prn Bipolar disorder 01/10/2025 [id number] rodriguez s a psychiatrist Obesity 01/10/[id number] art bASA 81 mg [...] Date Ultra Sound Latest Days Gestation 0 [email or web address] 01/10/2025 07/28/19 26 0 Pre-diana Flowsheet Flowsheet Date 01/10/2025 Pascal Score Blood Edema Fundus Height Fundus Units Glucose Ketones Leukocytes Nitrite Labor Signs Protein Cervic Dilation Cervic Effacement Cervic Station Type Weight in lbs Pre/Post Dialysis Refused 277.648833917961 BP Diastolic BP Location Tested BP Systolic [...] Weight in lbs Pre/Post Dialysis Refused Weight 266.031017647994 BP Diastolic BP Location Tested BP Systolic [...] Weight in lbs Pre/Post Dialysis Refused Weight 264.084074746300 BP Diastolic BP Location Tested BP Systolic BP Type 86 R arm 122 sitting Fetus Heart Rate Present Fetus Movement A Yes Comments +FM doing well anatomy incom plete, ed precautions reviews for dizziness plan ekg monitor x 3 days, 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 Flowsheet Date 03/12/2025 Pascal Score Blood Edema Fundus Height Fundus Units Glucose Ketones Leukocytes Nitrite Labor Signs Protein Cervic Dilation Cervic Effacement Cervic Station Type Weight in lbs Pre/Post Dialysis Refused 269.746056163278 BP Diastolic BP Location Tested BP Systolic [...] Weight in lbs Pre/Post Dialysis Refused Weight 272.470902112231 BP Diastolic BP Location Tested BP Systolic [...] Type Weight in lbs Pre/Post Dialysis Refused 277.701243529070 BP Diastolic BP Location Tested BP Systolic BP Type 84 L arm 127 sitting Fetus Heart Rate Present Fetus Movement Comments +FM growth 25 %, vtx, having a hard time with seasonal anxiety/depression, 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 hx bipolar 2, [...]
--- OUTSIDE RECORDS SUMMARY | 2025-05-25 11:39 | XMS_ITS | Continuity of Care Document ---
Author Organization [facility] Address [address] [place] [address] [place] [address] Care Team Providers Care Resume Specialist Name Role Phone JO-ANNSHANNON CHRISTI Primary Care [...] US, obstetr ic, follow- up 2024 025 [facility], [address], [address], [place], [address], 05/08/2025 19:52:48 Medication Orders None recorde d. Patient TargetsNo targets recorded. Patient InstructionsNo instructions recorded. Reason for Referral None Reported. Results Created Date Observation Date Name Description Value Unit Range Abnormal Flag Note LastModifiedBy Organization Detail LastModifiedTime 01/17/2001/16/2025 [UNIT Y] ANEUP LOIDY NIPT fraction 6.2% normal Not Available Robert hussein [address], [place], [address], 01/16/2025 02:31:48 01/17/2001/16/2025 [UNIT Y] ANEUP LOIDY NIPT 22Q11.2 microdeletio n LOW RISK <1 in 10,000 normal Not Available [facility] [address], [place], [address], 01/16/2025 02:31:48 01/17/20 25 01/16/2025 [UNIT Y] ANEUP LOIDY NIPT sex chromosome aneuploidy NOT DETECT ED normal Not Available [facility] [address], [place], [address], 01/16/2025 02:31:48 01/17/20 25 01/16/2025 [UNIT Y] ANEUP LOIDY NIPT monosomy X LOW RISK <1 in 10,000 normal Not Available [facility] [address], [place], [address], 01/16/2025 02:31:48 01/17/20 25 01/16/2025 [UNIT Y] ANEUP LOIDY NIPT trisomy 13 LOW RISK <1 in 10,000 normal Not Available [facility] [address], [place], [address], 01/16/2025 02:31:48 01/17/20 25 01/16/2025 [UNIT Y] ANEUP LOIDY NIPT trisomy 18 LOW RISK <1 in 10,000 normal Not Available [facility] [address], [place], [address], 01/16/2025 02:31:48 01/17/20 25 01/16/2025 [UNIT Y] ANEUP LOIDY NIPT trisomy 21 LOW RISK <1 in 10,000 normal Not Available [facility] [address], [place], [address], 01/16/2025 02:31:48 01/17/20 25 01/16/2025 [UNIT Y] ANEUP LOIDY NIPT sex FEMALE normal Not Available [facility] [address], [place], [address], 01/16/2025 02:31:48 01/17/20 25 01/16/2025 [UNIT Y] ANEUP LOIDY NIPT gestation SINGLE TON normal Not Available [facility] [address], [place], [address], 01/16/2025 02:31:48 01/17/20 25 01/16/2025 [UNIT Y] ANEUP LOIDY NIPT for detailed report, see pdf See PDF normal Not Available [facility] [address], [place], [address], 01/16/2025 02:31:48 01/21/20 25 01/20/2025 [UNIT Y] ALEJANDRA Wade sickle cell disease/beta -thalassemia /hemoglobino pathies carrier screen NEGATI VE normal Not Available [facility] [address], [place], [address], 01/20/2025 04:29:08 01/21/20 25 01/20/2025 [UNIT Y] ALEJANDRA Wade alpha-thalas semia carrier screen NEGATI VE normal Not Available [facility] [address], [place], [address], 01/20/2025 04:29:08 01/21/20 25 01/20/2025 [UNIT Y] ALEJANDRA Wade cystic fibrosis carrier screen NEGATI VE normal Not Available [facility] [address], [place], [address], 01/20/2025 04:29:08 01/21/20 25 01/20/2025 [UNIT Y] ALEJANDRA Wade spinal muscular atrophy carrier screen NEGATI VE 2 SMN1 copies , SNP not presen t normal Not Available [facility] [address], [place], [address], 01/20/2025 04:29:08 01/21/20 25 01/20/2025 [UNIT Y] ALEJANDRA ER SAMANTHA Mauro for detailed report, see pdf See PDF normal Not Available [facility] [address], [place], [address], 01/20/2025 04:29:08 01/11/2001/10/2025 HEPAT ITIS B SURFA CE ANTIG EN hepatitis B surface antigen Non-re active non-re active This assay was perfo rmed using [employer] ratio n reage nts and test kits. Value s obtai kimberly with other assay metho ds or kits canno t be used inter powers eably . Not Available [facility] (Lab) [address], [place], [address], 01/11/2025 12:17:08 01/11/2001/10/2025 HIV 1/2 ANTIG EN/AN TIBOD Y, REFLE X CONFI RMATI ON HIV antigen/anti body Nonrea ctive nonrea ctive HIV-1 antig en and HIV-1 /HIV- 2 antib odies were not detec saravanan. No labor atory evide nce of HIV infec tion. Not Available [facility] (Lab) [address], [place], [address], 01/11/2025 12:17:08 01/11/2001/10/2025 HEPAT ITIS C ANTIB SUSANNE SCREE N, REFLE X TO CONFI RMATI ON hepatitis C antibody Non-re active non-re active Antib odies to HCV Not Detec saravanan, does not exclu de the possi bilit y of expos ure to HCV. Not Available [facility] (Lab) [address], [place], [address], 01/11/2025 12:17:08 01/11/2001/10/2025 TSH, REFLE X FREE T4 TSH 1.04 uIU/m L 0.30-5 .33 Not Available [facility] (Lab) [address] [place], [address], 01/11/2025 12:17:09 01/11/2001/10/2025 CBC W/DIF F WBC 11.0 10'3/ uL 3.5-10 .5 high Not Available [facility] (Lab) [address], [place], [address], 01/11/2025 12:17:09 01/11/20 25 01/10/2025 CBC W/DIF F RBC 4.37 10'6/ uL (based on docume nted legal sex) 3.80-5 .20 Not Available [facility] (Lab) [address], [place], [address], 01/11/2025 12:17:09 01/11/2001/10/2025 CBC W/DIF F HGB 13.7 g/dL (based on docume nted legal sex) 11.6-1 5.4 Not Available [facility] (Lab) [address] [facility], [place], [address], 01/11/2025 12:17:09 01/11/2001/10/2025 CBC W/DIF F HCT 40.1 % (based on docume nted legal sex) 34.0-4 5.0 Not Available [facility] (Lab) [address], [place], [address], 01/11/2025 12:17:09 01/11/2001/10/2025 CBC W/DIF F MCV 91.8 fL 80.0-9 9.0 Not Available [facility] (Lab) [address] [facility], [place], [address], 01/11/2025 12:17:09 01/11/2001/10/2025 CBC W/DIF F MCH 31.4 pg 27.0-3 4.0 Not Available [facility] (Lab) [address] [facility], [place], [address], 01/11/2025 12:17:09 01/11/2001/10/2025 CBC W/DIF F MCHC 34.2 g/dL 32.0-3 5.5 Not Available [facility] (Lab) [address] [facility], [place], [address], 01/11/2025 12:17:09 01/11/2001/10/2025 CBC W/DIF F RDW 12.4 % 11.0-1 5.0 Not Available [facility] (Lab) [address] [facility], [place], [address], 01/11/2025 12:17:09 01/11/2001/10/2025 CBC W/DIF F plt 227 10'3/ uL 150-40 0 Not Available [facility] (Lab) [address] [facility], [place], [address], 01/11/2025 12:17:09 01/11/2001/10/2025 CBC W/DIF F MPV 11.5 fL 8.8-12 .1 Not Available [facility] (Lab) [address] [facility], [place], [address], 01/11/2025 12:17:09 01/11/2001/10/2025 CBC W/DIF F NRBC's 0.0 % 0.0 Not Available [facility] (Lab) [address] [facility], [place], [address], 01/11/2025 12:17:09 01/11/2001/10/2025 CBC W/DIF F absolute NRBCs 0.0 10'3/ uL no refere nce range establ ished Not Available [facility] (Lab) [address] [facility], [place], [address], 01/11/2025 12:17:09 01/11/2001/10/2025 CBC W/DIF F neutrophils 71.3 % 34.0-7 3.0 Not Available [facility] (Lab) [address] [facility], [place], [address], 01/11/2025 12:17:09 01/11/20 25 01/10/2025 CBC W/DIF F lymphocytes 22.0 % 15.0-5 0.0 Not Available [facility] (Lab) [address] [facility], [place], [address], 01/11/2025 12:17:09 01/11/2001/10/2025 CBC W/DIF F monocytes 4.1 % 1.0-15 .0 Not Available [facility] (Lab) [address] [facility], [place], [address], 01/11/2025 12:17:09 01/11/2001/10/2025 CBC W/DIF F eosinophils 1.7 % 0.0-8. 0 Not Available [facility] (Lab) [address] [facility], [place], [address], 01/11/2025 12:17:09 01/11/20 25 01/10/2025 CBC W/DIF F basophils 0.4 % 0.0-2. 0 Not Available [facility] (Lab) [address] [facility], [place], [address], 01/11/2025 12:17:09 01/11/2001/10/2025 CBC W/DIF F immature granulocytes 0.5 % no define d refere nce range Immat ure Granu locyt es (IG) repre sents autom ated enume ratio n of Metam yeloc ytes, Myelo cytes and Promy elocy chema when IG is < 5%. Blast s are not inclu ded in IG and repor saravanan separ ately if prese nt. Not Available [facility] (Lab) [address] [facility], [place], [address], 01/11/2025 12:17:09 01/11/2001/10/2025 CBC W/DIF F absolute neutrophils 7.8 10'3/ uL 1.5-8. 0 Not Available [facility] (Lab) [address] [facility], [place], [address], 01/11/2025 12:17:09 01/11/2001/10/2025 CBC W/DIF F absolute lymphocytes 2.4 10'3/ uL 1.0-4. 0 Not Available [facility] (Lab) [address] [facility], [place], [address], 01/11/2025 12:17:09 01/11/2001/10/2025 CBC W/DIF F absolute monocytes 0.5 10'3/ uL 0.2-1. 0 Not Available [facility] (Lab) [address] [facility], [place], [address], 01/11/2025 12:17:09 01/11/2001/10/2025 CBC W/DIF F absolute eosinophils 0.2 10'3/ uL 0.0-0. 6 Not Available [facility] (Lab) [address] [facility], [place], [address], 01/11/2025 12:17:09 01/11/2001/10/2025 CBC W/DIF F absolute basophils 0.0 10'3/ uL 0.0-0. 3 Not Available [facility] (Lab) [address] [facility], [place], [address], 01/11/2025 12:17:09 01/11/2001/10/2025 CBC W/DIF F absolute [...] nielsen book. nm.or g/gen derx Not Available [facility] (Lab) [address] [facility], [place], [address], 01/11/2025 12:17:09 01/11/2001/10/2025 TYPE/ RH/SC REEN ABO/Rh type A POS Not Available [facility] (Lab) [address] [facility], [place], [address], 01/11/2025 12:17:10 01/11/2001/10/2025 TYPE/ RH/SC REEN antibody screen NEG Not Available [facility] (Lab) [address] [facility], [place], [address], 01/11/2025 12:17:10 01/11/2001/10/2025 TYPE/ RH/SC REEN exp date 2024 23:59 Not Available [facility] (Lab) [address] [facility], [place], [address], 01/11/2025 12:17:10 01/11/20 25 01/10/2025 RUBEL LA IGG ANTIB SUSANNE, QUANT rubella antibodies, IgG Reacti ve reacti ve Not Available [facility] (Lab) [address] [facility], [place], [address], 01/11/2025 12:17:10 01/11/2001/10/2025 RUBEL LA IGG ANTIB SUSANNE, QUANT rubella antibodies, IgG quant 10.2 IU/mL >=10 Non-r eacti ve (Non- Immun e) <10 IU/mL React zahra (Immu ne) > or = 10 IU/mL Not Available [facility] (Lab) [address] [facility], [place], [address], 01/11/2025 12:17:10 01/11/2001/10/2025 HEMOG LOBIN A1C hemoglobin [...] >8.0% Actio n sugge sted Not Available [facility] (Lab) [address] [facility], [place], [address], 01/11/2025 12:17:10 01/11/2001/10/2025 RPR SCREE N, REFLE X TITER /CONF IRMAT ION RPR qualitative Nonrea ctive nonrea ctive Not Available [facility] (Lab) [address] [facility], [place], [address], 01/11/2025 12:17:11 01/11/2001/10/2025 CT/GC AND TRICH OMONA S VAGIN YADIRA (RRNA ), URINE chlamydia trachomatis, PCR Negati ve negati ve Not Available [facility] (Lab) [address] [facility], [place], [address], 01/12/2025 01:12:08 01/11/2001/10/2025 CT/GC AND TRICH OMONA S VAGIN YADIRA (RRNA ), URINE neisseria gonorrhoeae, PCR Negati ve negati ve Not Available [facility] (Lab) [address] [facility], [place], [address], 01/12/2025 01:12:08 01/11/2001/10/2025 CT/GC AND TRICH OMONA S VAGIN YADIRA (RRNA ), URINE trichomonas vaginalis ribosomal RNA (rrna) Negati ve negati ve Not Available [facility] (Lab) [address] [facility], [place], [address], 01/12/2025 01:12:08 01/11/2001/10/2025 CULTU RE: URINE result report SEE RESULT S BELOW Test: Cultu re: Urine Speci men Sourc e: Urine Voide d Speci men Type: Urine Speci men Date: 2024 1352 Resul t Date: 2024 0008 Resul t Statu s: Final resul t Abnor mal: No Resul ting Lab: [facility] [address] [facility] [address] Tel: CULTU RE ----- ----- ----- --- Cultu re resul t (>=3 organ isms prese nt) indic ates possi ble conta minat ion. Repea t cultu re if sympt oms indic ate. Not Available [facility] (Lab) [address] [facility], [place], [address], 01/12/2025 01:12:09 01/11/20 25 01/10/2025 drug scree n, urine Amphetamines : negati ve Not Available [facility] [address], [place], [address], 01/10/2025 14:48:40 01/11/20 25 01/10/2025 drug scree n, urine Cannabinoids : positi ve Not Available [facility] [address], [place], [address], 01/10/2025 14:48:40 01/11/20 25 01/10/2025 drug scree n, urine Cocaine: negati ve Not Available [facility] [address], [place], [address], 01/10/2025 14:48:40 01/11/20 25 01/10/2025 drug scree n, urine Opiates: negati ve Not Available [facility] [address], [place], [address], 01/10/2025 14:48:40 01/11/20 25 01/10/2025 drug scree n, urine Phenocyclidi ne: negati ve Not Available [facility] [address], [place], [address], 01/10/2025 14:48:40 01/11/20 25 01/10/2025 drug scree n, urine Barbiturates : negati ve Not Available [facility] [address], [place], [address], 01/10/2025 14:48:40 01/11/20 25 01/10/2025 drug scree n, urine Benzodiazepi joaquín: negati ve Not Available [facility] [address], [place], [address], 01/10/2025 14:48:40 01/11/20 25 01/10/2025 drug scree n, urine Ethanol: negati ve Not Available [facility] [address], [place], [address], 01/10/2025 14:48:40 01/11/20 25 01/10/2025 drug scree n, urine Hallucinogen s: negati ve Not Available [facility] [address], [place], [address], 01/10/2025 14:48:40 01/11/20 25 01/10/2025 drug scree n, urine Inhalants: negati ve Not Available [facility] [address], [place], [address], 01/10/2025 14:48:40 01/11/20 25 01/10/2025 drug scree n, urine Anabolic Steroids: negati ve Not Available [facility] [address], [place], [address], 01/10/2025 14:48:40 03/12/20 25 03/12/2025 urina lysis , dipst ick Leukocytes trace Not Available [facility] [address], [place], [address], 03/12/2025 14:21:08 03/12/20 25 03/12/2025 urina lysis , dipst ick Protein + Not Available [facility] [address], [place], [address], 03/12/2025 14:21:08 03/12/20 25 03/12/2025 urina lysis , dipst ick pH 6 Not Available [facility] [address], [place], [address], 03/12/2025 14:21:08 03/12/20 25 03/12/2025 urina lysis , dipst ick Specific [place] 1.010 Not Available [facility] [address], [place], [address], 03/12/2025 14:21:08 03/12/2003/12/2025 urina lysis , dipst ick Appearance cloudy Not Available [facility] [address], [place], [address], 03/12/2025 14:21:08 03/12/20 25 03/12/2025 urina lysis , dipst ick Color yellow Not Available [facility] [address], [place], [address], 03/12/2025 14:21:08 05/08/20 25 05/08/2025 HEMAT OCRIT (HCT) HCT 34.6 % (based on docume nted legal sex) 34.0-4 5.0 Not Available [facility] (Lab) [address], [place], [address], 05/09/2025 18:24:30 05/08/20 25 05/08/2025 HEMOG LOBIN (HGB) HGB 11.8 g/dL (based on docume nted legal sex) 11.6-1 5.4 Not Available [facility] (Lab) [address], [place], [address], 05/09/2025 18:24:31 05/08/20 25 05/08/2025 GTT - GESTA MARQUISEJOHNNIE SINGH N, ACOG OB glucose, 1 hour screen 140 mg/dL 70-135 high Not Available [facility] (Lab) [address] [facility], [place], [address], 05/09/2025 18:24:31 05/08/20 25 05/08/2025 HIV 1/2 ANTIG EN/AN TIBOD Y, REFLE X CONFI RMATI ON HIV antigen/anti body Nonrea ctive nonrea ctive HIV-1 antig en and HIV-1 /HIV- 2 antib odies were not detec saravanan. No labor atory evide nce of HIV infec tion. Not Available [facility] (Lab) [address] [facility], [place], [address], 05/09/2025 18:24:31 05/08/20 25 05/08/2025 RPR SCREE N, REFLE X TITER /CONF IRMAT ION RPR qualitative Nonrea ctive nonrea ctive Not Available [facility] (Lab) [address] [facility], [place], [address], 05/09/2025 18:24:32 01/11/20 25 01/10/2025 US, obste tric, nucha l trans lucen cy No observ ation record ed. [email or web address] [address] [address], [place], [address], 01/15/2025 22:18:32 01/11/20 25 01/10/2025 US, obste tric, nucha l trans lucen cy No observ ation record ed. [facility] [address], [place], [address], 01/10/2025 18:49:50 03/07/20 25 03/07/2025 US, obste tric, 2nd or 3rd trime ster No observ ation record ed. [email or web address] [place] [address] [address], [place], [address], 03/07/2025 15:09:10 03/07/2003/07/2025 US, obste tric, 2nd or 3rd trime ster No observ ation record ed. [email or web address] [address], [place], [address], 03/07/2025 11:22:48 03/12/2003/12/2025 US, abdom en, compl ete No observ ation record ed. [email or web address] [address], [place], [address], 03/12/2025 17:49:13 03/12/2003/12/2025 US, abdom en, compl ete No observ ation record ed. [email or web address] [address], [place], [address], 03/12/2025 16:56:41 03/21/2003/12/2025 giles r monit or No observ ation record ed. [address] [address], [place], [address], 03/23/2025 16:53:34 03/21/2003/12/2025 giles r monit or No observ ation record ed. [address] ([facility]) [address] [place] [address], [place], [address], 03/23/2025 16:53:35 04/11/2004/11/2025 US, obste tric, follo w-up No observ ation record ed. [email or web address] [address], [place], [address], 04/11/2025 15:57:47 04/11/2004/11/2025 US, obste tric, follo w-up No observ ation record ed. [facility] [address], [place], [address], 04/11/2025 18:17:58 04/12/2004/12/2025 non-s tress test No observ ation record ed. [facility] [address], [place], [address], 04/24/2025 18:37:23 05/08/20 25 05/08/2025 US, obste tric, follo w-up No observ ation record ed. [facility] [address], [place], [address], 05/08/2025 14:17:15 05/08/20 25 05/08/2025 US, obste tric, follo w-up No observ ation record ed. [place] [id number] [address], [place], [address], 05/11/2025 11:54:26 Result Notes None recorded. Problems Name Problem SNOMED Code Status Onset Date Resolution Date Notes Provider Name and Address Organization Details Recorded Time Obesity 606979088 Completed BMI 43 - antenata l testing @ 34 wks Es healy [facility] 4 19:42:00 Bipolar disorder 08728459 Completed MFM consult -aripipr azole, fluoxeti ne 60mg, managed by her psychiat juan ct. Per MFM - cont manageme nt with psych. Ok to continue . Watch with breastfe eding. Es healy [facility] 4 19:42:00 Migraine 44671680 Completed excedrin tension headache recommen ded Es healy [facility] 4 19:42:00 Prematur e labor 8752745 Completed hx contract ions Es healy [facility] 4 19:42:00 Pregnanc y 41963933 Completed 202302/24/2024 Alondra healy [facility] 5 14:10:18 Pneumoni a 889234775 Completed 2023 Es healy, [facility] 4 19:42:00 Mixed anxiety and depressi ve disorder 801660922 Active 2024 fluoxeti ne 20mg hydroxyz ine prn Yumiko Guzman CNM [address], [place], [address], [facility] 5 13:41:32 Pregnanc y 20053998 Active 2024 Alondra healy, [facility] 5 14:10:18 Obesity 808736540 Active 2024 BMI 43 start bASA 81 mg Yumiko Guzman CNM [address], [place], [address], [facility] 5 14:30:43 Mixed anxiety and depressi ve disorder 023051896 Active 2024 fluoxeti ne 20mg hydroxyz ine prn Yumiko Guzman CNM [address], [place], [address], [facility] 5 13:41:32 Bipolar disorder 91830597 Active 2024 has a psychiat rist Yumiko Guzman CNM [address], [place], [address], [facility] 14:32:28 Problem Notes None recorded. Procedures Surgical History Date Name Laterality Status Provider Name and Address Organization Details Recorded Time 07/21/2023 Date of Last Pap Smear completed Es Rees [facility] 07/21/2023 16:09:33 05/31/2007 tonsilecto my/adenoid s completed Es Rees [facility] 07/21/2023 16:14:08 Imaging Results None [...] Available Not Available Not Available amoxicillin 875 mg-potassisilvia duval clavulanate 125 mg tablet TAKE 1 [...] Address Organization Details Last Updated DateTime 05/08/2025 227956.00879 g 127/84 mm[Hg] Kayleen Hester [facility] 05/08/2025 12:28:26 Social History Question Answer Notes LastModified by Organizat ion Details LastModified Time Tobacco Smoking Status Never Smoker Es healy, [facility] 07/21/2023 16:13:04 If You Are , What Was Your Level Of Alcohol Consumption Prior To ? Occasional Information not available 07/21/2023 How Many Years Have You Consumed Alcohol? 0 [email or web address] Information not available 10/13/2023 Are You Blind Or Do You Have Difficulty Seeing? No [email or web address] Information n ot available 07/21/2023 What Is Your Level Of Caffeine Consumption? Moderate [email or web address] Information not available 10/13/2023 How Much Tobacco Do You Chew? None [email or web address] Information not available 10/13/2023 In The 14 Days Before Symptom Onset, Have You Had Close Contact With A Laboratory-confirm ed COVID-19 While That Case Was Ill? No [email or web address] Information n ot available 07/21/2023 In The 14 Days Before Symptom Onset, Have You Had Close Contact With A Person Who Is Under Investigation For COVID-19 While That Person Was Ill? No [email or web address] Information not available 07/21/2023 Have You Been To An Area Known To Be High Risk For COVID-19? No [email or web address] Information not available 07/21/2023 Are You Deaf Or Do You Have Serious Difficulty Hearing? No [email or web address] Information not available 07/21/2023 What Type Of Diet Are You Following? REGULAR [email or web address] Information n ot available 07/21/2023 What Is The Highest Grade Or Level Of School You Have Completed Or The Highest Degree You Have Received? [id number] [email or web address] Information not available 10/13/2023 Are There Any Guns Present In Your Home? No [email or web address] Information not available 10/13/2023 Do You Use Protection During Sex? No [email or web address] Information not available 10/13/2023 Do You Use Your Seat Belt Or Car Seat Routinely? Yes Information not available 07/21/2023 Are You Sexually Active? Yes [email or web address] Information not available 01/10/2025 Do You Have Smoke And Carbon Monoxide Detectors In Your Home? Yes [email or web address] Information not available 07/21/2023 At What Age Did You Start Smoking Tobacco? 1 [email or web address] Information not available 10/13/2023 How Much Tobacco Do You Smoke? No [email or web address] Information not available 10/13/2023 Do You Use Sunscreen Routinely? Yes [email or web address] Information not available 07/21/2023 Has Tobacco Cessation Counseling Been Provided? No [email or web address] Information not available 07/21/2023 How Many Years Have You Smoked Tobacco? 0 [email or web address] Information not available 10/13/2023 Have You Used IV Drugs? No [email or web address] Information not available 10/13/2023 Do You Have Difficulty Walking Or Climbing Stairs? No [email or web address] Information not available 07/21/2023 Sex: Unknown Functional Status Question Answer Note LastModified by Organizat ion Details LastModified Time Do you use any illicit or recreational drugs? No [email or web address] Information not available 07/21/2023 Do you or have you ever used any other forms of tobacco or nicotine? No [email or web address] Information not available 07/21/2023 What is your level of alcohol consumption? None [email or web address] Information not available 07/21/2023 Are you able to walk independently without assistance or assistive devices? YESWOREST [email or web address] Information not available 07/21/2023 Are you able to care for yourself independently? 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 No [email or web address] Information not available 07/21/2023 What is your exercise level? Moderate [email or web address] Information not available 10/13/2023 Mental Status Question Answer Note LastModified by Organization D etails LastModified Time Do you feel stressed (tense, restless, nervous, or anxious, or unable to sleep at night)? [id number] [email or web address] Information not available 07/21/2023 Family History Relationship Description Onset Age of this Age Resolved Age Notes LastModified by Organization Details LastModified Time Mother Polycystic ovary syndrome [email or web address] Not available 07/21 16:12:47 Medical History Condition [...] ICD10 Code Diagnosis IMO Codes Diagnosis Note [id number] Mario Alberto Yoo MD [place] [address],[place] [address] 04/11/2025 09:43:09 04/11/2025 12:01:25 anatomy study [id number] Z36.2 O99.210 Z3A.24 [id number] Yumiko Guzman [facility] [address],[place] [address] 04/11/2025 09:44:54 04/11/2025 13:26:30 Gestation period, 24 weeks [id number] Z3A.24 [id number] Mario Alberto Yoo MD [place] [address] [place] [address] 05/08/2025 10:01:44 05/08/2025 12:24:56 Obesity 720246966 O99.210 Z3A.28 006066 [id number] Yumiko Guzman [facility] [address],[place] [address] 05/08/2025 10:04:10 05/08/2025 13:53:08 Bipolar II disorder, most recent episode major depressive 21939469 F31.81 [id number] to ed if any suicidal thoughts Gestation period, 28 weeks [id number] Z3A.28 [id number] Health Concerns Section Related Observation LastModified by Organization Detai ls LastModified Time None Recorded Concern Status LastModified by Organization Details LastModified Time None Recorded Payers Encounter Date Sequence Insurance Name Policy Number Policy Mata Covered Member ID Mata Member ID Guarantor Name 05/08/2025 1 [employer] [facility] [id number] Tarun Suazo [id number] Claire R Light 05/08/2025 2 [facility] (MEDICAID REPLACEMENT - HMO) Claire R Light [id number] Claire R Light Notes Date Note Type Note Provider Name and Address Organization Details Recorded Time 05/08/2025 text/html Generic HPI TemplateReported by Patient Yumiko Guzman CNM [address], [place], [address], [facility] 05/08/2025 13:43:54 OBGyn Episode Ob Episode Information Episode Created Date Number of Fetuses Patient Bloodtype Patient rh Status Prepregnancy Weight lbs Domestic Partner Domestic Partner Phone Father Name Supervisor Publications Status 01/11/20 25 1 A Positive OPEN Fetus Data First Name Last Name Admitted to NICU Weight (g) Sex Living Outcome Pediatric Complications Fetus ID Race Codes Race Delivery Type [id number] Problems Problem Notes oral HSV only+THC 01/10 Problem Name Start Date End Date Resolution Snomed Code Not e Mixed anxiety and depressive disorder 01/10/2025 [id number] fluoxeti ne 20mghydroxyzine prn Bipolar disorder 01/10/2025 [id number] rodriguez s a psychiatrist Obesity 01/10/[id number] art bASA 81 mg [...] Date Ultra Sound Latest Days Gestation 0 [email or web address] 01/10/2025 07/28/19 26 0 Pre-diana Flowsheet Flowsheet Date 01/10/2025 Pascal Score Blood Edema Fundus Height Fundus Units Glucose Ketones Leukocytes Nitrite Labor Signs Protein Cervic Dilation Cervic Effacement Cervic Station Type Weight in lbs Pre/Post Dialysis Refused 277.744670993891 BP Diastolic BP Location Tested BP Systolic [...] Weight in lbs Pre/Post Dialysis Refused Weight 266.668238614112 BP Diastolic BP Location Tested BP Systolic [...] Weight in lbs Pre/Post Dialysis Refused Weight 264.663006063488 BP Diastolic BP Location Tested BP Systolic BP Type 86 R arm 122 sitting Fetus Heart Rate Present Fetus Movement A Yes Comments +FM doing well anatomy incom plete, ed precautions reviews for dizziness 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, 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 Flowsheet Date 03/12/2025 Pascal Score Blood Edema Fundus Height Fundus Units Glucose Ketones Leukocytes Nitrite Labor Signs Protein Cervic Dilation Cervic Effacement Cervic Station Type Weight in lbs Pre/Post Dialysis Refused 269.743540650536 BP Diastolic BP Location Tested BP Systolic [...] Weight in lbs Pre/Post Dialysis Refused Weight 272.095074742651 BP Diastolic BP Location Tested BP Systolic [...] Type Weight in lbs Pre/Post Dialysis Refused 277.969932633640 BP Diastolic BP Location Tested BP Systolic BP Type 84 L arm 127 sitting Fetus Heart Rate Present Fetus Movement Comments +FM growth 25 %, vtx, having a hard time with seasonal anxiety/depression, unable to get into psychiatrist or t shwetha malariologist due to transportation issues. hx bipolar 2, [...]
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
--- OUTSIDE RECORDS SUMMARY | 2025-05-25 11:39 | XMS_ITS | Continuity of Care Document ---
Author Organization [facility] Address [address] [place] [address] Care Team Providers Care Utility Porter Name Role Phone CHRISTI LAIRD Primary Care [...] Not Available Robert hussein [address], [place], [address], 01/16/2025 02:31:48 08/19/20 25 01/16/2025 [UNIT Y] ANEUP LOIDY NIPT 22Q11.2 microdeletio n LOW RISK <1 in 10,000 normal Not Available [facility] [address], [place], [address], 01/16/2025 02:31:48 01/17/20 25 01/16/2025 [UNIT Y] ANEUP LOIDY NIPT sex chromosome aneuploidy NOT DETECT ED normal Not Available [facility] [address], [place], [address], 01/16/2025 02:31:48 01/17/20 25 01/16/2025 [UNIT Y] ANEUP LOIDY NIPT monosomy X LOW RISK <1 in 10,000 normal Not Available [facility] [address], [place], [address], 01/16/2025 02:31:48 01/17/20 25 01/16/2025 [UNIT Y] ANEUP LOIDY NIPT trisomy 13 LOW RISK <1 in 10,000 normal Not Available [facility] [address], [place], [address], 01/16/2025 02:31:48 01/17/20 25 01/16/2025 [UNIT Y] ANEUP LOIDY NIPT trisomy 18 LOW RISK <1 in 10,000 normal Not Available [facility] [address], [place], [address], 01/16/2025 02:31:48 01/17/20 25 01/16/2025 [UNIT Y] ANEUP LOIDY NIPT trisomy 21 LOW RISK <1 in 10,000 normal Not Available [facility] [address], [place], [address], 01/16/2025 02:31:48 01/17/20 25 01/16/2025 [UNIT Y] ANEUP LOIDY NIPT sex FEMALE normal Not Available [facility] [address], [place], [address], 01/16/2025 02:31:48 01/17/20 25 01/16/2025 [UNIT Y] ANEUP LOIDY NIPT gestation SINGLE TON normal Not Available [facility] [address], [place], [address], 01/16/2025 02:31:48 01/17/20 25 01/16/2025 [UNIT Y] ANEUP LOIDY NIPT for detailed report, see pdf See PDF normal Not Available [facility] [address], [place], [address], 01/16/2025 02:31:48 01/21/20 25 01/20/2025 [UNIT Y] ALEJANDRA Wade sickle cell disease/beta -thalassemia /hemoglobino pathies carrier screen NEGATI VE normal Not Available [facility] [address], [place], [address], 01/20/2025 04:29:08 01/21/20 25 01/20/2025 [UNIT Y] ALEJANDRA Wade alpha-thalas semia carrier screen NEGATI VE normal Not Available [facility] [address], [place], [address], 01/20/2025 04:29:08 01/21/20 25 01/20/2025 [UNIT Y] ALEJANDRA Wade cystic fibrosis carrier screen NEGATI VE normal Not Available [facility] [address], [place], [address], 01/20/2025 04:29:08 01/21/20 25 01/20/2025 [UNIT Y] ALEJANDRA Wade spinal muscular atrophy carrier screen NEGATI VE 2 SMN1 copies , SNP not presen t normal Not Available [facility] [address], [place], [address], 01/20/2025 04:29:08 01/21/20 25 01/20/2025 [UNIT Y] ALEJANDRA Wade for detailed report, see pdf See PDF normal Not Available [facility] [address], [place], [address], 01/20/2025 04:29:08 01/11/2001/10/2025 HEPAT ITIS B SURFA CE ANTIG EN hepatitis B surface antigen Non-re active non-re active This assay was perfo rmed using [employer] ratio n reage nts and test kits. Value s obtai kimberly with other assay metho ds or kits canno t be used inter powers eably . Not Available [facility] [address], [place], [address], 01/11/2025 12:17:08 01/11/2001/10/2025 HIV 1/2 ANTIG EN/AN TIBOD Y, REFLE X CONFI RMATI ON HIV antigen/anti body Nonrea ctive nonrea ctive HIV-1 antig en and HIV-1 /HIV- 2 antib odies were not detec saravanan. No labor atory evide nce of HIV infec tion. Not Available [facility] ([facility]) [address] [facility], [place], [address], 01/11/2025 12:17:08 01/11/2001/10/2025 HEPAT ITIS C ANTIB SUSANNE SCREE N, REFLE X TO CONFI RMATI ON hepatitis C antibody Non-re active non-re active Antib odies to HCV Not Detec saravnaan, does not exclu de the possi bilit y of expos ure to HCV. Not Available [facility] [address], [place], [address], 01/11/2025 12:17:08 01/11/2001/10/2025 TSH, REFLE X FREE T4 TSH 1.04 uIU/m L 0.30-5 .33 Not Available [facility] ([facility] [address], [place], [address], 01/11/2025 12:17:09 01/11/20 25 01/10/2025 CBC W/DIF F WBC 11.0 10'3/ uL 3.5-10 .5 high Not Available [facility] ([facility]) [address], [place], [address], 01/11/2025 12:17:09 01/11/20 25 01/10/2025 CBC W/DIF F RBC 4.37 10'6/ uL (based on docume nted legal sex) 3.80-5 .20 Not Available [facility] (Lab) [address] [facility], [place], [address], 01/11/2025 12:17:09 01/11/2001/10/2025 CBC W/DIF F HGB 13.7 g/dL (based on docume nted legal sex) 11.6-1 5.4 Not Available [facility] ([facility]) [address] [facility], [place], [address], 01/11/2025 12:17:09 01/11/2001/10/2025 CBC W/DIF F HCT 40.1 % (based on docume nted legal sex) 34.0-4 5.0 Not Available [facility] ([facility]) [address] [facility], [place], [address], 01/11/2025 12:17:09 01/11/2001/10/2025 CBC W/DIF F MCV 91.8 fL 80.0-9 9.0 Not Available [facility] (Lab) [address] [facility], [place], [address], 01/11/2025 12:17:09 01/11/2001/10/2025 CBC W/DIF F MCH 31.4 pg 27.0-3 4.0 Not Available [facility] (Lab) [address] [facility], [place], [address], 01/11/2025 12:17:09 01/11/2001/10/2025 CBC W/DIF F MCHC 34.2 g/dL 32.0-3 5.5 Not Available [facility] (Lab) [address] [facility], [place], [address], 01/11/2025 12:17:09 01/11/2001/10/2025 CBC W/DIF F RDW 12.4 % 11.0-1 5.0 Not Available [facility] (Lab) [address] [facility], [place], [address], 01/11/2025 12:17:09 01/11/2001/10/2025 CBC W/DIF F plt 227 10'3/ uL 150-40 0 Not Available [facility] (Lab) [address] [facility], [place], [address], 01/11/2025 12:17:09 01/11/2001/10/2025 CBC W/DIF F MPV 11.5 fL 8.8-12 .1 Not Available [facility] (Lab) [address] [facility], [place], [address], 01/11/2025 12:17:09 01/11/2001/10/2025 CBC W/DIF F NRBC's 0.0 % 0.0 Not Available [facility] (Lab) [address] [facility], [place], [address], 01/11/2025 12:17:09 01/11/2001/10/2025 CBC W/DIF F absolute NRBCs 0.0 10'3/ uL no refere nce range establ ished Not Available [facility] ([facility]) [address] [facility], [place], [address], 01/11/2025 12:17:09 01/11/2001/10/2025 CBC W/DIF F neutrophils 71.3 % 34.0-7 3.0 Not Available [facility] (Lab) [address] [facility], [place], [address], 01/11/2025 12:17:09 01/11/2001/10/2025 CBC W/DIF F lymphocytes 22.0 % 15.0-5 0.0 Not Available [facility] ([facility]) [address] [facility], [place], [address], 01/11/2025 12:17:09 01/11/2001/10/2025 CBC W/DIF F monocytes 4.1 % 1.0-15 .0 Not Available [facility] (Lab) [address] [facility], [place], [address], 01/11/2025 12:17:09 01/11/2001/10/2025 CBC W/DIF F eosinophils 1.7 % 0.0-8. 0 Not Available [facility] ([facility]) [address] [facility], [place], [address], 01/11/2025 12:17:09 01/11/2001/10/2025 CBC W/DIF F basophils 0.4 % 0.0-2. 0 Not Available [facility] ([facility]) [address] [facility], [place], [address], 01/11/2025 12:17:09 01/11/2001/10/2025 CBC W/DIF F immature granulocytes 0.5 % no define d refere nce range Immat ure Granu locyt es (IG) repre sents autom ated enume ratio n of Metam yeloc ytes, Myelo cytes and Promy elocy chema when IG is < 5%. Blast s are not inclu ded in IG and repor saravanan separ ately if prese nt. Not Available [facility] ([facility]) [address] [facility], [place], [address], 01/11/2025 12:17:09 01/11/2001/10/2025 CBC W/DIF F absolute neutrophils 7.8 10'3/ uL 1.5-8. 0 Not Available [facility] ([facility]) [address] [facility], [place], [address], 01/11/2025 12:17:09 01/11/2001/10/2025 CBC W/DIF F absolute lymphocytes 2.4 10'3/ uL 1.0-4. 0 Not Available [facility] (Lab) [address] [facility], [place], [address], 01/11/2025 12:17:09 01/11/2001/10/2025 CBC W/DIF F absolute monocytes 0.5 10'3/ uL 0.2-1. 0 Not Available [facility] ([facility]) [address] [facility], [place], [address], 01/11/2025 12:17:09 01/11/2001/10/2025 CBC W/DIF F absolute eosinophils 0.2 10'3/ uL 0.0-0. 6 Not Available [facility] ([facility]) [address] [facility], [place], [address], 01/11/2025 12:17:09 01/11/2001/10/2025 CBC W/DIF F absolute basophils 0.0 10'3/ uL 0.0-0. 3 Not Available [facility] ([facility]) [address] [facility], [place], [address], 01/11/2025 12:17:09 01/11/2001/10/2025 CBC W/DIF F absolute [...] nielsen book. nm.or g/gen derx Not Available [facility] ([facility]) [address], [place], [address], 01/11/2025 12:17:09 01/11/2001/10/2025 TYPE/ RH/SC REEN ABO/Rh type A POS Not Available [facility] (Lab) [address] [facility], [place], [address], 01/11/2025 12:17:10 01/11/2001/10/2025 TYPE/ RH/SC REEN antibody screen NEG Not Available [facility] (Lab) [address] [place], [address], 01/11/2025 12:17:10 01/11/20 25 01/10/2025 TYPE/ RH/SC REEN exp date 2024 23:59 Not Available [facility] ([facility]) [address] [facility], [place], [address], 01/11/2025 12:17:10 01/11/20 25 01/10/2025 RUBEL LA IGG ANTIB SUSANNE, QUANT rubella antibodies, IgG Reacti ve reacti ve Not Available [facility] ([facility]) [address] [facility], [place], [address], 01/11/2025 12:17:10 01/11/2001/10/2025 RUBEL LA IGG ANTIB SUSANNE, QUANT rubella antibodies, IgG quant 10.2 IU/mL >=10 Non-r eacti ve (Non- Immun e) <10 IU/mL React zahra (Immu ne) > or = 10 IU/mL Not Available [facility] ([facility]) [address] [facility], [place], [address], 01/11/2025 12:17:10 01/11/2001/10/2025 HEMOG LOBIN A1C hemoglobin [...] >8.0% Actio n sugge sted Not Available [facility] ([facility]) [address] [facility], [place], [address], 01/11/2025 12:17:10 01/11/20 25 01/10/2025 RPR SCREE N, REFLE X TITER /CONF IRMAT ION RPR qualitative Nonrea ctive nonrea ctive Not Available [facility] ([facility]) [address] [facility], [place], [address], 01/11/2025 12:17:11 01/11/2001/10/2025 CT/GC AND TRICH OMONA S VAGIN YADIRA (RRNA ), URINE chlamydia trachomatis, PCR Negati ve negati ve Not Available [facility] ([facility]) [address] [facility], [place], [address], 01/12/2025 01:12:08 01/11/20 25 01/10/2025 CT/GC AND TRICH OMONA S VAGIN YADIRA (RRNA ), URINE neisseria gonorrhoeae, PCR Negati ve negati ve Not Available [facility] ([facility]) [address] [facility], [place], [address], 01/12/2025 01:12:08 01/11/20 25 01/10/2025 CT/GC AND TRICH OMONA S VAGIN YADIRA (RRNA ), URINE trichomonas vaginalis ribosomal RNA (rrna) Negati ve negati ve Not Available [facility] ([facility]) [address] [facility], [place], [address], 01/12/2025 01:12:08 01/11/20 25 01/10/2025 CULTU RE: URINE result report SEE RESULT S BELOW Test: Cultu re: Urine Speci men Sourc e: Urine Voide d Speci men Type: Urine Speci men Date: 2024 1352 Resul t Date: 2024 0008 Resul t Statu s: Final resul t Abnor mal: No Resul ting Lab: [facility] [address] [facility] [address] Tel: CULTU RE ----- ----- ----- --- Cultu re resul t (>=3 organ isms prese nt) indic ates possi ble conta minat ion. Repea t cultu re if sympt oms indic ate. Not Available [facility] ([facility] [address] [facility], [place], [address], 01/12/2025 01:12:09 01/11/20 25 01/10/2025 drug scree n, urine Amphetamines : negati ve Not Available [facility] [address], [place], [address], 01/10/2025 14:48:40 01/11/20 25 01/10/2025 drug scree n, urine Cannabinoids : positi ve Not Available [facility] [address], [place], [address], 01/10/2025 14:48:40 01/11/20 25 01/10/2025 drug scree n, urine Cocaine: negati ve Not Available [facility] [address], [place], [address], 01/10/2025 14:48:40 01/11/20 25 01/10/2025 drug scree n, urine Opiates: negati ve Not Available [facility] [address], [place], [address], 01/10/2025 14:48:40 01/11/20 25 01/10/2025 drug scree n, urine Phenocyclidi ne: negati ve Not Available [facility] [address], [place], [address], 01/10/2025 14:48:40 01/11/20 25 01/10/2025 drug scree n, urine Barbiturates : negati ve Not Available [facility] [address], [place], [address], 01/10/2025 14:48:40 01/11/20 25 01/10/2025 drug scree n, urine Benzodiazepi joaquín: negati ve Not Available [facility] [address], [place], [address], 01/10/2025 14:48:40 01/11/20 25 01/10/2025 drug scree n, urine Ethanol: negati ve Not Available [facility] [address], [place], [address], 01/10/2025 14:48:40 01/11/20 25 01/10/2025 drug scree n, urine Hallucinogen s: negati ve Not Available [facility] [address], [place], [address], 01/10/2025 14:48:40 01/11/20 25 01/10/2025 drug scree n, urine Inhalants: negati ve Not Available [facility] [address], [place], [address], 01/10/2025 14:48:40 01/11/20 25 01/10/2025 drug scree n, urine Anabolic Steroids: negati ve Not Available [facility] [address], [place], [address], 01/10/2025 14:48:40 03/12/20 25 03/12/2025 urina lysis , dipst ick Leukocytes trace Not Available [facility] [address], [place], [address], 03/12/2025 14:21:08 03/12/20 25 03/12/2025 urina lysis , dipst ick Protein + Not Available [facility] [address], [place], [address], 03/12/2025 14:21:08 03/12/20 25 03/12/2025 urina lysis , dipst ick pH 6 Not Available [facility] [address], [place], [address], 03/12/2025 14:21:08 03/12/20 25 03/12/2025 urina lysis , dipst ick Specific [place] 1.010 [facility] Available [facility] [address], [place], [address], 03/12/2025 14:21:08 03/12/2003/12/2025 urina lysis , dipst ick Appearance cloudy Not Available [facility] [address], [place], [address], 03/12/2025 14:21:08 03/12/2003/12/2025 urina lysis , dipst ick Color yellow Not Available [facility] [address], [place], [address], 03/12/2025 14:21:08 01/11/20 25 01/10/2025 US, obste tric, nucha l trans lucen cy No observ ation record ed. [email or web address] [address], [place], [address], 01/15/2025 22:18:32 01/11/20 25 01/10/2025 US, obste tric, nucha l trans lucen cy No observ ation record ed. [email or web address] [facility] [address], [place], [address], 01/10/2025 18:49:50 03/07/2003/07/2025 US, obste tric, 2nd or 3rd trime ster No observ ation record ed. [email or web address] [facility] [address], [place], [address], 03/07/2025 15:09:10 03/07/2003/07/2025 US, obste tric, 2nd or 3rd trime ster No observ ation record ed. [email or web address] [address], [place], [address], 03/07/2025 11:22:48 03/12/2003/12/2025 US, abdom en, compl ete No observ ation record ed. [email or web address] [facility] [address] [facility] [address] [facility], [place], [address], 03/12/2025 17:49:13 03/12/2003/12/2025 US, abdom en, compl ete No observ ation record ed. [email or web address] [address] [address], [place], [address], 03/12/2025 16:56:41 03/21/2003/12/2025 giles r monit or No observ ation record ed. [id number] [address], [place], [address], 03/23/2025 16:53:34 03/21/2003/12/2025 giles r monit or No observ ation record ed. [address] (Cardiology & Emg) [facility] [address] [address], [place], [address], 03/23/2025 16:53:35 04/11/2004/11/2025 US, obste tric, follo w-up No observ ation record ed. [email or web address] [address], [place], [address], 04/11/2025 15:57:47 04/11/2004/11/2025 US, obste tric, follo w-up No observ ation record ed. [email or web address] [facility] [address], [place], [address], 04/11/2025 18:17:58 04/12/2004/12/2025 non-s tress test No observ ation record ed. [facility] [address], [place], [address], 04/24/2025 18:37:23 05/08/20 25 05/08/2025 US, obste tric, follo w-up No observ ation record ed. [facility] [address], [place], [address], 05/08/2025 14:17:15 05/08/2005/08/2025 US, obste tric, follo w-up No observ ation record ed. [place] [address] [address], [place], [address], 05/11/2025 11:54:26 Result Notes None recorded. Problems Name Problem SNOMED Code Status Onset Date Resolution Date Notes Provider Name and Address Organization Details Recorded Time Obesity 938784159 Completed BMI 43 - antenata l testing @ 34 wks Es healy [facility] 4 19:42:00 Bipolar disorder 32011027 Completed MFM consult -aripipr azole, fluoxeti ne 60mg, managed by her psychiat rist. Per MFM - cont manageme nt with psych. Ok to continue . Watch with breastfe eding. Es healy [facility] 4 19:42:00 Migraine 61814435 Completed excedrin tension headache recommen ded Es healy [facility] 4 19:42:00 Prematur e labor 4871292 Completed hx contract ions Es healy, [facility] 4 19:42:00 Pregnanc y 90611302 Completed 202302/24/2024 Alondra healy, [facility] 5 14:10:18 Pneumoni a 120383672 Completed 2023 Es healy, [facility] 4 19:42:00 Mixed anxiety and depressi ve disorder 759904535 Active 2024 fluoxeti ne 20mg hydroxyz ine prn Yumiko Guzman CNM [address], [place], [address], [facility] 5 13:41:32 Pregnanc y 30530389 Active 2024 Alondra healy, [facility] 5 14:10:18 Obesity 531970218 Active 2024 BMI 43 start bASA 81 mg Yumiko Guzman CNM [address], [place], [address], [facility] 5 14:30:43 Mixed anxiety and depressi ve disorder 525735665 Active 2024 fluoxeti ne 20mg hydroxyz ine prn Yumiko Guzman CNM [address], [place], [address], [facility] 5 13:41:32 Bipolar disorder 03616353 Active 2024 has a psychiat rist Yumiko Guzman CNM [address], [place], [address], [facility] 5 14:32:28 Problem Notes None recorded. Procedures Surgical History Date Name Laterality Status Provider Name and Address Organization Details Recorded Time 07/21/2023 Date of Last Pap Smear completed Es Rees [facility] 07/21/2023 16:09:33 05/31/2007 tonsilecto my/adenoid s completed Es Rees [facility] 07/21/2023 16:14:08 Imaging Results None [...] Updated DateTime 04/11/2025 170.18 cm 42.6 kg/m2 087144.12 g 122/83 mm[Hg] Kayleen Hester [facility] 04/11/2025 10:50:03 Social History Question Answer Notes LastModified by Organizat ion Details LastModified Time Tobacco Smoking Status Never Smoker Es healy, [facility] 07/21/2023 16:13:04 If You Are , What Was Your Level Of Alcohol Consumption Prior To ? Occasional [email or web address] Information not available 07/21/2023 How Many Years Have You Consumed Alcohol? 0 [email or web address] Information not available 10/13/2023 Are You Blind Or Do You Have Difficulty Seeing? No Information n ot available 07/21/2023 What Is Your Level Of Caffeine Consumption? Moderate [email or web address] Information not available 10/13/2023 How Much Tobacco Do You Chew? None [email or web address] Information not available 10/13/2023 In The 14 Days Before Symptom Onset, Have You Had Close Contact With A Laboratory-confirm ed COVID-19 While That Case Was Ill? No [email or web address] Information n ot available 07/21/2023 In The 14 Days Before Symptom Onset, Have You Had Close Contact With A Person Who Is Under Investigation For COVID-19 While That Person Was Ill? No [email or web address] Information not available 07/21/2023 Have You Been To An Area Known To Be High Risk For COVID-19? No [email or web address] Information not available 07/21/2023 Are You Deaf Or Do You Have Serious Difficulty Hearing? No [email or web address] Information not available 07/21/2023 What Type Of Diet Are You Following? REGULAR [email or web address] Information n ot available 07/21/2023 What Is The Highest Grade Or Level Of School You Have Completed Or The Highest Degree You Have Received? KS96241-7 [email or web address] Information not available 10/13/2023 Are There Any Guns Present In Your Home? No [email or web address] Information not available 10/13/2023 Do You Use Protection During Sex? No [email or web address] Information not available 10/13/2023 Do You Use Your Seat Belt Or Car Seat Routinely? Yes [email or web address] Information not available 07/21/2023 Are You Sexually Active? Yes [email or web address] Information not available 01/10/2025 Do You Have Smoke And Carbon Monoxide Detectors In Your Home? Yes [email or web address] Information not available 07/21/2023 At What Age Did You Start Smoking Tobacco? 0 Information not available 10/13/2023 How Much Tobacco Do You Smoke? No [email or web address] Information not available 10/13/2023 Do You Use Sunscreen Routinely? Yes [email or web address] Information not available 07/21/2023 Has Tobacco Cessation Counseling Been Provided? No Information not available 07/21/2023 How Many Years Have You Smoked Tobacco? 0 [email or web address] Information not available 10/13/2023 Have You Used IV Drugs? No [email or web address] Information not available 10/13/2023 Do You Have Difficulty Walking Or Climbing Stairs? No Information not available 07/21/2023 Sex: Unknown Functional Status Question Answer Note LastModified by Organizat ion Details LastModified Time Do you use any illicit or recreational drugs? No [email or web address] Information not available 07/21/2023 Do you or have you ever used any other forms of tobacco or nicotine? No Information not available 07/21/2023 What is your level of alcohol consumption? None [email or web address] Information not available 07/21/2023 Are you able to walk independently without assistance or assistive devices? YESWOREST [email or web address] Information not available 07/21/2023 Are you able to care for yourself independently? 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 No [email or web address] Information not available 07/21/2023 What is your exercise level? Moderate [email or web address] Information not available 10/13/2023 Mental Status Question Answer Note LastModified by Organization D etails LastModified Time Do you feel stressed (tense, restless, nervous, or anxious, or unable to sleep at night)? [id number] [email or web address] Information not available 07/21/2023 Family History Relationship Description Onset Age of this Age Resolved Age Notes LastModified by Organization Details LastModified Time Mother Polycystic ovary syndrome [email or web address] Not available 07/21 16:12:47 Medical History Condition [...] ICD10 Code Diagnosis IMO Codes Diagnosis Note [id number] Mario Alberto Yoo MD [facility] [address],[place] [address] 03/12/2025 13:10:56 03/12/2025 14:30:38 Urinary symptoms 854517131 R39.9 53939 Epigastric pain 15902719 R10.13 06933 [id number] Mario Alberto Yoo MD [facility] [address] [address] 04/11/2025 09:43:09 04/11/2025 12:01:25 anatomy study 662453400 Z36.2 O99.210 Z3A.24 [id number] Yumiko Guzman CNM [facility] [address] [address] 04/11/2025 09:44:54 04/11/2025 13:26:30 Gestation period, 24 weeks 406517196 Z3A.24 [id number] Health Concerns Section Related Observation LastModified by Organization Detai ls LastModified Time None Recorded Concern Status LastModified by Organization Details LastModified Time None Recorded Payers Encounter Date Sequence Insurance Name Policy Number Policy Mata Covered Member ID Mata Member ID Guarantor Name 04/11/2025 1 [facility] [id number] Suazo [id number] Claire R Harjinder Notes Date Note Type Note Provider Name and Address Organization Details Recorded Time 04/11/2025 text/html Generic HPI TemplateReported by Patient Yumiko Guzman, [facility] [address], [place], [address], [facility] 04/11/2025 13:02:13 OBGyn Episode Ob Episode Information Episode Created Date Number of Fetuses Patient Bloodtype Patient rh Status Prepregnancy Weight lbs Domestic Partner Domestic Partner Phone Father Name Character Impersonator Status 01/11/20 25 1 A Positive OPEN Fetus Data First Name Last Name Admitted to NICU Weight (g) Sex Living Outcome Pediatric Complications Fetus ID Race Codes Race Delivery Type [id number] Problems Problem Notes oral HSV only+THC 01/10 Problem Name Start Date End Date Resolution Snomed Code Not e Mixed anxiety and depressive disorder 01/10/2025 [id number] fluoxeti ne 20mghydroxyzine prn Bipolar disorder 01/10/2025 [id number] rodriguez s a psychiatrist Obesity 01/10/20[id number] art bASA 81 mg [...] Date Ultra Sound Latest Days Gestation 0 [email or web address] 01/10/2025 07/28/19 26 0 Pre-diana Flowsheet Flowsheet Date 01/10/2025 Pascal Score Blood Edema Fundus Height Fundus Units Glucose Ketones Leukocytes Nitrite Labor Signs Protein Cervic Dilation Cervic Effacement Cervic Station Type Weight in lbs Pre/Post Dialysis Refused [id number] BP Diastolic BP Location Tested BP Systolic [...] Weight in lbs Pre/Post Dialysis Refused Weight 266.979163928959 BP Diastolic BP Location Tested BP Systolic [...] Weight in lbs Pre/Post Dialysis Refused Weight 264.308113703869 BP Diastolic BP Location Tested BP Systolic BP Type 86 R arm 122 sitting Fetus Heart Rate Present Fetus Movement A Yes Comments +FM doing well anatomy incom plete, ed precautions reviews for dizziness plan residential monitor x 3 days, 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 Flowsheet Date 03/12/2025 Pascal Score Blood Edema Fundus Height Fundus Units Glucose Ketones Leukocytes Nitrite Labor Signs Protein Cervic Dilation Cervic Effacement Cervic Station Type Weight in lbs Pre/Post Dialysis Refused 269.323119907185 BP Diastolic BP Location Tested BP Systolic [...] Weight in lbs Pre/Post Dialysis Refused Weight 272.204733618138 BP Diastolic BP Location Tested BP Systolic [...] Type Weight in lbs Pre/Post Dialysis Refused 277.909000471386 BP Diastolic BP Location Tested BP Systolic BP Type 84 L arm 127 sitting Fetus Heart Rate Present Fetus Movement Comments +FM growth 25 %, vtx, having a hard time with seasonal anxiety/depression, 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 hx bipolar 2, [...]
--- OUTSIDE RECORDS SUMMARY | 2025-05-25 11:39 | XMS_ITS | Continuity of Care Document ---
Author Organization [facility] Address [address] [place] [address] Care Team Providers Care Assisted Living Manager Name Role Phone CHRISTI LAIRD Primary Care Provider Assessment Encounter Date Assessment Date Assessment LastModified by Organization Details LastModified Time 03/07/2025 03/07/2025 Patient is _19__weeks . Discussed plan. Not available 03/07/2025 12:35:08 Plan of Treatment Reminders Order Date Submit [...] Not Available Robert hussein [address], [place], [address], 01/16/2025 02:31:48 08/19/20 25 01/16/2025 [UNIT Y] ANEUP LOIDY NIPT 22Q11.2 microdeletio n LOW RISK <1 in 10,000 normal Not Available [facility] [address], [place], [address], 01/16/2025 02:31:48 01/17/20 25 01/16/2025 [UNIT Y] ANEUP LOIDY NIPT sex chromosome aneuploidy NOT DETECT ED normal Not Available [facility] [address], [place], [address], 01/16/2025 02:31:48 01/17/20 25 01/16/2025 [UNIT Y] ANEUP LOIDY NIPT monosomy X LOW RISK <1 in 10,000 normal Not Available [facility] [address], [place], [address], 01/16/2025 02:31:48 01/17/20 25 01/16/2025 [UNIT Y] ANEUP LOIDY NIPT trisomy 13 LOW RISK <1 in 10,000 normal Not Available [facility] [address], [place], [address], 01/16/2025 02:31:48 01/17/20 25 01/16/2025 [UNIT Y] ANEUP LOIDY NIPT trisomy 18 LOW RISK <1 in 10,000 normal Not Available [facility] [address], [place], [address], 01/16/2025 02:31:48 01/17/20 25 01/16/2025 [UNIT Y] ANEUP LOIDY NIPT trisomy 21 LOW RISK <1 in 10,000 normal Not Available [facility] [address], [place], [address], 01/16/2025 02:31:48 01/17/20 25 01/16/2025 [UNIT Y] ANEUP LOIDY NIPT sex FEMALE normal Not Available [facility] [address], [place], [address], 01/16/2025 02:31:48 01/17/20 25 01/16/2025 [UNIT Y] ANEUP LOIDY NIPT gestation SINGLE TON normal Not Available [facility] [address], [place], [address], 01/16/2025 02:31:48 01/17/20 25 01/16/2025 [UNIT Y] ANEUP LOIDY NIPT for detailed report, see pdf See PDF normal Not Available [facility] [address], [place], [address], 01/16/2025 02:31:48 01/21/20 25 01/20/2025 [UNIT Y] ALEJANDRA Wade sickle cell disease/beta -thalassemia /hemoglobino pathies carrier screen NEGATI VE normal Not Available [facility] [address], [place], [address], 01/20/2025 04:29:08 01/21/20 25 01/20/2025 [UNIT Y] ALEJANDRA Wade alpha-thalas semia carrier screen NEGATI VE normal Not Available [facility] [address], [place], [address], 01/20/2025 04:29:08 01/21/20 25 01/20/2025 [UNIT Y] ALEJANDRA Wade cystic fibrosis carrier screen NEGATI VE normal Not Available [facility] [address], [place], [address], 01/20/2025 04:29:08 01/21/20 25 01/20/2025 [UNIT Y] ALEJANDRA Wade spinal muscular atrophy carrier screen NEGATI VE 2 SMN1 copies , SNP not presen t normal Not Available [facility] [address], [place], [address], 01/20/2025 04:29:08 01/21/20 25 01/20/2025 [UNIT Y] ALEJANDRA Wade for detailed report, see pdf See PDF normal Not Available [facility] [address], [place], [address], 01/20/2025 04:29:08 01/11/2001/10/2025 HEPAT ITIS B SURFA CE ANTIG EN hepatitis B surface antigen Non-re active non-re active This assay was perfo rmed using [employer] ratio n reage nts and test kits. Value s obtai kimberly with other assay metho ds or kits canno t be used inter powers eably . Not Available [facility] (Lab) [address], [place], [address], 01/11/2025 12:17:08 01/11/2001/10/2025 HIV 1/2 ANTIG EN/AN TIBOD Y, REFLE X CONFI RMATI ON HIV antigen/anti body Nonrea ctive nonrea ctive HIV-1 antig en and HIV-1 /HIV- 2 antib odies were not detec saravanan. No labor atory evide nce of HIV infec tion. Not Available [facility] (Lab) [address] [facility], [place], [address], 01/11/2025 12:17:08 01/11/2001/10/2025 HEPAT ITIS C ANTIB SUSANNE SCREE N, REFLE X TO CONFI RMATI ON hepatitis C antibody Non-re active non-re active Antib odies to HCV Not Detec saravanan, does not exclu de the possi bilit y of expos ure to HCV. Not Available [facility] (Lab) [address], [place], [address], 01/11/2025 12:17:08 01/11/2001/10/2025 TSH, REFLE X FREE T4 TSH 1.04 uIU/m L 0.30-5 .33 Not Available [facility] (Lab) [address], [place], [address], 01/11/2025 12:17:09 01/11/20 25 01/10/2025 CBC W/DIF F WBC 11.0 10'3/ uL 3.5-10 .5 high Not Available [facility] (Lab) [address], [place], [address], 01/11/2025 12:17:09 01/11/20 25 01/10/2025 CBC W/DIF F RBC 4.37 10'6/ uL (based on docume nted legal sex) 3.80-5 .20 Not Available [facility] (Lab) [address] [facility], [place], [address], 01/11/2025 12:17:09 01/11/2001/10/2025 CBC W/DIF F HGB 13.7 g/dL (based on docume nted legal sex) 11.6-1 5.4 Not Available [facility] (Lab) [address] [facility], [place], [address], 01/11/2025 12:17:09 01/11/2001/10/2025 CBC W/DIF F HCT 40.1 % (based on docume nted legal sex) 34.0-4 5.0 Not Available [facility] (Lab) [address] [facility], [place], [address], 01/11/2025 12:17:09 01/11/2001/10/2025 CBC W/DIF F MCV 91.8 fL 80.0-9 9.0 Not Available [facility] (Lab) [address] [facility], [place], [address], 01/11/2025 12:17:09 01/11/2001/10/2025 CBC W/DIF F MCH 31.4 pg 27.0-3 4.0 Not Available [facility] (Lab) [address] [facility], [place], [address], 01/11/2025 12:17:09 01/11/2001/10/2025 CBC W/DIF F MCHC 34.2 g/dL 32.0-3 5.5 Not Available [facility] (Lab) [address] [facility], [place], [address], 01/11/2025 12:17:09 01/11/2001/10/2025 CBC W/DIF F RDW 12.4 % 11.0-1 5.0 Not Available [facility] (Lab) [address] [facility], [place], [address], 01/11/2025 12:17:09 01/11/2001/10/2025 CBC W/DIF F plt 227 10'3/ uL 150-40 0 Not Available [facility] (Lab) [address] [facility], [place], [address], 01/11/2025 12:17:09 01/11/2001/10/2025 CBC W/DIF F MPV 11.5 fL 8.8-12 .1 Not Available [facility] (Lab) [address] [facility], [place], [address], 01/11/2025 12:17:09 01/11/2001/10/2025 CBC W/DIF F NRBC's 0.0 % 0.0 Not Available [facility] (Lab) [address] [facility], [place], [address], 01/11/2025 12:17:09 01/11/2001/10/2025 CBC W/DIF F absolute NRBCs 0.0 10'3/ uL no refere nce range establ ished Not Available [facility] (Lab) [address], [place], [address], 01/11/2025 12:17:09 01/11/2001/10/2025 CBC W/DIF F neutrophils 71.3 % 34.0-7 3.0 Not Available [facility] (Lab) [address], [place], [address], 01/11/2025 12:17:09 01/11/2001/10/2025 CBC W/DIF F lymphocytes 22.0 % 15.0-5 0.0 Not Available [facility] (Lab) [address] [facility], [place], [address], 01/11/2025 12:17:09 01/11/2001/10/2025 CBC W/DIF F monocytes 4.1 % 1.0-15 .0 Not Available [facility] (Lab) [address] [facility], [place], [address], 01/11/2025 12:17:09 01/11/2001/10/2025 CBC W/DIF F eosinophils 1.7 % 0.0-8. 0 Not Available [facility] (Lab) [address] [facility], [place], [address], 01/11/2025 12:17:09 01/11/2001/10/2025 CBC W/DIF F basophils 0.4 % 0.0-2. 0 Not Available [facility] (Lab) [address] [facility], [place], [address], 01/11/2025 12:17:09 01/11/2001/10/2025 CBC W/DIF F immature [...] Available [facility] (Lab) [address] [facility], [place], [address], 01/11/2025 12:17:09 01/11/2001/10/2025 CBC W/DIF F absolute neutrophils 7.8 10'3/ uL 1.5-8. 0 Not Available [facility] (Lab) [address] [facility], [place], [address], 01/11/2025 12:17:09 01/11/2001/10/2025 CBC W/DIF F absolute lymphocytes 2.4 10'3/ uL 1.0-4. 0 Not Available [facility] (Lab) [address] [facility], [place], [address], 01/11/2025 12:17:09 01/11/2001/10/2025 CBC W/DIF F absolute monocytes 0.5 10'3/ uL 0.2-1. 0 Not Available [facility] (Lab) [address] [facility], [place], [address], 01/11/2025 12:17:09 01/11/2001/10/2025 CBC W/DIF F absolute eosinophils 0.2 10'3/ uL 0.0-0. 6 Not Available [facility] (Lab) [address] [facility], [place], [address], 01/11/2025 12:17:09 01/11/2001/10/2025 CBC W/DIF F absolute basophils 0.0 10'3/ uL 0.0-0. 3 Not Available [facility] (Lab) [address] [facility], [place], [address], 01/11/2025 12:17:09 01/11/2001/10/2025 CBC W/DIF F absolute [...] Available [facility] (Lab) [address], [place], [address], 01/11/2025 12:17:09 01/11/2001/10/2025 TYPE/ RH/SC REEN ABO/Rh type A POS Not Available [facility] (Lab) [address], [place], [address], 01/11/2025 12:17:10 01/11/2001/10/2025 TYPE/ RH/SC REEN antibody screen NEG Not Available [facility] (Lab) [address] [place], [address], 01/11/2025 12:17:10 01/11/20 25 01/10/2025 TYPE/ RH/SC REEN exp date 2024 23:59 Not Available [facility] (Lab) [address] [facility], [place], [address], 01/11/2025 12:17:10 01/11/20 25 01/10/2025 RUBEL LA IGG ANTIB SUSANNE, QUANT rubella antibodies, IgG Reacti ve reacti ve Not Available [facility] (Lab) [address], [place], [address], 01/11/2025 12:17:10 01/11/2001/10/2025 RUBEL LA IGG ANTIB SUSANNE, QUANT rubella antibodies, IgG quant 10.2 IU/mL >=10 Non-r eacti ve (Non- Immun e) <10 IU/mL React zahra (Immu ne) > or = 10 IU/mL Not Available [facility] (Lab) [address], [place], [address], 01/11/2025 12:17:10 01/11/2001/10/2025 HEMOG LOBIN A1C hemoglobin [...] Available [facility] (Lab) [address] [facility], [place], [address], 01/11/2025 12:17:10 01/11/20 25 01/10/2025 RPR SCREE N, REFLE X TITER /CONF IRMAT ION RPR qualitative Nonrea ctive nonrea ctive Not Available [facility] (Lab) [address] [facility], [place], [address], 01/11/2025 12:17:11 01/11/2001/10/2025 CT/GC AND TRICH OMONA S VAGIN YADIRA (RRNA ), URINE chlamydia trachomatis, PCR Negati ve negati ve Not Available [facility] (Lab) [address] [facility], [place], [address], 01/12/2025 01:12:08 01/11/20 25 01/10/2025 CT/GC AND TRICH OMONA S VAGIN YADIRA (RRNA ), URINE neisseria gonorrhoeae, PCR Negati ve negati ve Not Available [facility] (Lab) [address], [place], [address], 01/12/2025 01:12:08 01/11/20 25 01/10/2025 CT/GC AND TRICH OMONA S VAGIN YADIRA (RRNA ), URINE trichomonas vaginalis ribosomal RNA (rrna) Negati ve negati ve Not Available [facility] (Lab) [address] [facility], [place], [address], 01/12/2025 01:12:08 01/11/20 25 01/10/2025 CULTU RE: URINE result report SEE RESULT S BELOW Test: Cultu re: Urine Speci men Sourc e: Urine Voide d Speci men Type: Urine Speci men Date: 2024 1352 Resul t Date: 2024 0008 Resul t Statu s: Final resul t Abnor mal: No Resul ting Lab: [facility] [address] [facility] [address] Tel: CULTU RE ----- ----- ----- --- Cultu re resul t (>=3 organ isms prese nt) indic ates possi ble conta minat ion. Repea t cultu re if sympt oms indic ate. Not Available [facility] (Lab) [address], [place], [address], 01/12/2025 01:12:09 01/11/20 25 01/10/2025 drug scree n, urine Amphetamines : negati ve Not Available [facility] [address], [place], [address], 01/10/2025 14:48:40 01/11/20 25 01/10/2025 drug scree n, urine Cannabinoids : positi ve Not Available [facility] [address], [place], [address], 01/10/2025 14:48:40 01/11/20 25 01/10/2025 drug scree n, urine Cocaine: negati ve Not Available [place] [address], [place], [address], 01/10/2025 14:48:40 01/11/20 25 01/10/2025 drug scree n, urine Opiates: negati ve Not Available [place] [address], [place], [address], 01/10/2025 14:48:40 01/11/20 25 01/10/2025 drug scree n, urine Phenocyclidi ne: negati ve Not Available [place] [address], [place], [address], 01/10/2025 14:48:40 01/11/20 25 01/10/2025 drug scree n, urine Barbiturates : negati ve Not Available [place] [address], [place], [address], 01/10/2025 14:48:40 01/11/20 25 01/10/2025 drug scree n, urine Benzodiazepi joaquín: negati ve Not Available [place] [address], [place], [address], 01/10/2025 14:48:40 01/11/20 25 01/10/2025 drug scree n, urine Ethanol: negati ve Not Available [place] [address], [place], [address], 01/10/2025 14:48:40 01/11/20 25 01/10/2025 drug scree n, urine Hallucinogen s: negati ve Not Available [place] [address], [place], [address], 01/10/2025 14:48:40 01/11/20 25 01/10/2025 drug scree n, urine Inhalants: negati ve Not Available [place] [address], [place], [address], 01/10/2025 14:48:40 01/11/20 25 01/10/2025 drug scree n, urine Anabolic Steroids: negati ve Not Available [place] [place] [address], [place], [address], 01/10/2025 14:48:40 01/11/20 25 01/10/2025 US, obste tric, nucha l trans lucen cy No observ ation record ed. [email or web address] [place] [address], [place], [address], 01/15/2025 22:18:32 01/11/20 25 01/10/2025 US, obste tric, nucha l trans lucen cy No observ ation record ed. [facility] [address], [place], [address], 01/10/2025 18:49:50 03/07/2003/07/2025 US, obste tric, 2nd or 3rd trime ster No observ ation record ed. [email or web address] [place] [address], [place], [address], 03/07/2025 15:09:10 03/07/2003/07/2025 US, obste tric, 2nd or 3rd trime ster No observ ation record ed. [email or web address] [address], [place], [address], 03/07/2025 11:22:48 03/12/2003/12/2025 US, abdom en, compl ete No observ ation record ed. [email or web address] [address], [address], 03/12/2025 17:49:13 03/12/2003/12/2025 US, abdom en, compl ete No observ ation record ed. [email or web address] [address], [address], 03/12/2025 16:56:41 03/21/20 25 03/12/2025 giles r monit or No observ ation record ed. [email or web address], [address], 03/23/2025 16:53:34 03/21/20 25 03/12/2025 giles r monit or No observ ation record ed. [address] (Cardiology [facility]) [address] [place] [address], [address], 03/23/2025 16:53:35 04/11/20 25 04/11/2025 US, obste tric, follo w-up No observ ation record ed. [email or web address] [place] [address], [place], [address], 04/11/2025 15:57:47 04/11/20 25 04/11/2025 US, obste tric, follo w-up No observ ation record ed. [facility] [address], [place], [address], 04/11/2025 18:17:58 04/12/2004/12/2025 non-s tress test No observ ation record ed. [facility] [address], [place], [address], 04/24/2025 18:37:23 05/08/20 25 05/08/2025 US, obste tric, follo w-up No observ ation record ed. [facility] [address], [place], [address], 05/08/2025 14:17:15 05/08/20 25 05/08/2025 US, obste tric, follo w-up No observ ation record ed. [email or web address] [place] [address], [place], [address], 05/11/2025 11:54:26 Result Notes None recorded. Problems Name Problem SNOMED Code Status Onset Date Resolution Date Notes Provider Name and Address Organization Details Recorded Time Obesity 285582234 Completed BMI 43 - antenata l testing @ 34 wks Es healy, [facility] 4 19:42:00 Bipolar disorder 15064108 Completed MFM consult -aripipr azole, fluoxeti ne 60mg, managed by her psychiat rist. Per MFM - cont manageme nt with psych. Ok to continue . Watch with breastfe eding. Es healy, [facility] 4 19:42:00 Migraine 10294001 Completed excedrin tension headache recommen ded Es healy, [facility] 4 19:42:00 Prematur e labor 3628508 Completed hx contract ions Es Rees null, [facility] 4 19:42:00 Pregnanc y 79888957 Completed 202302/24/2024 Alondra Melendez null, [facility] 5 14:10:18 Pneumoni a 362007232 Completed 2023 Es Rees null, [facility] 4 19:42:00 Mixed anxiety and depressi ve disorder 057874318 Active 2024 fluoxeti ne 20mg hydroxyz ine prn Yumiko Guzman CNM [address], [place], [address], [facility] 5 13:41:32 Pregnanc y 07039419 Active 2024 Alondra Melendez null, [facility] 5 14:10:18 Obesity 139375417 Active 2024 BMI 43 start bASA 81 mg Yumiko Guzman CNM [address], [place], [address], [facility] 5 14:30:43 Mixed anxiety and depressi ve disorder 499449952 Active 2024 fluoxeti ne 20mg hydroxyz ine prn Yumiko Guzman CNM [address], [place], [address], [facility] 5 13:41:32 Bipolar disorder 47081157 Active 2024 has a psychiat rist Yumiko Guzman CNM [address], [place], [address], [facility] 5 14:32:28 Problem Notes None recorded. Procedures Surgical History Date Name Laterality Status Provider Name and Address Organization Details Recorded Time 07/21/2023 Date of Last Pap Smear completed Es Rees [facility] 07/21/2023 16:09:33 05/31/2007 tonsilecto my[facility] 16:14:08 Imaging Results None [...] Updated DateTime 03/07/2025 170.18 cm 41.3 kg/m2 345432.39 g 122/86 mm[Hg] Alondra Melendez [facility] 03/07/2025 11:01:12 Social History Question Answer Notes LastModified by Organizat ion Details LastModified Time Tobacco Smoking Status Never Smoker Es healy, [facility] 07/21/2023 16:13:04 If You Are , What Was Your Level Of Alcohol Consumption Prior To ? Occasional [email or web address] Information not available 07/21/2023 How Many Years Have You Consumed Alcohol? 0 [email or web address] Information not available 10/13/2023 Are You Blind Or Do You Have Difficulty Seeing? No Information n ot available 07/21/2023 What Is Your Level Of Caffeine Consumption? Moderate [email or web address] Information not available 10/13/2023 How Much Tobacco Do You Chew? None [email or web address] Information not available 10/13/2023 In The 14 Days Before Symptom Onset, Have You Had Close Contact With A Laboratory-confirm ed COVID-19 While That Case Was Ill? No [email or web address] Information n ot available 07/21/2023 In The 14 Days Before Symptom Onset, Have You Had Close Contact With A Person Who Is Under Investigation For COVID-19 While That Person Was Ill? No [email or web address] Information not available 07/21/2023 Have You Been To An Area Known To Be High Risk For COVID-19? No Information not available 07/21/2023 Are You Deaf Or Do You Have Serious Difficulty Hearing? No [email or web address] Information not available 07/21/2023 What Type Of Diet Are You Following? REGULAR [email or web address] Information n ot available 07/21/2023 What Is The Highest Grade Or Level Of School You Have Completed Or The Highest Degree You Have Received? [id number] Information not available 10/13/2023 Are There Any Guns Present In Your Home? No [email or web address] Information not available 10/13/2023 Do You Use Protection During Sex? No Information not available 10/13/2023 Do You Use Your Seat Belt Or Car Seat Routinely? Yes [email or web address] Information not available 07/21/2023 Are You Sexually Active? Yes [email or web address] Information not available 01/10/2025 Do You Have Smoke And Carbon Monoxide Detectors In Your Home? Yes [email or web address] Information not available 07/21/2023 At What Age Did You Start Smoking Tobacco? 0 [email or web address] Information not available 10/13/2023 How Much Tobacco Do You Smoke? No [email or web address] Information not available 10/13/2023 Do You Use Sunscreen Routinely? Yes [email or web address] Information not available 07/21/2023 Has Tobacco Cessation Counseling Been Provided? No [email or web address] Information not available 07/21/2023 How Many Years Have You Smoked Tobacco? 0 [email or web address] Information not available 10/13/2023 Have You Used IV Drugs? No [email or web address] Information not available 10/13/2023 Do You Have Difficulty Walking Or Climbing Stairs? No [email or web address] Information not available 07/21/2023 Sex: Unknown Functional Status Question Answer Note LastModified by Organizat ion Details LastModified Time Do you use any illicit or recreational drugs? No [email or web address] Information not available 07/21/2023 Do you or have you ever used any other forms of tobacco or nicotine? No [email or web address] Information not available 07/21/2023 What is your level of alcohol consumption? None [email or web address] Information not available 07/21/2023 Are you able to walk independently without assistance or assistive devices? YESWOREST [email or web address] Information not available 07/21/2023 Are you able to care for yourself independently? 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 No [email or web address] Information not available 07/21/2023 What is your exercise level? Moderate [email or web address] Information not available 10/13/2023 Mental Status Question Answer Note LastModified by Organization D etails LastModified Time Do you feel stressed (tense, restless, nervous, or anxious, or unable to sleep at night)? [id number] Information not available 07/21/2023 Family History Relationship Description Onset Age of this Age Resolved Age Notes LastModified by Organization Details LastModified Time Mother Polycystic ovary syndrome [email or web address] Not available 07/21 16:12:47 Medical History Condition [...] ICD10 Code Diagnosis IMO Codes Diagnosis Note [id number] Yumiko Guzman CNM [place] [address] [facility] [place] [address] 02/07/2025 10:02:57 02/07/2025 10:40:20 Gestation period, 15 weeks 0758490 Z3A.15 [id number] Mario Alberto Yoo MD [place] [address] [facility] [place] [address] 03/07/2025 09:46:14 03/07/2025 10:59:03 Screening status [id number] Z36.3 Z3A.19 [id number] Yumiko Guzman CNM [place] [address] [address] 03/07/2025 09:47:03 03/07/2025 13:53:20 Gestation period, 19 weeks 11781264 Z3A.19 8067834 Palpitations 25752085 R0 0.2 926494 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, 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 Health Concerns Section Related Observation LastModified by Organization Detai ls LastModified Time None Recorded Concern Status LastModified by Organization Details LastModified Time None Recorded Payers Encounter Date Sequence Insurance Name Policy Number Policy Mata Covered Member ID Mata Member ID Guarantor Name 03/07/2025 1 [facility] [id number] Tarun Suazo [id number] Claire Kirit Light Notes Date Note Type Note Provider Name and Address Organization Details Recorded Time 03/07/2025 text/html Generic HPI TemplateReported by Patient Yumiko Ryanne Guzman CNM [address], [place], [address], [facility] 03/07/2025 13:42:49 OBGyn Episode Ob Episode Information Episode Created Date Number of Fetuses Patient Bloodtype Patient rh Status Prepregnancy Weight lbs Domestic Partner Domestic Partner Phone Father Name Senior Cobol Developer Status 01/11/20 25 1 A Positive OPEN Fetus Data First Name Last Name Admitted to NICU Weight (g) Sex Living Outcome Pediatric Complications Fetus ID Race Codes Race Delivery Type [id number] Problems Problem Notes oral HSV only+THC 01/10 Problem Name Start Date End Date Resolution Snomed Code Not e Mixed anxiety and depressive disorder 01/10/2025 [id number] fluoxeti ne 20mghydroxyzine prn Bipolar disorder 01/10/2025 [id number] rodriguez s a psychiatrist Obesity 01/10/[id number] art bASA 81 mg [...] Date Ultra Sound Latest Days Gestation 0 [id number] 01/10/2025 07/28/19 26 0 Pre- Flowsheet Flowsheet Date 01/10/2025 Pascal Score Blood Edema Fundus Height Fundus Units Glucose Ketones Leukocytes Nitrite Labor Signs Protein Cervic Dilation Cervic Effacement Cervic Station Type Weight in lbs Pre/Post Dialysis Refused [id number] BP Diastolic BP Location Tested BP Systolic [...] Weight in lbs Pre/Post Dialysis Refused Weight 266.536788197423 BP Diastolic BP Location Tested BP Systolic [...] Weight in lbs Pre/Post Dialysis Refused Weight 264.670843238410 BP Diastolic BP Location Tested BP Systolic BP Type 86 R arm 122 sitting Fetus Heart Rate Present Fetus Movement A Yes Comments +FM doing well anatomy incom plete, ed precautions reviews for dizziness 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, 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 Flowsheet Date 03/12/2025 Pascal Score Blood Edema Fundus Height Fundus Units Glucose Ketones Leukocytes Nitrite Labor Signs Protein Cervic Dilation Cervic Effacement Cervic Station Type Weight in lbs Pre/Post Dialysis Refused 269.069155161822 BP Diastolic BP Location Tested BP Systolic [...] Weight in lbs Pre/Post Dialysis Refused Weight 272.797294949541 BP Diastolic BP Location Tested BP Systolic [...] Type Weight in lbs Pre/Post Dialysis Refused 277.914656389583 BP Diastolic BP Location Tested BP Systolic BP Type 84 L arm 127 sitting Fetus Heart Rate Present Fetus Movement Comments +FM growth 25 %, vtx, having a hard time with seasonal anxiety/depression, unable to get into psychiatrist or [facility] due to transportation issues. hx bipolar 2, [...]
--- OUTSIDE RECORDS SUMMARY | 2025-05-25 11:39 | XMS_ITS | Clinical Summary ---
Author Organization [facility] [address] [facility] Address [address] [facility] [address] [place] [address] Care Team Providers Care Corporate Communications Intern Name Role Phone Mamie Johnson MD Primary Care Provider Allergies No known active allergies Medications No known medications Active Problems No known active problems Social History Tobacco Use Types Packs/Day Years Used Date Smoking Tobacco: Never Assessed Comments Unknown Sex and Gender Information Value Date Recorded Sex Assigned at Not on file Legal Sex Female 1:00 AM [employer] Gender Identity Not on file Sexual Orientation [...] 10/16/1999 HPV Vaccines Completed 02/01/2013, 02/10/2012 Insurance [facility] Care Teams Corporate Communications Intern Relationship Specialty Start Date End Date Mamie Johnson MD [address] [place] [id number] PCP - General Internal Medicine 01/03/25
--- OUTSIDE RECORDS SUMMARY | 2025-05-25 11:40 | XMS_ITS | Data Portability ---
Author Organization [facility] Address [address] [place] [address] [place] [address] Care Team Providers Care Digital Business Analyst Name Role Phone CHRISTI LAIRD Primary Care Provider Assessment Encounter Date Assessment Date Assessment LastModified by Organization Details LastModified Time 04/11/2025 04/11/2025 Patient is _24__weeks . Discussed plan. [email or web address] Not available 04/11/2025 13:01:56 05/08/2025 05/08/2025 Patient is _28__weeks . Discussed plan. [email or web address] Not available 05/08/2025 13:43:20 Plan of Treatment [...] urinaly sis, dipstic k 2024 025 [email or web address] [place], [place], [address], 03/12/2025 14:29:58 Referral None recorde d. Procedures None recorde d. Surgeries None recorde d. Imaging US, obstetr ic, follow- up 2024 025 [email or web address] [place], [address], [place], [address], 05/08/2025 19:52:48 US, obstetr ic, follow- up 2024 025 [email or web address] [place], [address], [place], [address], 04/12/2025 17:14:12 Medication Orders fluoxet ine 20 mg capsule 2024 025 [facility]armacy #[id number], [address], [place], [address], 05/08/2025 12:53:35 hydroxy zine HCl 25 mg tablet 2024 025 [facility]/Pharmacy #[id number], [address], [place], [address], 05/08/2025 12:53:35 Patient TargetsNo targets recorded. Patient InstructionsNo instructions recorded. Reason for Referral None Reported. Results Created Date Observation Date Name Description Value Unit Range Abnormal Flag Note LastModifiedBy Organization Detail LastModifiedTime 03/12/2003/12/2025 urina lysis , dipst ick Leukocytes trace Not Available Kaye amor [address], [place], [address], 03/12/2025 14:21:08 03/12/2003/12/2025 urina lysis , dipst ick Protein + Not Available [place] [address], [place], [address], 03/12/2025 14:21:08 03/12/2003/12/2025 urina lysis , dipst ick pH 6 Not Available [place] [address], [place], [address], 03/12/2025 14:21:08 03/12/20 25 03/12/2025 urina lysis , dipst ick Specific [place] 1.010 Not Available Ricky gonzalez [address], [place], [address], 03/12/2025 14:21:08 03/12/2003/12/2025 urina lysis , dipst ick Appearance cloudy Not Available [facility] [address], [place], [address], 03/12/2025 14:21:08 03/12/20 25 03/12/2025 urina lysis , dipst ick Color yellow Not Available [place] [address], [place], [address], 03/12/2025 14:21:08 05/08/20 25 05/08/2025 HEMAT OCRIT (HCT) HCT 34.6 % (based on docume nted legal sex) 34.0-4 5.0 Not Available [facility] (Lab) [address] [facility], [place], [address], 05/09/2025 18:24:30 05/08/20 25 05/08/2025 HEMOG LOBIN (HGB) HGB 11.8 g/dL (based on docume nted legal sex) 11.6-1 5.4 Not Available [facility] (Lab) [address] [place], [address], 05/09/2025 18:24:31 05/08/20 25 05/08/2025 GTT - GESTA MARQUISE L SCREE N, ACOG OB glucose, 1 hour screen 140 mg/dL 70-135 high Not Available [facility] (Lab) [address] [place], [address], 05/09/2025 18:24:31 05/08/20 25 05/08/2025 HIV 1/2 ANTIG EN/AN TIBOD Y, REFLE X CONFI RMATI ON HIV antigen/anti body Nonrea ctive nonrea ctive HIV-1 antig en and HIV-1 /HIV- 2 antib odies were not detec saravanan. No labor atory evide nce of HIV infec tion. Not Available [facility] (Lab) [address] [facility], [place], [address], 05/09/2025 18:24:31 05/08/20 25 05/08/2025 RPR SCREE N, REFLE X TITER /CONF IRMAT ION RPR qualitative Nonrea ctive nonrea ctive Not Available [facility] (Lab) [address] [facility], [place], [address], 05/09/2025 18:24:32 03/07/20 25 03/07/2025 US, obste tric, 2nd or 3rd trime ster No observ ation record ed. [email or web address] [place] [address], [place], [address], 03/07/2025 15:09:10 03/07/2003/07/2025 US, obste tric, 2nd or 3rd trime ster No observ ation record ed. [email or web address] [place] [address], [place], [address], 03/07/2025 11:22:48 03/12/2003/12/2025 US, abdom en, compl ete No observ ation record ed. [email or web address] [facility] [address] [address], [place], [address], 03/12/2025 17:49:13 03/12/2003/12/2025 US, abdom en, compl ete No observ ation record ed. [email or web address] [facility] [address] [facility] [address], [place], [address], 03/12/2025 16:56:41 03/21/2003/12/2025 giles r monit or No observ ation record ed. [email or web address] [facility] [address] [facility] [address], [place], [address], 03/23/2025 16:53:34 03/21/20 25 03/12/2025 giles r monit or No observ ation record ed. [email or web address] (Cardiology [facility] Emg) [address] [facility] [address], [place], [address], 03/23/2025 16:53:35 04/11/20 25 04/11/2025 US, obste tric, follo w-up No observ ation record ed. [email or web address] [place] [address], [place], [address], 04/11/2025 15:57:47 04/11/2004/11/2025 US, obste tric, follo w-up No observ ation record ed. [facility] [address], [place], [address], 04/11/2025 18:17:58 04/12/2004/12/2025 non-s tress test No observ ation record ed. [facility] [address] [facility] [address], [place], [address], 04/24/2025 18:37:23 05/08/20 25 05/08/2025 US, obste tric, follo w-up No observ ation record ed. [facility] [address], [place], [address], 05/08/2025 14:17:15 05/08/20 25 05/08/2025 US, obste tric, follo w-up No observ ation record ed. [email or web address] [place] [address], [place], [address], 05/11/2025 11:54:26 Result Notes None recorded. Problems Name Problem SNOMED Code Status Onset Date Resolution Date Notes Provider Name and Address Organization Details Recorded Time Obesity 842490365 Completed BMI 43 - antenata l testing @ 34 wks Es Rees [facility], [place] - [facility] 19:42:00 Bipolar disorder 87871537 Completed MFM consult -aripipr azole, fluoxeti ne 60mg, managed by her psychiat rist. Per MFM - cont manageme nt with psych. Ok to continue . Watch with breastfe [email or web address]. Es healy, [facility] 4 19:42:00 Migraine 71227835 Completed excedrin tension headache recommen ded Es Negrita null, [facility] 4 19:42:00 Prematur e labor 7879336 Completed hx contract ions Es Negrita null, [facility] 4 19:42:00 Pregnanc y 94678531 Completed 202302/24/2024 Alondra Melendez [facility], [facility] 5 14:10:18 Pneumoni a 219287822 Completed 2023 Es Rees [facility], [facility] 4 19:42:00 Mixed anxiety and depressi ve disorder 059052812 Active 2024 fluoxeti ne 20mg hydroxyz ine prn Yumiko Guzman CNM [address], [place], [address], [facility] 5 13:41:32 Pregnanc y 28103001 Active 2024 Alondra Melendez null, [facility] 5 14:10:18 Obesity 887114376 Active 2024 BMI 43 start bASA 81 mg Yumiko Guzman CNM [address], [place], [address], [facility] 5 14:30:43 Mixed anxiety and depressi ve disorder 699429230 Active 2024 fluoxeti ne 20mg hydroxyz ine prn Yumiko Guzman CNM [address], [place], [address], [facility] 13:41:32 Bipolar disorder 73913284 Active 2024 has a psychiat ghulam Guzman, [facility] [address], [place], [address], [facility] 14:32:28 Problem Notes None recorded. Procedures Surgical History Date Name Laterality Status Provider Name and Address Organization Details Recorded Time 07/21/2023 Date of Last Pap Smear completed Escher Rees [facility] 07/21/2023 16:09:33 05/31/2007 tonsilecto my/adenoid [facility] 07/21[facility]2023 16:14:08 Imaging Results None [...] Address Organization Details Last Updated DateTime 03/12/2025 089953.50282 g 116/79 mm[Hg] Kayleen [facility] 03/12/2025 14:15:23 Date Recorded Body height Body mass index (BMI) Body weight Systolic And Diastolic Provider Name and Address Organization Details Last Updated DateTime 04/11/2025 170.18 cm 42.6 kg/m2 078182.12 g 122/83 mm[Hg] [facility] 04/11/2025 10:50:03 Date Recorded Body weight Systolic And Diastolic Provider Name and Address Organization Details Last Updated DateTime 05/08/2025 513799.07857 g 127/84 mm[Hg] [facility] 05/08/2025 12:28:26 Social History Question Answer Notes LastModified by Organizat ion Details LastModified Time Tobacco Smoking Status Never Smoker Es healy, [facility] 07/21/2023 16:13:04 If You Are , What Was Your Level Of Alcohol Consumption Prior To ? Occasional [email or web address] Information not available 07/21/2023 How Many Years Have You Consumed Alcohol? 0 [email or web address] Information not available 10/13/2023 Are You Blind Or Do You Have Difficulty Seeing? No [email or web address] Information n ot available 07/21/2023 What Is Your Level Of Caffeine Consumption? Moderate [email or web address] Information not available 10/13/2023 How Much Tobacco Do You Chew? None [email or web address] Information not available 10/13/2023 In The 14 Days Before Symptom Onset, Have You Had Close Contact With A Laboratory-confirm ed COVID-19 While That Case Was Ill? No [email or web address] Information n ot available 07/21/2023 In The 14 Days Before Symptom Onset, Have You Had Close Contact With A Person Who Is Under Investigation For COVID-19 While That Person Was Ill? No [email or web address] Information not available 07/21/2023 Have You Been To An Area Known To Be High Risk For COVID-19? No [email or web address] Information not available 07/21/2023 Are You Deaf Or Do You Have Serious Difficulty Hearing? No [email or web address] Information not available 07/21/2023 What Type Of Diet Are You Following? REGULAR [email or web address] Information n ot available 07/21/2023 What Is The Highest Grade Or Level Of School You Have Completed Or The Highest Degree You Have Received? IN99048-1 [email or web address] Information not available 10/13/2023 Are There Any Guns Present In Your Home? No [email or web address] Information not available 10/13/2023 Do You Use Protection During Sex? No [email or web address] Information not available 10/13/2023 Do You Use Your Seat Belt Or Car Seat Routinely? Yes [email or web address] Information not available 07/21/2023 Are You Sexually Active? Yes [email or web address] Information not available 01/10/2025 Do You Have Smoke And Carbon Monoxide Detectors In Your Home? Yes [email or web address] Information not available 07/21/2023 At What Age Did You Start Smoking Tobacco? 0 [email or web address] Information not available 10/13/2023 How Much Tobacco Do You Smoke? No [email or web address] Information not available 10/13/2023 Do You Use Sunscreen Routinely? Yes [email or web address] Information not available 07/21/2023 Has Tobacco Cessation Counseling Been Provided? No [email or web address] Information not available 07/21/2023 How Many Years Have You Smoked Tobacco? 0 Information not available 10/13/2023 Have You Used IV Drugs? No [email or web address] Information not available 10/13/2023 Do You Have Difficulty Walking Or Climbing Stairs? No [email or web address] Information not available 07/21/2023 Sex: Unknown Functional Status Question Answer Note LastModified by Organizat ion Details LastModified Time Do you use any illicit or recreational drugs? No Information not available 07/21/2023 Do you or have you ever used any other forms of tobacco or nicotine? No [email or web address] Information not available 07/21/2023 What is your level of alcohol consumption? None Information not available 07/21/2023 Are you able to walk independently without assistance or assistive devices? YESWOREST [email or web address] Information not available 07/21/2023 Are you able to care for yourself independently? 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 No [email or web address] Information not available 07/21/2023 What is your exercise level? Moderate [email or web address] Information not available 10/13/2023 Mental Status Question Answer Note LastModified by Organization D etails LastModified Time Do you feel stressed (tense, restless, nervous, or anxious, or unable to sleep at night)? [id number] [email or web address] Information not available 07/21/2023 Family History Relationship Description Onset Age of this Age Resolved Age Notes LastModified by Organization Details LastModified Time Mother Polycystic ovary syndrome [email or web address] Not available 07/21 16:12:47 Medical History Condition [...] ICD10 Code Diagnosis IMO Codes Diagnosis Note [id number] Mario Alberto Yoo MD [place] [address],[place] [address] 07/21/2023 14:50:14 07/21/2023 15:34:25 screening 010634380 Z36.87 Z3A.08 [id number] [facility] [address],[place] [address] 07/21/2023 14:54:05 07/21/2023 16:27:01 Amenorrhea 33274979 N91.2 reviewed office, precaution spap done Gynecologi c examination 58414356 Z01.419 Bipolar disorder 7222411 4 F31.9 continue meds, plan [facility] 2 732207 [place]AL [place] [address] [address] 08/18/2023 09:37:51 08/18/2023 12:06:08 Gestation period, 12 weeks 76657198 Z3A.12 [id number] Mario Alberto Yoo MD [place] [address],[place] [address] 08/18/2023 09:39:11 08/18/2023 11:21:43 screening 483287709 Z36.82 Z3A.12 [id number] [facility] [address],[place] [address] 09/15/2023 09:31:34 09/15/2023 09:58:32 Routine care 973636817 Z34.82 [id number] [facility] [address],[place] [address] 10/13/2023 09:41:13 10/13/2023 11:15:54 Routine care 562574909 Z34.82 [id number] Yumiko Guzman [facility] [address],[place] [address] 11/12/2023 09:28:36 11/12/2023 16:14:02 Urinary symptoms 697170599 R39.9 Nausea 484239778 R11.0 Yeast detected 752022875 R89.5 Routine an tenatal care 405109113 Z34.82 157914 Yumiko Guzman [facility] [address],[place] [address] 12/08/2023 09:01:41 12/08/2023 10:05:28 Routine care 996619317 Z34.82 [id number] Yumiko Guzman [facility] [address],[place] [address] 12/22/2023 09:42:53 12/22/2023 10:15:12 Routine care 552274561 Z34.82 [id number] Mario Alberto Yoo MD [place] [address],[place] [address] 01/05/2024 10:11:53 01/05/2024 11:10:49 Maternal obesity complicating , childbirth and the puerperium, antepartum 0856874992 07 O99.213 Z3A.32 132100 Yumiko Guzman [facility] [address],[place] [address] 01/05/2024 10:13:00 01/05/2024 11:54:57 [id number] Mario Alberto Yoo MD [place] [address],[place] [address] 01/19/2024 09:44:10 01/19/2024 09:51:32 Maternal obesity complicating , childbirth and the puerperium, antepartum 8919595842 07 O99.213 Z3A.32 [id number] Mario Alberto Yoo MD [place] [address],[place] [address] 01/19/2024 09:44:32 01/19/2024 10:17:54 Maternal obesity complicating , childbirth and the puerperium, antepartum 1334636868 07 O99.213 Z3A.34 192777 [facility] [address],[place] [address] 01/19/2024 09:44:53 01/19/2024 11:12:34 Routine care 118013012 Z34.82 [id number] Mario Alberto Yoo MD [place] [address],[place] [address] 01/19/2024 09:55:15 01/19/2024 10:56:09 Maternal obesity complicating , childbirth and the puerperium, antepartum 7407469570 07 O99.213 Z3A.34 577802 Mario Alberto Yoo MD [place] [address],[place] [address] 01/26/2024 09:39:53 01/26/2024 10:23:12 Maternal obesity complicating , childbirth and the puerperium, antepartum 5392370618 07 O99.213 Z3A.34 [id number] Mario Alberto Yoo MD [place] [address],[place] [address] 01/26/2024 09:40:16 01/26/2024 11:10:26 Maternal obesity complicating , childbirth and the puerperium, antepartum 9404206712 07 O99.213 Z3A.35 [id number] [facility] [address],[place] [address] 01/26/2024 09:40:39 01/26/2024 11:31:53 Gestation period, 35 weeks 44237504 Z3A.35 [id number] Mario Alberto Yoo MD [place] [address],[place] [address] 02/02/2024 09:34:31 02/02/2024 10:37:08 Maternal obesity complicating , childbirth and the puerperium, antepartum 1021963179 07 O99.213 Z3A.35 [id number] Mario Alberto Yoo MD [place] [address],[place] [address] 02/02/2024 09:35:04 02/02/2024 11:41:39 Maternal obesity complicating , childbirth and the puerperium, antepartum 1042454053 07 O99.213 Z3A.36 285259 [facility] [address],[place] [address] 02/02/2024 09:35:29 02/02/2024 11:59:51 Routine care 823662162 Z34.82 [id number] Mario Alberto Yoo MD [place] [address],[place] [address] 02/09/2024 09:39:46 02/09/2024 10:29:21 Maternal obesity complicating , childbirth and the puerperium, antepartum 7400617071 07 O99.213 Z3A.37 [id number] Mario Alberto Yoo MD [place] [address],[place] [address] 02/09/2024 09:40:12 02/09/2024 10:59:49 Maternal obesity complicating , childbirth and the puerperium, antepartum 8080935613 07 O99.213 Z3A.37 473145 Yumiko Guzman [facility] [address],[place] [address] 02/09/2024 09:40:35 02/09/2024 11:28:09 Routine care 409411001 Z34.82 continue vitamin [id number] Mario Alberto Yoo MD [place] [address],[place] [address] 02/16/2024 09:40:48 02/16/2024 10:34:39 Maternal obesity complicating , childbirth and the puerperium, antepartum 7346231458 07 O99.213 Z3A.38 709618Yoshi Yoo MD [place] [address],[place] [address] 02/16/2024 09:41:14 02/16/2024 11:12:36 Maternal obesity complicating , childbirth and the puerperium, antepartum 4337151114 07 O99.213 Z3A.38 052611 [facility] [address],[place] [address] 02/16/2024 09:41:37 02/16/2024 12:02:30 Routine care 900819055 Z34.82 continue vitamin [id number] Yumiko Guzman [facility] [address],[place] [address] 03/31/2024 10:07:29 03/31/2024 11:29:03 care 837794240 Z39.2 normal exam, f/u with psychiatry as reccall with cycle for paragard placement [id number] Mario Alberto Yoo MD [place] [address],[place] [address] 11/23/2024 16:19:54 11/24/2024 08:41:44 Uterine size for dates discrepancy 484403304 O26.841 Z3A.01 4998213 [id number] Mario Alberto Yoo MD [place] [address],[place] [address] 12/15/2024 10:38:58 12/15/2024 11:19:39 [id number] [facility] [address],[place] [address] 12/15/2024 10:39:22 12/15/2024 12:31:22 Amenorrhea 66855929 N91.2 16841 reviewed office, precaution spap done [id number] Mario Alberto Yoo MD [place] [address],[place] [address] 01/10/2025 12:23:20 01/10/2025 13:34:14 screening 347914090 Z36.82 Z3A.11 118598 [id number] Yumiko Guzman [facility] [address],[place] [address] 01/10/2025 12:23:46 01/10/2025 14:38:45 Herpes simplex 45806118 B00.9 00968699 Gestation period, 11 weeks 03431024 Z3A.11 5557466 [id number] Yumiko Guzman [facility] [address],[place] [address] 02/07/2025 10:02:57 02/07/2025 10:40:20 Gestation period, 15 weeks 3810900 Z3A.15 3416650 [id number] Mario Alberto Yoo MD [place] [address],[place] [address] 03/07/2025 09:46:14 03/07/2025 10:59:03 Screening status 675277653 Z36.3 Z3A.19 5128709457 [id number] Yumiko Guzman [facility] [address],[place] [address] 03/07/2025 09:47:03 03/07/2025 13:53:20 Gestation period, 19 weeks 48290837 Z3A.19 2246614 Palpitations 70436671 R0 0.2 567265 plan air sampling and monitoring, 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 [id number] Mario Alberto Yoo MD [place] [address],[place] [address] 03/12/2025 13:10:56 03/12/2025 14:30:38 Urinary symptoms 448620649 R39.9 56496 Epigastric pain 38881521 R10.13 90494 [id number] Mario Alberto Yoo MD [place] [address],[place] [address] 04/11/2025 09:43:09 04/11/2025 12:01:25 anatomy study 782076428 Z36.2 O99.210 Z3A.24 8462460109 [id number] Yumiko Guzman [facility] [address],[facility] [address] 04/11/2025 09:44:54 04/11/2025 13:26:30 Gestation period, 24 weeks 425344424 Z3A.24 4485562 [id number] Mario Alberto Yoo MD [place] [address],[place] [address] 05/08/2025 10:01:44 05/08/2025 12:24:56 Obesity 603294868 O99.210 Z3A.28 392717 [id number] Yumiko Guzman, [facility] [address],[place] [address] 05/08/2025 10:04:10 05/08/2025 13:53:08 Bipolar II disorder, most recent episode major depressive 95101226 F31.81 75418217 to ed if any suicidal thoughts Gestation period, 28 weeks 58266750 Z3A.28 3749009 Health Concerns Section Related Observation LastModified by Organization Detai ls LastModified Time None Recorded Concern Status LastModified by Organization Details LastModified Time None Recorded Advance Directives Directive None Recorded Payers Insurance Date Sequence Insurance Name Policy Number Policy Mata Covered Member ID Mata Member ID Guarantor Name 05/08/2025 1 [facility] [employer] [id number] Claire Light [id number] Claire R Light 05/08/2025 1 [employer] [id number] Claire R Light [id number] Claire R Light 05/22/2025 1 [facility] [id number] Tarun Suazo [id number] Claire R Light 05/08/2025 2 [place] Claire Light [id number] Claire R Light 05/22/2025 2 [facility] (MEDICAID REPLACEMENT - HMO) Claire R Light [id number] Claire R Light 05/08/2025 2 [facility] - DOS ON OR AFTER 20 (MEDICAID REPLACEMENT - HMO) Claire Light [id number] Claire R Light Notes Date Note Type Note Provider Name and Address Organization Details Recorded Time 03/12/2025 text/html OB ProblemReport ed by Patient Mario Alberto Yoo MD [address], [place], [address], [facility] 03/12/2025 14:30:17 04/11/2025 text/html Generic HPI TemplateReported by Patient Yumiko E. RAMBO Guzman [address], [place], [address], [facility] 04/11/2025 13:02:13 05/08/2025 text/html Generic HPI TemplateReported by Patient Yumiko Guzman CNM [address], [place], [address], [facility] 05/08/2025 13:43:54 OBGyn Episode Ob Episode Information Episode Created Date Number of Fetuses Patient Bloodtype Patient rh Status Prepregnancy Weight lbs Domestic Partner Domestic Partner Phone Father Name Instrument Checker Status 07/21/19 24 1 CLOSED Fetus Data First Name Last Name Admitted to NICU Weight (g) Sex Living Outcome Pediatric Complications Fetus ID Race Codes Race Delivery Type 2834.95 F Full Term 36068 Vaginal Delivery Raji Calculation Initial Raji Date [...] Domestic Partner Domestic Partner Phone Father Name Instrument Checker Status 07/21/19 24 1 CLOSED Fetus Data First Name Last Name Admitted to NICU Weight (g) Sex Living Outcome Pediatric Complications Fetus ID Race Codes Race Delivery Type 2948.34 8 F Full Term 86982 Vaginal Delivery Raji Calculation Initial Raji Date [...] Domestic Partner Domestic Partner Phone Father Name Instrument Checker Status 08/18/19 24 1 A Positive [address] CLOSED Fetus Data First Name Last Name Admitted to NICU Weight (g) Sex Living Outcome Pediatric Complications Fetus ID Race Codes Race Delivery Type 2834.95 F true Full Term [id number] Vaginal Delivery Problems Problem Notes [facility] Appt: 11/05/23 815am u/s o nly, 12/03/23 815a u/s only Recs: testing weekly at 34 wks. Continue to follow with psych for med management. UDS + THC UR- 144/XLR , Buprenorphine discuss next visit per SP Problem Name Start Date End Date Resolution Snomed Code Not e Obesity 667708526 BMI 43 - a ntenatal testing @ 34 wks Bipolar disorder [id number] [facility] consult -aripiprazole, fluoxetine 60mg, managed by her psychiatrist. Per [facility] - cont management with psych. Ok to continue. Watch with . Premature labor [id number] hx p reterm contractions Pneumonia 10/29/2023 [id number] Migraine [id number] excedrin t ension headache recommended Raji Calculation [...] Sound Latest Days Gestation 08/18/19 24 12 [email or web address] 08/18/2023 03/01/20 24 0 Pre- Flowsheet Flowsheet Date 08/18/2023 Pascal Score Blood Edema Fundus Height Fundus Units Glucose Ketones Leukocytes Nitrite Labor Signs Protein Cervic Dilation Cervic Effacement Cervic Station neg none none trace Type Weight in lbs Pre/Post Dialysis Refused Weight 274.113646153553 BP Diastolic BP Location Tested BP Systolic BP Type 74 121 Fetus Heart Rate Present Fetus Movement A No Comments history of bipolar disorder, recently increased her fluoxetine, US reviewed, bipolar disorder managed by her psychiatrist, BMI 43,start bASA to reduce the risk of preeclampsia, hx contractions, but term delivery edcuation and precautionsplan baseline at [facility] Flowsheet Date 09/15/2023 Pascal Score Blood Edema Fundus Height Fundus Units Glucose Ketones Leukocytes Nitrite Labor Signs Protein Cervic Dilation Cervic Effacement Cervic Station neg none none trace Type Weight in lbs Pre/Post Dialysis Refused Weight 268.614116749909 BP Diastolic BP Location Tested BP Systolic [...] Weight in lbs Pre/Post Dialysis Refused Weight 270.38813603255 BP Diastolic BP Location Tested BP Systolic BP Type 75 116 Fetus Heart Rate Present A 155 Present Fetus Movement A Yes Comments Patient is having some nause [facility] pt in 4 weeks, precautions and education gct at 28 weeks Flowsheet Date 11/12/2023 Pascal Score Blood Edema Fundus Height Fundus Units Glucose Ketones Leukocytes Nitrite Labor Signs Protein Cervic Dilation Cervic Effacement Cervic Station none 26 Type Weight in lbs Pre/Post Dialysis Refused Weight 262.547906033817 BP Diastolic BP Location Tested BP Systolic [...] Weight in lbs Pre/Post Dialysis Refused Weight 270.35798036485 BP Diastolic BP Location Tested BP Systolic [...] Weight in lbs Pre/Post Dialysis Refused Weight 272.279495405420 BP Diastolic BP Location Tested BP Systolic [...] Type Weight in lbs Pre/Post Dialysis Refused 271.397536876326 BP Diastolic BP Location Tested BP Systolic [...] Weight in lbs Pre/Post Dialysis Refused Weight 268.40478706724 BP Diastolic BP Location Tested BP Systolic BP Type 80 123 Fetus Heart Rate Present Fetus Movement A Yes Comments patient is having nausea and vomiting. education and precautions, preadmit scheduled, ok for tdap, bpp 10/, f/u next week Flowsheet Date 01/26/2024 Pascal [...] Weight in lbs Pre/Post Dialysis Refused Weight 268.20969380863 BP Diastolic BP Location Tested BP Systolic [...] Weight in lbs Pre/Post Dialysis Refused Weight 268.64922244972 BP Diastolic BP Location Tested BP Systolic [...] Weight in lbs Pre/Post Dialysis Refused Weight 265.521708008577 BP Diastolic BP Location Tested BP Systolic [...] Weight in lbs Pre/Post Dialysis Refused Weight 266.442993781605 BP Diastolic BP Location Tested BP Systolic [...] Estim ated Date of Delivery false Thalassemia (Bengali, Gabonese, Mediterranean, Or Background): MCV < 80 false Neural Tube Defect (Meningomyelocele, Spina Bifi da, Or Anencephaly) false Congenital Heart Defect false Down Syndrome false Ari-Sachs (eg, Episcopalian, Cajun, Guamanian-Zavala) f alse Millicent Disease false Sickle Cell Disease Or Trait () false Hemophilia Or Other Blood Disorders false Muscular Dystrophy false Cystic Fibrosis false Heber's Chorea false Intellectual Disability/Autism false If Yes, [...] Domestic Partner Domestic Partner Phone Father Name Instrument Checker Status 01/11/20 25 1 A Positive OPEN Fetus Data First Name Last Name Admitted to NICU Weight (g) Sex Living Outcome Pediatric Complications Fetus ID Race Codes Race Delivery Type [id number] Problems Problem Notes oral HSV only+THC 01/10 Problem Name Start Date End Date Resolution Snomed Code Not e Mixed anxiety and depressive disorder 01/10/2025 [id number] fluoxeti ne 20mghydroxyzine prn Bipolar disorder 01/10/2025 [id number] rodriguez s a psychiatrist Obesity 01/10/[id number] art bASA 81 mg [...] Date Ultra Sound Latest Days Gestation 0 [email or web address] 01/10/2025 07/28/19 26 0 Pre-diana Flowsheet Flowsheet Date 01/10/2025 Pascal Score Blood Edema Fundus Height Fundus Units Glucose Ketones Leukocytes Nitrite Labor Signs Protein Cervic Dilation Cervic Effacement Cervic Station Type Weight in lbs Pre/Post Dialysis Refused 277.878315862066 BP Diastolic BP Location Tested BP Systolic [...] Weight in lbs Pre/Post Dialysis Refused Weight 266.971834889104 BP Diastolic BP Location Tested BP Systolic [...] Weight in lbs Pre/Post Dialysis Refused Weight 264.677878480358 BP Diastolic BP Location Tested BP Systolic [...] Type Weight in lbs Pre/Post Dialysis Refused 269.985484237103 BP Diastolic BP Location Tested BP Systolic [...] Weight in lbs Pre/Post Dialysis Refused Weight 272.619156536774 BP Diastolic BP Location Tested BP Systolic [...] Type Weight in lbs Pre/Post Dialysis Refused 277.647398530746 BP Diastolic BP Location Tested BP Systolic BP Type 84 L arm 127 sitting Fetus Heart Rate Present Fetus Movement Comments +FM growth 25 %, vtx, having a hard time with seasonal anxiety/depression, 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 hx bipolar 2, [...]
--- NOTE | 2025-05-25 12:11 | PC.NURSE ---
1135- pt. came to OB unit to be evaluated with complaints of feeling pressure in her abdomen and pelvis. Pt states it feels like my bladder is full but when I try to go I do not have to. Pt. does not report any vaginal bleeding, leaking of fluid, or contractions and is feeling appropriate movement. pt. states she has had a UTI recently and has almost completed antibiotics.
[2025-05-25 12:15] LABS: Add Urine Microscopic? YES; Appearance Urine Cloudy (Clear); Glucose Urine UA Negative (Negative); Leukocyte Esterase Ur Negative LEU/UL (Negative); Nitrate Urine Negative (Negative); Non Pathogenic Casts 0-2; Specific Grav Ur 1.026 (1.001-1.035)
--- NOTE | 2025-05-25 12:56 | LDADM ---
This patient, Claire Grande, was admitted to OB Post 116 on 05/25/25 at 11:31. Plans for labor, pain management and were discussed with patient. Patient/family oriented to hospital policies and general routines including ID bracelet, bed and alarms, visiting hours, pain management, procedures, bathroom and other care routines, personal items, smoking policy, room service/diet and guest tray routines, infant security routines, and visiting hours. Patient/Family are encouraged to report perceived risks to care and to ask questions if they do not understand what they are told or what they should do. See OBIX for further documentation.
--- NOTE | 2025-06-18 14:38 | P.PNOB_ITS ---
OB - Triage/Final Diagnosis Visit Information Comments/Additional reasons for admission: I have assessed the risk for this patient, Claire Grande, and determined that she would benefit from observation care. Evaluation Laboratory results: Laboratory Tests 05/25/25 12:04 Urine Color Dark yellow Urine Appearance Cloudy H Urine pH 6.5 Ur Specific [place] 1.026 Urine Protein 1+ H Urine Glucose (UA) Negative Urine Ketones Trace H Ur Blood (Man) Negative Urine Nitrate Negative Urine Bilirubin Negative Urine Urobilinogen 1.0 Leukocyte Esterase Rfl Negative Urine RBC 0-2 Urine WBC 0-5 Ur Squamous Epith Cells Moderate Urine Bacteria None seen Urine Casts 0-2 Final Diagnosis (1) False labor: Code(s): O47.9 - False labor, unspecified Status: Acute
== END 2025-05-25 13:15 | disposition home or self-care (01) ==
PROVIDERS: Admitting Provider Obstetrics & Gynecology; PCP Internal Medicine Infectious Disease; Visit Provider Obstetrics & Gynecology
DX: O47.03 False labor before 37 completed weeks of gestation, third trimester (principal); Z3A.30 30 weeks gestation of pregnancy
CPT/HCPCS: 59025; 81001; G0378; G0379